=== PATIENT | male | born 1950 | race Caucasian/White ===

== ENCOUNTER 2017-03-20 12:51 | Emergency (ER) | payer OTHER ==
[~2017-03-20] VITALS: Ht 175.3 cm; Wt 108.7 kg
[~2017-03-20 12:51] MED LIST: ASPI81TA28 PO; CALC500C50 PO; CINA60TA PO; HYDR-5688 PO; LISI-461 PO; LPD600 PO; MULT-577 PO; MVC20 PO; NRV/10 PO; NVLGI7030 SC; OMEP20CA9 PO; SENN-65 PO
[2017-03-20 12:55] VITALS: TEMP 36.9; Ht 175.3 cm; Wt 108.7 kg
--- NOTE | 2017-03-20 13:30 | DIAGNOSTIC IMAGING REPORT ---
L HAND MIN 3 VIEWS ROUTINE CLINICAL HISTORY: L hand pain trauma COMPARISON: 10/09/2013 DISCUSSION: Moderate degenerative change. No evidence for acute bony pathology. Cortical margins are intact. Small old avulsion base middle phalanx third finger There is no evidence for soft tissue swelling. IMPRESSION: Moderate degenerative change. No acute bony abnormality. The above report was generated using voice recognition software. It may contain grammatical, syntax or spelling errors. Electronically signed by: Teo Mora M.D. 03/20/2017 1:28 PM Dictated Date/Time: 03/20/2017 1:27 PM
--- NOTE | 2017-03-20 13:51 | EMERGENCY ROOM VISIT NOTE ---
ED Visit Note First contact with patient: 12:59 Staff note: I have reviewed the Patients chart and have discussed this case with my PA. I generally agree with the ED note and findings.
[2017-03-20 13:54] VITALS: BP 150/75; PULSE 55; O2SAT 99
--- NOTE | 2017-03-20 17:20 | EMERGENCY ROOM VISIT NOTE ---
History First contact with patient: 12:59 Chief Complaint: HAND PAIN/INJURY Stated Complaint: FELL/LEFT HAND PAIN History of Present Illness The patient is a 67 year old male who presents to the Emergency Room with complaints of persistent left hand pain. The patient reports that he was walking his dog 4 days ago and fell while walking up a hill. The patient believes that when he lost his balance, he fell to his left and had his hand underneath his body. He does report hitting his head, but is had no developing headache, neck pain or other symptoms from his injuries. The patient is right- hand-dominant, and rates his discomfort a 9 out of 10. Review of Systems 10 system review was performed and was negative except for pertinent positives and negatives as indicated in history of present illness Past Medical/Surgical History Medical Problems: (1) Anemia (2) Benign hypertension (3) bowel obs with recent bowel peroration s/p colostomy (4) Complication of arteriovenous dialysis fistula (5) Cor pulmonale (6) Diabetes mellitus type 2 (7) End stage renal failure on dialysis (8) End-stage renal disease on hemodialysis (9) Obesity (10) OBESITY HYPOVENTILATION SYNDROME (11) Perforation of sigmoid colon due to diverticulitis (12) Pneumonia (13) Secondary hyperparathyroidism of renal origin (14) Tobacco user Surgical Problems: (1) History of cholecystectomy (2) History of eye surgery (3) S/P colostomy takedown Family History Cancer Diabetes mellitus Gallbladder disease Hypertension Social History Smoking Status: Never Smoker Alcohol Use: none Drug Use: none Marital Status: Housing Status: lives with family Occupation Status: retired Current/Historical Medications Scheduled Amlodipine Besylate (Amlodipine Besylate), 10 MG PO QAM Aspirin (Aspirin Ec), 81 MG PO QAM Calcium Carbonate (Antacid) (Tums), 1,500 MG PO TIDM Cinecalcet (Sensipar), 60 MG PO QPM Gemfibrozil (Gemfibrozil), 600 MG PO BID Insulin Aspart 70/30 (Novolog Mix 70/30), 1 DOSE SC QPM Lisinopril (Lisinopril), 10 MG PO QAM Lovastatin (Lovastatin), 20 MG PO QAM Multiple Vitamins W/ Minerals (Renal), 1 TAB PO BID Allergies Coded Allergies: NO KNOWN DRUG ALLERGIES (Verified Allergy, Unknown, NONE, 03/20/17) Sheep-derived Products (Verified Allergy, Unknown, wool socks make feet "break out", 03/20/17) Physical Exam Vital Signs Date Time Temp Pulse Resp B/P (MAP) Pulse Ox O2 Delivery O2 Flow Rate FiO2 03/20/17 13:54 55 18 150/75 99 03/20/17 12:55 36.9 66 18 164/80 100 Room Air Pain Rating (0-10): 5.0 Physical Exam CONSTITUTIONAL: Healthy and well nourished. Alert and oriented X 3 with positive affect. Patient does not appear in any acute distress. HEENT: Normocephalic, atraumatic. Pupils equal, round and reactive. NECK: Full active range of motion without discomfort. RESPIRATORY: Clear to auscultation bilaterally with no wheezing, crackles, rhonchi or stridor. CARDIOVASCULAR: Regular rate and rhythm with no murmurs, rubs or gallops. MUSCULOSKELETAL: Examination of the left hand does not show any obvious ecchymosis, abrasions or edema. He is mildly tender to palpation over the fifth metacarpal region. Flexion and extension of the fingers and wrist do not worsen his pain. Capillary refill is less than 2 seconds. INTEGUMENTARY: No rash or other significant dermatologic conditions noted. NEUROLOGIC: Left hand and fingers are sensory intact. Medical Decision & Procedures ER Provider Diagnostic Interpretation: My interpretation of left hand x-rays does not show any acute fractures or dislocations. Radiologist report is as follows: L HAND MIN 3 VIEWS ROUTINE CLINICAL HISTORY: L hand pain trauma COMPARISON: 10/09/2013 DISCUSSION: Moderate degenerative change. No evidence for acute bony pathology. Cortical margins are intact. Small old avulsion base middle phalanx third finger There is no evidence for soft tissue swelling. IMPRESSION: Moderate degenerative change. No acute bony abnormality. ED Course Patient history and physical exam were performed. Nurse's notes were reviewed. Vital signs were reviewed and were normal. The patient refused any analgesics. X-rays a left hand were normal. The patient was advised of his normal x-ray findings. He was encouraged to intermittently apply ice to the hand. Tylenol or ibuprofen if needed for additional pain relief. The patient was encouraged to follow-up with his PCP or orthopedics as needed for further management. The patient was happy with plan of care, voiced understanding of all discharge instructions, and rated his pain a 4 out of 10 at the conclusion of my exam. The patient was also seen and examined by Dr. Medel, ED attending physician, who agrees with workup and plan of care. Medical Decision Impression Primary Impression: Contusion of left hand Additional Impression: Fall from slip, trip, or stumble Departure Information Dispostion Home / Self-Care Condition GOOD Forms HOME CARE DOCUMENTATION FORM, IMPORTANT VISIT INFORMATION Patient Instructions My [facility] [employer] Additional Instructions Intermittently apply ice to hand as needed. Follow-up with your family doctor if hand pain is not improving within the next 5-7 days. Tylenol as needed for additional pain relief. Problem Qualifiers Primary Impression: Contusion of left hand Encounter type: initial encounter Qualified Codes: S60.222A - Contusion of left hand, initial encounter Additional Impression: Fall from slip, trip, or stumble Encounter type: initial encounter Qualified Codes: W01.0XXA - Fall on same level from slipping, tripping and stumbling without subsequent striking against object, initial encounter
== END 2017-03-20 14:04 | disposition home or self-care (01) ==
LOC: C.EDB 12:56 → C.EDD 14:04
DX: S60.222A Contusion of left hand, initial encounter (principal); M79.642 Pain in left hand; W19.XXXA Unspecified fall, initial encounter; I12.0 Hypertensive chronic kidney disease with stage 5 chronic kidney disease or end stage renal disease; N18.6 End stage renal disease; E11.22 Type 2 diabetes mellitus with diabetic chronic kidney disease; E66.9 Obesity, unspecified; Z68.28 Body mass index [BMI] 28.0-28.9, adult; Z99.2 Dependence on renal dialysis; Z79.4 Long term (current) use of insulin; Z79.82 Long term (current) use of aspirin; Z79.899 Other long term (current) drug therapy

== ENCOUNTER 2018-08-14 18:48 | Inpatient (IN) ==
[2018-08-14 19:18] LABS: Basophils # (auto) 0.02 K/uL (0-0.2); Basophils % (auto) 0.2 %; Eosinophils # (auto) 0.04 K/uL (0-0.5); Eosinophils % (auto) 0.4 %; Hematocrit (blood only) 35.1 % (42-52); Hemoglobin 12.2 g/dL (14.0-18.0); Immature Granulocytes # (auto) 0.02 K/uL (0.00-0.02); Immature Granulocytes % (auto) 0.2 %; Lymphocytes # (auto) 1.28 K/uL (1.2-3.4); Lymphocytes % (auto) 13.3 %; Mean Corpuscular Hgb Conc 34.8 g/dL (32-36); Mean Corpuscular Volume 96.7 fL (80-100); Mean Platelet Volume 9.8 fL (7.4-10.4); Monocytes # (auto) 0.79 K/uL (0.11-0.59); Monocytes % (auto) 8.2 %; Neutrophils # (auto) 7.45 K/uL (1.4-6.5); Neutrophils % (auto) 77.7 %; Platelet Count 257 K/uL (130-400); RDW Coefficient of Variation 13.3 % (11.5-14.5); RDW Standard Deviation 46.4 fL (36.4-46.3); Red Blood Count 3.63 M/uL (4.7-6.1)
[2018-08-14 19:35] LABS: INR 1.1 (0.9-1.1); Prothrombin Time 11.4 Seconds (9.0-12.0)
[2018-08-14] MEDS ORDERED: IOVERSOL 100ml IV PRN (19:43)
[2018-08-14 19:53] LABS: Albumin Globulin Ratio 0.9 (0.9-2); Albumin Level 3.6 gm/dl (3.4-5.0); BUN Creatinine Ratio 5.4 (10-20); Bilirubin,Total 0.4 mg/dl (0.2-1); Calcium 8.7 mg/dl (8.5-10.1); Creatinine Clr Calc Pharmacy 16.2 ml/min; Est GFR (African American) 11.5; Est GFR (Non-African American) 9.9; Globulin 4.2 gm/dl (2.5-4.0); Potassium 4.9 mmol/L (3.5-5.1); Total Protein 7.8 gm/dl (6.4-8.2); Troponin I 0.472 ng/ml (0-0.045)
--- NOTE | 2018-08-14 19:53 | CT Scan Report ---
CT head/brain wo con CLINICAL HISTORY: Head pain status post trauma COMPARISON STUDY: 12/13/2013 TECHNIQUE: Axial CT of the brain is performed from the vertex to the skull base. IV contrast was not administered for this examination. A dose lowering technique was utilized adhering to the principles of ALARA. CT DOSE: 4099.79 mGy.cm FINDINGS: No intra or extra-axial mass lesions are visualized. There is no CT evidence of acute cortical infarc tion. There is no evidence of midline shift. There is no acute hemorrhage. No calvarial fractures ar e visualized. There are patchy white matter hypodensities likely on a small vessel basis. 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 There is no evidence of acute sinusitis IMPRESSION: No acute intracranial findings Electronically signed by: Kelechi Moore M.D. 08/14/2018 7:51 PM
--- NOTE | 2018-08-14 19:54 | CT Scan Report ---
CT OF THE CERVICAL SPINE CLINICAL HISTORY: Neck pain status post trauma COMPARISON STUDY: No previous studies for comparison. CT DOSE: TECHNIQUE: CT scan of the cervical spine was performed from the skull base to the thoracic inlet. Anai ges are reviewed in the axial, sagittal, and coronal planes. IV contrast was not administered for thi s examination. A dose lowering technique was utilized adhering to the principles of ALARA. FINDINGS: The visualized portions of the lung apices reveal no evidence of pneumothorax. The prevertebral soft tissues are normal. No fractures or subluxations are visualized. There are multilevel degenerative changes IMPRESSION: No evidence of acute fracture or traumatic subluxation. Electronically signed by: Kelechi Moore M.D. 08/14/2018 7:53 PM
--- NOTE | 2018-08-14 20:03 | CT Scan Report ---
CT lumbar spine wo con CT DOSE: CLINICAL HISTORY: Lumbar spine pain status post trauma TECHNIQUE: Helical images were acquired in transverse plane. Reformatted sagittal and coronal images were reviewed. A dose lowering technique was utilized adhering to the principles of ALARA. CONTRAST: No contrast was administered COMPARISON STUDY: None. FINDINGS: L1-2 level: There is a minimal circumferential disc bulge. There is no significant spinal or foramina l stenosis L2-3 level: There is a minimal circumferential disc bulge. There is no significant spinal or foramina l stenosis L3-4 level: There is a mild circumferential disc bulge. There is mild trying or spinal canal narrowin g. There is no significant foraminal narrowing L4-5 level: There is a mild circumferential disc bulge. There is mild trying or spinal canal narrowin g. There is no significant foraminal narrowing L5-S1 level: There is a minimal circumferential disc bulge. There is no spinal or foraminal stenosis. No acute fractures or subluxations are visualized. There are degenerative changes with discogenic end plate erosive changes most pronounced at the T12-L1 level. IMPRESSION: No fractures or subluxations are visualized. Electronically signed by: Kelechi Moore M.D. 08/14/2018 8:02 PM
--- NOTE | 2018-08-14 20:11 | CT Scan Report ---
ADDENDUM Addendum: In addition, an acute nondisplaced fracture of the posterior right second rib is noted. Thi s is better depicted on the CT of the thoracic spine. A 1 cm anterior mediastinal nodule is low suspi cion. This may reflect a lymph node or anterior mediastinal lesion. A follow-up CT of the chest in 6 months to ensure stability is recommended. Electronically signed by: Rafi Hernandez M.D. 08/14/2018 8:[address] OF THE CHEST WITH IV CONTRAST CLINICAL HISTORY: Fall. COMPARISON STUDY: Chest radiograph January 27, 2016. TECHNIQUE: Following IV administration of 90 mL of Optiray-320, helical axial images of the chest we re obtained. Sagittal and coronal reconstructions were viewed as well as maximal intensity projectio ns on an independent 3-D workstation. Automated exposure control was utilized for the study. A dose lowering technique was utilized adhering to the principles of ALARA. FINDINGS: There is no evidence of traumatic injury to the thoracic aorta. The heart is moderately en larged. There is extensive coronary artery and mitral annular calcification. There is no mediastinal hematoma or pericardial effusion. A small hiatal hernia is noted. There is a 1 cm anterior mediastina l nodule on image 118 at 336. The thoracic spine CT will be reported separately. A few thyroid nodule s are incidentally noted. Note is made of an acute nondisplaced fracture of the posterior right first rib. There is an acute nondisplaced fracture of the anterior left eighth rib. There are multiple old bilateral rib fractures. There are extensive alveolar opacities within the right middle lobe and jennifer ateral lower lobes. There is no pneumothorax or pleural effusion. CT of the abdomen and pelvis will b e reported separately. IMPRESSION: 1. No evidence for traumatic injury to the thoracic aorta. 2. Acute nondisplaced fracture of the posterior right first rib. Acute nondisplaced fracture the ant erior left eighth rib. No pneumothorax or pleural effusion. 3. Extensive alveolar opacities within the bilateral lower lobe and right middle lobe which raises th e possibility of aspiration pneumonitis or pneumonia. 4. Moderate cardiomegaly. Extensive mitral annular and coronary artery calcification. Electronically signed by: Rafi Hernandez M.D. 08/14/2018 8:09 PM
--- NOTE | 2018-08-14 20:14 | CT Scan Report ---
CT abd pelvis IV con only CLINICAL HISTORY: Trauma. Change in mental status. ABDOMINAL PAIN COMPARISON STUDY: January 29, 2016 TECHNIQUE: The patient was scanned in a dynamic helical fashion during intravenous administration of 90 cc of Optiray 320. A dose lowering technique was utilized adhering to the principles of ALARA. CT DOSE: FINDINGS: Lower chest: There are multifocal airspace opacities within the right middle lobe and both lower lobe s. Likely diagnostic considerations include pneumonia or aspiration. No pleural effusions are visuali zed. There is no pneumothorax. Liver: There is mild hepatic steatosis. No focal masses are visualized. There is no evidence of acute hepatic injury. Gallbladder: Surgically absent Spleen: Normal in size and attenuation. Pancreas: Unremarkable. Adrenal glands: Unremarkable. Kidneys: Both kidneys are atrophic. There are multiple bilateral renal cysts. Some of the presumed cy sts are slightly hyperdense. There is no hydronephrosis. There are presumed vascular calcifications p resent in the renal sinus. Bowel: There are no transition zones indicate bowel obstruction. There is no evidence of acute divert iculitis. There are no extraluminal air collections. There is no pathologic interloop fluid. The appe ndix appears normal. There is a 5.3 colonic lipoma at the level of the hepatic flexure. There is colo harley diverticulosis. Peritoneum: There is no intraperitoneal free air or abdominal ascites. Vasculature: The abdominal aorta is normal in course and caliber. Adenopathy: None. Pelvic viscera: The bladder is contracted. Skeletal structures: No destructive osseous lesions are seen. IMPRESSION: 1. No evidence of acute intra-abdominal or pelvic injury 2. Bilateral pulmonary airspace opacities, likely secondary to pneumonia or aspiration 3. 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 08/14/2018 8:12 PM
--- NOTE | 2018-08-14 20:14 | CT Scan Report ---
CT OF THE THORACIC SPINE CLINICAL HISTORY: fall COMPARISON STUDY: No previous studies for comparison. TECHNIQUE: Axial images of the thoracic spine were obtained. Sagittal and coronal reconstructions wer e viewed. Study was performed utilizing automated exposure control for dose reduction and according t o ALARA principles. FINDINGS: Alignment of the thoracic spine is anatomic. Vertebral body heights are maintained. There i s no acute thoracic spine fracture or subluxation. Central canal and neural foramen are suboptimally assessed by CT. Note is made of an acute nondisplaced fracture of the posterior right first and secon d ribs. There is no right pneumothorax. Alveolar opacities within the bilateral lower lobes are tamar r depicted on the chest CT. IMPRESSION: 1. Acute nondisplaced fractures of the posterior right first and second ribs. 2. No acute thoracic spine fracture. 3. Alveolar opacities within the lungs which suggest aspiration pneumonitis or pneumonia. Electronically signed by: Rafi Hernandez M.D. 08/14/2018 8:12 PM
[2018-08-14] MEDS ORDERED: PIPERACILLIN/TAZOBACTAM 4.5 GM/120 ML BAG IV ONE (20:48)
[2018-08-14] MEDS ORDERED: PIPERACILL/TAZOBAC CONSULT ACTIVE PRN (20:48)
[2018-08-14] MEDS ORDERED: ASPIRIN CHEW 324 MG PO STA (21:56)
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
--- NOTE | 2018-08-14 23:59 | Emergency Department Note ---
Entered by Vani Barnes acting as a scribe for Gonzalez Medel DO History of Present Illness General Chief complaint: Fall Stated complaint: FALL DOWN 12 STEPS Source: patient and other (nursing staff) History of Present Illness Onset (ago): hour(s) 1 Location: neck Pain Consistency: + other (after falling down 12 carpeted steps) Quality: + other (fall down 12 carpeted steps) Associated symptoms: + other (Positive neck pain and head pain. Negative abdominal pain. 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 He went to the OR and was then discharged and fell down 12 [address]ed steps. Pt does not remember falling and does not know where he is. He has head pain and neck pain but denies any abdominal pain. No other exacerbating or remitting factors. Home Medications Home Medications Medication Instructions Recorded Confirmed Type B complex-vitamin C-folic acid 1 tab PO DAILY 08/14/18 08/14/18 History [Renal Vitamin] amlodipine 10 mg PO DAILY 08/14/18 08/14/18 History aspirin [Aspir-81] 81 mg PO DAILY 08/14/18 08/14/18 History calcium carbonate [Tums E-X] 4 tab PO TIDM 08/14/18 08/14/18 History cinacalcet [Sensipar] 30 mg PO BIDM 08/14/18 08/14/18 History gemfibrozil 600 mg PO BID 08/14/18 08/14/18 History insulin NPH and regular human 1 sliding scale dose SUBCUT UD 08/14/18 08/14/18 History [Novolin 70/30 U-100 Insulin] lisinopril 10 mg PO DAILY 08/14/18 08/14/18 History lovastatin 20 mg PO DAILY 08/14/18 08/14/18 History Allergies Allergy/AdvReac Type Severity Reaction Status Date / Time No Known Drug Allergies Allergy Unknown NONE Verified 08/14/18 21:36 sheep derived (ovine) Allergy Unknown wool socks Verified 03/20/17 13:28 make feet "break out" Past Med/Surg History Social History marital status: Current Living Situation: Family current occupational status: employed Feels Safe at Home: Yes Smoking Status: Current every day smoker Preferred Language: Maltese Review of Systems See HPI for pertinent positives & negatives. and A total of 10 systems reviewed and were otherwise negative Physical Exam Vital Signs Vital Signs - 24 hr 08/14/18 18:54 08/14/18 18:59 08/14/18 19:01 Temperature 36.7 C Temperature Source Oral Sepsis Recent Fever Within 48 Hours No Sepsis New/Unexplained Change in Mental Status No Sepsis Action Taken by Nursing No Action Required Pulse Rate 90 89 91 H Respiratory Rate 19 16 12 Blood Pressure 133/73 133/73 Blood Pressure Mean 93 93 Pulse Oximetry 96 96 99 Oxygen Delivery Method Room Air 08/14/18 19:48 08/14/18 20:00 08/14/18 20:30 Temperature Temperature Source Sepsis Recent Fever Within 48 Hours Sepsis New/Unexplained Change in Mental Status Sepsis Action Taken by Nursing Pulse Rate 104 H 82 79 Respiratory Rate 19 14 17 Blood Pressure 160/81 H 158/79 H Blood Pressure Mean 107 105 Pulse Oximetry 93 95 Oxygen Delivery Method 08/14/18 21:00 08/14/18 21:01 08/14/18 21:02 Temperature Temperature Source Sepsis Recent Fever Within 48 Hours Sepsis New/Unexplained Change in Mental Status Sepsis Action Taken by Nursing Pulse Rate Respiratory Rate 16 24 18 Blood Pressure 142/84 H Blood Pressure Mean 103 Pulse Oximetry 96 96 94 Oxygen Delivery Method 08/14/18 21:30 08/14/18 22:01 08/14/18 22:30 Temperature Temperature Source Sepsis Recent Fever Within 48 Hours Sepsis New/Unexplained Change in Mental Status Sepsis Action Taken by Nursing Pulse Rate 76 80 84 Respiratory Rate 15 21 32 H Blood Pressure 162/77 H 125/72 154/79 H Blood Pressure Mean 105 89 104 Pulse Oximetry 94 96 95 Oxygen Delivery Method 08/14/18 23:00 Temperature Temperature Source Sepsis Recent Fever Within 48 Hours Sepsis New/Unexplained Change in Mental Status Sepsis Action Taken by Nursing Pulse Rate 77 Respiratory Rate 13 Blood Pressure 157/79 H Blood Pressure Mean 105 Pulse Oximetry 94 Oxygen Delivery Method GENERAL: Sitting up in bed confused, C-collar in place. No acute distress. HEAD: normal cephalic, atraumatic. Small abrasion over the left ear EYE EXAM: normal conjunctiva, PERRL and EOM's grossly intact OROPHARYNX: no exudate, no erythema, lips, buccal mucosa, and tongue normal and mucous membranes are moist EARS: TMs clear b/l NECK: C-collar in place with midline paraspinal tenderness. CHEST: stable to compression anteriorly and posteriorly LUNGS: clear to auscultation. Normal chest wall mechanics HEART: no murmurs, S1 normal and S2 normal ABDOMEN: abdomen soft, non-tender, normo-active bowel sounds, no masses, no rebound or guarding. PELVIS: stable to compression anteriorly and posteriorly BACK: Back is symmetrical on inspection and there is no deformity, no midline tenderness, no CVA tenderness. UPPER EXTREMITIES: full active and passive range of motion of all joints without tenderness to palpation. LUE with fistula in place/dressing in place. Positive bruit. LOWER EXTREMITIES: full active and passive range of motion of all joints without tenderness to palpation NEURO EXAM: Awake but confused, cranial nerves II-XII grossly intact, normal speech, no gross weakness of arms, no gross weakness of legs. GCS: 14. Course ED COURSE: Vital signs were reviewed and showed hypertensive The patients medical record was reviewed The above diagnostic studies were performed and reviewed. ED treatments and interventions as stated above. 1851: The patient was evaluated in room B11. A complete history and physical examination was performed. 2054: I reviewed the patient's case with Dr. Marino, [facility] Hospitalist. He will evaluate the patient for further management. 2100: Upon reevaluation, the patient is feeling slightly better. I discussed my findings with the patient and he understands and agrees with the treatment plan. Based on the patients age, coexisting illnesses, exam and lab findings the decision to treat as an inpatient was made. The patient remained stable while under my care. The patient will be evaluated for further management. Consultations Consultation #1: I reviewed the patient's case with Dr. Marino, [facility] Hospitalist. He will evaluate the patient for further management. Time: 20:55 Administered Medications Ioversol (Optiray 320 100ml) 90 ml IV ONCE PRN PRN Reason: Interaction Checking Stop: 08/18/18 19:42 Last Admin: 08/14/18 19:43 Dose: 90 ml Discontinued Medications Aspirin (Aspirin) 324 mg PO NOW STA Stop: 08/14/18 21:57 Last Admin: 08/14/18 22:02 Dose: 324 mg Piperacillin Sod/Tazobactam Sod (Zosyn) 4.5 gm in 120 mls @ 240 mls/hr IV NOW ONE Stop: 08/14/18 21:17 Last Infusion: 08/14/18 21:29 Dose: 0 mls/hr Admin: 08/14/18 20:59 Dose: 240 mls/hr Medical Decision Making Differential Diagnosis Differential diagnoses include major intracranial, cervical, spinal, thoracic, abdominal, pelvic and neurologic injury. Fracture, contusion, sprain, strain, laceration, abrasions included as well. Medical Records Attestation: I reviewed the patient's medical records. Home Medications Current Medication List: was personally reviewed by me Laboratory Data Attestation: I reviewed the patient's lab results. Result diagrams: 08/14/18 19:05 08/14/18 19:05 Lab Results 08/14/18 08/14/18 08/14/18 Range/Units 19:05 19:05 19:05 WBC 9.60 (4.8-10.8) K/uL RBC 3.63 L (4.7-6.1) M/uL Hgb 12.2 L (14.0-18.0) g/dL Hct 35.1 L (42-52) % MCV 96.7 (80-100) fL MCH 33.6 (25-34) pg MCHC 34.8 (32-36) g/dL RDW Std Deviation 46.4 H (36.4-46.3) fL RDW Coeff of Mike 13.3 (11.5-14.5) % Plt Count 257 (130-400) K/uL MPV 9.8 (7.4-10.4) fL Immature Gran % (Auto) 0.2 % Neut % (Auto) 77.7 % Lymph % (Auto) 13.3 % [place] % (Auto) 8.2 % Eos % (Auto) 0.4 % Baso % (Auto) 0.2 % Immature Gran # (Auto) 0.02 (0.00-0.02) K/uL Neut # (Auto) 7.45 H (1.4-6.5) K/uL Lymph # (Auto) 1.28 (1.2-3.4) K/uL [place] # (Auto) 0.79 H (0.11-0.59) K/uL Eos # (Auto) 0.04 (0-0.5) K/uL Baso # (Auto) 0.02 (0-0.2) K/uL PT 11.4 (9.0-12.0) Seconds INR 1.1 (0.9-1.1) Sodium 133 L (136-145) mmol/L Potassium 4.9 (3.5-5.1) mmol/L Chloride 93 L (98-107) mmol/L Carbon Dioxide 29 (21-32) mmol/L Anion Gap 10.0 (3-11) BUN 29 H (7-18) mg/dl Creatinine 5.52 H* (0.6-1.4) mg/dl Est Cr Clr Drug Dosing 16.2 ml/min Est GFR ( Amer) 11.5 Est GFR (Non-Af Amer) 9.9 BUN/Creatinine Ratio 5.4 L (10-20) Glucose 285 H (70-99) mg/dl Calcium 8.7 (8.5-10.1) mg/dl Total Bilirubin 0.4 (0.2-1) mg/dl AST 15 (15-37) U/L ALT 14 (12-78) U/L Alkaline Phosphatase 100 (45-117) U/L Troponin I 0.472 H* (0-0.045) ng/ml Total Protein 7.8 (6.4-8.2) gm/dl Albumin 3.6 (3.4-5.0) gm/dl Globulin 4.2 H (2.5-4.0) gm/dl Albumin/Globulin Ratio 0.9 (0.9-2) Ethyl Alcohol mg/dL (0-3) mg/dl Blood Type Antibody Screen 08/14/18 08/14/18 Range/Units 19:15 19:49 WBC (4.8-10.8) K/uL RBC (4.7-6.1) M/uL Hgb (14.0-18.0) g/dL Hct (42-52) % MCV (80-100) fL MCH (25-34) pg MCHC (32-36) g/dL RDW Std Deviation (36.4-46.3) fL RDW Coeff of Mike (11.5-14.5) % Plt Count (130-400) K/uL MPV (7.4-10.4) fL Immature Gran % (Auto) % Neut % (Auto) % Lymph % (Auto) % [place] % (Auto) % Eos % (Auto) % Baso % (Auto) % Immature Gran # (Auto) (0.00-0.02) K/uL Neut # (Auto) (1.4-6.5) K/uL Lymph # (Auto) (1.2-3.4) K/uL [place] # (Auto) (0.11-0.59) K/uL Eos # (Auto) (0-0.5) K/uL Baso # (Auto) (0-0.2) K/uL PT (9.0-12.0) Seconds INR (0.9-1.1) Sodium (136-145) mmol/L Potassium (3.5-5.1) mmol/L Chloride (98-107) mmol/L Carbon Dioxide (21-32) mmol/L Anion Gap (3-11) BUN (7-18) mg/dl Creatinine (0.6-1.4) mg/dl Est Cr Clr Drug Dosing ml/min Est GFR ( Amer) Est GFR (Non-Af Amer) BUN/Creatinine Ratio (10-20) Glucose (70-99) mg/dl Calcium (8.5-10.1) mg/dl Total Bilirubin (0.2-1) mg/dl AST (15-37) U/L ALT (12-78) U/L Alkaline Phosphatase (45-117) U/L Troponin I (0-0.045) ng/ml Total Protein (6.4-8.2) gm/dl Albumin (3.4-5.0) gm/dl Globulin (2.5-4.0) gm/dl Albumin/Globulin Ratio (0.9-2) Ethyl Alcohol mg/dL < 3.0 (0-3) mg/dl Blood Type A Positive Antibody Screen NEGATIVE Imaging Data Radiologist's Impression: Radiology results as stated below per my review and the radiologist's interpretation: CT abd pelvis IV con only CLINICAL HISTORY: Trauma. Change in mental status. ABDOMINAL PAIN COMPARISON STUDY: January 29, 2016 TECHNIQUE: The patient was scanned in a dynamic helical fashion during intravenous administration of 90 cc of Optiray 320. A dose lowering technique was utilized adhering to the principles of ALARA. CT DOSE: FINDINGS: Lower chest: There are multifocal airspace opacities within the right middle lobe and both lower lobes. Likely diagnostic considerations include pneumonia or aspiration. No pleural effusions are visualized. There is no pneumothorax. Liver: There is mild hepatic steatosis. No focal masses are visualized. There is no evidence of acute hepatic injury. Gallbladder: Surgically absent Spleen: Normal in size and attenuation. Pancreas: Unremarkable. Adrenal glands: Unremarkable. Kidneys: Both kidneys are atrophic. There are multiple bilateral renal cysts. Some of the presumed cysts are slightly hyperdense. There is no hydronephrosis. There are presumed vascular calcifications present in the renal sinus. Bowel: There are no transition zones indicate bowel obstruction. There is no evidence of acute diverticulitis. There are no extraluminal air collections. There is no pathologic interloop fluid. The appendix appears normal. There is a 5.3 colonic lipoma at the level of the hepatic flexure. There is colonic diverticulosis. Peritoneum: There is no intraperitoneal free air or abdominal ascites. Vasculature: The abdominal aorta is normal in course and caliber. Adenopathy: None. Pelvic viscera: The bladder is contracted. Skeletal structures: No destructive osseous lesions are seen. IMPRESSION: 1. No evidence of acute intra-abdominal or pelvic injury 2. Bilateral pulmonary airspace opacities, likely secondary to pneumonia or aspiration 3. 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 08/14/2018 8:[address] OF THE CERVICAL SPINE CLINICAL HISTORY: Neck pain status post trauma COMPARISON STUDY: No previous studies for comparison. CT DOSE: TECHNIQUE: CT scan of the cervical spine was performed from the skull base to the thoracic inlet. Images are reviewed in the axial, sagittal, and coronal planes. IV contrast was not administered for this examination. A dose lowering technique was utilized adhering to the principles of ALARA. FINDINGS: The visualized portions of the lung apices reveal no evidence of pneumothorax. The prevertebral soft tissues are normal. No fractures or subluxations are visualized. There are multilevel degenerative changes IMPRESSION: No evidence of acute fracture or traumatic subluxation. Electronically signed by: Kelechi Moore M.D. 08/14/2018 7:[address] OF THE CHEST WITH IV CONTRAST CLINICAL HISTORY: Fall. COMPARISON STUDY: Chest radiograph January 27, 2016. TECHNIQUE: Following IV administration of 90 mL of Optiray-320, helical axial images of the chest were obtained. Sagittal and coronal reconstructions were viewed as well as maximal intensity projections on an independent 3-D workstation. Automated exposure control was utilized for the study. A dose lowering technique was utilized adhering to the principles of ALARA. FINDINGS: There is no evidence of traumatic injury to the thoracic aorta. The heart is moderately enlarged. There is extensive coronary artery and mitral annular calcification. There is no mediastinal hematoma or pericardial effusion. A small hiatal hernia is noted. There is a 1 cm anterior mediastinal nodule on image 118 at 336. The thoracic spine CT will be reported separately. A few thyroid nodules are incidentally noted. Note is made of an acute nondisplaced fracture of the posterior right first rib. There is an acute nondisplaced fracture of the anterior left eighth rib. There are multiple old bilateral rib fractures. There are extensive alveolar opacities within the right middle lobe and bilateral lower lobes. There is no pneumothorax or pleural effusion. CT of the abdomen and pelvis will be reported separately. IMPRESSION: 1. No evidence for traumatic injury to the thoracic aorta. 2. Acute nondisplaced fracture of the posterior right first rib. Acute nondisplaced fracture the anterior left eighth rib. No pneumothorax or pleural effusion. 3. Extensive alveolar opacities within the bilateral lower lobe and right middle lobe which raises the possibility of aspiration pneumonitis or pneumonia. 4. Moderate cardiomegaly. Extensive mitral annular and coronary artery calcification. Electronically signed by: Rafi Hernandez M.D. 08/14/2018 8:09 PM ADDENDUM Addendum: In addition, an acute nondisplaced fracture of the posterior right second rib is noted. This is better depicted on the CT of the thoracic spine. A 1 cm anterior mediastinal nodule is low suspicion. This may reflect a lymph node or anterior mediastinal lesion. A follow-up CT of the chest in 6 months to ensure stability is recommended. Electronically signed by: Rafi Hernandez M.D. 08/14/2018 8:[address] head/brain wo con CLINICAL HISTORY: Head pain status post trauma COMPARISON STUDY: 12/13/2013 TECHNIQUE: Axial CT of the brain is performed from the vertex to the skull base. IV contrast was not administered for this examination. A dose lowering technique was utilized adhering to the principles of ALARA. CT DOSE: 4099.79 mGy.cm FINDINGS: No intra or extra-axial mass lesions are visualized. There is no CT evidence of acute cortical infarction. There is no evidence of midline shift. There is no acute hemorrhage. No calvarial fractures are visualized. There are patchy white matter hypodensities likely on a small vessel basis. 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 There is no evidence of acute sinusitis IMPRESSION: No acute intracranial findings Electronically signed by: Kelechi Moore M.D. 08/14/2018 7:[address] lumbar spine wo con CT DOSE: CLINICAL HISTORY: Lumbar spine pain status post trauma TECHNIQUE: Helical images were acquired in transverse plane. Reformatted sagittal and coronal images were reviewed. A dose lowering technique was utilized adhering to the principles of ALARA. CONTRAST: No contrast was administered COMPARISON STUDY: None. FINDINGS: L1-2 level: There is a minimal circumferential disc bulge. There is no significant spinal or foraminal stenosis L2-3 level: There is a minimal circumferential disc bulge. There is no significant spinal or foraminal stenosis L3-4 level: There is a mild circumferential disc bulge. There is mild trying or spinal canal narrowing. There is no significant foraminal narrowing L4-5 level: There is a mild circumferential disc bulge. There is mild trying or spinal canal narrowing. There is no significant foraminal narrowing L5-S1 level: There is a minimal circumferential disc bulge. There is no spinal or foraminal stenosis. No acute fractures or subluxations are visualized. There are degenerative changes with discogenic endplate erosive changes most pronounced at the T12-L1 level. IMPRESSION: No fractures or subluxations are visualized. Electronically signed by: Kelechi Moore M.D. 08/14/2018 8:[address] OF THE THORACIC SPINE CLINICAL HISTORY: fall COMPARISON STUDY: No previous studies for comparison. TECHNIQUE: Axial images of the thoracic spine were obtained. Sagittal and coronal reconstructions were viewed. Study was performed utilizing automated exposure control for dose reduction and according to ALARA principles. FINDINGS: Alignment of the thoracic spine is anatomic. Vertebral body heights are maintained. There is no acute thoracic spine fracture or subluxation. Central canal and neural foramen are suboptimally assessed by CT. Note is made of an acute nondisplaced fracture of the posterior right first and second ribs. There is no right pneumothorax. Alveolar opacities within the bilateral lower lobes are better depicted on the chest CT. IMPRESSION: 1. Acute nondisplaced fractures of the posterior right first and second ribs. 2. No acute thoracic spine fracture. 3. Alveolar opacities within the lungs which suggest aspiration pneumonitis or pneumonia. Electronically signed by: Rafi Hernandez M.D. 08/14/2018 8:12 PM ECG Data Attestation: I personally reviewed and interpreted this ECG as follows: Indication: other (fall) Rate (beats per minute): 84 Rhythm: sinus rhythm Findings: + other (normal axis, low voltage, poor baseline in the septal, inferior, and lateral) Blood Pressure Blood Pressure Findings: Elevated blood pressure Blood Pressure Disposition: further management by hospitalist Head Trauma GCS Score: 13 MDM Narrative Patient is a 68-year-old male who presents the ER following falling down a flight of 12 steps. Patient does not remember any of these events. Patient was here earlier today for a bleeding fistula and went to the OR. Upon initial evaluation IV was established patient was taken directly to CT. CAT scan of the head, cervical spine, chest abdomen pelvis thoracic and lumbar spine confirm right posterior ribs 1 and 2 fracture along with rib 8 fracture. He also has a pneumonitis. Patient was given IV antibiotics. Discussed with the hospitalist in regards to observation and they were agreeable patient was updated bedside admitted to the hospitalist for rib fractures in combination with aspiration. Prior to admission patient was completely back to his baseline. He was not hypoxic. Did not perform CT of the chest as the rib fractures were posterior and nondisplaced. Impression & Plan Fracture of rib, Syncope, Pneumonitis, Elevated troponin Discharge Plan Visit Data Chief Complaint: Fall Stated Complaint: FALL DOWN 12 STEPS ED Provider: Gonzalez Medel Discharge Problem: Fracture of rib, Syncope, Pneumonitis, Elevated troponin Patient Disposition: Being Evaluated by Hospitalist Discharge Instructions Interventions: ED Discharge Assessment Last Done: 08/14/18 23:29 Forms Stand Alone Forms: My [employer] Prescriptions Prescriptions: No Action amlodipine 10 mg Tablet 10 mg PO DAILY RF: 0 aspirin [Aspir-81] 81 mg Tablet,Delayed Release (Dr/Ec) 81 mg PO DAILY RF: 0 calcium carbonate [Tums E-X] 300 mg (750 mg) tablet,chewable 4 tab PO TIDM RF: 0 gemfibrozil 600 mg Tablet 600 mg PO BID RF: 0 lisinopril 10 mg Tablet 10 mg PO DAILY RF: 0 lovastatin 20 mg Tablet 20 mg PO DAILY RF: 0 insulin NPH and regular human [Novolin 70/30 U-100 Insulin] 100 unit/mL (70-30 ) Suspension 1 sliding scale dose SUBCUT UD RF: 0 cinacalcet [Sensipar] 30 mg Tablet 30 mg PO BIDM RF: 0 B complex-vitamin C-folic acid [Renal Vitamin] 0.8 mg Tablet 1 tab PO DAILY RF: 0 Referrals Referrals: Дмитрий Carrasco MD [Primary Care Provider] - The scribe's documentation has been prepared under my direction and personally reviewed by me in its entirety. I confirm that the note above accurately reflects all work, treatment, procedures, and medical decision making performed by me.
[2018-08-15] MEDS ORDERED: MAGNESIUM HYDROXIDE SUSP 30 ML UDC PO PRN (00:02)
[2018-08-15] MEDS ORDERED: GLUCOSE 10 TABS/TUBE PO PRN (00:02)
[2018-08-15] MEDS ORDERED: GLUCAGON FOR INJ 1 MG VIAL SQ PRN (00:02)
[2018-08-15] MEDS ORDERED: DEXTROSE 50% 50 ML SYRINGE IV PRN (00:02)
[2018-08-15] MEDS ORDERED: POLYETHYLENE (MIRALAX) 17 GM PACK PO PRN (00:02)
[2018-08-15] MEDS ORDERED: ALUMINUM/MAGNESIUM SUSP 30 ML UDC PO PRN (00:02)
[2018-08-15] MEDS ORDERED: CARBOHYDRATES FOR HYPOGLYCEMIA PO PRN (00:02)
[2018-08-15] MEDS ORDERED: DC ALL PREVIOUSLY ORDERED DIABETES MEDS ONE (00:02)
[2018-08-15] MEDS ORDERED: VANCOMYCIN CONSULT ACTIVE PRN ×2 (00:02)
[2018-08-15] MEDS ORDERED: ACETAMINOPHEN 325 MG TAB PO PRN (00:02)
[2018-08-15] MEDS ORDERED: INSULIN GLARGINE SOLOSTAR 100 UNITS/ML 3 ML PEN SC SCH ×2 (00:02→09:00)
[2018-08-15] MEDS ORDERED: GLUCOSE 40% GEL 15 GM TUBE PO PRN (00:02)
[2018-08-15] MEDS ORDERED: PIPERACILL/TAZOBAC CONSULT ACTIVE PRN (00:02)
[2018-08-15] MEDS ORDERED: ONDANSETRON INJ 2 MG/ML 2 ML VIAL IV PRN (00:02)
[2018-08-15] MEDS ORDERED: VANCOMYCIN HCL 1,750 MG in SODIUM CHLORIDE 0.9% 500 ML IV SCH (01:00)
[2018-08-15] MEDS ORDERED: HYDROmorphone INJ 1 MG/ML SYRINGE IV STA (02:24)
[2018-08-15] MEDS ORDERED: LIDOCAINE 5% 1 PATCH TD SCH (02:25)
[2018-08-15] MEDS ORDERED: PIPERACILLIN/TAZOBACTAM 4.5 GM in DEXTROSE 5% 100 ML IV SCH (04:00)
[2018-08-15] MEDS ORDERED: PIPERACILLIN/TAZOBACTAM 3.375 GM in DEXTROSE 5% 100 ML IV SCH (06:00)
[2018-08-15 06:05] LABS: Basophils # (auto) 0.02 K/uL (0-0.2); Basophils % (auto) 0.3 %; Eosinophils # (auto) 0.04 K/uL (0-0.5); Eosinophils % (auto) 0.5 %; Hematocrit (blood only) 31.5 % (42-52); Hemoglobin 10.8 g/dL (14.0-18.0); Immature Granulocytes # (auto) 0.03 K/uL (0.00-0.02); Immature Granulocytes % (auto) 0.4 %; Lymphocytes % (auto) 18.9 %; Mean Corpuscular Hgb Conc 34.3 g/dL (32-36); Mean Corpuscular Volume 97.8 fL (80-100); Mean Platelet Volume 9.7 fL (7.4-10.4); Monocytes # (auto) 0.74 K/uL (0.11-0.59); Neutrophils # (auto) 5.16 K/uL (1.4-6.5); Neutrophils % (auto) 69.9 %; Platelet Count 238 K/uL (130-400); RDW Coefficient of Variation 13.5 % (11.5-14.5); RDW Standard Deviation 48.5 fL (36.4-46.3); Red Blood Count 3.22 M/uL (4.7-6.1); White Blood Count 7.39 K/uL (4.8-10.8)
[2018-08-15 06:53] LABS: BUN Creatinine Ratio 5.5 (10-20); Calcium 8.2 mg/dl (8.5-10.1); Est GFR (African American) 9.1; Est GFR (Non-African American) 7.9; Troponin I 0.885 ng/ml (0-0.045)
[2018-08-15 06:54] LABS: Estimated Average Glucose 258 mg/dl; Hemoglobin A1C 10.6 % (4.5-5.6)
[2018-08-15] MEDS: SENSIPAR~ORDER AWAITING ACTION SCH ×2 (07:02→15:49)
[2018-08-15] MEDS: INSULIN ASPART 100 UNITS/ML 3 ML PEN SC SCH ×3 (08:24→17:55)
[2018-08-15] MEDS ORDERED: CALCIUM CARBONATE 500 MG CHEWABLE TAB PO PRN (08:36)
[2018-08-15] MEDS ORDERED: VANCOMYCIN HCL 500 MG in SODIUM CHLORIDE 0.9% 250 ML IV SCH (09:00)
[2018-08-15] MEDS ORDERED: LISINOPRIL 10 MG TAB PO SCH (09:00)
[2018-08-15] MEDS ORDERED: LOVASTATIN 20 MG TAB PO SCH (09:00)
[2018-08-15] MEDS ORDERED: GEMFIBROZIL 600 MG TAB PO SCH (09:00)
[2018-08-15] MEDS ORDERED: AMLODIPINE BESYLATE 5 MG TAB PO SCH (09:00)
[2018-08-15] MEDS ORDERED: ASPIRIN 81 MG ECTAB PO SCH (09:00)
[2018-08-15] MEDS ORDERED: HEPARIN SOD 5,000 UNIT/0.5 ML VIAL SQ SCH (09:00)
--- NOTE | 2018-08-15 11:15 | Nephrology Consultation ---
Date of Consultation August 15, 2018 Assessment & Plan (1) End-stage renal disease on hemodialysis: -- Patient is clinically euvolemic. Electrolyte balance is acceptable. No acute indication for HD today -- Will schedule next HD for am in case patient remains hospitalized -- If discharge is anticipated please have patient resume his MWF HD schedule at [facility] (2) Hemorrhage of arteriovenous fistula: -- Surgical notes reviewed. Venorraphy performed. -- AVF w/ thrill and bruit this am. No active bleeding (3) Aspiration pneumonia: -- On IV Zosyn. Consider conversion to oral Augmentin or Clindamycin therapy (4) Fracture of rib: History of Present Illness Reason for Consultation: ESRD requiring HD Attending Physician: Shmuel Sheppard History of Present Illness Mr. Prabhakar is a 68 year old white male who is seen at the request of Dr. Sheppard to provide inpatient HD and assist w/ medical management. Medical records in the EMR were reviewed this am and are summarized as follows: Mr. Prabhakar has ESRD due to DM and HTN. He has been on IHD at [facility] HD unit since (MWF 4hr 2K 2Ca F-180NR Qb 450 EDW 103kg). Mr. 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 Mr. Prabhakar was dialyzed yesterday. Following dialysis he suffered prolonged bleeding from his AVF. He was evaluated in the ED and then taken to surgery. 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 Mr. Prabhakar was discharged to home. Later that evening he suffered a fall and fractured several ribs. He was readmitted to the hospital for ongoing monitoring and medical management. This morning Mr. Prabhakar is A&O x3. He complains of mild L thoracic discomfort upon deep inspiration but voices no other concerns. Allergies Allergy/AdvReac Type Severity Reaction Status Date / Time No Known Drug Allergies Allergy Unknown NONE Verified 08/14/18 21:36 sheep derived (ovine) Allergy Unknown wool socks Verified 03/20/17 13:28 make feet "break out" Home Medications Home Medications Medication Instructions Recorded Confirmed Type B complex-vitamin C-folic acid 1 tab PO DAILY 08/14/18 08/14/18 History [Renal Vitamin] amlodipine 10 mg PO DAILY 08/14/18 08/14/18 History aspirin [Aspir-81] 81 mg PO DAILY 08/14/18 08/14/18 History calcium carbonate [Tums E-X] 4 tab PO TIDM 08/14/18 08/14/18 History cinacalcet [Sensipar] 30 mg PO BIDM 08/14/18 08/14/18 History gemfibrozil 600 mg PO BID 08/14/18 08/14/18 History insulin NPH and regular human 1 sliding scale dose SUBCUT UD 08/14/18 08/14/18 History [Novolin 70/30 U-100 Insulin] lisinopril 10 mg PO DAILY 08/14/18 08/14/18 History lovastatin 20 mg PO DAILY 08/14/18 08/14/18 History Patient History Medical History Diabetes HTN (hypertension) History of renal dialysis Hx of bronchitis Kidney disease Surgical History History of colostomy History of colostomy reversal Hx of cholecystectomy Social History marital status: Current Living Situation: Spouse current occupational status: employed Feels Safe at Home: Yes Safety Concerns: Feels Safe At This Time Smoking Status: Former smoker Hx Alcohol Use: No Hx Substance Use: No Preferred Language: Micronesian Communication Ability: Effective Market Risk Analyst Required: No Review of Systems Constitutional: no fever Eyes: no diplopia Ear, Nose, Mouth, Throat: no sore throat Respiratory: no dyspnea Cardiovascular: no chest pain and no dyspnea at rest Gastrointestinal: no abdominal pain Genitourinary (Male): no dysuria Physical Exam 2 Vital Signs (Past 24 Hours): Last Vital Signs Temp 36.9 C 08/15/18 07:22 Pulse 68 08/15/18 07:22 Resp 20 08/15/18 07:22 BP 171/74 H 08/15/18 07:22 Pulse Ox 96 08/15/18 07:22 Constitutional: WD/WN, vitals as above Eyes: PERRL, conjunctivae normal, anicteric sclerae Neck: trachea midline, no thyromegaly Respiratory: normal respiratory effort, lungs clear to auscultation Cardiovascular: RRR, no murmur, no edema Gastrointestinal (Abdomen): normal bowel sounds, soft, nontender, no hepatosplenomegaly Results & Data Laboratory Results Laboratory Tests 08/15/18 08/15/18 05:44 05:44 WBC 7.39 Hgb 10.8 L Hct 31.5 L Plt Count 238 Sodium 133 L Potassium 5.0 Chloride 96 L Carbon Dioxide 31 BUN 37 H Creatinine 6.66 H* D Glucose [address]: 1. No evidence of acute intra-abdominal or pelvic injury 2. Bilateral pulmonary airspace opacities, likely secondary to pneumonia or aspiration 3. 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 No evidence for traumatic injury to the thoracic aorta. 2. Acute nondisplaced fracture of the posterior right first rib. Acute nondisplaced fracture the anterior left eighth rib. No pneumothorax or pleural effusion. 3. Extensive alveolar opacities within the bilateral lower lobe and right middle lobe which raises the possibility of aspiration pneumonitis or pneumonia. 4. Moderate cardiomegaly. Extensive mitral annular and coronary artery calcification. Cervical spine CT: IMPRESSION: No evidence of acute fracture or traumatic subluxation. Head CT: IMPRESSION: No acute intracranial findings _ (1) Hemorrhage of arteriovenous fistula Encounter type: initial encounter Qualified Code(s): T82.838A - Hemorrhage due to vascular prosthetic devices, implants and grafts, initial encounter (2) Fracture of rib Encounter type: initial encounter Fracture healing: Fracture type: closed Laterality: right Rib fracture type: multiple ribs Qualified Code(s): S22.41XA - Multiple fractures of ribs, right side, initial encounter for closed fracture
[2018-08-15] MEDS: CALCIUM CARBONATE 500 MG CHEWABLE TAB PO SCH ×2 (12:01→17:59)
--- NOTE | 2018-08-15 14:13 | Pharmacy Report ---
Pharmacy Abx Initial Consult - Date of Service August 15, 2018 - Pharmacy Dosing Scope Date of Consult: 08/15/18 Consultation requested by: Dr. Rose Pharmacy is consulted to initiate vancomycin and Zosyn IV dosing therapy, order appropriate labs and adjust drug dose/frequency. - Subjective The patient is a 68 year old M admitted on 08/14/18 22:52 with possible aspiration pneumonia after a fall. - Objective Height: 5 ft 9 in Weight: 104.6 kg Vital Signs (Past 12hrs): Vital Signs Temp Pulse Resp BP Pulse Ox 08/15/18 07:22 36.9 C 68 20 171/74 H 96 Lab Results (24hrs): Laboratory Tests (24 Hours) 08/15/18 08/15/18 08/15/18 10:57 05:44 05:44 WBC 7.39 Neut # (Auto) 5.16 Creatinine 6.66 H* D Est Cr Clr Drug Dosing 13.0 Random Vancomycin 21.6 08/14/18 08/14/18 19:05 19:05 WBC 9.60 Neut # (Auto) 7.45 H Creatinine 5.52 H* Est Cr Clr Drug Dosing 16.2 Random Vancomycin - Risk Factors for Resistance * chronic dialysis - Assessment & Plan Assessment 68 year old M admitted after a fall which fractured three ribs. Concern for aspiration pneumonia. Plan vancomycin/Zosyn for treatment of aspiration pneumonia Vancomycin IV * Estimated PK Parameters: N/A patient dialysis * Loading dose: 1750 mg (16 mg/kg) --> random 9 hours after dose (2 hours for infusion and 4 hours for drug distribution) shows level of 21.6 mcg/mL. * Goal trough level for aspiration pneumonia : 15 to 20 mcg/mL * Random level ordered for 08/16/18 prior to dialysis Piperacillin/tazobactam * 4.5 g bolus administered over 30 minutes, then 3.375 g IV extended infusion every 12 hours for CrCl 20 mL/min or less and dialysis. Pharmacy will continue to follow and will adjust dose/frequency as necessary. Thank you.
[2018-08-15] MEDS ORDERED: AMOXICILLIN/CLAVULANATE 500 MG TAB PO SCH (17:00)
[2018-08-16] MEDS ORDERED: SODIUM CHLORIDE 0.9% 1000ML 1,000 ML IV PRN (06:00)
[2018-08-16] MEDS ORDERED: AMOXICILLIN/CLAVULANATE 500 MG TAB PO SCH (09:00)
--- NOTE | 2018-08-21 22:56 | Discharge Summary ---
Date of Service date of admission - August 14, 2018 date of discharge - August 15, 2018 Admission HPI Per Admitting Provider Patient is a 68yo male with PMH significant for ESRD on HD and uncontrolled T2DM who presents after a fall. Notably, he was seen here earlier today for a bleeding left arm AV fistula after dialysis. Dr. Beasley revised the AVF and pt was discharged home. About an hour after discharge, his son heard him cry out and his ran from the other room to find he had fallen down the stairs. states that she thinks he was looking in the hallway closet at the top of the stairs, and may have stepped back too far, falling down the stairs. He was found with his eyes open but the states he was not responding appropriately to orientation questions. Patient does not recall these events but is completely lucid at this time; he declines lightheadedness, chest pain, numbness or tingling, dyspnea, etc prior to the event. Both he and his believe he may still have been groggy from the anesthesia earlier today. In the ER, it was found that he had 3 rib fractures. He was also found to have an elevated troponin without any EKG changes or symptoms and was given 324 of ASA in the ED. He was also found to have a likely aspiration pneumonia, with infiltrates in bilateral lower lobes and the right middle lobe. Principal Diagnosis fall with resulting rib fractures Discharge Exam Constitutional well developed, well nourished and + obese; no acute distress ENMT external ear and nose normal, oropharynx normal Respiratory normal respiratory effort, lungs clear to auscultation Cardiovascular RRR, no murmur, no edema Heart Sounds: normal S1 and normal S2 Vessels: no JVD Chest (Breasts) Additional Comments: no tenderness to palpation over any rib Gastrointestinal (Abdomen) normal bowel sounds, soft, nontender, no hepatosplenomegaly Skin Av fistula, left upper arm Psychiatric A+Ox3, euthymic affect Discharge Data Allergies Allergy/AdvReac Type Severity Reaction Status Date / Time No Known Drug Allergies Allergy Unknown NONE Verified 08/14/18 21:36 sheep derived (ovine) Allergy Unknown wool socks Verified 03/20/17 13:28 make feet "break out" Consultations nephrology PT, OT Ordered Studies 1. CT abd/pelvis - IMPRESSION: 1. No evidence of acute intra-abdominal or pelvic injury 2. Bilateral pulmonary airspace opacities, likely secondary to pneumonia or aspiration 3. 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 CT chest - IMPRESSION: 1. No evidence for traumatic injury to the thoracic aorta. 2. Acute nondisplaced fracture of the posterior right first rib and right second rib. Acute nondisplaced fracture of the anterior left eighth rib. No pneumothorax or pleural effusion. 3. Extensive alveolar opacities within the bilateral lower lobe and right middle lobe which raises the possibility of aspiration pneumonitis or pneumonia. 4. Moderate cardiomegaly. Extensive mitral annular and coronary artery calcification. 5. A 1cm anterior mediastinal nodule is low suspicion. This may reflect a lymph nodes or anterior mediastinal lesion. A follow-up CT of the chest in 6 months to ensure stability is recommended. 3. CT head - old right frontal lobe infarct; no acute process or acute hemorrhage. 4. CT cervical spine - negative for fractures. 5. CT thoracic and lumbar spines - negative for fractures. Hospital Course (1) Fall from slip, trip, or stumble: Patient without prodromal dizziness, chest pain, dyspnea, palpitations, etc. Fall was accidental. (2) Fracture of rib: 3 rib fractures --- first, second ribs on right; eighth rib on left. Amazingly the patient had no pain from these fractures during his stay. (3) Elevated troponin: Peak troponin was 0.8. He never had ischemic symptoms while hospitalized. EKG did not demonstrate ischemic changes either. He has multiple CAD risk factors and I advised him to stay another night to undergo stress testing. However, the patient adamantly refused a stress test, stating he wished to go home and have it done as an outpatient. He will continue on aspirin, statin, gemfibrozil, and XU inhibitor. Outpatient stress test will be obtained [facility] after discharge. (4) Hemorrhage of arteriovenous fistula: s/p intervention by Dr. Kvng Beasley on the morning of admission. He had no issues with his fistula while here. Discharge hemoglobin was 10.8. (5) End-stage renal disease on hemodialysis: The patient will resume his normal hemodialysis schedule of Tuesday, Tuesday, and Tuesday post-discharge. (6) Diabetes mellitus: Uncontrolled. He was counseled to increase his 70/30 insulin to 15 units every morning and 10 units with the evening meal. Hemoglobin a1c was 10.6%. (7) Aspiration pneumonia: Surprisingly the patient had no symptoms from such. Appetite was good, he was afebrile, and he had no cough or congestion. [id number] he will complete a course of augmentin after discharge. (8) Mediastinal mass: A small nodule was seen incidentally on imaging. Repeat CT of the chest in 6 months was advised by radiology. I strongly recommended staying another night in the hospital in order to obtain a stress test in light of his positive troponin and CAD risk factors. Since the patient refused the stress test I counseled the patient that he was leaving "AMA" (against medical advice). AMA form was signed by patient prior to his departure. Total Time Total Time Spent Total Time Spent (In Minutes): 45 Total Time Includes: Examination of the Patient, Discharge Planning, Medication Reconciliation and Communication With Other Providers Discharge Plan Discharge Items Patient Disposition: Home - Self-Care Reason For Visit: PNEUMONIA, RIB FRACTURE Discharge Diagnosis: Probable aspiration pneumonia. Multiple rib fractures. Positive troponin (blood work for the heart) - uncertain of its significance but concerning. Discharge Goals: Diagnostic testing and Therapeutic intervention Activity: As commented below Activity Comment: no strenuous activity until stress test has been completed Non-emergency contact: Primary Care Provider and Production Truck Driver Call non-emergency contact if: you have any medication questions, your symptoms worsen, your pain is not controlled, your pain is unusual for you and your pain is concerning for you Follow-up/Referrals: Дмитрий Carrasco MD [Primary Care Provider] - 08/24/18 4:15 pm (Please, follow up with Dr. Дмитрий Carrasco on August 24 at 4:15 pm. *If you need to change this appointment, call the office at [phone].) Ty Antonio MD [Physician] - (report to [facility] on 08/16/18 as scheduled ) Kvng Beasley MD [Physician] - (See Dr. Beasley within 10 days to have fistula rechecked ) Diet: Carb Consistent or DM2 and Dialysis Renal Addtl Provider Instructions: From Shmuel Sheppard - hospitalist - You were admitted to the hospital after suffering a fall at your home. We found a total of 3 rib fractures on your CAT scans (2 on the right side, and 1 on the left side). We also saw evidence of aspiration pneumonia on the CAT scans. You likely developed the pneumonia in and around the time of your AV fistula surgery (there is a risk of aspiration when you go under anesthesia for surgery). Fortunately you are feeling well with minimal pain from the rib fractures and no significant cough or other lung symptoms. During your stay we checked blood work for the heart. The heart blood work was mildly positive (abnormal). This does not necessarily mean you suffered a heart attack yesterday but the blood work is concerning. I recommended that you stay another night at [facility] to have your heart monitored and to undergo a stress test tomorrow morning but you refused on several occasions. This was witnessed by nursing staff. You have signed a paper called "leaving AMA" (leaving against medical advice) which means that you accept personal responsibility for your health if you suffer a heart event ( heart attack), have a fatal arrhythmia (abnormal heart rhythm), or even suffer . At this time I strongly recommend the following - 1. OBTAIN A STRESS TEST THIS WEEK THROUGH DR. CARRASCO'S OFFICE OR YOUR KIDNEY SPECIALIST. 2. Take antibiotics for 6 more days starting 08/16/18. This is for the suspected pneumonia. 3. You can take norco (hydrocodone-acetaminophen) pain killer - 1 tablet every 8 hours as needed - for rib pain from the rib fractures. The pain medication will make you constipated and may make you sleepy. Do not drive while taking pain medication and do not drink alcohol. Know that rib fractures take about 6 weeks to fully heal. 4. Change your 70/30 insulin to 15 units every morning with breakfast and 10 units with your evening meal (dinner). Follow-up with Dr. Carrasco for your diabetes. Check your sugars before meals and at bedtime. 5. Follow-up - * report to [facility] tomorrow morning as scheduled * see Dr. Carrasco [facility] to have a stress test ordered * see Dr. Beasley within 10 days to have your fistula rechecked and possibly have the sarah removed 6. Return to [facility] if - * you experience chest pain, left arm pain, jaw pain, or neck pain * you have uncontrolled pain in your chest from the rib fractures * you have uncontrolled diabetes * you have fever over 100.5 degrees * you have bleeding from the fistula * you develop severe diarrhea * any other concerns AGAIN YOU ARE LEAVING THE HOSPITAL AGAINST MEDICAL ADVICE. YOU HAVE TAKEN ALL RESPONSIBILITY FOR YOUR HEALTH AND HAVE BEEN COUNSELED ABOUT THE RISKS OF LEAVING THE HOSPITAL TOO EARLY INCLUDING SUFFERING A HEART ATTACK, A FATAL HEART RHYTHM, OR EVEN . Prescriptions: New amoxicillin-pot clavulanate 500-125 mg Tablet 1 tab PO DIRECTED Qty: 6 RF: 0 hydrocodone-acetaminophen [[place]] 5-325 mg tablet 1 tab PO Q8H PRN (Reason: pain) Qty: 10 RF: 0 Continue amlodipine 10 mg Tablet 10 mg PO DAILY RF: 0 aspirin [Aspir-81] 81 mg Tablet,Delayed Release (Dr/Ec) 81 mg PO DAILY RF: 0 calcium carbonate 300 mg (750 mg) tablet,chewable 4 tab PO TIDM RF: 0 gemfibrozil 600 mg Tablet 600 mg PO BID RF: 0 lisinopril 10 mg Tablet 10 mg PO DAILY RF: 0 lovastatin 20 mg Tablet 20 mg PO DAILY RF: 0 cinacalcet [Sensipar] 30 mg Tablet 30 mg PO BIDM RF: 0 B complex-vitamin C-folic acid [Renal Vitamin] 0.8 mg Tablet 1 tab PO DAILY RF: 0 insulin NPH and regular human [Novolin 70/30 U-100 Insulin] 100 unit/mL (70-30 ) Suspension 1 sliding scale dose SUBCUT UD Qty: 1 RF: 0 Stand-Alone Forms: [facility] Discharge Orders: Discharge Order (Routine); Ordered 08/15/18 Ordered By: Shmuel Sheppard Admission Data Admit Date/Time: 08/14/18 22:52 Attending Provider: Shmuel Sheppard Admit Provider: Joana Rose Primary Care Provider: Дмитрий Carrasco Other Providers: Ty Antonio Service: Medical Other Interventions: Discharge Summary Assessment (RN) Last Done: 08/15/18 18:33 DC Date/Time DO NOT enter until pt leaves facility: 08/15/18 19:36
== END 2018-08-15 19:36 | disposition home or self-care (01) | DRG 252 ==
LOC: ED 18:48 → 2N 22:52 → SUATTDRO 22:52 → 2N 23:29

== ENCOUNTER 2018-12-13 08:12 | Inpatient (IN) ==
[2018-12-13] MEDS ORDERED: dilTIAZem HCl 125 MG in DEXTROSE 5% 100 ML IV STA (08:36)
[2018-12-13 08:57] LABS: Basophils # (auto) 0.02 K/uL (0-0.2); Basophils % (auto) 0.2 %; Eosinophils # (auto) 0.07 K/uL (0-0.5); Eosinophils % (auto) 0.8 %; Hematocrit (blood only) 31.2 % (42-52); Hemoglobin 10.7 g/dL (14.0-18.0); Immature Granulocytes # (auto) 0.03 K/uL (0.00-0.02); Immature Granulocytes % (auto) 0.3 %; Lymphocytes # (auto) 0.96 K/uL (1.2-3.4); Lymphocytes % (auto) 10.9 %; Mean Corpuscular Hgb Conc 34.3 g/dL (32-36); Mean Corpuscular Volume 96.6 fL (80-100); Mean Platelet Volume 9.3 fL (7.4-10.4); Monocytes # (auto) 1.16 K/uL (0.11-0.59); Monocytes % (auto) 13.1 %; Neutrophils % (auto) 74.7 %; Platelet Count 371 K/uL (130-400); RDW Coefficient of Variation 13.8 % (11.5-14.5); Red Blood Count 3.23 M/uL (4.7-6.1); White Blood Count 8.84 K/uL (4.8-10.8)
--- NOTE | 2018-12-13 09:06 | XRay Report ---
XR chest 1V portable CLINICAL HISTORY: weakness dyspnea COMPARISON STUDY: 08/25/2018 FINDINGS: Moderate cardiomegaly.. Moderate prominence of the pulmonary vasculature. Increased density left lung base including a somewhat circular appearing density lateral aspect left chest. This was n ot present on the recent radiograph suggesting a loculated fluid component. Round atelectasis is also possible. IMPRESSION: 1. Moderate cardiomegaly. 2. Findings of early congestive failure. 3. Superimposed left basilar infiltrate combine with what appears to be round atelectasis. 4. This study should be repeated at a later date to ensure complete resolution of the left basilar fi ndings. The above report was generated using voice recognition software. It may contain grammatical, syntax or spelling errors. Electronically signed by: Teo Mora M.D. 12/13/2018 9:04 AM
[2018-12-13 09:14] LABS: INR 1.3 (0.9-1.1); Partial Thromboplastin Ratio 1.1; Partial Thromboplastin Time 30.9 Seconds (21.0-31.0); Prothrombin Time 12.9 Seconds (9.0-12.0)
[2018-12-13 09:26] LABS: Albumin Globulin Ratio 0.7 (0.9-2); BUN Creatinine Ratio 6.7 (10-20); Bilirubin,Total 0.4 mg/dl (0.2-1); Calcium 9.4 mg/dl (8.5-10.1); Creatinine Clr Calc Pharmacy 18.7 ml/min; Est GFR (African American) 13.3; Est GFR (Non-African American) 11.5; Globulin 4.6 gm/dl (2.5-4.0); Magnesium 2.2 mg/dl (1.8-2.4); Potassium 4.3 mmol/L (3.5-5.1); Total Protein 7.6 gm/dl (6.4-8.2); Troponin I 0.123 ng/ml (0-0.045)
--- NOTE | 2018-12-13 10:56 | History & Physical Report ---
Date of Service December 13, 2018 Assessment & Plan (1) Atrial flutter with rapid ventricular response: Admit to telemetry. Continue diltiazem drip. Administer Lovenox subcutaneously 1 mg/kg every 12 hours. Cardiac echo. Consult cardiology. Present on Admission?: Yes (2) Pulmonary vascular congestion: This appears to be due to the combination of incomplete dialysis and rapid atrial flutter. Monitor intake and output. Control atrial flutter rate Present on Admission?: Yes (3) Elevated troponin: This appears to be chronic. Will trend Present on Admission?: Yes (4) Diabetes mellitus: Continue 70/30 insulin. Sliding scale coverage as needed. (5) End-stage renal disease on hemodialysis: Consult nephrology. Continue current medications (6) Essential hypertension: Continue current medical management History of Present Illness Chief Complaint: Palpitations for several days Primary Care Provider: Дмитрий Carrasco MD 68-year-old male with end-stage renal disease on hemodialysis Tuesday. He was told this past Tuesday that he had a rapid irregular heart rate but he did not seek medical attention at that time. He has noticed palpitations but denies any chest discomfort shortness of breath or lightheadedness. At dialysis again today, he was told to seek medical attention due to rapid irregular heart rate. He received 3 out of 4 hours of dialysis. He came to the ED for evaluation. He was found to have new onset atrial flutter with variable block. He was started on a diltiazem drip in the ED. Troponin is mildly elevated at 0.123 but this has been elevated in the past. He denies any chest discomfort. He will be admitted for further evaluation and treatment. Allergies Allergy/AdvReac Type Severity Reaction Status Date / Time No Known Drug Allergies Allergy Unknown NONE Verified 12/13/18 09:56 sheep derived (ovine) Allergy Unknown wool socks Verified 12/13/18 09:56 make feet "break out" Home Medications Home Medications Medication Instructions Recorded Confirmed Type amlodipine 10 mg PO DAILY 08/14/18 12/13/18 History aspirin [Aspir-81] 81 mg PO DAILY 08/14/18 12/13/18 History calcium carbonate [Tums E-X] 4 tab PO TIDM 08/14/18 12/13/18 History cinacalcet [Sensipar] 30 mg PO BIDM 08/14/18 12/13/18 History gemfibrozil 1,200 mg PO DAILY 08/14/18 12/13/18 History lisinopril 10 mg PO DAILY 08/14/18 12/13/18 History lovastatin 20 mg PO DAILY 08/14/18 12/13/18 History insulin NPH and regular human 1 sliding scale dose SUBCUT UD #1 08/15/18 12/13/18 Rx [Novolin 70/30 U-100 Insulin] btl calcium acetate 1,334 mg PO TIDM 12/13/18 12/13/18 History vitamin B [id number] cit 1 tab PO DAILY 12/13/18 12/13/18 History Past Med/Surg History Medical History Diabetes HTN (hypertension) History of renal dialysis Hx of bronchitis Kidney disease Surgical History History of colostomy History of colostomy reversal Hx of cholecystectomy Family History Other Diabetes Social History Preferred Language: Burundian Communication Ability: Effective Visual Impairment: No Limitations Beliefs That Will Affect Care: None marital status: Current Living Situation: Spouse current occupational status: employed Feels Safe at Home: Yes Safety Concerns: Feels Safe At This Time Smoking Status: Current every day smoker Tobacco Type: cigarettes Cigarettes Per Day: 3 Do You Dip or Chew Tobacco: No Hx Alcohol Use: No Hx Substance Use: No Review of Systems Review of Systems: Constitutional-no fever or chills ENT-no blurred vision, no double vision, no epistaxis, no sore throat Respiratory-no cough, no wheezing, no shortness of breath Cardiac- no chest pain, no syncope. He has experienced palpitations for the past several days GI-no nausea, vomiting, diarrhea, melena, hematochezia -no urinary retention, no urinary incontinence, no dysuria, no hematuria Musculoskeletal-no joint pain, no muscle tenderness Skin-no bruising, no rashes, no pruritus Neuro-no isolated weakness, no paresthesia, no weakness Psych-no depression, no anxiety Physical Exam Physical Exam: General-alert and oriented x3, no fevers, no chills HEENT-head atraumatic and normocephalic, TMs intact bilaterally, pupils equal and reactive to light, extraocular muscles intact Neck-no lymphadenopathy or thyromegaly, trachea midline Chest-bibasilar inspiratory rales. No wheezing. No dullness. No rhonchi Cardiac-normal S1 and S2, no murmurs. Rapid irregular rhythm Abdomen-normal bowel sounds, nontender, no hepatosplenomegaly Extremities-no cyanosis, clubbing, or edema. Chronic venous stasis changes noted bilaterally Neuro-cranial nerves II through XII intact, motor and sensory function within normal limits, strength symmetrical 5/5, no focal deficits Psych-normal affect, normal mood Results & Data Vital Signs (Past 12 Hours) Vital Signs Temp Pulse Pulse Resp BP BP Pulse Ox 12/13/18 10:45 103 H 21 104/57 L 93 12/13/18 10:32 120 H 21 120/69 94 12/13/18 10:25 109 H 22 112/65 99 12/13/18 10:20 109 H 22 112/65 99 12/13/18 10:15 123 H 23 95 12/13/18 10:04 124 H 26 H 101/74 97 12/13/18 10:02 117 H 21 88 L 12/13/18 10:01 124 H 123 H 21 98/77 L 107/45 L 98 12/13/18 10:00 123 H 21 107/45 L 98 12/13/18 09:45 107 H 24 95 12/13/18 09:31 107 H 107 H 23 116/71 116/71 93 12/13/18 09:30 116 H 24 92 12/13/18 09:15 108 H 23 97 12/13/18 09:03 114 H 25 H 95 12/13/18 09:02 121 H 25 H 99/75 L 95 12/13/18 09:01 126 H 17 80/52 L 97 12/13/18 09:00 121 H 14 95 12/13/18 08:58 120 H 20 90/70 L 94 12/13/18 08:57 118 H 22 94 12/13/18 08:54 119 H 24 90/70 L 96 12/13/18 08:30 36.6 C 126 H 126 H 20 96 12/13/18 08:17 36.6 C 139 H 20 105/69 96 Laboratory Results 12/13/18 08:45 12/13/18 08:45 PG Care Time/CCT Total # of Minutes Spent Total Time Spent with Patient: Total time spent is greater than 50% in coordination of care (as documented) at patient's floor/unit and/or counseling patient:
[2018-12-13] MEDS ORDERED: ENOXAPARIN 1 MG/KG SQ SCH (11:46)
[2018-12-13] MEDS ORDERED: ONDANSETRON INJ 2 MG/ML 2 ML VIAL IV PRN (11:46)
[2018-12-13] MEDS ORDERED: ALUMINUM/MAGNESIUM SUSP 30 ML UDC PO PRN (11:46)
[2018-12-13] MEDS ORDERED: ACETAMINOPHEN 325 MG TAB PO PRN (11:46)
[2018-12-13] MEDS ORDERED: NITROGLYCERIN SL 0.4 MG/TAB TAB SL PRN (11:46)
--- NOTE | 2018-12-13 13:19 | Emergency Department Note ---
Entered by Laura Tirado acting as a scribe for Wil Thakkar MD History of Present Illness General Chief complaint: Arrhythmia/Palpitations Stated complaint: AFIB WHILE ONE DIALYSIS Time Seen by Provider: 12/13/18 08:22 Source: patient and family () History of Present Illness Onset (ago): day(s) 2 Location: chest (Arrythmia) Pain Consistency: + other (Persistent) Quality: + other (Arrythmia) Exacerbated By: + movement Associated symptoms: + cough, + shortness of breath and + other (Fatigue); no chest pain The patient is a 68 year old male presenting to the Emergency Department complaining of persistent arrhythmia starting 2 days ago. The patient reports that he was at dialysis treatment 2 days ago and was told that his heart was out of rhythm. He states that he receives dialysis treatments on Mondays, Wednesdays and Fridays. He notes that he did not receive his full dialysis treatment [employer] as it stopped about 1 hour short. He explains that during his dialysis treatment [employer] he felt like he was hot. He adds that he is short of breath upon exertion and has been feeling tired. The patient denies chest pain. The patients reports that the patient has been short of breath for the past 5 days and has a cough. She states that the patient reported he was not feeling good about a week ago. She explains that the patient has not experienced these symptoms before. She notes that the patient takes a blood thinner during dialysis and regularly takes Aspirin at home. She adds that the patient [place]. [place] [facility] [place] The patients reports that the patient had a stroke in 2013 that impaired the patients short term memory. Home Medications Home Medications Medication Instructions Recorded Confirmed Type amlodipine 10 mg PO DAILY 08/14/18 12/13/18 History aspirin [Aspir-81] 81 mg PO DAILY 08/14/18 12/13/18 History calcium carbonate [Tums E-X] 4 tab PO TIDM 08/14/18 12/13/18 History cinacalcet [Sensipar] 30 mg PO BIDM 08/14/18 12/13/18 History gemfibrozil 1,200 mg PO DAILY 08/14/18 12/13/18 History lisinopril 10 mg PO DAILY 08/14/18 12/13/18 History lovastatin 20 mg PO DAILY 08/14/18 12/13/18 History insulin NPH and regular human 1 sliding scale dose SUBCUT UD #1 08/15/18 12/13/18 Rx [Novolin 70/30 U-100 Insulin] btl calcium acetate 1,334 mg PO TIDM 12/13/18 12/13/18 History vitamin B [id number] cit 1 tab PO DAILY 12/13/18 12/13/18 History Allergies Allergy/AdvReac Type Severity Reaction Status Date / Time No Known Drug Allergies Allergy Unknown NONE Verified 12/13/18 09:56 sheep derived (ovine) Allergy Unknown wool socks Verified 12/13/18 09:56 make feet "break out" Past Med/Surg History Medical History Essential hypertension (Chronic) Pulmonary vascular congestion (Acute) Elevated troponin (Acute) Atrial flutter with rapid ventricular response (Acute) History of stroke Diabetes mellitus (Chronic) End-stage renal disease on hemodialysis (Chronic) Diabetes HTN (hypertension) History of renal dialysis Hx of bronchitis Kidney disease Surgical History History of colostomy History of colostomy reversal Hx of cholecystectomy Family History Other Diabetes Social History Preferred Language: Greenlandic Communication Ability: Effective Visual Impairment: No Limitations Beliefs That Will Affect Care: None marital status: Current Living Situation: Spouse current occupational status: employed Feels Safe at Home: Yes Smoking Status: Current every day smoker Tobacco Type: cigarettes Cigarettes Per Day: 3 Hx Alcohol Use: No Hx Substance Use: No Review of Systems See HPI for pertinent positives & negatives. and A total of 10 systems reviewed and were otherwise negative Physical Exam Vital Signs Vital Signs - 24 hr 12/13/18 08:17 12/13/18 08:30 12/13/18 08:54 Temperature 36.6 C 36.6 C Temperature Source Oral Oral Sepsis Recent Fever Within 48 Hours No Sepsis Action Taken by Nursing No Action Required Pulse Rate 139 H 126 H 119 H Pulse Rate [Apical] 126 H Pulse Rate from SpO2 Sensor 130 H Pulse Rhythm [Apical] Irregular Respiratory Rate 20 20 24 Respiratory Effort / Characteristics Non-Labored Spontaneous Non-Labored Spontaneous Respiratory Depth Normal Normal Respiratory Pattern Regular Blood Pressure 105/69 90/70 L Blood Pressure [Right Arm] Blood Pressure Mean 81 76 Blood Pressure Mean [Right Arm] Blood Pressure Position Sitting Blood Pressure Position [Right Arm] Pulse Oximetry 96 96 96 Oxygen Delivery Method Room Air Room Air 12/13/18 08:57 12/13/18 08:58 12/13/18 09:00 Temperature Temperature Source Sepsis Recent Fever Within 48 Hours Sepsis Action Taken by Nursing Pulse Rate 118 H 121 H Pulse Rate [Apical] 120 H Pulse Rate from SpO2 Sensor 118 H 129 H Pulse Rhythm [Apical] Irregular Respiratory Rate 22 20 14 Respiratory Effort / Characteristics Non-Labored Spontaneous Respiratory Depth Normal Respiratory Pattern Regular Blood Pressure Blood Pressure [Right Arm] 90/70 L Blood Pressure Mean Blood Pressure Mean [Right Arm] 76 Blood Pressure Position Blood Pressure Position [Right Arm] Lying Pulse Oximetry 94 94 95 Oxygen Delivery Method Room Air 12/13/18 09:01 12/13/18 09:02 12/13/18 09:03 Temperature Temperature Source Sepsis Recent Fever Within 48 Hours Sepsis Action Taken by Nursing Pulse Rate 126 H 121 H 114 H Pulse Rate [Apical] Pulse Rate from SpO2 Sensor 121 H 123 H 120 H Pulse Rhythm [Apical] Respiratory Rate 17 25 H 25 H Respiratory Effort / Characteristics Respiratory Depth Respiratory Pattern Blood Pressure 80/52 L 99/75 L Blood Pressure [Right Arm] Blood Pressure Mean 61 83 Blood Pressure Mean [Right Arm] Blood Pressure Position Blood Pressure Position [Right Arm] Pulse Oximetry 97 95 95 Oxygen Delivery Method 12/13/18 09:15 12/13/18 09:30 12/13/18 09:31 Temperature Temperature Source Sepsis Recent Fever Within 48 Hours Sepsis Action Taken by Nursing Pulse Rate 108 H 116 H 107 H Pulse Rate [Apical] 107 H Pulse Rate from SpO2 Sensor 92 H 104 H 94 H Pulse Rhythm [Apical] Irregular Respiratory Rate 23 24 23 Respiratory Effort / Characteristics Non-Labored Spontaneous Respiratory Depth Normal Respiratory Pattern Regular Blood Pressure 116/71 Blood Pressure [Right Arm] 116/71 Blood Pressure Mean 86 Blood Pressure Mean [Right Arm] 86 Blood Pressure Position Blood Pressure Position [Right Arm] Lying Pulse Oximetry 97 92 93 Oxygen Delivery Method Room Air 12/13/18 09:45 12/13/18 10:00 12/13/18 10:01 Temperature Temperature Source Sepsis Recent Fever Within 48 Hours Sepsis Action Taken by Nursing Pulse Rate 107 H 123 H 124 H Pulse Rate [Apical] 123 H Pulse Rate from SpO2 Sensor 85 132 H 123 H Pulse Rhythm [Apical] Irregular Respiratory Rate 24 21 21 Respiratory Effort / Characteristics Non-Labored Spontaneous Respiratory Depth Normal Respiratory Pattern Regular Blood Pressure 107/45 L 98/77 L Blood Pressure [Right Arm] 107/45 L Blood Pressure Mean 65 84 Blood Pressure Mean [Right Arm] 65 Blood Pressure Position Blood Pressure Position [Right Arm] Lying Pulse Oximetry 95 98 98 Oxygen Delivery Method Room Air 12/13/18 10:02 12/13/18 10:04 12/13/18 10:06 Temperature Temperature Source Sepsis Recent Fever Within 48 Hours Sepsis Action Taken by Nursing Pulse Rate 117 H 124 H Pulse Rate [Apical] Pulse Rate from SpO2 Sensor 132 H 67 Pulse Rhythm [Apical] Respiratory Rate 21 26 H Respiratory Effort / Characteristics Non-Labored Spontaneous Respiratory Depth Normal Respiratory Pattern Regular Blood Pressure 101/74 Blood Pressure [Right Arm] Blood Pressure Mean 83 Blood Pressure Mean [Right Arm] Blood Pressure Position Blood Pressure Position [Right Arm] Pulse Oximetry 88 L 97 Oxygen Delivery Method Room Air 12/13/18 10:15 12/13/18 10:20 12/13/18 10:21 Temperature Temperature Source Sepsis Recent Fever Within 48 Hours Sepsis Action Taken by Nursing Pulse Rate 123 H 109 H 119 H Pulse Rate [Apical] Pulse Rate from SpO2 Sensor 115 H 90 107 H Pulse Rhythm [Apical] Respiratory Rate 23 22 18 Respiratory Effort / Characteristics Respiratory Depth Respiratory Pattern Blood Pressure 112/65 Blood Pressure [Right Arm] Blood Pressure Mean 80 Blood Pressure Mean [Right Arm] Blood Pressure Position Blood Pressure Position [Right Arm] Pulse Oximetry 95 99 86 L Oxygen Delivery Method 12/13/18 10:25 12/13/18 10:30 12/13/18 10:32 Temperature Temperature Source Sepsis Recent Fever Within 48 Hours Sepsis Action Taken by Nursing Pulse Rate 126 H 108 H Pulse Rate [Apical] 109 H 120 H Pulse Rate from SpO2 Sensor 132 H 65 Pulse Rhythm [Apical] Irregular Irregular Respiratory Rate 22 14 21 Respiratory Effort / Characteristics Non-Labored Spontaneous Non-Labored Spontaneous Respiratory Depth Normal Normal Respiratory Pattern Regular Regular Blood Pressure 120/69 Blood Pressure [Right Arm] 112/65 120/69 Blood Pressure Mean 86 Blood Pressure Mean [Right Arm] 80 86 Blood Pressure Position Blood Pressure Position [Right Arm] Lying Lying Pulse Oximetry 99 84 L 94 Oxygen Delivery Method Room Air Room Air 12/13/18 10:45 12/13/18 10:46 Temperature Temperature Source Sepsis Recent Fever Within 48 Hours Sepsis Action Taken by Nursing Pulse Rate 109 H 110 H Pulse Rate [Apical] 103 H Pulse Rate from SpO2 Sensor 77 81 Pulse Rhythm [Apical] Irregular Respiratory Rate 23 21 Respiratory Effort / Characteristics Non-Labored Spontaneous Respiratory Depth Normal Respiratory Pattern Regular Blood Pressure 104/57 L Blood Pressure [Right Arm] 104/57 L Blood Pressure Mean 72 Blood Pressure Mean [Right Arm] 72 Blood Pressure Position Blood Pressure Position [Right Arm] Lying Pulse Oximetry 88 L 90 Oxygen Delivery Method Room Air GENERAL: Patient is in no acute distress. HEENT: No acute trauma, normocephalic atraumatic, mucous membranes moist, no nasal congestion, no scleral icterus. NECK: No stridor, no adenopathy, no meningismus, trachea is midline. LUNGS: Diminished breath sounds. No wheezes or rhonchi. Equal breath sounds. No respiratory distress. HEART: Tachycardic rate and irregular rhythm. No murmurs. ABDOMEN: Soft, nontender, bowel sounds positive, no hernias, no peritonitis. EXTREMITIES: No cyanosis or edema, full range of motion of all the joints without pain or difficulty, no signs for acute trauma. NEUROLOGIC: Oriented x 3, no acute motor or sensory deficits, no focal weakness. SKIN: No rash, no jaundice, no diaphoresis. Course 0831: The patient was evaluated in room B12B, and a complete history and physical examination were performed. 0855: I discussed the patients case with Dr. Gianluca VILLAGOMEZ cardiology who recommends that the patient stay in the hospital. He reports that there is no emergent need for cardioversion. 0955: I updated the patient at this time. 1010: I discussed the patients case with Dr. Marilu VILLAGOMEZ hospitalist. He will evaluate the patient for further management. Consultations Consultation #1: I discussed the patients case with Dr. Gianluca VILLAGOMEZ cardiology who recommends that the patient stay in the hospital. He reports that there is no emergent need for cardioversion. Time: 08:55 Consultation #2: I discussed the patients case with Dr[facility] Marilu [facility]AGOME[facility]. He will evaluate the patient for further management. Time: 10:10 Administered Medications Calcium Carbonate (Tums) 3,000 mg PO TIDM TIM Stop: 01/12/19 12:59 Last Admin: 12/13/18 14:35 Dose: 3,000 mg Documented by: [id number] Diltiazem HCl 125 mg/ Dextrose 125 mls @ 5 mls/hr IV .Q24H TIM; Protocol Stop: 01/12/19 12:59 Last Admin: 12/13/18 14:34 Dose: 5 mg/hr, 5 mls/hr Documented by: [id number] Cosigned by: [id number] Insulin Aspart (Novolog Flexpen) 0 units SC ACHS TIM Stop: 01/12/19 12:59 Last Admin: 12/13/18 14:41 Dose: Not Given Documented by: [id number] Cosigned by: [id number] Insulin Human NPH (Novolin N Nph) 7 units SC BIDM TIM Stop: 01/12/19 12:59 Last Admin: 12/13/18 14:38 Dose: 7 units Documented by: [id number] Cosigned by: [id number] Discontinued Medications Diltiazem HCl 125 mg/ Dextrose 125 mls @ 0 mls/hr IV .Q0M [facility]; Protocol Stop: 12/13/18 08:37 Last Admin: 12/13/18 10:02 Dose: 5 mg/hr, 5 mls/hr Documented by: [id number] Cosigned by: [id number] Medical Decision Making Differential Diagnosis Differentials include A-fib or A-flutter, CHF, thyroid disorder, MT, angina, electrolyte imbalance, SVT, liver failure and infection among others. Medical Records Attestation: I reviewed the patient's medical records. Home Medications Current Medication List: was personally reviewed by me Laboratory Data Attestation: I reviewed the patient's lab results. Result diagrams: 12/13/18 08:45 12/13/18 08:45 Lab Results 12/13/18 12/13/18 12/13/18 Range/Units 08:45 08:45 08:45 WBC 8.84 (4.8-10.8) K/uL RBC 3.23 L (4.7-6.1) M/uL Hgb 10.7 L (14.0-18.0) g/dL Hct 31.2 L (42-52) % MCV 96.6 (80-100) fL MCH 33.1 (25-34) pg MCHC 34.3 (32-36) g/dL RDW Std Deviation 48.0 H (36.4-46.3) fL RDW Coeff of Mike 13.8 (11.5-14.5) % Plt Count 371 (130-400) K/uL MPV 9.3 (7.4-10.4) fL Immature Gran % (Auto) 0.3 % Neut % (Auto) 74.7 % Lymph % (Auto) 10.9 % Victoria % (Auto) 13.1 % Eos % (Auto) 0.8 % Baso % (Auto) 0.2 % Immature Gran # (Auto) 0.03 H (0.00-0.02) K/uL Neut # (Auto) 6.60 H (1.4-6.5) K/uL Lymph # (Auto) 0.96 L (1.2-3.4) K/uL Victoria # (Auto) 1.16 H (0.11-0.59) K/uL Eos # (Auto) 0.07 (0-0.5) K/uL Baso # (Auto) 0.02 (0-0.2) K/uL PT 12.9 H (9.0-12.0) Seconds INR 1.3 H (0.9-1.1) APTT 30.9 (21.0-31.0) Seconds PTT Ratio 1.1 Sodium 136 (136-145) mmol/L Potassium 4.3 (3.5-5.1) mmol/L Chloride 95 L (98-107) mmol/L Carbon Dioxide 30 (21-32) mmol/L Anion Gap 11.0 (3-11) BUN 32 H (7-18) mg/dl Creatinine 4.87 H* (0.6-1.4) mg/dl Est Cr Clr Drug Dosing 18.7 ml/min Est GFR ( Amer) 13.3 Est GFR (Non-Af Amer) 11.5 BUN/Creatinine Ratio 6.7 L (10-20) Glucose 204 H (70-99) mg/dl Calcium 9.4 (8.5-10.1) mg/dl Magnesium 2.2 (1.8-2.4) mg/dl Total Bilirubin 0.4 (0.2-1) mg/dl AST 14 L (15-37) U/L ALT 20 (12-78) U/L Alkaline Phosphatase 133 H (45-117) U/L Troponin I 0.123 H* (0-0.045) ng/ml Total Protein 7.6 (6.4-8.2) gm/dl Albumin 3.0 L (3.4-5.0) gm/dl Globulin 4.6 H (2.5-4.0) gm/dl Albumin/Globulin Ratio 0.7 L (0.9-2) TSH 2.540 (0.300-4.500) uIu/ml Imaging Data Radiologist's Impression: Radiology results as stated below per my review and the radiologist's interpretation: XR chest 1V portable CLINICAL HISTORY: weakness dyspnea COMPARISON STUDY: 08/25/2018 FINDINGS: Moderate cardiomegaly.. Moderate prominence of the pulmonary vasculat ure. Increased density left lung base including a somewhat circular appearing density lateral aspect left chest. This was not present on the recent radiograph suggesting a loculated fluid component. Round atelectasis is also possible. IMPRESSION: 1. Moderate cardiomegaly. 2. Findings of early congestive failure. 3. Superimposed left basilar infiltrate combine with what appears to be round atelectasis. 4. This study should be repeated at a later date to ensure complete resolution of the left basilar findings. The above report was generated using voice recognition software. It may contain grammatical, syntax or spelling errors. Electronically signed by: Teo Mora M.D. 12/13/2018 9:04 AM ECG Data Attestation: I personally reviewed and interpreted this ECG as follows: Indication: SOB/dyspnea Rate (beats per minute): 126 Rhythm: atrial flutter Findings: + nonspecific-ST abn; no ST elevation Blood Pressure Blood Pressure Findings: Low blood pressure Blood Pressure Disposition: further management by hospitalist [facility] Narrative There is no leukocytosis. The patient is anemic but he has a history of the same looking back at previous testing. INR is slightly elevated at 1.3. Renal panel testing shows a high creatinine consistent with his dialysis need. Alk phos was slightly elevated at 133, bilirubin was not elevated. Patient appeared to be in a euthyroid state. EKG shows a rapid atrial flutter, no acute ischemic change. Cardiac troponin is slightly elevated, the patient has a history of mild troponin elevations. Chest film shows some potential CHF, no pneumothorax. Patient presents in a rapid atrial flutter, he has been in this rhythm I suspect for several days. He has been dizzy and short of breath. He has been weaker than baseline. The patient was placed on a Cardizem drip, this was titrated to try to help control the heart rate. The Cardizem appears to have been somewhat successful in controlling the rapid rate. I did speak with Dr. Hough of cardiology, he recommended a hospital stay and potential cardioversion in the near future. I spoke with the patient and case management. The on-call hospitalist has been consulted. Impression & Plan Atrial flutter with rapid ventricular response, Shortness of breath, Elevated troponin Critical Care Time Critical Care Time: Yes Total Critical Care Time: 35 I have personally spent 35 minutes of critical care time in the direct management of this patient. This includes bedside care, interpretation of diagnostic studies, and testing, discussion with consultants, patient, and family members, and other required patient management activities. This 35 minutes is in excess of all separately billable procedures. Discharge Plan Visit Data *Final* Discharge Date/Time: 12/13/18 11:17 Chief Complaint: Arrhythmia/Palpitations Stated Complaint: AFIB WHILE ONE DIALYSIS ED Provider: Wil Thakkar Discharge Problem: Atrial flutter with rapid ventricular response, Shortness of breath, Elevated troponin Patient Disposition: Admitted As Inpatient Discharge Instructions Interventions: ED Discharge Assessment Last Done: 12/13/18 11:17 The scribe's documentation has been prepared under my direction and personally reviewed by me in its entirety. I confirm that the note above accurately reflects all work, treatment, procedures, and medical decision making performed by me.
[2018-12-13] MEDS: dilTIAZem HCl 125 MG in DEXTROSE 5% 100 ML IV SCH (14:34)
[2018-12-13] MEDS: CALCIUM CARBONATE 500 MG CHEWABLE TAB PO SCH ×2 (14:35→16:48)
[2018-12-13] MEDS: INSULIN HUMAN NPH SC SCH ×2 (14:38→17:49)
[2018-12-13] MEDS: INSULIN ASPART 100 UNITS/ML 3 ML PEN SC SCH ×3 (14:41→21:02)
[2018-12-13] MEDS: Heparin Adult STANDARD Wt-Based Dextrose 5% 25,000 units/500 mL IV SCH (16:44)
[2018-12-13] MEDS: Heparin IV Standard *NO* Bolus IV SCH (16:47)
[2018-12-13] MEDS: CALCIUM ACETATE 667 MG CAP PO SCH ×2 (16:56→17:49)
--- NOTE | 2018-12-13 16:57 | Nephrology Consultation ---
Date of Consultation December 13, 2018 Assessment & Plan (1) End-stage renal disease on hemodialysis: -- HD MWF (180 optiflux, 2K, 450 Qb, EDW 105 kg) -- BP and volume status are currently acceptable -- Electrolytes are appropriate -- Medications are appropriate for kidney function -- No emergent need for HD -- Repeat metabolic profile in AM -- Will follow up in AM (2) Atrial flutter with rapid ventricular response: -- monitor and storage bin tender -- Cardiology consult pending -- Rate controlled with diltiazem drip (3) Diabetes mellitus: (4) Essential hypertension: -- BP acceptable History of Present Illness Reason for Consultation: ESRD Requesting Physician: Geovani Michel MD Attending Physician: Dustin Michel MD History of Present Illness Mr. Prabhakar is a 68 year old white male who is seen at the request of Dr. Michel to provide inpatient HD and assist w/ medical management. Medical records in the EMR were reviewed this am and are summarized as follows: Mr. Prabhakar has ESRD due to DM and HTN. He has been on IHD at [facility] HD unit since 07/06 (MWF 4hr 2K 2Ca F-180NR Qb 450 EDW 105 kg). Mr. 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 He has a mediastinal lesion noted on prior CT scan which is being monitored with surveillance imaging the patient had a DSE in July which reportedly did not demonstrate any evidence of cardiac ischemia. Mr. Prabhakar was dialyzed today. He completed ~3 hours of the scheduled 4 hour treatment. The patient was evalauted by Dr. Antonio today during hemodialysis. Treatment was stopped early due to rapid and irregular heart rate. Arrhythmia was first identified during dialysis on Tuesday, however, Garcia declined any additional evaluation at that time. He states that he was asymptomatic. In July 2018, following dialysis he suffered prolonged bleeding from his AVF. He was evaluated in the ED and then taken to surgery. 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 Mr. Prabhakar was discharged to home. Later that evening he suffered a fall and fractured several ribs. He was readmitted to the hospital for ongoing monitoring and medical management. Troponin was found to be elevated during the admission and follow up DSE was scheduled. At the time of my evaluation, the patient felt well and denied any complaints. Electrolytes are within normal limits. EKG on arrival demonstrated atrial flutter at 126 BPM. Heart rate is now appropriate. Blood pressure has been acceptable. Troponin remains slightly elevated. CXR demonstrated mild PVC. Echocardiogram demonstrated normal LV size and systolic function, mildly dilated IVC, mild to moderate MR, and a pericardial effusion. Cardiology consult is pending. Mr. Prabhakar is breathing comfortably. He denies chest pain or palpitations. He denies syncope or presyncope. Allergies Allergy/AdvReac Type Severity Reaction Status Date / Time No Known Drug Allergies Allergy Unknown NONE Verified 12/13/18 09:56 sheep derived (ovine) Allergy Unknown wool socks Verified 12/13/18 09:56 make feet "break out" Home Medications Home Medications Medication Instructions Recorded Confirmed Type amlodipine 10 mg PO DAILY 08/14/18 12/13/18 History aspirin [Aspir-81] 81 mg PO DAILY 08/14/18 12/13/18 History calcium carbonate [Tums E-X] 4 tab PO TIDM 08/14/18 12/13/18 History cinacalcet [Sensipar] 30 mg PO BIDM 08/14/18 12/13/18 History gemfibrozil 1,200 mg PO DAILY 08/14/18 12/13/18 History lisinopril 10 mg PO DAILY 08/14/18 12/13/18 History lovastatin 20 mg PO DAILY 08/14/18 12/13/18 History insulin NPH and regular human 1 sliding scale dose SUBCUT UD #1 08/15/18 12/13/18 Rx [Novolin 70/30 U-100 Insulin] btl calcium acetate 1,334 mg PO TIDM 12/13/18 12/13/18 History vitamin B [id number]-[id number]-SS-zinc cit 1 tab PO DAILY 12/13/18 12/13/18 History Patient History Medical History Essential hypertension (Chronic) Pulmonary vascular congestion (Acute) Elevated troponin (Acute) Atrial flutter with rapid ventricular response (Acute) History of stroke Diabetes mellitus (Chronic) End-stage renal disease on hemodialysis (Chronic) Diabetes HTN (hypertension) History of renal dialysis Hx of bronchitis Kidney disease Surgical History History of colostomy History of colostomy reversal Hx of cholecystectomy Family History Other Diabetes Social History Preferred Language: Singaporean Communication Ability: Effective Visual Impairment: No Limitations Beliefs That Will Affect Care: None marital status: Current Living Situation: Spouse current occupational status: employed Feels Safe at Home: Yes Smoking Status: Current every day smoker Tobacco Type: cigarettes Cigarettes Per Day: 3 Hx Alcohol Use: No Hx Substance Use: No Review of Systems Review of Systems: All systems reviewed & are unremarkable except as noted in HPI & below Physical Exam Constitutional: + obese; no acute distress Eyes: no scleral abnormality and no corneal abnormality ENMT: Mouth: no oral mucosal abnormality and oral mucous membranes not dry Neck: normal visual inspection and trachea midline Respiratory: normal respiratory effort; no respiratory distress Auscultation: lungs clear to auscultation bilaterally Cardiovascular: Heart Sounds: normal S1, normal S2 and + murmur Extremities: + AV fistula; no edema Gastrointestinal (Abdomen): Inspection/Auscultation: normal bowel sounds Percussion/Palpation: abdomen soft; abdomen nontender Musculoskeletal: Extremities: extremities normal to inspection; no cyanosis and no clubbing Skin: no rashes Neurologic: Motor/Sensory: no tremor and no asterixis Psychiatric: Orientation: alert and oriented x 3 Affect: euthymic affect Results & Data Vital Signs (Past 12 Hours) Vital Signs Temp Pulse Pulse Resp BP BP Pulse Ox 12/13/18 15:01 37.0 C 72 20 149/63 H 91 12/13/18 12:47 72 16 114/71 95 12/13/18 11:17 36.6 C 76 21 119/56 L 96 12/13/18 11:11 76 21 119/56 L 96 12/13/18 11:01 100 H 27 H 119/56 L 92 12/13/18 11:00 79 27 H 93 12/13/18 10:53 86 94 12/13/18 10:52 87 L 12/13/18 10:46 110 H 21 104/57 L 90 12/13/18 10:45 109 H 103 H 23 104/57 L 88 L 12/13/18 10:32 108 H 120 H 21 120/69 120/69 94 12/13/18 10:30 126 H 14 84 L 12/13/18 10:25 109 H 22 112/65 99 12/13/18 10:21 119 H 18 86 L 12/13/18 10:20 109 H 22 112/65 99 12/13/18 10:15 123 H 23 95 12/13/18 10:04 124 H 26 H 101/74 97 12/13/18 10:02 117 H 21 88 L 12/13/18 10:01 124 H 123 H 21 98/77 L 107/45 L 98 12/13/18 10:00 123 H 21 107/45 L 98 12/13/18 09:45 107 H 24 95 12/13/18 09:31 107 H 107 H 23 116/71 116/71 93 12/13/18 09:30 116 H 24 92 12/13/18 09:15 108 H 23 97 12/13/18 09:03 114 H 25 H 95 12/13/18 09:02 121 H 25 H 99/75 L 95 12/13/18 09:01 126 H 17 80/52 L 97 12/13/18 09:00 121 H 14 95 12/13/18 08:58 120 H 20 90/70 L 94 12/13/18 08:57 118 H 22 94 12/13/18 08:54 119 H 24 90/70 L 96 12/13/18 08:30 36.6 C 126 H 126 H 20 96 12/13/18 08:17 36.6 C 139 H 20 105/69 96 Laboratory Results Laboratory Results - last 24 hr 12/13/18 12/13/18 12/13/18 08:45 08:45 08:45 WBC 8.84 RBC 3.23 L Hgb 10.7 L Hct 31.2 L MCV 96.6 MCH 33.1 MCHC 34.3 RDW Std Deviation 48.0 H RDW Coeff of Mike 13.8 Plt Count 371 MPV 9.3 Immature Gran % (Auto) 0.3 Neut % (Auto) 74.7 Lymph % (Auto) 10.9 [place] % (Auto) 13.1 Eos % (Auto) 0.8 Baso % (Auto) 0.2 Immature Gran # (Auto) 0.03 H Neut # (Auto) 6.60 H Lymph # (Auto) 0.96 L [place] # (Auto) 1.16 H Eos # (Auto) 0.07 Baso # (Auto) 0.02 PT 12.9 H INR 1.3 H APTT 30.9 PTT Ratio 1.1 Sodium 136 Potassium 4.3 Chloride 95 L Carbon Dioxide 30 Anion Gap 11.0 BUN 32 H Creatinine 4.87 H* Est Cr Clr Drug Dosing 18.7 Est GFR ( Amer) 13.3 Est GFR (Non-Af Amer) 11.5 BUN/Creatinine Ratio 6.7 L Glucose 204 H POC Glucose Calcium 9.4 Magnesium 2.2 Total Bilirubin 0.4 AST 14 L ALT 20 Alkaline Phosphatase 133 H Troponin I 0.123 H* Total Protein 7.6 Albumin 3.0 L Globulin 4.6 H Albumin/Globulin Ratio 0.7 L TSH 2.540 12/13/18 12/13/18 16:01 16:14 WBC RBC Hgb Hct MCV MCH MCHC RDW Std Deviation RDW Coeff of Mike Plt Count MPV Immature Gran % (Auto) Neut % (Auto) Lymph % (Auto) [place] % (Auto) Eos % (Auto) Baso % (Auto) Immature Gran # (Auto) Neut # (Auto) Lymph # (Auto) [place] # (Auto) Eos # (Auto) Baso # (Auto) PT INR APTT PTT Ratio Sodium Potassium Chloride Carbon Dioxide Anion Gap BUN Creatinine Est Cr Clr Drug Dosing Est GFR ( Amer) Est GFR (Non-Af Amer) BUN/Creatinine Ratio Glucose POC Glucose 216 H Calcium Magnesium Total Bilirubin AST ALT Alkaline Phosphatase Troponin I 0.128 H* Total Protein Albumin Globulin Albumin/Globulin Ratio TSH
--- NOTE | 2018-12-13 18:47 | Cardiology Consultation ---
Date of Consultation December 13, 2018 Assessment & Plan (1) Atrial flutter with rapid ventricular response: The patient has had evidence of tachycardia for several days. The exact onset is unclear but likely this started within the past 3-5 days. This arrhythmia alone could account for some of his symptoms including the exertional dyspnea. He is not appear to have significant hemodynamic compromise in actually tolerated dialysis quite well despite atrial flutter and associated high rates. Whether this rhythm is related to the pericardial effusion is unclear. Whether his symptoms would be resolved with return to sinus rhythm is also unclear. However, I think it would be relatively easy to return him to sinus rhythm, monitor his hemodynamics and symptoms afterwards. Unfortunately, he has not been anticoagulated until his admission. There is a higher risk of thromboembolic events in the. Surrounding cardioversion. He would be imperative for us to know if he has intracardiac thrombus at this time and we will need to perform a transesophageal echocardiogram prior to cardioversion. Tentatively this has all been scheduled for tomorrow. I will continue his diltiazem infusion as appears to be controlling his rate quite well. I would continue systemic anticoagulation. (2) Elevated troponin: He has had elevated biomarkers in the past. Actually, his biomarkers are lower this time the during a prior admission. Despite the likelihood that he has significant coronary disease, he did not have angina as a presenting symptom. He has not had symptoms of chest pain recently. 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 This is likely related to his persistent tachycardia. We should continue our efforts to reduce cardiac oxygen demand by controlling his heart rate maintaining good oxygenation. Will plan on cardioversion tomorrow as well. (3) Pericardial effusion: This is of unclear etiology. Possibly inflammatory. Possibly related to heart failure. Possibly infectious or even related to his known mediastinal adenopathy. He also has an abnormal x-ray with round atelectasis. Does not appear to be causing hemodynamic compromise at this point. Despite the likelihood that he has had a pericardial effusion now for several days if not longer he did not have any hemodynamic compromise during dialysis. His blood pressure continues to be good. His heart rate is better controlled. I attempted to perform a pulses paradoxus evaluation, but no functioning blood pressure cuff was available for use. Certainly this effusion could account for some of his symptoms as well. I think we will perform a cardioversion see if this improves his symptoms. If he has some evidence of hemodynamic compromise or persistent symptoms or if fluid analysis is necessary for diagnosis we will consider pericardiocentesis. (4) Mitral regurgitation: [id number]. Not likely causing any symptoms currently. (5) Coronary disease: Presumed. He has elevated biomarkers on occasion. He has significant coronary calcifications on prior imaging. He certainly in a demographic who likely has significant coronary disease. However, his preserved LV systolic function and no symptoms of angina. I do not believe there is any indication for coronary evaluation at this time. (6) Shortness of breath: Unclear if this was related to his atrial flutter, mild congestive heart failure, pericardial effusion or possibly a primary pulmonary process as his x- ray is not normal. History of Present Illness Reason for Consultation: Atrial flutter Requesting Physician: Marilu Attending Physician: Dustin Michel MD History of Present Illness The patient is a 68-year-old gentleman with a history of end-stage renal disease in prior cerebral vascular accident who was noted at dialysis earlier this week to have a tachycardia. At that time the patient was advised to consider medical evaluation but he forgot. He does have some memory difficulties related to a prior cerebral vascular accident. He returned to dialysis today. Dialysis was uneventful for 3 hours but at a certain point this staff felt that he should go to the emergency room for evaluation due to persistent tachycardia. In the emergency room he was noted to be in atrial flutter with a rapid ventricular response. Patient's provided some supplemental history. She was present for the interview today. She states that over the preceding week and the patient was notably more short of breath. Patient and his both report exertional dyspnea and significant fatigue. The patient is usually a sedentary individual but can generally ambulate without limiting symptoms. He had difficulty even ambulating without being short of breath and tired. He did not report orthopnea. He did not report swelling in his lower extremities. He did not re port dizziness or lightheadedness and had no presyncope. He was vaguely aware of some palpitations but this was not a prominent feature of his presentation. He denies symptoms of chest discomfort or chest pain. He did not recall any systemic symptoms such as fevers or chills. He did however report feeling hot during dialysis recently and having some diaphoresis. Allergies Allergy/AdvReac Type Severity Reaction Status Date / Time No Known Drug Allergies Allergy Unknown NONE Verified 12/13/18 09:56 sheep derived (ovine) Allergy Unknown wool socks Verified 12/13/18 09:56 make feet "break out" Home Medications Home Medications Medication Instructions Recorded Confirmed Type amlodipine 10 mg PO DAILY 08/14/18 12/13/18 History aspirin [Aspir-81] 81 mg PO DAILY 08/14/18 12/13/18 History calcium carbonate [Tums E-X] 4 tab PO TIDM 08/14/18 12/13/18 History cinacalcet [Sensipar] 30 mg PO BIDM 08/14/18 12/13/18 History gemfibrozil 1,200 mg PO DAILY 08/14/18 12/13/18 History lisinopril 10 mg PO DAILY 08/14/18 12/13/18 History lovastatin 20 mg PO DAILY 08/14/18 12/13/18 History insulin NPH and regular human 1 sliding scale dose SUBCUT UD #1 08/15/18 12/13/18 Rx [Novolin 70/30 U-100 Insulin] btl calcium acetate 1,334 mg PO TIDM 12/13/18 12/13/18 History vitamin B xvsbol-I-ON-zinc cit 1 tab PO DAILY 12/13/18 12/13/18 History Patient History Medical History Essential hypertension (Chronic) Pulmonary vascular congestion (Acute) Elevated troponin (Acute) Atrial flutter with rapid ventricular response (Acute) History of stroke Diabetes mellitus (Chronic) End-stage renal disease on hemodialysis (Chronic) Diabetes HTN (hypertension) History of renal dialysis Hx of bronchitis Kidney disease Surgical History History of colostomy History of colostomy reversal Hx of cholecystectomy Family History Other Diabetes Social History Preferred Language: Ukrainian Communication Ability: Effective Visual Impairment: No Limitations Beliefs That Will Affect Care: None marital status: Current Living Situation: Spouse current occupational status: employed Feels Safe at Home: Yes Smoking Status: Current every day smoker Tobacco Type: cigarettes Cigarettes Per Day: 3 Hx Alcohol Use: No Hx Substance Use: No Review of Systems Review of Systems: All systems reviewed & are unremarkable except as noted in HPI & below Patient did not report any recent symptoms at dialysis. He did not report any hypotension or trouble with dialysis. Physical Exam Physical Exam: The patient is alert and oriented. Mood and affect appeared normal. He answered all questions appropriately. HEENT: Pupils are equal and reactive to light and accommodation. Extraocular movements are intact. The sclerae are anicteric. Neuro: Cranial nerves intact Lungs: Reduced breath sounds at the bases bilaterally with occasional crackles. Some expiratory wheezing. Occasional coughing. Cardiac: Heart demonstrates an irregular rhythm. Normal S1 and S2. No murmurs on examination. Pulses: The patient has palpable radial pulses bilaterally that are equal in intensity. He had a fistula in the left forearm with a palpable thrill Extremities: There was no evidence of hypoperfusion. There is no cyanosis or clubbing. There is no edema. Skin: I did not appreciate any rashes on examination today. Results & Data Vital Signs (Past 12 Hours) Vital Signs Temp Pulse Pulse Resp BP BP Pulse Ox 12/13/18 17:37 78 12/13/18 15:01 37.0 C 72 20 149/63 H 91 12/13/18 12:47 72 16 114/71 95 12/13/18 11:17 36.6 C 76 21 119/56 L 96 12/13/18 11:11 76 21 119/56 L 96 12/13/18 11:01 100 H 27 H 119/56 L 92 12/13/18 11:00 79 27 H 93 12/13/18 10:53 86 94 12/13/18 10:52 87 L 12/13/18 10:46 110 H 21 104/57 L 90 12/13/18 10:45 109 H 103 H 23 104/57 L 88 L 12/13/18 10:32 108 H 120 H 21 120/69 120/69 94 12/13/18 10:30 126 H 14 84 L 12/13/18 10:25 109 H 22 112/65 99 12/13/18 10:21 119 H 18 86 L 12/13/18 10:20 109 H 22 112/65 99 12/13/18 10:15 123 H 23 95 12/13/18 10:04 124 H 26 H 101/74 97 12/13/18 10:02 117 H 21 88 L 12/13/18 10:01 124 H 123 H 21 98/77 L 107/45 L 98 12/13/18 10:00 123 H 21 107/45 L 98 12/13/18 09:45 107 H 24 95 12/13/18 09:31 107 H 107 H 23 116/71 116/71 93 12/13/18 09:30 116 H 24 92 12/13/18 09:15 108 H 23 97 12/13/18 09:03 114 H 25 H 95 12/13/18 09:02 121 H 25 H 99/75 L 95 12/13/18 09:01 126 H 17 80/52 L 97 12/13/18 09:00 121 H 14 95 12/13/18 08:58 120 H 20 90/70 L 94 12/13/18 08:57 118 H 22 94 12/13/18 08:54 119 H 24 90/70 L 96 12/13/18 08:30 36.6 C 126 H 126 H 20 96 12/13/18 08:17 36.6 C 139 H 20 105/69 96 Laboratory Results Abnormal Lab Results 12/13/18 12/13/18 12/13/18 08:45 08:45 08:45 WBC 8.84 RBC 3.23 L Hgb 10.7 L Hct 31.2 L MCV 96.6 MCH 33.1 MCHC 34.3 RDW Std Deviation 48.0 H RDW Coeff of Mike 13.8 Plt Count 371 MPV 9.3 Immature Gran % (Auto) 0.3 Neut % (Auto) 74.7 Lymph % (Auto) 10.9 [place] % (Auto) 13.1 Eos % (Auto) 0.8 Baso % (Auto) 0.2 Immature Gran # (Auto) 0.03 H Neut # (Auto) 6.60 H Lymph # (Auto) 0.96 L [place] # (Auto) 1.16 H Eos # (Auto) 0.07 Baso # (Auto) 0.02 PT 12.9 H INR 1.3 H APTT 30.9 PTT Ratio 1.1 Sodium 136 Potassium 4.3 Chloride 95 L Carbon Dioxide 30 Anion Gap 11.0 BUN 32 H Creatinine 4.87 H* Est Cr Clr Drug Dosing 18.7 Est GFR ( Amer) 13.3 Est GFR (Non-Af Amer) 11.5 BUN/Creatinine Ratio 6.7 L Glucose 204 H POC Glucose Calcium 9.4 Magnesium 2.2 Total Bilirubin 0.4 AST 14 L ALT 20 Alkaline Phosphatase 133 H Troponin I 0.123 H* Total Protein 7.6 Albumin 3.0 L Globulin 4.6 H Albumin/Globulin Ratio 0.7 L TSH 2.540 12/13/18 12/13/18 16:01 16:14 WBC RBC Hgb Hct MCV MCH MCHC RDW Std Deviation RDW Coeff of Mike Plt Count MPV Immature Gran % (Auto) Neut % (Auto) Lymph % (Auto) [place] % (Auto) Eos % (Auto) Baso % (Auto) Immature Gran # (Auto) Neut # (Auto) Lymph # (Auto) [place] # (Auto) Eos # (Auto) Baso # (Auto) PT INR APTT PTT Ratio Sodium Potassium Chloride Carbon Dioxide Anion Gap BUN Creatinine Est Cr Clr Drug Dosing Est GFR ( Amer) Est GFR (Non-Af Amer) BUN/Creatinine Ratio Glucose POC Glucose 216 H Calcium Magnesium Total Bilirubin AST ALT Alkaline Phosphatase Troponin I 0.128 H* Total Protein Albumin Globulin Albumin/Globulin Ratio TSH Diagnostic Findings Echocardiogram performed today revealed preserved LV systolic function with minor valvular disease. Patient did have a moderate-sized pericardial effusion. Chest x-ray obtained at the time admission revealed cardiomegaly. Patient also had evidence of a left lower lobe atelectasis versus infiltrate and round atelectasis ECG Additional Comments: Atrial flutter with controlled ventricular response
[2018-12-13] MEDS: GEMFIBROZIL 600 MG TAB PO SCH (21:03)
[2018-12-13 23:22] LABS: Partial Thromboplastin Ratio 1.5; Partial Thromboplastin Time 41.1 Seconds (21.0-31.0)
[2018-12-13] MEDS ORDERED: HEPARIN IV BOLUS 4,000 UNITS in SYRINGE 0 ML IV ONE (23:50)
[2018-12-14] MEDS: Heparin IV Standard *NO* Bolus IV SCH ×3 (06:43→06:44)
[2018-12-14 07:02] LABS: Basophils # (auto) 0.02 K/uL (0-0.2); Basophils % (auto) 0.2 %; Eosinophils # (auto) 0.02 K/uL (0-0.5); Eosinophils % (auto) 0.2 %; Hematocrit (blood only) 29.7 % (42-52); Immature Granulocytes # (auto) 0.05 K/uL (0.00-0.02); Immature Granulocytes % (auto) 0.6 %; Lymphocytes # (auto) 1.48 K/uL (1.2-3.4); Lymphocytes % (auto) 16.4 %; Mean Corpuscular Hgb Conc 33.7 g/dL (32-36); Mean Corpuscular Volume 95.2 fL (80-100); Mean Platelet Volume 9.7 fL (7.4-10.4); Monocytes % (auto) 11.1 %; Neutrophils # (auto) 6.46 K/uL (1.4-6.5); Neutrophils % (auto) 71.5 %; Platelet Count 358 K/uL (130-400); RDW Coefficient of Variation 14.1 % (11.5-14.5); RDW Standard Deviation 48.4 fL (36.4-46.3); Red Blood Count 3.12 M/uL (4.7-6.1); White Blood Count 9.03 K/uL (4.8-10.8)
[2018-12-14] MEDS: Heparin Adult STANDARD Wt-Based Dextrose 5% 25,000 units/500 mL IV SCH ×2 (07:20→21:35)
[2018-12-14 07:22] LABS: Partial Thromboplastin Ratio 2.6
[2018-12-14 07:24] LABS: Partial Thromboplastin Time 69.8 Seconds (21.0-31.0)
--- NOTE | 2018-12-14 08:07 | Family Medicine Progress Note ---
Date of Service December 14, 2018 Assessment & Plan (1) Atrial flutter with rapid ventricular response: - Currently asymptomatic on Diltiazem drip and is rate controlled but still with irregular rhythm. - Plan for LAUREN to ensure no mural thrombus prior to plans for cardioversion - contine with cardiac monitoring - Cardiology is consulted - CXR showed moderate cardiomegaly with findings of early congestive failure; superimposed left basilar infiltrate appearing to be round atelectasis with r ecommendations for repeat on later date to ensure complete resolution of left basilar findings. - TTE Echocardiogram showed moderate concentric LVH, normal LV systolic function, LA mod dilated, mod-severe mitral annular calcification, mild-mod mitral regurg, mild mitral stenosis, IVC midly dilated, moderate size pericardial effusion. (2) Elevated troponin: Trended x3, 0.123 --> 0.128 --> 0.157. Values do not support infarction, most likely demand ischemia, but also note that Troponins are renally cleared and patient is End stage renal disease on diaylsis. (3) Pericardial effusion: unsure of etiology, possibly related to end stage kidney disease (4) Mitral regurgitation: as noted on Echo (5) Coronary disease: continue with Lovastatin 20mg daily and Gemfibrozil 600mg PO BID (6) Shortness of breath: significant smoking history, does not complain of dyspnea this morning. (7) Essential hypertension: - continue with home amlodipine 10mg; c/w Lisinopril 10mg daily (8) Diabetes mellitus: - has had some elevated values here - currently on home Insulin NPH 7 units BID - insulin sliding scale coverage currently goal range 120-160, CF 30, Insulin to Carb ratio 1unit:10gm CHO (9) Dialysis patient: - Diaylsis here as indicated - Nephrology has been consulted. - currently on dialysis renal diet Supervising Physician Co-Signing Physician Notes Attending attestation Pt seen and examined in concert with Dr. Bahena. In agreement with the documented findings as noted in the resident documentation with any exceptions or additions as noted here. Resolution of palpitations/flutter sensation following diltiazem w/ irr/irr on monitor and examination, though rate controlled. LAUREN pending at time of evaluation. On examination, IRR/IRR, CTAB. Atrial flutter w/ RVR - cardiology consultation appreciated - LAUREN pending for thrombus evaluation with potential cardioversion following. Continue heparin, diltiazem. Monitor for fluid overload. DMII - glycemic consult - ISS and 70/30 regimen as noted. ESRD on HD - nephrology consultation appreciated - continue electrolyte management and trend BMP HTN - continue present medication reigmen, well controlled. Else see resident documentation as noted. Subjective No acute events reported overnight. Garcia denies any further episodes of palpitations. No chest pain, no shortness of breath, no fever, no chills, no nausea/vomiting/diarrhea. He notes last BM was 2 days ago and was normal. Physical Exam Constitutional: WD/WN, vitals as above cooperative and comfortable Eyes: EOM intact bilaterally Neck: normal visual inspection and trachea midline Respiratory: normal respiratory effort and able to speak in complete sentences; no respiratory distress and does not use accessory muscles Auscultation: + diminished lung sounds (Diffusely) Cardiovascular: Rate/Rhythm: regular rate; + abnormal rhythm (irregularly regular) Extremities: no pedal edema Gastrointestinal (Abdomen): Percussion/Palpation: abdomen soft; abdomen nontender, no guarding and abdomen not rigid Musculoskeletal: Head/Neck/Chest: normocephalic and head atraumatic Skin: no rashes, warm and dry Neurologic: moves all extremities and awake Psychiatric: A+Ox3, euthymic affect Results & Data Vital Signs (Past 12 Hours) Vital Signs Temp Pulse Pulse Resp BP Pulse Ox 12/14/18 04:47 37.1 C 12/14/18 03:00 37.9 C H 79 19 122/66 93 12/13/18 23:13 36.8 C 75 19 128/59 L 91 12/13/18 22:20 80 Laboratory Results Laboratory Results - last 24 hr 12/13/18 12/13/18 12/14/18 20:25 22:59 00:17 WBC RBC Hgb Hct MCV MCH MCHC RDW Std Deviation RDW Coeff of Mike Plt Count MPV Immature Gran % (Auto) Neut % (Auto) Lymph % (Auto) [place] % (Auto) Eos % (Auto) Baso % (Auto) Immature Gran # (Auto) Neut # (Auto) Lymph # (Auto) [place] # (Auto) Eos # (Auto) Baso # (Auto) ESR APTT 41.1 H PTT Ratio 1.5 Sodium Potassium Chloride Carbon Dioxide Anion Gap BUN Creatinine Est Cr Clr Drug Dosing Est GFR ( Amer) Est GFR (Non-Af Amer) BUN/Creatinine Ratio Glucose POC Glucose 303 H* Calcium Total Bilirubin AST ALT Alkaline Phosphatase Troponin I 0.157 H* C-Reactive Protein Total Protein Albumin Globulin Albumin/Globulin Ratio 12/14/18 12/14/18 12/14/18 06:42 06:42 06:42 WBC RBC Hgb Hct MCV MCH MCHC RDW Std Deviation RDW Coeff of Mike Plt Count MPV Immature Gran % (Auto) Neut % (Auto) Lymph % (Auto) [place] % (Auto) Eos % (Auto) Baso % (Auto) Immature Gran # (Auto) Neut # (Auto) Lymph # (Auto) [place] # (Auto) Eos # (Auto) Baso # (Auto) ESR 69 H APTT 69.8 H* PTT Ratio 2.6 Sodium Potassium Chloride Carbon Dioxide Anion Gap BUN Creatinine Est Cr Clr Drug Dosing Est GFR ( Amer) Est GFR (Non-Af Amer) BUN/Creatinine Ratio Glucose POC Glucose Calcium Total Bilirubin AST ALT Alkaline Phosphatase Troponin I C-Reactive Protein 22.50 H Total Protein Albumin Globulin Albumin/Globulin Ratio 12/14/18 12/14/18 12/14/18 06:42 07:25 08:19 WBC 9.03 RBC 3.12 L Hgb 10.0 L Hct 29.7 L MCV 95.2 MCH 32.1 MCHC 33.7 RDW Std Deviation 48.4 H RDW Coeff of Mike 14.1 Plt Count 358 MPV 9.7 Immature Gran % (Auto) 0.6 Neut % (Auto) 71.5 Lymph % (Auto) 16.4 [place] % (Auto) 11.1 Eos % (Auto) 0.2 Baso % (Auto) 0.2 Immature Gran # (Auto) 0.05 H Neut # (Auto) 6.46 Lymph # (Auto) 1.48 [place]od # (Auto) 1.00 H Eos # (Auto) 0.02 Baso # (Auto) 0.02 ESR APTT PTT Ratio Sodium 132 L Potassium 4.6 Chloride 93 L Carbon Dioxide 27 Anion Gap 13.0 H BUN 51 H D Creatinine 7.10 H* D Est Cr Clr Drug Dosing 12.9 Est GFR ( Amer) 8.5 Est GFR (Non-Af Amer) 7.3 BUN/Creatinine Ratio 7.2 L Glucose 230 H POC Glucose 231 H Calcium 9.5 Total Bilirubin 0.5 AST 20 ALT 21 Alkaline Phosphatase 178 H Troponin I C-Reactive Protein Total Protein 7.3 Albumin 2.7 L Globulin 4.6 H Albumin/Globulin Ratio 0.6 L 12/14/18 12/14/18 12/14/18 11:25 13:48 16:06 WBC RBC Hgb Hct MCV MCH MCHC RDW Std Deviation RDW Coeff of Mike Plt Count MPV Immature Gran % (Auto) Neut % (Auto) Lymph % (Auto) [place] % (Auto) Eos % (Auto) Baso % (Auto) Immature Gran # (Auto) Neut # (Auto) Lymph # (Auto) [place] # (Auto) Eos # (Auto) Baso # (Auto) ESR APTT 57.8 H* PTT Ratio 2.1 Sodium Potassium Chloride Carbon Dioxide Anion Gap BUN Creatinine Est Cr Clr Drug Dosing Est GFR ( Amer) Est GFR (Non-Af Amer) BUN/Creatinine Ratio Glucose POC Glucose 191 H 181 H Calcium Total Bilirubin AST ALT Alkaline Phosphatase Troponin I C-Reactive Protein Total Protein Albumin Globulin Albumin/Globulin Ratio Medications Administered Amlodipine Besylate (Norvasc) 10 mg PO DAILY [facility] Stop: 01/13/19 08:59 Last Admin: 12/14/18 08:55 Dose: 10 mg Documented by: [id number] Aspirin (Ecotrin Ectab) 81 mg PO DAILY TIM Stop: 01/13/19 08:59 Last Admin: 12/14/18 08:56 Dose: 81 mg Documented by: [id number] Calcium Acetate (Phoslo) 1,334 mg PO TIDM [facility] Stop: 01/12/19 11:59 Last Admin: 12/14/18 15:25 Dose: Not Given Documented by: [id number] Admin: 12/14/18 09:06 Dose: Not Given Documented by: [id number] Admin: 12/13/18 17:49 Dose: Not Given Documented by: [id number] Admin: 12/13/18 16:56 Dose: 1,334 mg Documented by: [id number] Calcium Carbonate (Tums) 3,000 mg PO TIDM [facility] Stop: 01/12/19 12:59 Last Admin: 12/14/18 15:25 Dose: Not Given Documented by: [id number] Admin: 12/14/18 09:07 Dose: Not Given Documented by: [id number] Admin: 12/13/18 16:48 Dose: 3,000 mg Documented by: [id number] Admin: 12/13/18 14:35 Dose: 3,000 mg Documented by: [id number] Gemfibrozil (Lopid) 600 mg PO BID TIM Stop: 01/12/19 20:59 Last Admin: 12/14/18 08:55 Dose: 600 mg Documented by: [id number] Admin: 12/13/18 21:03 Dose: 600 mg Documented by: [id number] Diltiazem HCl 125 mg/ Dextrose 125 mls @ 5 mls/hr IV .Q24H TIM; Protocol Stop: 01/12/19 12:59 Last Admin: 12/14/18 12:27 Dose: 5 mg/hr, 5 mls/hr Documented by: [id number] Cosigned by: [id number] Titration: 12/14/18 12:27 Dose: 5 mg/hr, 5 mls/hr Documented by: [id number] Cosigned by: [id number] Titration: 12/14/18 07:15 Dose: 5 mg/hr, 5 mls/hr Documented by: [id number] Cosigned by: [id number] Titration: 12/13/18 23:28 Dose: 5 mg/hr, 5 mls/hr Documented by: [id number] Cosigned by: [id number] Titration: 12/13/18 15:17 Dose: 5 mg/hr, 5 mls/hr Documented by: [id number] Cosigned by: [id number] Admin: 12/13/18 14:34 Dose: 5 mg/hr, 5 mls/hr Documented by: [id number] Cosigned by: [id number] Heparin Sodium/Dextrose (Heparin Sodium/Dextrose) 25,000 units in 500 mls @ 34 mls/hr IV .[id number] TIM; Protocol Stop: 01/12/19 14:29 Last Titration: 12/14/18 07:45 Dose: 1,700 units/hr, 34 mls/hr Documented by: [id number] Cosigned by: [id number] Admin: 12/14/18 07:20 Dose: 1,800 units/hr, 36 mls/hr Documented by: [id number] Cosigned by: [id number] Titration: 12/14/18 07:20 Dose: 1,800 units/hr, 36 mls/hr Documented by: [id number] Cosigned by: [id number] Titration: 12/14/18 07:15 Dose: 1,800 units/hr, 36 mls/hr Documented by: [id number] Cosigned by: [id number] Titration: 12/13/18 23:28 Dose: 1,800 units/hr, 36 mls/hr Documented by: [id number] Cosigned by: [id number] Titration: 12/13/18 23:26 Dose: 1,800 units/hr, 36 mls/hr Documented by: [id number] Cosigned by: [id number] Admin: 12/13/18 16:44 Dose: 1,600 units/hr, 32 mls/hr Documented by: [id number] Cosigned by: [id number] Insulin Aspart (Novolog Flexpen) 0 units SC ACHS TIM Stop: 01/12/19 12:59 Last Admin: 12/14/18 17:38 Dose: 9 units Documented by: [id number] Cosigned by: [id number] Admin: 12/14/18 12:27 Dose: 2 units Documented by: [id number] Cosigned by: [id number] Admin: 12/14/18 08:57 Dose: 3 units Documented by: [id number] Cosigned by: [id number] Admin: 12/13/18 21:02 Dose: 5 units Documented by: [id number] Cosigned by: [id number] Admin: 12/13/18 17:48 Dose: 9 units Documented by: [id number] Cosigned by: [id number] Admin: 12/13/18 14:41 Dose: Not Given Documented by: [id number] Cosigned by: [id number] Insulin Human NPH (Novolin N Nph) 7 units SC BIDM TIM Stop: 01/12/19 12:59 Last Admin: 12/14/18 17:37 Dose: 7 units Documented by: [id number] Cosigned by: [id number] Admin: 12/14/18 08:56 Dose: 7 units Documented by: [id number] Cosigned by: [id number] Admin: 12/13/18 17:49 Dose: 7 units Documented by: [id number] Cosigned by: [id number] Admin: 12/13/18 14:38 Dose: 7 units Documented by: [id number] Cosigned by: [id number] Lisinopril (Zestril) 10 mg PO DAILY TIM Stop: 07/20/19 08:59 Last Admin: 12/14/18 08:56 Dose: 10 mg Documented by: [id number] Lovastatin (Mevacor) 20 mg PO DAILY TIM Stop: 01/13/19 08:59 Last Admin: 12/14/18 08:56 Dose: 20 mg Documented by: [id number] Miscellaneous (Order Awaiting Action) 1 ea N/A QS TIM Stop: 01/12/19 15:59 Last Admin: 12/14/18 15:26 Dose: Not Given Documented by: [id number] Admin: 12/14/18 09:06 Dose: Not Given Documented by: [id number] Admin: 12/14/18 00:07 Dose: Not Given Documented by: [id number] Admin: 12/13/18 17:23 Dose: Not Given Documented by: [id number] Admin: 12/13/18 17:13 Dose: Not Given Documented by: [id number] Vitamin B Complex (Vitamin B Complex) 1 tab PO DAILY TIM Stop: 01/13/19 08:59 Last Admin: 12/14/18 08:55 Dose: 1 tab Documented by: [id number] PG Care Time/CCT Total # of Minutes Spent Total Time Spent with Patient: Total time spent is greater than 50% in coordination of care (as documented) at patient's floor/unit and/or counseling patient: Resident Activity Tracking Resident Involvement: Resident Care Provided Care Provided: Adult Hospital Medicine
--- NOTE | 2018-12-14 08:49 | Nephrology Progress Note ---
Date of Service December 14, 2018 Assessment & Plan (1) End-stage renal disease on hemodialysis: -- HD MWF (180 optiflux, 2K, 450 Qb, EDW 105 kg) -- BP and volume status are currently acceptable -- Serum metabolic profile pending -- Medications are appropriate for kidney function -- No emergent need for HD -- Plan HD tomorrow per MWF schedule (2) Atrial flutter with rapid ventricular response: -- Rate controlled with diltiazem drip -- LAUREN cardioversion scheduled for later today (3) Diabetes mellitus: (4) Essential hypertension: -- BP acceptable Subjective No acute events overnight. Garcia feels great this morning. He denies chest pain or palpitations. He denies shortness of breath. He has been out of bed to a chair. He has not experienced syncope or presyncope. His remains at the bedside. Review of Systems Review of Systems: All systems reviewed & are unremarkable except as noted in HPI & below Physical Exam Constitutional: + obese; no acute distress Eyes: no scleral abnormality and no corneal abnormality ENMT: Mouth: no oral mucosal abnormality and oral mucous membranes not dry Neck: normal visual inspection and trachea midline Respiratory: normal respiratory effort; no respiratory distress Auscultation: lungs clear to auscultation bilaterally Cardiovascular: Heart Sounds: normal S1, normal S2 and + murmur Extremities: + edema (trace-1+) and + AV fistula Gastrointestinal (Abdomen): Inspection/Auscultation: normal bowel sounds Percussion/Palpation: abdomen soft; abdomen nontender Musculoskeletal: Extremities: extremities normal to inspection; no cyanosis and no clubbing Skin: no rashes Neurologic: Motor/Sensory: no tremor and no asterixis Psychiatric: Orientation: alert and oriented x 3 Affect: euthymic affect Results & Data Vital Signs (Past 12 Hours) Vital Signs Temp Pulse Pulse Pulse Resp BP Pulse Ox 12/14/18 08:00 37.1 C 79 18 140/74 95 12/14/18 04:47 37.1 C 12/14/18 03:00 37.9 C H 79 19 122/66 93 12/13/18 23:13 36.8 C 75 19 128/59 L 91 12/13/18 22:20 80 Laboratory Results Laboratory Results - last 24 hr 06/19/19 06/19/19 06/19/19 08:45 08:45 08:45 WBC 8.84 RBC 3.23 L Hgb 10.7 L Hct 31.2 L MCV 96.6 MCH 33.1 MCHC 34.3 RDW Std Deviation 48.0 H RDW Coeff of Mike 13.8 Plt Count 371 MPV 9.3 Immature Gran % (Auto) 0.3 Neut % (Auto) 74.7 Lymph % (Auto) 10.9 [place] % (Auto) 13.1 Eos % (Auto) 0.8 Baso % (Auto) 0.2 Immature Gran # (Auto) 0.03 H Neut # (Auto) 6.60 H Lymph # (Auto) 0.96 L [place] # (Auto) 1.16 H Eos # (Auto) 0.07 Baso # (Auto) 0.02 ESR PT 12.9 H INR 1.3 H APTT 30.9 PTT Ratio 1.1 Sodium 136 Potassium 4.3 Chloride 95 L Carbon Dioxide 30 Anion Gap 11.0 BUN 32 H Creatinine 4.87 H* Est Cr Clr Drug Dosing 18.7 Est GFR ( Amer) 13.3 Est GFR (Non-Af Amer) 11.5 BUN/Creatinine Ratio 6.7 L Glucose 204 H POC Glucose Calcium 9.4 Magnesium 2.2 Total Bilirubin 0.4 AST 14 L ALT 20 Alkaline Phosphatase 133 H Troponin I 0.123 H* C-Reactive Protein Total Protein 7.6 Albumin 3.0 L Globulin 4.6 H Albumin/Globulin Ratio 0.7 L TSH 2.540 12/13/18 12/13/18 12/13/18 16:01 16:14 20:25 WBC RBC Hgb Hct MCV MCH MCHC RDW Std Deviation RDW Coeff of Mike Plt Count MPV Immature Gran % (Auto) Neut % (Auto) Lymph % (Auto) [place] % (Auto) Eos % (Auto) Baso % (Auto) Immature Gran # (Auto) Neut # (Auto) Lymph # (Auto) [place] # (Auto) Eos # (Auto) Baso # (Auto) ESR PT INR APTT PTT Ratio Sodium Potassium Chloride Carbon Dioxide Anion Gap BUN Creatinine Est Cr Clr Drug Dosing Est GFR ( Amer) Est GFR (Non-Af Amer) BUN/Creatinine Ratio Glucose POC Glucose 216 H 303 H* Calcium Magnesium Total Bilirubin AST ALT Alkaline Phosphatase Troponin I 0.128 H* C-Reactive Protein Total Protein Albumin Globulin Albumin/Globulin Ratio TSH 12/13/18 12/14/18 12/14/18 22:59 00:17 06:42 WBC RBC Hgb Hct MCV MCH MCHC RDW Std Deviation RDW Coeff of Mike Plt Count MPV Immature Gran % (Auto) Neut % (Auto) Lymph % (Auto) [place] % (Auto) Eos % (Auto) Baso % (Auto) Immature Gran # (Auto) Neut # (Auto) Lymph # (Auto) [place] # (Auto) Eos # (Auto) Baso # (Auto) ESR 69 H PT INR APTT 41.1 H PTT Ratio 1.5 Sodium Potassium Chloride Carbon Dioxide Anion Gap BUN Creatinine Est Cr Clr Drug Dosing Est GFR ( Amer) Est GFR (Non-Af Amer) BUN/Creatinine Ratio Glucose POC Glucose Calcium Magnesium Total Bilirubin AST ALT Alkaline Phosphatase Troponin I 0.157 H* C-Reactive Protein Total Protein Albumin Globulin Albumin/Globulin Ratio [facility] 12/14/18 12/14/18 12/14/18 06:42 06:42 06:42 WBC 9.03 RBC 3.12 L Hgb 10.0 L Hct 29.7 L MCV 95.2 MCH 32.1 MCHC 33.7 RDW Std Deviation 48.4 H RDW Coeff of Mike 14.1 Plt Count 358 MPV 9.7 Immature Gran % (Auto) 0.6 Neut % (Auto) 71.5 Lymph % (Auto) 16.4 [place] % (Auto) 11.1 Eos % (Auto) 0.2 Baso % (Auto) 0.2 Immature Gran # (Auto) 0.05 H Neut # (Auto) 6.46 Lymph # (Auto) 1.48 [place] # (Auto) 1.00 H Eos # (Auto) 0.02 Baso # (Auto) 0.02 ESR PT INR APTT 69.8 H* PTT Ratio 2.6 Sodium Potassium Chloride Carbon Dioxide Anion Gap BUN Creatinine Est Cr Clr Drug Dosing Est GFR ( Amer) Est GFR (Non-Af Amer) BUN/Creatinine Ratio Glucose POC Glucose Calcium Magnesium Total Bilirubin AST ALT Alkaline Phosphatase Troponin I C-Reactive Protein 22.50 H Total Protein Albumin Globulin Albumin/Globulin Ratio [facility] 12/14/18 12/14/18 07:25 08:19 WBC RBC Hgb Hct MCV MCH MCHC RDW Std Deviation RDW Coeff of Mike Plt Count MPV Immature Gran % (Auto) Neut % (Auto) Lymph % (Auto) [place] % (Auto) Eos % (Auto) Baso % (Auto) Immature Gran # (Auto) Neut # (Auto) Lymph # (Auto) [place] # (Auto) Eos # (Auto) Baso # (Auto) ESR PT INR APTT PTT Ratio Sodium Pending Potassium Pending Chloride Pending Carbon Dioxide Pending Anion Gap Pending BUN Pending Creatinine Pending Est Cr Clr Drug Dosing Pending Est GFR ( Amer) Pending Est GFR (Non-Af Amer) Pending BUN/Creatinine Ratio Pending Glucose Pending POC Glucose 231 H Calcium Pending Magnesium Total Bilirubin Pending AST Pending ALT Pending Alkaline Phosphatase Pending Troponin I C-Reactive Protein Total Protein Pending Albumin Pending Globulin Pending Albumin/Globulin Ratio Pending TSH
[2018-12-14] MEDS: GEMFIBROZIL 600 MG TAB PO SCH ×2 (08:55→20:05)
[2018-12-14] MEDS: VITAMIN B COMPLEX TAB PO SCH (08:55)
[2018-12-14] MEDS: AMLODIPINE BESYLATE 5 MG TAB PO SCH (08:55)
[2018-12-14] MEDS: INSULIN HUMAN NPH SC SCH ×2 (08:56→17:37)
[2018-12-14] MEDS: ASPIRIN 81 MG ECTAB PO SCH (08:56)
[2018-12-14] MEDS: LOVASTATIN 20 MG TAB PO SCH (08:56)
[2018-12-14] MEDS: LISINOPRIL 10 MG TAB PO SCH (08:56)
[2018-12-14] MEDS: INSULIN ASPART 100 UNITS/ML 3 ML PEN SC SCH ×4 (08:57→21:32)
[2018-12-14] MEDS: CALCIUM ACETATE 667 MG CAP PO SCH ×3 (09:06→20:04)
[2018-12-14] MEDS: CALCIUM CARBONATE 500 MG CHEWABLE TAB PO SCH ×3 (09:07→20:03)
[2018-12-14 09:10] LABS: Albumin Globulin Ratio 0.6 (0.9-2); Albumin Level 2.7 gm/dl (3.4-5.0); BUN Creatinine Ratio 7.2 (10-20); Bilirubin,Total 0.5 mg/dl (0.2-1); Calcium 9.5 mg/dl (8.5-10.1); Creatinine Clr Calc Pharmacy 12.9 ml/min; Est GFR (African American) 8.5; Est GFR (Non-African American) 7.3; Globulin 4.6 gm/dl (2.5-4.0); Potassium 4.6 mmol/L (3.5-5.1); Total Protein 7.3 gm/dl (6.4-8.2)
--- NOTE | 2018-12-14 10:41 | Pharmacy Report ---
Pharmacy Glycemic Rec 1 - Date of Service December 14, 2018 - Scope Glycemic Pharmacist to provide recommendations to improve glycemic control (all ICU patients are screened for hyperglycemia and treatment recommendations are provided per protocol). Pt identified with hyperglycemia (BSG above 180) [place] [facility] [place] - Subjective The patient is a 68 year old M admitted on 12/13/18 10:50 for atrial flutter. Patient's past medical history is significant for type 2 diabetes mellitus. - Objective Accuchecks BSG (last 24hrs):: 12/13/18 12/13/18 12/14/18 16:14 20:25 07:25 Glucose POC Glucose 216 H 303 H* 231 H 12/14/18 08:19 Glucose 230 H POC Glucose Laboratory Data (last 24hrs):: 12/14/18 12/14/18 06:42 08:19 WBC 9.03 Sodium 132 L Potassium 4.6 Anion Gap 13.0 H BUN 51 H D Creatinine 7.10 H* D BUN/Creatinine Ratio 7.2 L - Recent Pertinent Medications Outpatient Anti-diabetic Regimen: * 70/30 insulin 10units SQ with AM and PM meals * A1c = 10.6% 08/15/18, interpret with caution due to shortened RBC lifespan in ESRD The patient is currently receiving: * Basal Insulin: NPH 7 units SQ BID * Correctional Insulin: Novolog Correction per scale ACHS Goal Range: Low 120 mg/dL - High 160 mg/dL Correction Factor: 30 mg/dL/unit * Prandial Insulin: Per carb ratio of 1 unit per 10 grams CHO consumed Risk Factors for Insulin Resistance: * IVF: two continuous infusions mixed in D5W (diltiazem + heparin) - Assessment & Plan ASSESSMENT: * Patient has remained hyperglycemic since admission despite current insulin orders * Current BSG pattern suggests basal insulin deficiency * Reviewed prior hospitalization data, pt did require 40-55 units of insulin per day when tolerating a diet in 2016. 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 His A1c from Jul of this year suggests his glycemic control is poor. * Would recommend increasing both NPH and Novolog doses today to better control BSGs. * Would refrain from using 70/30 insulin as this insulin is not easily titrated and often leads to hypoglycemia in hospitalized patients with changing nutritional status (NPO for procedures) as there is a fixed prandial dose in every dose RECOMMEND: * Increasing NPH 12 units SQ BID (breakfast + dinner) * Changing correction factor 20 mg/dl/unit * Changing carb ratio 1 unit per 8 grams CHO consumed with breakfast and dinner only (as NPH will "peak" with lunch to provide prandial insulin) * Continuing goal range Low 120 mg/dL - High 160 mg/dL Pharmacy will continue to provide recommendations in EMR while patient admitted to 1E/2E. Physicians may request pharmacy to continue to follow patient when transferred out of the ICU and/or consult pharmacy to write glycemic control orders * Please note that the plan above was derived based on current level of insulin resistance and hospital stress. These recommendations are appropriate for inpatient admission only. Plan of care upon discharge will need to be reassessed to avoid potential outpatient hypo/hyperglycemia. Thank you.
[2018-12-14] MEDS: dilTIAZem HCl 125 MG in DEXTROSE 5% 100 ML IV SCH (12:27)
--- NOTE | 2018-12-14 13:49 | Anesthesiology Consultation ---
Date of Service December 14, 2018 Assessment & Plan (1) Encounter for pre-operative examination: Chart Review Chart Review: Acceptable Risk for Surgery History Surgery Operation Date: 12/14/18 13:00 Proposed Procedures p Transesophageal Echo w/Anesthesia - Volodymyr Hough MD s Cardioversion Wash And Greaser w/Anesthesia - Volodymyr Hough MD Height/Weight Height: 5 ft 11 in Weight: 109 kg Allergies Allergy/AdvReac Type Severity Reaction Status Date / Time No Known Drug Allergies Allergy Unknown NONE Verified 12/13/18 09:56 sheep derived (ovine) Allergy Unknown wool socks Verified 12/13/18 09:56 make feet "break out" Medications Home Medications Medication Instructions Recorded Confirmed Last Taken amlodipine 10 mg PO DAILY 08/14/18 12/13/18 12/12/18 aspirin [Aspir-81] 81 mg PO DAILY 08/14/18 12/13/18 12/12/18 calcium carbonate [Tums E-X] 4 tab PO TIDM 08/14/18 12/13/18 12/12/18 cinacalcet [Sensipar] 30 mg PO BIDM 08/14/18 12/13/18 12/12/18 gemfibrozil 1,200 mg PO DAILY 08/14/18 12/13/18 12/12/18 lisinopril 10 mg PO DAILY 08/14/18 12/13/18 12/12/18 lovastatin 20 mg PO DAILY 08/14/18 12/13/18 12/12/18 insulin NPH and regular human 1 sliding scale dose SUBCUT UD #1 08/15/18 12/13/18 12/12/18 [Novolin 70/30 U-100 Insulin] btl calcium acetate 1,334 mg PO TIDM 12/13/18 12/13/18 12/12/18 vitamin B [id number] cit 1 tab PO DAILY 12/13/18 12/13/18 12/12/18 Active Medications Generic Name Dose Route Start Last Admin Trade Name Freq PRN Reason Stop Dose Admin Amlodipine Besylate 10 mg 12/14/18 09:00 12/14/18 08:55 Norvasc PO 01/13/19 08:59 10 mg DAILY TIM Administration Aspirin 81 mg 12/14/18 09:00 12/14/18 08:56 Ecotrin Ectab PO 01/13/19 08:59 81 mg DAILY TIM Administration Calcium Acetate 1,334 mg 12/13/18 12:00 12/14/18 09:06 Phoslo PO 01/12/19 11:59 Not Given TIDM TIM Calcium Carbonate 3,000 mg 12/13/18 13:00 12/14/18 09:07 Tums PO 01/12/19 12:59 Not Given TIDM TIM Gemfibrozil 600 mg 12/13/18 21:00 12/14/18 08:55 Lopid PO 01/12/19 20:59 600 mg BID TIM Administration Diltiazem HCl 125 mg/ Dextrose 125 mls @ 5 mls/hr 12/13/18 13:00 12/14/18 12:27 IV 01/12/19 12:59 5 mg/hr .Q24H TIM 5 mls/hr Administration Protocol 5 MG/HR Heparin Sodium/Dextrose 25,000 units in 500 mls @ 34 mls/hr 12/13/18 14:30 12/14/18 07:45 Heparin Sodium/Dextrose IV 01/12/19 14:29 1,700 units/hr .[id number] TIM 34 mls/hr Titration Protocol 1,700 UNITS/HR Insulin Aspart 0 units 12/13/18 13:00 12/14/18 12:27 Novolog Flexpen SC 01/12/19 12:59 2 units ACHS TIM Administration Insulin Human NPH 7 units 12/13/18 13:00 12/14/18 08:56 Novolin N Nph SC 01/12/19 12:59 7 units BIDM TIM Administration Lisinopril 10 mg 12/14/18 09:00 12/14/18 08:56 Zestril PO 01/13/19 08:59 10 mg DAILY TIM Administration Lovastatin 20 mg 12/14/18 09:00 12/14/18 08:56 Mevacor PO 01/13/19 08:59 20 mg DAILY TIM Administration Miscellaneous 1 ea 12/13/18 16:00 12/14/18 09:06 Order Awaiting Action N/A 01/12/19 15:59 Not Given QS TIM Vitamin B Complex 1 tab 12/14/18 09:00 12/14/18 08:55 Vitamin B Complex PO 01/13/19 08:59 1 tab DAILY TIM Administration Past Medical History Medical History Essential hypertension (Chronic) Pulmonary vascular congestion (Acute) Elevated troponin (Acute) Atrial flutter with rapid ventricular response (Acute) History of stroke Diabetes mellitus (Chronic) End-stage renal disease on hemodialysis (Chronic) Pericardial effusion without cardiac tamponade Diabetes HTN (hypertension) History of renal dialysis Hx of bronchitis Kidney disease Past Family History Family History Other Diabetes Past Surgical History Surgical History History of colostomy History of colostomy reversal Hx of cholecystectomy Social History Smoking Status: Current every day smoker tobacco type: cigarettes Smoking cigarettes per day: 3 Do You Dip or Chew Tobacco: No Hx Alcohol Use: No Hx Substance Use: No Physical Exam Vital Signs Last Vital Signs Temp 36.7 C 12/14/18 12:00 Pulse 82 12/14/18 12:00 Resp 18 12/14/18 12:00 BP 110/60 12/14/18 12:00 Pulse Ox 93 12/14/18 12:00 Testing Laboratory Results 12/14/18 06:42 12/14/18 08:19 PT 12.9 Seconds (9.0-12.0) H 12/13/18 08:45 INR 1.3 (0.9-1.1) H 12/13/18 08:45 APTT 69.8 Seconds (21.0-31.0) H* 12/14/18 06:42 12/14/18 12/14/18 11:25 07:25 POC Glucose 191 H 231 H Electrocardiogram Date: 12/14/18 Findings: + AFIB @ ((Flutter) 84) Chest X-Ray Date: 12/13/18 Findings: + cardiomegaly and + pulmonary vascular congestion (early, mild) Echocardiogram Date: 12/13/18 LV Function: normal Valvular Disease: + MS (mild), + MR (moderate) and + pertinent finding (effusion, not hemodynamically significant at this time)
[2018-12-14] MEDS ORDERED: PROPOFOL IV EMULSION 10 MG/ML 20 ML VIAL IV ONE (13:54)
[2018-12-14 14:22] LABS: Partial Thromboplastin Ratio 2.1
[2018-12-14 14:23] LABS: Partial Thromboplastin Time 57.8 Seconds (21.0-31.0)
[2018-12-14] MEDS ORDERED: LIDOCAINE HCL 2% MPF (LOCAL) 5 ML VIAL INFIL ONE ×2 (14:37)
--- NOTE | 2018-12-14 14:42 | Post Operative Brief Note ---
Cardiology Brief Post Op Date of Surgery December 14, 2018 Pre & Post Diagnosis Operation Date: 12/14/18 13:00 <No data on this case meets the specified criteria> Procedure LAUREN Possible thrombus in ARACELIS. Spontaneous contrast (smoke) in LA. Cardioversion deferred Truss Assembler Alber Hough MD Valve Mechanic none Estimated Blood Loss 0 Findings See Below
--- NOTE | 2018-12-14 15:05 | Anesthesiology Progress Note ---
Date of Service December 14, 2018 Anesthesia Post Procedure Vital Signs Vital Signs: Temp Pulse Pulse Pulse Resp BP BP 12/14/18 12:00 36.7 C 82 18 110/60 12/14/18 08:00 37.1 C 79 18 140/74 12/14/18 04:47 37.1 C 12/14/18 03:00 37.9 C H 79 19 122/66 12/13/18 23:13 36.8 C 75 19 128/59 L 12/13/18 22:20 80 12/13/18 18:51 36.8 C 87 20 122/68 12/13/18 17:37 78 Pulse Ox 12/14/18 12:00 93 12/14/18 08:00 95 12/14/18 04:47 12/14/18 03:00 93 12/13/18 23:13 91 12/13/18 22:20 12/13/18 18:51 96 12/13/18 17:37 Transfer of Care Handoff Completed per policy Notes Mental Status: alert / awake / arousable Patient Amnestic to Procedure: Yes Nausea / Vomiting: adequately controlled Pain: adequately controlled Airway Patency, RR, SpO2: stable & adequate BP & HR: stable & adequate Hydration State: stable & adequate Anesthetic Complications: no major complications apparent
--- NOTE | 2018-12-14 19:15 | Cardiology Progress Note ---
Date of Service December 14, 2018 Assessment & Plan (1) Atrial flutter with rapid ventricular response: Our intention was to cardiovert the patient today but there was some concern regarding left atrial appendage thrombus and spontaneous contrast in left atrium placing him at higher risk of periprocedural stroke. Therefore, we deferred cardioversion. Would suggest placing the patient on systemic anticoagulation with Eliquis for 3-4 weeks prior to cardioversion. Overall rate control appears to be actually quite good on Cardizem. I think we can switch him to an oral regimen and monitor his symptoms and heart rate. It is very possible lot of his symptoms are related to higher heart rates which are more likely to occur with activity. (2) Elevated troponin: Likely related to demand ischemia a renal dysfunction in the setting of fixed coronary disease (3) Pericardial effusion: Unclear etiology. No evidence of hemodynamic compromise. At this point I would defer pericardiocentesis unless there is a need for pericardial fluid to confirm a diagnosis (4) Mitral regurgitation: [id number]. Not likely causing any symptoms currently. (5) Coronary disease: Presumed. He has elevated biomarkers on occasion. He has significant coronary calcifications on prior imaging. He certainly in a demographic who like ly has significant coronary disease. However, his preserved LV systolic function and no symptoms of angina. I do not believe there is any indication for coronary evaluation at this time. (6) Shortness of breath: Unclear if this was related to his atrial flutter, mild congestive heart failure, pericardial effusion or possibly a primary pulmonary process as his x- ray is not normal. Subjective The patient reported feeling well and was anxious to go home. He denies any dyspnea at rest. He was hungry as we have kept him NPO for most of the morning. Review of Systems Review of Systems: Per HPI Physical Exam Physical Exam: The patient is alert and oriented. Mood and affect appeared normal. He answered all questions appropriately. HEENT: Pupils are equal and reactive to light and accommodation. Extraocular movements are intact. The sclerae are anicteric. Neuro: Cranial nerves intact Lungs: Coarse upper airway sounds. Normal respiratory effort. No expiratory wheezing. Cardiac: Irregular rhythm. Pulses: The patient has palpable radial pulses bilaterally that are equal in intensity Results & Data Vital Signs (Past 12 Hours) Vital Signs Temp Pulse Resp BP BP Pulse Ox 12/14/18 15:16 36.7 C 77 16 120/68 97 12/14/18 12:00 36.7 C 82 18 110/60 93 12/14/18 08:00 37.1 C 79 18 140/74 95 Laboratory Results Abnormal Lab Results 12/13/18 12/13/18 12/14/18 20:25 22:59 00:17 WBC RBC Hgb Hct MCV MCH MCHC RDW Std Deviation RDW Coeff of Mike Plt Count MPV Immature Gran % (Auto) Neut % (Auto) Lymph % (Auto) [place] % (Auto) Eos % (Auto) Baso % (Auto) Immature Gran # (Auto) Neut # (Auto) Lymph # (Auto) [place] # (Auto) Eos # (Auto) Baso # (Auto) ESR APTT 41.1 H PTT Ratio 1.5 Sodium Potassium Chloride Carbon Dioxide Anion Gap BUN Creatinine Est Cr Clr Drug Dosing Est GFR ( Amer) Est GFR (Non-Af Amer) BUN/Creatinine Ratio Glucose POC Glucose 303 H* Calcium Total Bilirubin AST ALT Alkaline Phosphatase Troponin I 0.157 H* C-Reactive Protein Total Protein Albumin Globulin Albumin/Globulin Ratio 12/14/18 12/14/18 12/14/18 06:42 06:42 06:42 WBC RBC Hgb Hct MCV MCH MCHC RDW Std Deviation RDW Coeff of Mike Plt Count MPV Immature Gran % (Auto) Neut % (Auto) Lymph % (Auto) [place] % (Auto) Eos % (Auto) Baso % (Auto) Immature Gran # (Auto) Neut # (Auto) Lymph # (Auto) [place] # (Auto) Eos # (Auto) Baso # (Auto) ESR 69 H APTT 69.8 H* PTT Ratio 2.6 Sodium Potassium Chloride Carbon Dioxide Anion Gap BUN Creatinine Est Cr Clr Drug Dosing Est GFR ( Amer) Est GFR (Non-Af Amer) BUN/Creatinine Ratio Glucose POC Glucose Calcium Total Bilirubin AST ALT Alkaline Phosphatase Troponin I C-Reactive Protein 22.50 H Total Protein Albumin Globulin Albumin/Globulin Ratio 12/14/18 12/14/18 12/14/18 06:42 07:25 08:19 WBC 9.03 RBC 3.12 L Hgb 10.0 L Hct 29.7 L MCV 95.2 MCH 32.1 MCHC 33.7 RDW Std Deviation 48.4 H RDW Coeff of Mike 14.1 Plt Count 358 MPV 9.7 Immature Gran % (Auto) 0.6 Neut % (Auto) 71.5 Lymph % (Auto) 16.4 [place] % (Auto) 11.1 Eos % (Auto) 0.2 Baso % (Auto) 0.2 Immature Gran # (Auto) 0.05 H Neut # (Auto) 6.46 Lymph # (Auto) 1.48 [place] # (Auto) 1.00 H Eos # (Auto) 0.02 Baso # (Auto) 0.02 ESR APTT PTT Ratio Sodium 132 L Potassium 4.6 Chloride 93 L Carbon Dioxide 27 Anion Gap 13.0 H BUN 51 H D Creatinine 7.10 H* D Est Cr Clr Drug Dosing 12.9 Est GFR ( Amer) 8.5 Est GFR (Non-Af Amer) 7.3 BUN/Creatinine Ratio 7.2 L Glucose 230 H POC Glucose 231 H Calcium 9.5 Total Bilirubin 0.5 AST 20 ALT 21 Alkaline Phosphatase 178 H Troponin I C-Reactive Protein Total Protein 7.3 Albumin 2.7 L Globulin 4.6 H Albumin/Globulin Ratio 0.6 L 12/14/18 12/14/18 12/14/18 11:25 13:48 16:06 WBC RBC Hgb Hct MCV MCH MCHC RDW Std Deviation RDW Coeff of Mike Plt Count MPV Immature Gran % (Auto) Neut % (Auto) Lymph % (Auto) [place] % (Auto) Eos % (Auto) Baso % (Auto) Immature Gran # (Auto) Neut # (Auto) Lymph # (Auto) [place] # (Auto) Eos # (Auto) Baso # (Auto) ESR APTT 57.8 H* PTT Ratio 2.1 Sodium Potassium Chloride Carbon Dioxide Anion Gap BUN Creatinine Est Cr Clr Drug Dosing Est GFR ( Amer) Est GFR (Non-Af Amer) BUN/Creatinine Ratio Glucose POC Glucose 191 H 181 H Calcium Total Bilirubin AST ALT Alkaline Phosphatase Troponin I C-Reactive Protein Total Protein Albumin Globulin Albumin/Globulin Ratio Diagnostic Findings Transesophageal echocardiogram was performed today which revealed spontaneous contrast in left atrium and possible left atrial appendage thrombus.
[2018-12-15 06:13] LABS: Partial Thromboplastin Ratio 2.2
[2018-12-15 06:22] LABS: BUN Creatinine Ratio 7.6 (10-20); Calcium 9.2 mg/dl (8.5-10.1); Creatinine Clr Calc Pharmacy 10.6 ml/min; Est GFR (African American) 6.7; Est GFR (Non-African American) 5.8; Potassium 4.6 mmol/L (3.5-5.1)
[2018-12-15] MEDS ORDERED: SODIUM CHLORIDE 0.9% 1000ML 1,000 ML IV PRN (07:00)
[2018-12-15 07:08] LABS: Partial Thromboplastin Time 58.5 Seconds (21.0-31.0)
[2018-12-15] MEDS: CALCIUM ACETATE 667 MG CAP PO SCH ×3 (08:32→17:01)
[2018-12-15] MEDS: CALCIUM CARBONATE 500 MG CHEWABLE TAB PO SCH ×3 (08:32→17:01)
[2018-12-15] MEDS: AMLODIPINE BESYLATE 5 MG TAB PO SCH (08:32)
[2018-12-15] MEDS: GEMFIBROZIL 600 MG TAB PO SCH ×2 (08:32→20:43)
[2018-12-15] MEDS: INSULIN HUMAN NPH SC SCH ×2 (08:33→16:59)
[2018-12-15] MEDS: LOVASTATIN 20 MG TAB PO SCH (08:33)
[2018-12-15] MEDS: VITAMIN B COMPLEX TAB PO SCH (08:33)
[2018-12-15] MEDS: ASPIRIN 81 MG ECTAB PO SCH (08:33)
[2018-12-15] MEDS: LISINOPRIL 10 MG TAB PO SCH (08:33)
[2018-12-15] MEDS: INSULIN ASPART 100 UNITS/ML 3 ML PEN SC SCH ×4 (08:35→20:42)
--- NOTE | 2018-12-15 08:37 | Family Medicine Progress Note ---
Date of Service December 15, 2018 Assessment & Plan (1) Atrial flutter with rapid ventricular response: - Currently asymptomatic on Diltiazem drip and is rate controlled but still with irregular rhythm. - LAUREN with concerns for thrombus in LA, will not be candidate for cardioversion, and will plan to treat with anti-coagulation prior to future cardioversion - contine with cardiac monitoring - Cardiology is consulted - CXR showed moderate cardiomegaly with findings of early congestive failure; superimposed left basilar infiltrate appearing to be round atelectasis with recommendations for repeat on later date to ensure complete resolution of left basilar findings. - TTE Echocardiogram showed moderate concentric LVH, normal LV systolic function, LA mod dilated, mod-severe mitral annular calcification, mild-mod mitral regurg, mild mitral stenosis, IVC midly dilated, moderate size perica rdial effusion. - Will convert Diltiazem IV to PO, Total of 120mg IV; will be 30mg PO q6hr. - Current plan is to switch Heparin to Eliquis. He will need Eliquis for about 2 months per cardiology. Working currently to ensure patient have access to second month as pharmacy has a card for one month free, but second month would not be covered and medication is outside of affordable means for this patient. Cardiology did mention that they have samples at their office and this could be an option for second month supply. (2) Elevated troponin: Trended x3, 0.123 --> 0.128 --> 0.157. Values do not support infarction, most likely demand ischemia, but also note that Troponins are renally cleared and patient is End stage renal disease on dialysis. (3) Pericardial effusion: unsure of etiology, possibly related to end stage kidney disease (4) Mitral regurgitation: as noted on Echo (5) Coronary disease: continue with Lovastatin 20mg daily and Gemfibrozil 600mg PO BID (6) Shortness of breath: significant smoking history, does not complain of dyspnea this morning. (7) Essential hypertension: - continue with home amlodipine 10mg; c/w Lisinopril 10mg daily (8) Diabetes mellitus: - has had some elevated values here - pharm consult requested for hyperglycemic management (9) Dialysis patient: - Dialysis here as indicated - Nephrology has been consulted. - currently on dialysis renal diet - Diaylsis here 12/15, gets it MWF Supervising Physician Co-Signing Physician Notes Attending attestation I saw the patient independently and confirmed conrad portion of the history and physical exam as documented in the resident note. Also discussed the case with cardiology. Upon my examination, the patient is without complaint. He was undergoing hemodialysis in his hospital room on 2 E. Atrial flutter w/ RVR Transition heparin drip to Eliquis We should be to get the patient samples from cardiology. Anticoagulation would only be about 2 months; if he would need anticoagulation beyond this may need to transition to the affordable option such as warfarin. Discontinue diltiazem drip and start on oral diltiazem at equivalent dose; monitor heart rate and adjust We will have to look at the cost of medications upon discharge and find the most affordable diltiazem formulation for him DMII - glycemic consult - ISS and 70/30 regimen as noted. ESRD on HD - nephrology consultation appreciated HTN -excellent control on current regimen Subjective Mr. Prabhakar denies any episodes of palpitations overnight. No acute events were reported overnight. He denies chest pain, dyspnea, nausea, vomiting, chills, fever, diarrhea. He had no acute complaints or requests. Results of LAUREN were briefly discussed with patient. He had no acute concerns or questions about LAUREN results or treatment plans. Physical Exam Constitutional: WD/WN, vitals as above cooperative and comfortable Eyes: EOM intact bilaterally Neck: normal visual inspection and trachea midline Respiratory: normal respiratory effort and able to speak in complete sentences; no respiratory distress and does not use accessory muscles Auscultation: + diminished lung sounds (Diffusely) Cardiovascular: Rate/Rhythm: regular rate; + abnormal rhythm (irregularly regular) Extremities: no pedal edema Gastrointestinal (Abdomen): Percussion/Palpation: abdomen soft; abdomen nontender, no guarding and abdomen not rigid Musculoskeletal: Head/Neck/Chest: normocephalic and head atraumatic Skin: no rashes, warm and dry Neurologic: moves all extremities and awake Psychiatric: A+Ox3, euthymic affect Results & Data Vital Signs (Past 12 Hours) Vital Signs Temp Pulse Resp BP BP Pulse Ox Pulse Ox 12/15/18 06:49 36.9 C 75 20 137/67 93 12/15/18 04:47 94 12/14/18 22:58 36.7 C 73 18 144/73 H 96 PG Care Time/CCT Total # of Minutes Spent Total Time Spent with Patient: Total time spent is greater than 50% in coordination of care (as documented) at patient's floor/unit and/or counseling patient: Resident Activity Tracking Resident Involvement: Resident Care Provided Care Provided: Adult [facility]
[2018-12-15] MEDS ORDERED: PHARMACY GLYCEMIC MGMT CONSULT PRN (08:40)
--- NOTE | 2018-12-15 09:38 | Nephrology Progress Note ---
Date of Service December 15, 2018 Assessment & Plan (1) End-stage renal disease on hemodialysis: -- Orders for HD today were entered into the EMR and discussed with the dialysis nurse instructional assistant -- 180 optiflux, 2K, 450 Qb, EDW 105 kg -- UF goal 4-5 kg as tolerated -- BP acceptable -- Medications are appropriate for kidney function (2) Atrial flutter with rapid ventricular response: -- Rate controlled with diltiazem drip -- LAUREN demonstrated possible thrombus in the LAE -- Cardioversion deferred (3) Diabetes mellitus: (4) Essential hypertension: -- BP acceptable Subjective No acute events overnight. Denies chest pain or palpitations. Out of bed to chair. Breathing comfortably. No syncope or presyncope. No bleeding complications with heparin. Rate remains controlled with diltiazem gtt. Review of Systems Review of Systems: All systems reviewed & are unremarkable except as noted in HPI & below Physical Exam Constitutional: + obese; no acute distress Eyes: no scleral abnormality and no corneal abnormality ENMT: Mouth: no oral mucosal abnormality and oral mucous membranes not dry Neck: normal visual inspection and trachea midline Respiratory: normal respiratory effort; no respiratory distress Auscultation: lungs clear to auscultation bilaterally Cardiovascular: Rate/Rhythm: regular rate Heart Sounds: normal S1, normal S2 and + murmur Extremities: + edema (trace-1+) and + AV fistula Gastrointestinal (Abdomen): Inspection/Auscultation: normal bowel sounds Percussion/Palpation: abdomen soft; abdomen nontender Musculoskeletal: Extremities: extremities normal to inspection; no cyanosis and no clubbing Skin: no rashes Neurologic: Motor/Sensory: no tremor and no asterixis Psychiatric: Orientation: alert and oriented x 3 Affect: euthymic affect Results & Data Vital Signs (Past 12 Hours) Vital Signs Temp Pulse Pulse Resp BP BP BP 12/15/18 09:20 70 129/67 12/15/18 09:15 37.1 C 74 74 130/68 12/15/18 06:49 36.9 C 75 20 137/67 12/15/18 04:47 12/14/18 22:58 36.7 C 73 18 144/73 H Pulse Ox Pulse Ox 12/15/18 09:20 12/15/18 09:15 12/15/18 06:49 93 06/21/19 04:47 94 12/14/18 22:58 96 Laboratory Results Laboratory Results - last 24 hr 12/14/18 12/14/18 12/14/18 11:25 13:48 16:06 APTT 57.8 H* PTT Ratio 2.1 Sodium Potassium Chloride Carbon Dioxide Anion Gap BUN Creatinine Est Cr Clr Drug Dosing Est GFR ( Amer) Est GFR (Non-Af Amer) BUN/Creatinine Ratio Glucose POC Glucose 191 H 181 H Calcium 12/14/18 12/15/18 12/15/18 20:08 05:19 05:19 APTT 58.5 H* PTT Ratio 2.2 Sodium 130 L Potassium 4.6 Chloride 90 L Carbon Dioxide 25 Anion Gap 15.0 H BUN 65 H Creatinine 8.59 H* D Est Cr Clr Drug Dosing 10.6 Est GFR ( Amer) 6.7 Est GFR (Non-Af Amer) 5.8 BUN/Creatinine Ratio 7.6 L Glucose 180 H POC Glucose 233 H Calcium 9.2 12/15/18 07:05 APTT PTT Ratio Sodium Potassium Chloride Carbon Dioxide Anion Gap BUN Creatinine Est Cr Clr Drug Dosing Est GFR ( Amer) Est GFR (Non-Af Amer) BUN/Creatinine Ratio Glucose POC Glucose 198 H Calcium
--- NOTE | 2018-12-15 10:28 | Anesthesiology Progress Note ---
Date of Service December 15, 2018 Anesthesia Post Procedure Vital Signs Vital Signs: Temp Pulse Pulse Resp BP BP BP 12/15/18 10:20 79 129/58 L 12/15/18 10:00 78 123/69 12/15/18 09:40 78 116/65 12/15/18 09:20 70 129/67 12/15/18 09:15 37.1 C 74 74 130/68 12/15/18 06:49 36.9 C 75 20 137/67 12/15/18 04:47 12/14/18 22:58 36.7 C 73 18 144/73 H 12/14/18 19:33 36.8 C 74 20 119/63 12/14/18 15:16 36.7 C 77 16 120/68 12/14/18 12:00 36.7 C 82 18 110/60 Pulse Ox Pulse Ox 12/15/18 10:20 12/15/18 10:00 12/15/18 09:40 12/15/18 09:20 12/15/18 09:15 12/15/18 06:49 93 12/15/18 04:47 94 12/14/18 22:58 96 12/14/18 19:33 91 12/14/18 15:16 97 12/14/18 12:00 93 Notes Mental Status: alert / awake / arousable and participated in evaluation Patient Amnestic to Procedure: Yes Nausea / Vomiting: adequately controlled Pain: adequately controlled Airway Patency, RR, SpO2: stable & adequate BP & HR: stable & adequate Hydration State: stable & adequate Anesthetic Complications: no major complications apparent
[2018-12-15 12:02] LABS: Hepatitis B Surface Antigen Neg (Neg)
[2018-12-15 12:11] LABS: Hepatitis B Surface Antibody Non-Immune
[2018-12-15] MEDS: dilTIAZem HCL 30 MG TAB PO SCH ×3 (12:16→23:21)
--- NOTE | 2018-12-15 13:46 | Pharmacy Report ---
Glycemic Control Consultation - Date of Service December 15, 2018 - Scope Scope: Glycemic Pharmacist consulted by Dr Bahena on 12/15/18 for glycemic control and to write orders per [facility] inpatient glycemic control protocol - Objective Weight: 110.5 kg Accuchecks BSG (last 24hrs): 12/14/18 12/14/18 12/15/18 16:06 20:08 05:19 Glucose 180 H POC Glucose 181 H 233 H 12/15/18 12/15/18 07:05 11:21 Glucose POC Glucose 198 H 122 H Laboratory Data (last 24hrs): 12/15/18 05:19 Potassium 4.6 Carbon Dioxide 25 Anion Gap 15.0 H Creatinine 8.59 H* D Est Cr Clr Drug Dosing 10.6 - Recent Pertinent Medications Outpatient Anti-diabetic Regimen: * Novolin 70/30 - 10 units twice daily * A1c -- on hemodialysis so not applicable The patient is currently receiving: * Basal insulin: NPH 7 units SQ BIDM * Correctional Insulin: Novolog Correction per scale ACHS Goal Range: Low 120 mg/dL - High 160 mg/dL Correction Factor: 30 mg/dL/unit * Prandial insulin: Per carb ratio of 1 unit per 10 grams CHO consumed Risk Factors for Insulin Resistance: * IVF: heparin infusion and cardiazem infusion * Diet: diet changed to T2 diet today - Assessment & Plan Assessment & Plan: ASSESSMENT: * Mr Prabhakar is a 68 y/o M with a PMH of T2DM on hemodialysis. Patient is on mixed insulin at home - this was converted to NPH + Novolog for ease of titrat ion and safety. NPH started a 7 units. This was not sufficient as fasting blood sugars were 231 mg/dL and 198 mg/dL. Increased dose to 12 units today. Pharmacy will follow this increased dose. * Novolog started at CF of 30 and CR of 10. This appeared to be too loose as patient's blood sugars always increased after eating. Parameters were tightened this morning but patient's blood sugar dropped significantly at lunch so loosened slightly again. * Patient's A1c is unknown. * However, this result is likely somewhat unreliable in ESRD patients d/t interactions between the A1c analyzing technique and high levels of urea in ESRD, reduced RBC life span, iron deficiency anemia, and EPO administration. HbA1c > 7.5% in ESRD patient may overestimate the extent of hyperglycemia in ESRD patients. PLAN FOR INPATIENT GLYCEMIC CONTROL: * Basal insulin * NPH 12 units SQ BIDM * Bolus insulin * NovoLog per scale ACHS or Q6hrs while NPO * Goal Range: Low 120 mg/dL - High 160 mg/dL * Correction Factor: 25 mg/dL/unit * Nutritional / Prandial insulin per carb ratio of 1 unit per 9 grams CHO consumed * Please note that the plan above was derived based on current level of insulin resistance and hospital stress. These recommendations are appropriate for inpatient admission only. Plan of care upon discharge will need to be reassessed to avoid potential outpatient hypo/hyperglycemia. Thank you.
[2018-12-15] MEDS: Heparin Adult STANDARD Wt-Based Dextrose 5% 25,000 units/500 mL IV SCH (13:58)
--- NOTE | 2018-12-15 17:50 | Cardiology Progress Note ---
Date of Service December 15, 2018 Assessment & Plan (1) Atrial flutter with rapid ventricular response: Clinically he has improved although he remains in atrial flutter. We will attempt to transition him to an oral regimen of diltiazem and anticoagulation. Apixaban seems like a good choice given his renal dysfunction. I would agree with titration of short-acting diltiazem and switch to long-acting formulation at the time of discharge. I think if he is ambulatory with good rate control on oral diltiazem he could be safely discharged. Eventually, after the appropriate period of anticoagulation we can bring him back for cardioversion. (2) Elevated troponin: Likely related to demand ischemia a renal dysfunction in the setting of fixed coronary disease (3) Pericardial effusion: Unclear etiology. No evidence of hemodynamic compromise. He has tolerated both hemodialysis as well as aggressive attempts at rate control with diltiazem and had no hemodynamic compromise. I do not believe he requires pericardiocentesis currently but if the effusion does not resolve, enlarges or is believed to have cause symptoms and we could entertain drainage. (4) Mitral regurgitation: [id number]. Not likely causing any symptoms currently. (5) Coronary disease: Presumed. He has elevated biomarkers on occasion. He has significant coronary calcifications on prior imaging. He certainly in a demographic who likely has significant coronary disease. However, his preserved LV systolic function and no symptoms of angina. I do not believe there is any indication for coronary evaluation at this time. (6) Shortness of breath: This seems much improved. He may have an element of dyspnea on exertion due to high ventricular rates associated with his atrial flutter. Subjective This afternoon the patient claims to be feeling quite well. He states that the fatigue and lassitude which plagued him at admission is resolved. He has not ambulated much but feels like ambulating. In fact, he told me he feels as if he could run 10 miles. No breathing trouble. No chest pain. No sense of palpitations. Review of Systems Review of Systems: Per HPI Physical Exam Physical Exam: The patient is alert and oriented. Mood and affect appeared no rmal. He answered all questions appropriately. Neuro: Cranial nerves intact Lungs: Clear to auscultation bilaterally. He has good air movement without use of accessory muscles. No rales wheezes or rhonchi. Cardiac: Heart demonstrates an irregular rate and rhythm. Normal S1 and S2. No murmurs on examination. Pulses: The patient has palpable radial pulses bilaterally that are equal in intensity Extremities: There was no evidence of hypoperfusion. There is no cyanosis or clubbing. Skin: I did not appreciate any rashes on examination today. Results & Data Vital Signs (Past 12 Hours) Vital Signs Temp Pulse Pulse Resp BP BP Pulse Ox 12/15/18 15:37 36.5 C 70 18 116/63 92 12/15/18 14:06 37.1 C 78 124/63 12/15/18 13:17 78 124/63 12/15/18 13:00 77 103/62 12/15/18 12:40 83 156/60 H 12/15/18 12:20 82 123/57 L 12/15/18 12:00 81 115/56 L 12/15/18 11:40 63 130/58 L 12/15/18 11:23 36.8 C 87 19 116/62 94 12/15/18 11:20 87 116/62 12/15/18 11:00 60 110/53 L 12/15/18 10:40 79 114/59 L 12/15/18 10:20 79 129/58 L 12/15/18 10:00 78 123/69 12/15/18 09:40 78 116/65 12/15/18 09:20 70 129/67 12/15/18 09:15 37.1 C 74 74 130/68 12/15/18 06:49 36.9 C 75 20 137/67 93 Laboratory Results Abnormal Lab Results 12/14/18 12/15/18 12/15/18 20:08 05:19 05:19 APTT 58.5 H* PTT Ratio 2.2 Sodium 130 L Potassium 4.6 Chloride 90 L Carbon Dioxide 25 Anion Gap 15.0 H BUN 65 H Creatinine 8.59 H* D Est Cr Clr Drug Dosing 10.6 Est GFR ( Amer) 6.7 Est GFR (Non-Af Amer) 5.8 BUN/Creatinine Ratio 7.6 L Glucose 180 H POC Glucose 233 H Calcium 9.2 Hep Bs Antigen Hep Bs Antibody Hep Bs Antibody, Quant 12/15/18 12/15/18 12/15/18 05:19 07:05 11:21 APTT PTT Ratio Sodium Potassium Chloride Carbon Dioxide Anion Gap BUN Creatinine Est Cr Clr Drug Dosing Est GFR ( Amer) Est GFR (Non-Af Amer) BUN/Creatinine Ratio Glucose POC Glucose 198 H 122 H Calcium Hep Bs Antigen Neg Hep Bs Antibody Non-Immune Hep Bs Antibody, Quant 5.55 L 12/15/18 12/15/18 13:55 16:17 APTT PTT Ratio Sodium Potassium Chloride Carbon Dioxide Anion Gap BUN Creatinine Est Cr Clr Drug Dosing Est GFR ( Amer) Est GFR (Non-Af Amer) BUN/Creatinine Ratio Glucose POC Glucose 102 H 146 H Calcium Hep Bs Antigen Hep Bs Antibody Hep Bs Antibody, Quant
[2018-12-16] MEDS: Heparin Adult STANDARD Wt-Based Dextrose 5% 25,000 units/500 mL IV SCH (03:10)
[2018-12-16] MEDS: dilTIAZem HCL 30 MG TAB PO SCH ×2 (05:30→14:45)
[2018-12-16 06:06] LABS: Basophils # (auto) 0.02 K/uL (0-0.2); Basophils % (auto) 0.2 %; Eosinophils # (auto) 0.21 K/uL (0-0.5); Eosinophils % (auto) 2.5 %; Hematocrit (blood only) 29.3 % (42-52); Hemoglobin 9.9 g/dL (14.0-18.0); Immature Granulocytes # (auto) 0.07 K/uL (0.00-0.02); Immature Granulocytes % (auto) 0.8 %; Lymphocytes # (auto) 1.49 K/uL (1.2-3.4); Mean Corpuscular Hgb Conc 33.8 g/dL (32-36); Mean Corpuscular Volume 94.8 fL (80-100); Mean Platelet Volume 9.5 fL (7.4-10.4); Monocytes # (auto) 0.99 K/uL (0.11-0.59); Neutrophils % (auto) 66.5 %; Platelet Count 397 K/uL (130-400); RDW Coefficient of Variation 14.3 % (11.5-14.5); RDW Standard Deviation 48.9 fL (36.4-46.3); Red Blood Count 3.09 M/uL (4.7-6.1); White Blood Count 8.28 K/uL (4.8-10.8)
[2018-12-16 06:57] LABS: Calcium 9.3 mg/dl (8.5-10.1); Creatinine Clr Calc Pharmacy 14.6 ml/min; Est GFR (African American) 10.1; Est GFR (Non-African American) 8.8; Potassium 4.2 mmol/L (3.5-5.1)
[2018-12-16 06:58] LABS: Partial Thromboplastin Ratio 2.2
[2018-12-16 07:05] LABS: Partial Thromboplastin Time 58.8 Seconds (21.0-31.0)
[2018-12-16] MEDS: AMLODIPINE BESYLATE 5 MG TAB PO SCH (07:55)
[2018-12-16] MEDS: VITAMIN B COMPLEX TAB PO SCH (07:55)
[2018-12-16] MEDS: ASPIRIN 81 MG ECTAB PO SCH (07:56)
[2018-12-16] MEDS: LOVASTATIN 20 MG TAB PO SCH (07:56)
[2018-12-16] MEDS: CALCIUM CARBONATE 500 MG CHEWABLE TAB PO SCH ×2 (07:56→12:29)
[2018-12-16] MEDS: LISINOPRIL 10 MG TAB PO SCH (07:57)
[2018-12-16] MEDS: INSULIN HUMAN NPH SC SCH (07:57)
[2018-12-16] MEDS: CALCIUM ACETATE 667 MG CAP PO SCH ×2 (07:57→12:29)
[2018-12-16] MEDS: INSULIN ASPART 100 UNITS/ML 3 ML PEN SC SCH ×2 (07:58→12:30)
[2018-12-16] MEDS: GEMFIBROZIL 600 MG TAB PO SCH (07:58)
--- NOTE | 2018-12-16 11:53 | Nephrology Progress Note ---
Date of Service December 16, 2018 Assessment & Plan (1) End-stage renal disease on hemodialysis: -- HD MWF schedule, resume as outpatient -- 180 optiflux, 2K, 450 Qb, EDW 105 kg -- BP acceptable -- Medications are appropriate for kidney function (2) Atrial flutter with rapid ventricular response: -- Rate controlled with diltiazem -- LAUREN demonstrated possible thrombus in the LAE -- Cardioversion deferred -- Plan to start Eliquis today, remains on heparin gtt (3) Diabetes mellitus: (4) Essential hypertension: -- BP acceptable Subjective No acute events overnight. Garcia feels well and hopes to be discharged later today. Tolerated HD yesterday without complications. UF 4.5 L. Hopes to be discharged home today. Review of Systems Review of Systems: All systems reviewed & are unremarkable except as noted in HPI & below Physical Exam Constitutional: + obese; no acute distress Eyes: no scleral abnormality and no corneal abnormality ENMT: Mouth: no oral mucosal abnormality and oral mucous membranes not dry Neck: normal visual inspection and trachea midline Respiratory: normal respiratory effort; no respiratory distress Auscultation: lungs clear to auscultation bilaterally Cardiovascular: Rate/Rhythm: regular rate Heart Sounds: normal S1, normal S2 and + murmur Extremities: + edema (trace-1+) and + AV fistula Gastrointestinal (Abdomen): Inspection/Auscultation: normal bowel sounds Percussion/Palpation: abdomen soft; abdomen nontender Musculoskeletal: Extremities: extremities normal to inspection; no cyanosis and no clubbing Skin: no rashes Neurologic: Motor/Sensory: no tremor and no asterixis Psychiatric: Orientation: alert and oriented x 3 Affect: euthymic affect Results & Data Vital Signs (Past 12 Hours) Vital Signs Temp Pulse Pulse Resp BP Pulse Ox 12/16/18 11:15 36.5 C 86 18 120/71 95 12/16/18 07:09 36.4 C L 78 18 108/66 94 12/16/18 03:16 36.8 C 72 18 120/64 94 12/16/18 00:10 76 Laboratory Results Laboratory Results - last 24 hr 12/15/18 12/15/18 12/15/18 05:19 13:55 16:17 WBC RBC Hgb Hct MCV MCH MCHC RDW Std Deviation RDW Coeff of Mike Plt Count MPV Immature Gran % (Auto) Neut % (Auto) Lymph % (Auto) Haakon % (Auto) Eos % (Auto) Baso % (Auto) Immature Gran # (Auto) Neut # (Auto) Lymph # (Auto) Haakon # (Auto) Eos # (Auto) Baso # (Auto) APTT PTT Ratio Sodium Potassium Chloride Carbon Dioxide Anion Gap BUN Creatinine Est Cr Clr Drug Dosing Est GFR ( Amer) Est GFR (Non-Af Amer) BUN/Creatinine Ratio Glucose POC Glucose 102 H 146 H Calcium Hep Bs Antigen Neg Hep Bs Antibody Non-Immune Hep Bs Antibody, Quant 5.55 L 12/15/18 12/16/18 12/16/18 20:07 05:30 05:30 WBC 8.28 RBC 3.09 L Hgb 9.9 L Hct 29.3 L MCV 94.8 MCH 32.0 MCHC 33.8 RDW Std Deviation 48.9 H RDW Coeff of Mike 14.3 Plt Count 397 MPV 9.5 Immature Gran % (Auto) 0.8 Neut % (Auto) 66.5 Lymph % (Auto) 18.0 Haakon % (Auto) 12.0 Eos % (Auto) 2.5 Baso % (Auto) 0.2 Immature Gran # (Auto) 0.07 H Neut # (Auto) 5.50 Lymph # (Auto) 1.49 Haakon # (Auto) 0.99 H Eos # (Auto) 0.21 Baso # (Auto) 0.02 APTT 58.8 H* PTT Ratio 2.2 Sodium Potassium Chloride Carbon Dioxide Anion Gap BUN Creatinine Est Cr Clr Drug Dosing Est GFR ( Amer) Est GFR (Non-Af Amer) BUN/Creatinine Ratio Glucose POC Glucose 176 H Calcium Hep Bs Antigen Hep Bs Antibody Hep Bs Antibody, Quant 12/16/18 12/16/18 12/16/18 05:30 07:02 11:13 WBC RBC Hgb Hct MCV MCH MCHC RDW Std Deviation RDW Coeff of Mike Plt Count MPV Immature Gran % (Auto) Neut % (Auto) Lymph % (Auto) Haakon % (Auto) Eos % (Auto) Baso % (Auto) Immature Gran # (Auto) Neut # (Auto) Lymph # (Auto) Haakon # (Auto) Eos # (Auto) Baso # (Auto) APTT PTT Ratio Sodium 130 L Potassium 4.2 Chloride 93 L Carbon Dioxide 26 Anion Gap 11.0 BUN 43 H Creatinine 6.11 H* D Est Cr Clr Drug Dosing 14.6 Est GFR ( Amer) 10.1 Est GFR (Non-Af Amer) 8.8 BUN/Creatinine Ratio 7.0 L Glucose 199 H POC Glucose 208 H 238 H Calcium 9.3 Hep Bs Antigen Hep Bs Antibody Hep Bs Antibody, Quant
[2018-12-16] MEDS ORDERED: dilTIAZem HCl 60 MG TAB PO ONE (13:30)
[2018-12-16] MEDS ORDERED: APIXABAN 5 MG TABLET PO ONE (13:30)
[2018-12-16] MEDS ORDERED: INSULIN HUMAN NPH SC SCH (17:00)
--- NOTE | 2018-12-17 21:40 | Discharge Summary ---
Date of Service December 17, 2018 Admission HPI Per Admitting Provider 68-year-old male with end-stage renal disease on hemodialysis Tuesday. He was told this past Tuesday that he had a rapid irregular heart rate but he did not seek medical attention at that time. He has noticed palpitations but denies any chest discomfort shortness of breath or lightheadedness. At dialysis again today, he was told to seek medical attention due to rapid irregular heart rate. He received 3 out of 4 hours of dialysis. He came to the ED for evaluation. He was found to have new onset atrial flutter with variable block. He was started on a diltiazem drip in the ED. Troponin is mildly elevated at 0.123 but this has been elevated in the past. He denies any chest discomfort. He will be admitted for further evaluation and treatment. Admission Exam Per Admitting Provider General-alert and oriented x3, no fevers, no chills HEENT-head atraumatic and normocephalic, TMs intact bilaterally, pupils equal and reactive to light, extraocular muscles intact Neck-no lymphadenopathy or thyromegaly, trachea midline Chest-bibasilar inspiratory rales. No wheezing. No dullness. No rhonchi Cardiac-normal S1 and S2, no murmurs. Rapid irregular rhythm Abdomen-normal bowel sounds, nontender, no hepatosplenomegaly Extremities-no cyanosis, clubbing, or edema. Chronic venous stasis changes noted bilaterally Neuro-cranial nerves II through XII intact, motor and sensory function within normal limits, strength symmetrical 5/5, no focal deficits Psych-normal affect, normal mood Principal Diagnosis Atrial Flutter, Cardiac Thrombus, HTN, HLD, DM Discharge Exam Constitutional + morbidly obese Eyes + anicteric sclerae ENMT external ear and nose normal, oropharynx normal Neck trachea midline, no thyromegaly Respiratory normal respiratory effort; no respiratory distress, no labored breathing and does not use accessory muscles Auscultation: + diminished lung sounds Cardiovascular Rate/Rhythm: regular rate and + irregularly irregular Heart Sounds: normal S1 and normal S2 Gastrointestinal (Abdomen) normal bowel sounds, soft, nontender, no hepatosplenomegaly Musculoskeletal no cyanosis or clubbing, extremities motor strength 5/5 Discharge Data Allergies Allergy/AdvReac Type Severity Reaction Status Date / Time No Known Drug Allergies Allergy Unknown NONE Verified 06/19/19 09:56 sheep derived (ovine) Allergy Unknown wool socks Verified 12/13/18 09:56 make feet "break out" Consultations 12/13/18 10:17 ED Decision to Admit Stat 12/13/18 11:46 Consult Cardiology Routine Consult Nephrology Routine Procedures Performed Operation Date: 12/14/18 13:00 Actual Procedures p Transesophageal Echo w/Anesthesia - Volodymyr Hough MD Hospital Course (1) Atrial flutter with rapid ventricular response: - Rate control achieved with IV Diltiazem as inpatient - Discharged on Diltiazem 60mg PO BID - LAUREN with concerns for thrombus in LA, will not be candidate for cardioversion, and will plan to treat with anti-coagulation prior to future cardioversion - Discharged on Eliquis. --> He will need Eliquis for about 2 months per cardiology. - Given 1 month coupon for Eliquis and will follow up with Cardiology who will provide the patient with another month of samples - CXR showed moderate cardiomegaly with findings of early congestive failure; superimposed left basilar infiltrate appearing to be round atelectasis with recommendations for repeat on later date to ensure complete resolution of left basilar findings. - TTE Echocardiogram showed moderate concentric LVH, normal LV systolic function, LA mod dilated, mod-severe mitral annular calcification, mild-mod mitral regurg, mild mitral stenosis, IVC midly dilated, moderate size pericardial effusion. (2) Elevated troponin: - Trended x3, 0.123 --> 0.128 --> 0.157. - Demand ischemia in setting of also being a Dialysis patient (3) Pericardial effusion: - Unsure of etiology, possibly related to end stage kidney disease (4) Mitral regurgitation: - as noted on Echo (5) Coronary disease: - Continue with Lovastatin 20mg daily and Gemfibrozil 600mg PO BID (6) Essential hypertension: - Continue Amlodipine 10mg - Continue Lisinopril 10mg daily (7) Diabetes mellitus: - Insulin Sliding Scale (8) Dialysis patient: - Dialysis given as inpatient as per outpatient schedule - Will resume outpatient Dialysis on 12/18 Total Time Total Time Spent Total Time Spent (In Minutes): > 30 minutes Discharge Plan Discharge Items Patient Disposition: Home - Self-Care Reason For Visit: ATRIAL FLUTTER Discharge Diagnosis: Atrial Flutter Discharge Goals: Diagnostic testing, Improve function and Prevent disease Activity: As commented below Lifting: Gradually increase as tolerated Bathing: No limitations Exercise/Sports: Gradually increase as tolerated Driving/Machine Use: No limitations Non-emergency contact: Primary Care Provider Call non-emergency contact if: you have any medication questions, your symptoms worsen and your temperature is above 101 Follow-up/Referrals: Дмитрий Carrasco MD [Primary Care Provider] - Diet: Dialysis Renal Addtl Provider Instructions: You were treated in the hospital for atrial flutter (a rapid heart rate). We were able to control your heart rate using a medication called Cardizem (Diltiazem). This medication will be prescribed and sent to your pharmacy. You were also started on a blood thinner called Eliquis. You will be given a discount card that will provide you with 1 free month of medication. In order to continue the medication further you will need to get additional samples from the [facility]. Please arrange a follow up with the [facility] in 3 weeks from now. New Medications: - Diltiazem 60mg: Take 1 tablet twice daily. This medication is to slow your heart rate. - Eliquis 5mg: Take 1 tablet twice daily. This medication is to thin your blood Follow up appointment: - Please arrange a follow up appointment with your [facility] in 3 weeks - Please follow up with your primary care doctor as soon as possible (Ideally within 1 week after discharge) Prescriptions: New Eliquis 5 mg tablet 5 mg PO BID 30 Days Qty: 60 RF: 0 diltiazem HCl 60 mg tablet 60 mg PO BID 30 Days Qty: 60 RF: 0 Continued amlodipine 10 mg Tablet 10 mg PO DAILY RF: 0 aspirin [Aspir-81] 81 mg Tablet,Delayed Release (Dr/Ec) 81 mg PO DAILY RF: 0 calcium carbonate [Tums E-X] 300 mg (750 mg) tablet,chewable 4 tab PO TIDM RF: 0 gemfibrozil 600 mg Tablet 1,200 mg PO DAILY RF: 0 lisinopril 10 mg Tablet 10 mg PO DAILY RF: 0 lovastatin 20 mg Tablet 20 mg PO DAILY RF: 0 cinacalcet [Sensipar] 30 mg Tablet 30 mg PO BIDM RF: 0 Novolin 70/30 U-100 Insulin 100 unit/mL (70-30) Suspension 1 sliding scale dose SUBCUT UD Qty: 1 RF: 0 calcium acetate 667 mg capsule 1,334 mg PO TIDM RF: 0 vitamin B [id number] cit 0.8-15 mg Tablet 1 tab PO DAILY RF: 0 Stand-Alone Forms: [facility] Discharge Orders: Discharge Order (Routine); Ordered 12/16/18 Ordered By: Skip Vuong Admission Data Admit Date/Time: 12/13/18 10:50 Attending Provider: Moe Chacon Admit Provider: Dustin Michel Primary Care Provider: Дмитрий Carrasco Other Providers: Dustin Michel ; Volodymyr Hough ; Ty Antonio Service: Telemetry Other Interventions: Discharge Summary Assessment (RN) Last Done: 12/16/18 15:38 DC Date/Time DO NOT enter until pt leaves facility: 12/16/18 16:15 Supervising Physician Co-Signing Physician Notes Attending attestation I saw the patient independently and confirmed conrad portion of the history and physical exam as documented in the resident note. Also discussed the case with cardiology. Upon my examination, the patient is without complaint. He maintained rates between 70-80 after conversion to PO dilt. Atrial flutter w/ RVR Transition heparin drip to Eliquis We were able to get a discount card for micheal first month and he will get samples from cardiology thereafter, probably another month. Anticoagulation would only be about 2 months; if he would need anticoagulation beyond this may need to transition to the affordable option such as warfarin. DMII - glycemic consult - ISS and 70/30 regimen as noted. ESRD on HD - nephrology consultation appreciated HTN -excellent control on current regimen Resident Activity Tracking Resident Involvement: Resident Care Provided Care Provided: Adult Hospital Medicine
== END 2018-12-16 16:15 | disposition home or self-care (01) | DRG 308 ==
LOC: ED 08:12 → SUATTDRO 10:50 → 2E 10:50
DX: Z79.899 Other long term (current) drug therapy; J44.9 Chronic obstructive pulmonary disease, unspecified; N18.6 End stage renal disease; I24.8 Other forms of acute ischemic heart disease; E11.22 Type 2 diabetes mellitus with diabetic chronic kidney disease; I48.92 Unspecified atrial flutter; F17.210 Nicotine dependence, cigarettes, uncomplicated; R06.02 Shortness of breath; Z79.82 Long term (current) use of aspirin; E78.5 Hyperlipidemia, unspecified; Z79.4 Long term (current) use of insulin; E66.01 Morbid (severe) obesity due to excess calories; E11.65 Type 2 diabetes mellitus with hyperglycemia; I51.3 Intracardiac thrombosis, not elsewhere classified; I25.10 Atherosclerotic heart disease of native coronary artery without angina pectoris; I12.0 Hypertensive chronic kidney disease with stage 5 chronic kidney disease or end stage renal disease; Z68.31 Body mass index [BMI] 31.0-31.9, adult; Z91.048 Other nonmedicinal substance allergy status; I31.3 Pericardial effusion (noninflammatory); Z86.73 Personal history of transient ischemic attack (TIA), and cerebral infarction without residual deficits; Z99.2 Dependence on renal dialysis; I34.0 Nonrheumatic mitral (valve) insufficiency

== ENCOUNTER 2022-02-23 16:54 | Inpatient (IN) ==
[2022-02-23 17:43] LABS: Basophils # (auto) 0.06 K/uL (0-0.2); Eosinophils # (auto) 0.12 K/uL (0-0.50); Hematocrit (blood only) 33.1 % (40.1-51.0); Hemoglobin 11.2 g/dl (14.0-18.0); Immature Granulocytes # (auto) 0.03 K/uL (0.00-0.02); Immature Granulocytes % (auto) 0.5 %; Lymphocytes # (auto) 1.29 K/uL (1.2-3.4); Lymphocytes % (auto) 21.7 %; Mean Corpuscular Hemoglobin 33.6 pg (25.0-34.0); Mean Corpuscular Hgb Conc 33.8 g/dL (32.0-36.0); Mean Corpuscular Volume 99.4 fL (80.0-100.0); Mean Platelet Volume 9.9 fL (9.4-12.4); Monocytes # (auto) 0.66 K/uL (0.24-0.82); Monocytes % (auto) 11.1 %; Neutrophils # (auto) 3.79 K/uL (1.4-6.5); Neutrophils % (auto) 63.7 %; Platelet Count 257 K/uL (130-400); RDW Coefficient of Variation 13.7 % (11.5-14.5); RDW Standard Deviation 50.4 fL (36.4-46.3); Red Blood Count 3.33 M/uL (4.63-6.08); White Blood Count 5.95 K/ul (4.8-10.8)
--- NOTE | 2022-02-23 18:12 | Emergency Department Note ---
History of Present Illness General Chief complaint: Ankle Pain Stated complaint: R ANKLE FRACTURE Time Seen by Provider: 02/23/22 17:56 Source: patient Mode of arrival: wheelchair Limitations: no limitations History of Present Illness Provider complaint: Referred by orthopedics office Maximum Pain Intensity: 5 This is a 71-year-old male presents emergency department with at bedside after being referred here from the [facility] orthopedics office. Patient states he went to his orthopedics follow-up visit today as he was seen and evaluated here last week after an accidental fall and found to have an ankle fracture. Patient was placed in a boot and told he needed to be nonweightbe aring for several weeks. is concerned due to several ongoing health issues and need for dialysis 3 days a week that she is unable to care for him. They were referred here with the plan for admission for PT/OT, dialysis tomorrow per his normal schedule, and placement in a jail facility. Pt seen during a time of high acuity and national emergency pandemic while wearing PPE. Home Medications Medication Instructions Recorded Confirmed Type multivitamin (Multiple Vitamins 1 tab PO QAM 09/25/19 02/23/22 History tablet) insulin human U-100 NPH-regulr 0 sliding scale dose subcut AMPM 09/08/20 2 History 70-30 mix 100 unit/mL subcutaneous susp (Novolin 70/30 U-100 Insulin) blood-glucose meter #1 ea 11/21/20 02/23/22 History lisinopril 10 mg tablet 10 mg PO QAM #90 tabs 04/30/21 02/23/22 Rx amlodipine 10 mg tablet 10 mg PO QAM #90 tabs 08/10/21 02/23/22 Rx calcium acetate(phosphat bind) 667 1,334 mg PO BIDM #180 caps 08/24/21 02/23/22 Rx mg capsule apixaban 5 mg tablet 5 mg PO BID 09/08/21 02/23/22 History lovastatin 20 mg tablet 20 mg PO QAM #90 tabs 10/13/21 02/23/22 Rx gemfibrozil 600 mg tablet 600 mg PO BID 02/17/22 02/23/22 History cinacalcet 60 mg tablet 60 mg PO QPM 02/23/22 02/23/22 History Allergies Allergy/AdvReac Type Severity Reaction Status Date / Time No Known Drug Allergies Allergy Unknown Verified 02/23/22 18:29 Past Med/Surg History Medical History Anemia Aspiration into airway Atrial flutter with rapid ventricular response follows with Dr. Hough AV fistula LUE Cardiac murmur Chronic dyspnea Chronic obstructive pulmonary disease Contusion of left hand Diabetic retinopathy Diverticular disease DM type 2 (diabetes mellitus, type 2) IDDM Elevated troponin ESRD (end stage renal disease) on dialysis MWF - [facility] - follows with Dr. Antonio (started 10 years ago) 2/2 DM Fibrotic lung diseases Fracture of rib GERD (gastroesophageal reflux disease) History of COVID-19 06/28/2020 - hospitalized at [place]; fever, sob, generalized weakness. symptoms resolved. History of nicotine dependence History of stroke 2013 - short term memory loss History of transesophageal echocardiography (LAUREN) HTN (hypertension) Hyperlipemia Obesity Pericardial effusion without cardiac tamponade hx Scar condition and fibrosis of skin Surgical History History of bowel resection History of cataract surgery LEFT. 08/25/20. Done at [facility] [place] [facility] [place] 4mg versed. Pt made ASA 3. History of colonoscopy History of colostomy History of colostomy reversal History of esophagogastroduodenoscopy (EGD) History of non-cataract eye surgery Hx of cholecystectomy Family History Unknown Alzheimer disease Diabetes Obesity Prostate cancer Skin cancer Heart disease Father Heart disease Hearing loss Son Gallbladder disease Grandfather Kidney disease Uncle Myocardial infarction Hypertension maternal Melanoma paternal Other No family history of adverse response to anesthesia No family history of bleeding disorder Social History Smoking Status: Former smoker Tobacco Type: Cigarettes Age Started Using Tobacco: 21; Age Quit Using Tobacco: 67; packs per day: 1; Years Smoked: 46; Cigarettes Per Day: 202; Second Hand Exposure: No; Do You Dip or Chew Tobacco: No; Hx Alcohol Use: Yes Alcohol type: beer Hx Substance Use: No Preferred Language: Urdu Communication Ability: Effective Visual Impairment: No Limitations Hearing Ability: Normal Cardiac Monitor Technician Required: No Beliefs That Will Affect Care: None marital status: Current Living Situation: Spouse current occupational status: employed Other Information That Helps Us Care for You: No Feels Safe at Home: Yes Safety Concerns: Feels Safe At This Time Childhood Exposure to Second-Hand Smoke: No caffeine: No Dental Care, Regularly: Yes Physical Activity Frequency: 3-4 Times per Week Seatbelt Use: never Sunscreen Use: No Assistive Devices: None Review of Systems A total of 10 systems reviewed and were otherwise negative All systems reviewed & are unremarkable except as noted in HPI & below Physical Exam Vital Signs Vital Signs - 24 hr 02/23/22 16:56 02/23/22 17:51 02/23/22 18:58 Temperature 36.9 C Temperature Source Temporal Artery Scan Pulse Rate 75 Pulse Rate [Apical] 72 72 Pulse Rhythm [Apical] Regular Respiratory Rate 16 16 20 Respiratory Effort / Characteristics Non-Labored Spontaneous Respiratory Depth Normal Respiratory Pattern Regular Blood Pressure 141/75 H Blood Pressure [Left Arm] 104/65 131/89 Blood Pressure Mean 97 Blood Pressure Mean [Left Arm] 78 103 Pulse Oximetry 100 99 98 Oxygen Delivery Method Room Air Room Air Room Air Sepsis Recent Fever Within 48 Hours No Sepsis New/Unexplained Change in Mental Status N/A Sepsis Action Taken by Nursing No Action Required 02/23/22 20:49 Temperature Temperature Source Pulse Rate Pulse Rate [Apical] 76 Pulse Rhythm [Apical] Respiratory Rate 20 Respiratory Effort / Characteristics Respiratory Depth Respiratory Pattern Blood Pressure Blood Pressure [Left Arm] 124/64 Blood Pressure Mean Blood Pressure Mean [Left Arm] 84 Pulse Oximetry 100 Oxygen Delivery Method Room Air Sepsis Recent Fever Within 48 Hours Sepsis New/Unexplained Change in Mental Status Sepsis Action Taken by Nursing GENERAL: alert, well appearing, well nourished, no distress, non-toxic EYE EXAM: normal conjunctiva, PERRL and EOM's grossly intact OROPHARYNX: no exudate, no erythema, lips, buccal mucosa, and tongue normal and mucous membranes are moist NECK: supple, no nuchal rigidity, no adenopathy, non-tender LUNGS: Clear to auscultation. Normal chest wall mechanics, no w/r/r HEART: no murmurs, S1 normal and S2 normal ABDOMEN: abdomen soft, non-tender, normo-active bowel sounds, no masses, no rebound or guarding. BACK: Back is symmetrical on inspection and there is no deformity, no midline tenderness, no CVA tenderness. SKIN: no rashes and no bruising UPPER EXTREMITIES: upper extremities are grossly normal. FROM, nml pulses b/l. LOWER EXTREMITIES: No pitting edema. FROM, nml pulses b/l. RLE in orthopedic boot below knee. NEURO EXAM: Normal sensorium, cranial nerves II-XII grossly intact, normal speech, no gross weakness of arms, no gross weakness of legs. Gross sensation intact. Course Administered Medications Acetaminophen (Acetaminophen 325 Mg Tab) 650 mg PO Q4H PRN PRN Reason: pain/fever Stop: 03/25/22 21:46 Last Admin: 02/24/22 20:52 Dose: 650 mg Documented By: Admin: 02/24/22 12:15 Dose: 650 mg Documented By: Admin: 02/24/22 07:48 Dose: 650 mg Documented By: YVETTE Amlodipine Besylate (Amlodipine Besylate 5 Mg Tab) 10 mg PO QAM [facility] Stop: 03/26/22 08:59 Last Admin: 02/24/22 17:40 Dose: Not Given Documented By: YVETTE Apixaban (Apixaban 5 Mg Tablet) 5 mg PO BID [facility] Stop: 03/25/22 21:46 Last Admin: 02/24/22 20:53 Dose: 5 mg Documented By: Admin: 02/24/22 09:12 Dose: 5 mg Documented By: Admin: 02/23/22 23:22 Dose: 5 mg Documented By: PABLO Calcium Acetate (Calcium Acetate 667 Mg Cap/Tab) 1,334 mg PO BIDM [facility] Stop: 03/26/22 07:59 Last Admin: 02/24/22 17:59 Dose: 1,334 mg Documented By: Admin: 02/24/22 08:49 Dose: 1,334 mg Documented By: YVETTE Cinacalcet (Cinacalcet Hcl 30 Mg Tab) 60 mg PO QPM TIM Stop: 03/25/22 21:46 Last Admin: 02/24/22 20:52 Dose: 60 mg Documented By: Admin: 02/23/22 23:22 Dose: 60 mg Documented By: PABLO Gemfibrozil (Gemfibrozil 600 Mg Tab) 600 mg PO BID TIM Stop: 03/25/22 21:46 Last Admin: 02/24/22 20:53 Dose: 600 mg Documented By: Admin: 02/24/22 09:12 Dose: 600 mg Documented By: Admin: 02/23/22 23:21 Dose: 600 mg Documented By: PABLO Insulin Aspart (Insulin Aspart Per Unit) 0 units SC ACHS [facility] Stop: 03/25/22 22:59 Last Admin: 02/24/22 20:57 Dose: 2 units Documented By: PABLO Co-signed By: MYKE Admin: 02/24/22 18:10 Dose: 5 units Documented By: YVETTE Co-signed By: OMAR Admin: 02/24/22 12:27 Dose: 5 units Documented By: YVETTE Co-signed By: OMAR Admin: 02/24/22 08:54 Dose: 5 units Documented By: YVETTE Co-signed By: OMAR Admin: 02/23/22 23:26 Dose: 5 units Documented By: PABLO Co-signed By: JULITO Insulin Glargine (Lantus Per Unit Charge) 10 units SQ BID [facility] Stop: 03/26/22 11:29 Last Admin: 02/24/22 20:57 Dose: 10 units Documented By: PABLO Co-signed By: MYKE Admin: 02/24/22 12:16 Dose: 10 units Documented By: YVETTE Co-signed By: KALYAN Lisinopril (Lisinopril 10 Mg Tab) [facility] Stop: 03/26/22 08:59 Last Admin: 02/24/22 17:59 Dose: 10 mg Documented By: YVETTE Lovastatin (Lovastatin 20 Mg Tab) 20 mg PO QAM [facility] Stop: 03/26/22 08:59 Last Admin: 02/24/22 09:12 Dose: 20 mg Documented By: YVETTE Multivitamins (Multivitamin Tab) 1 [facility] Stop: 03/26/22 08:59 Last Admin: 02/24/22 09:12 Dose: 1 tab Documented By: YVETTE Discontinued Medications Magnesium Hydroxide (Magnesium Hydroxide Susp 30 Ml Udc) 30 ml PO NOW ONE Stop: 02/24/22 17:44 Last Admin: 02/24/22 18:35 Dose: 30 ml Documented By: YVETTE Medical Decision Making Differential Diagnosis Fracture, subluxation, dislocation, contusion, ligamentous injury, neurovascular, compartment syndrome, rhabdomyolysis, as well as other pathologies. Medical Records Attestation: I reviewed the patient's medical records. Home Medications Current Medication List: was personally reviewed by me Laboratory Data Attestation: I reviewed the patient's lab results. Result diagrams: 02/24/22 07:48 02/24/22 07:48 Lab Results 02/23/22 02/23/22 Range/Units 17:05 17:05 WBC 5.95 (4.8-10.8) K/ul RBC 3.33 L (4.63-6.08) M/uL Hgb 11.2 L (14.0-18.0) g/dl Hct 33.1 L (40.1-51.0) % MCV 99.4 (80.0-100.0) fL MCH 33.6 (25.0-34.0) pg MCHC 33.8 (32.0-36.0) g/dL RDW Std Deviation 50.4 H (36.4-46.3) fL RDW Coeff of Mike 13.7 (11.5-14.5) % Plt Count 257 (130-400) K/uL MPV 9.9 (9.4-12.4) fL Immature Gran % (Auto) 0.5 % Neut % (Auto) 63.7 % Lymph % (Auto) 21.7 % [place] % (Auto) 11.1 % Eos % (Auto) 2.0 % Baso % (Auto) 1.0 % Neut # (Auto) 3.79 (1.4-6.5) K/uL Lymph # (Auto) 1.29 (1.2-3.4) K/uL [place] # (Auto) 0.66 (0.24-0.82) K/uL Eos # (Auto) 0.12 (0-0.50) K/uL Baso # (Auto) 0.06 (0-0.2) K/uL Immature Gran # (Auto) 0.03 H (0.00-0.02) K/uL Sodium 134 L (136-145) mmol/L Potassium 4.7 (3.5-5.1) mmol/L Chloride 90 L (98-107) mmol/L Carbon Dioxide 29 (21-32) mmol/L Anion Gap 15 H (3-11) BUN 45 H (6-23) mg/dl Creatinine 5.82 H* (0.6-1.4) mg/dl Est Cr Clr Drug Dosing Not Reportable Est GFR ( Amer) 10.5 ml/min Est GFR (Non-Af Amer) 9.1 ml/min BUN/Creatinine Ratio 7.7 L (10-20) Glucose 299 H (70-99(Fasting)) mg/dl Calcium 9.6 (8.5-10.1) mg/dl Total Bilirubin 0.5 (0.2-1.0) mg/dl AST 14 (13-39) U/L ALT 10 (7-52) U/L Alkaline Phosphatase 110 H (34-104) U/L Total Protein 8.4 H (6.0-8.3) gm/dl Albumin 4.3 (3.4-5.0) gm/dl Globulin 4.1 H (2.5-4.0) gm/dl Albumin/Globulin Ratio 1.0 (0.9-2) MDM Narrative An order was placed for continuous cardiac monitoring. The monitor shows a rate of _78_ with _normal sinus__ rhythm. This is a 71-year-old male referred to the emergency department from [facility] orthopedics due to concern for need for placement in a jail facility. Patient is to be nonweightbearing as he has a right ankle fracture that is currently immobilized in a orthopedic boot. He does have chronic kidney disease and goes to hemodialysis 3 days a week. Due to his nonambulatory status as recommended by orthopedics and need for additional care, is unable to care for him at home. After discussion with case management who is aware of the patient, patient will need to be admitted overnight to the hospitalist service for eventual placement to a jail facility tomorrow following dialys is. Basic labs drawn and sent, COVID swab performed. Case discussed with hospitalist for additional evaluation and management. Patient had no other acute concerns or complaints on my bedside exam. Impression & Plan Fracture of distal end of fibula, End-stage renal disease on hemodialysis, Ambulatory dysfunction Discharge Plan Visit Data Chief Complaint: Ankle Pain Stated Complaint: R ANKLE FRACTURE ED Provider: Rosy Son Discharge Problem: Fracture of distal end of fibula, End-stage renal disease on hemodialysis, Ambulatory dysfunction Patient Disposition: Admitted As Inpatient Discharge Instructions Interventions: ED Discharge Assessment Last Done: 02/23/22 21:11
[2022-02-23 18:25] LABS: Alanine Aminotransferase 10 U/L (7-52); Albumin Level 4.3 gm/dl (3.4-5.0); Alkaline Phosphatase 110 U/L (34-104); Anion Gap 15 (3-11); Aspartate Aminotransferase 14 U/L (13-39); BUN Creatinine Ratio 7.7 (10-20); Bilirubin,Total 0.5 mg/dl (0.2-1.0); Blood Urea Nitrogen 45 mg/dl (6-23); Calcium 9.6 mg/dl (8.5-10.1); Carbon Dioxide 29 mmol/L (21-32); Chloride 90 mmol/L (98-107); Est GFR (African American) 10.5 ml/min; Est GFR (Non-African American) 9.1 ml/min; Globulin 4.1 gm/dl (2.5-4.0); Glucose 299 mg/dl (70-99(Fasting)); Potassium 4.7 mmol/L (3.5-5.1); Sodium 134 mmol/L (136-145); Total Protein 8.4 gm/dl (6.0-8.3)
--- NOTE | 2022-02-23 20:06 | History & Physical Report ---
Date of Service February 23, 2022 Assessment & Plan (1) Fracture of distal end of fibula: Plan: Right ankle fracture/distal end of fibula/ambulatory dysfunction- Patient will be admitted for PT/OT assessment, and referral to penitentiary facility for ongoing care (2) Chronic obstructive pulmonary disease: Plan: No active issue at this time (3) Uncontrolled type 2 diabetes mellitus with hyperglycemia: Plan: Hold 7030 coverage scale Placed on Accu-Cheks before meals and at bedtime with NovoLog coverage per scale (4) End-stage renal disease on hemodialysis: Plan: Due for dialysis on Tuesday, Tuesday and Tuesday, with next day due tomorrow morning Continue Cinalcet and calcium Consult nephrology (5) Essential hypertension: Plan: Hypertension/atrial flutter/CAD- Continue amlodipine, lisinopril and apixaban (6) Hyperlipidemia: Plan: Continue gemfibrozil and lovastatin, both well-tolerated (7) Atrial flutter with rapid ventricular response: Plan: See above (8) Coronary artery calcification: Plan: See above History of Present Illness Chief Complaint: The patient is referred to the emergency department from [facility] orthopedic office due to issues with ambulatory dysfunction associated with recent ankle fracture and the need for nonweightbearing care and referral to penitentiary facility. Primary Care Provider: Дмитрий Carrasco MD The patient is a 71-year-old male with a past medical history including fracture of distal end of fibula, nicotine dependence, obesity, fibrotic lung disease, COPD, diabetic retinopathy, ESRD on HD, diabetes mellitus type 2 uncontrolled, diabetic nephropathy, diabetic neuropathy, CVA, atrial flutter with RVR, CAD and frequent falls. Patient was referred to the emergency department from the [facility] orthopedic outpatient office due to need for penitentiary care due to inability of his to take care of him at home due to ambulatory dysfunction associate with ankle fracture and nonweightbearing status Allergies Allergy/AdvReac Type Severity Reaction Status Date / Time No Known Drug Allergies Allergy Unknown Verified 02/23/22 18:29 Home Medications Medication Instructions Recorded Confirmed Type multivitamin (Multiple Vitamins 1 tab PO QAM 09/25/19 02/23/22 History tablet) insulin human U-100 NPH-regulr 0 sliding scale dose subcut AMPM 09/08/20 02/23/22 History 70-30 mix 100 unit/mL subcutaneous susp (Novolin 70/30 U-100 Insulin) blood-glucose meter #1 ea 11/21/20 02/23/22 History lisinopril 10 mg tablet 10 mg PO QAM #90 tabs 04/30/21 02/23/22 Rx amlodipine 10 mg tablet 10 mg PO QAM #90 tabs 08/10/21 02/23/22 Rx calcium acetate(phosphat bind) 667 1,334 mg PO BIDM #180 caps 08/24/21 02/23/22 Rx mg capsule apixaban 5 mg tablet 5 mg PO BID 09/08/21 02/23/22 History lovastatin 20 mg tablet 20 mg PO QAM #90 tabs 10/13/21 02/23/22 Rx gemfibrozil 600 mg tablet 600 mg PO BID 02/17/22 02/23/22 History cinacalcet 60 mg tablet 60 mg PO QPM 02/23/22 02/23/22 History Past Med/Surg History Medical History Anemia Aspiration into airway Atrial flutter with rapid ventricular response follows with Dr. Hough AV fistula LUE Cardiac murmur Chronic dyspnea Chronic obstructive pulmonary disease Contusion of left hand Diabetic retinopathy Diverticular disease DM type 2 (diabetes mellitus, type 2) IDDM Elevated troponin ESRD (end stage renal disease) on dialysis [facility] - follows with Dr. Antonio (started 10 years ago) 2/2 DM Fibrotic lung diseases Fracture of rib GERD (gastroesophageal reflux disease) History of COVID-19 06/28/2020 - [facility]; fever, sob, generalized weakness. symptoms resolved. History of nicotine dependence History of stroke 2013 - short term memory loss History of transesophageal echocardiography (LAUREN) HTN (hypertension) Hyperlipemia Obesity Pericardial effusion without cardiac tamponade hx Scar condition and fibrosis of skin Surgical History History of bowel resection History of cataract surgery LEFT. 08/25/20. Done at [facility] [place]. 4mg versed. Pt made ASA 3. History of colonoscopy History of colostomy History of colostomy reversal History of esophagogastroduodenoscopy (EGD) History of non-cataract eye surgery Hx of cholecystectomy Family History Unknown Alzheimer disease Diabetes Obesity Prostate cancer Skin cancer Heart disease Father Heart disease Hearing loss Son Gallbladder disease Grandfather Kidney disease Uncle Myocardial infarction Hypertension maternal Melanoma paternal Other No family history of adverse response to anesthesia No family history of bleeding disorder Social History Smoking Status: Never smoker Tobacco Type: Cigarettes Age Started Using Tobacco: 21; Age Quit Using Tobacco: 67; packs per day: 1; Years Smoked: 46; Cigarettes Per Day: 202; Second Hand Exposure: No; Hx Alcohol Use: No Hx Substance Use: No Preferred Language: Tanzanian Communication Ability: Effective Visual Impairment: No Limitations Hearing Ability: Normal Mica Patcher Required: No Beliefs That Will Affect Care: None marital status: Current Living Situation: Spouse current occupational status: employed Feels Safe at Home: Yes Childhood Exposure to Second-Hand Smoke: No caffeine: No Dental Care, Regularly: Yes Physical Activity Frequency: 3-4 Times per Week Seatbelt Use: never Sunscreen Use: No Assistive Devices: Glasses Review of Systems Review of Systems: The patient denies chest pain, palpitations, shortness of breath, dyspnea on exertion, cough, sore throat, fevers, chills, sweats, weight change, fatigue, nausea, vomiting, diarrhea , constipation, abdominal pain, pelvic pain, blood in urine or stool, dysuria, urinary frequency or urgency, lightheadedness, dizziness, headache, memory loss, loss of consciousness, rash, abnormal bruising or bleeding, focal or generalized weakness, numbness or tingling in arms, generalized arthralgias or myalgias, back or neck pain, or night sweats. The review of systems is otherwise negative other than for that already noted above, and at least 10 systems have been reviewed. Physical Exam Physical Exam: The patient is awake, alert and oriented 3, well developed and well nourished, normocephalic and atraumatic, lying in bed and in no acute distress. HEENT--PERRL, EOMI, mucous membranes and oropharynx normal Neck--supple. No JVD. No bruits. Thyroid normal, trachea midline, no adenopathy. Heart--normal S1 and S2. No murmurs, rubs or gallops. Lungs--clear bilaterally, no respiratory distress, no accessory muscle use. Abdomen--normal bowel sounds and soft. Nontender. Nondistended, no hernias or masses, no organomegaly. Extremities--no cyanosis or clubbing. No edema. Dermatologic--normal skin turgor, normal color, no abnormal lymph nodes, no rash. Neurologic--cranial nerves II through XII grossly intact. Rheumatologic--limited exam Psychiatric--normal affect. Results & Data Results & Data ([facility]) Vital Signs (Past 12 Hours) Vital Signs Temp Pulse Pulse Resp BP BP Pulse Ox 02/23/22 18:58 72 20 131/89 98 02/23/22 17:51 72 16 104/65 99 02/23/22 16:56 36.9 C 75 16 141/75 H 100 O2 Del Method 02/23/22 18:58 Room Air 02/23/22 17:51 Room Air 02/23/22 16:56 Room Air Laboratory Results Laboratory Results WBC 5.95 K/ul (4.8-10.8) 02/23/22 17:05 RBC 3.33 M/uL (4.63-6.08) L 02/23/22 17:05 Hgb 11.2 g/dl (14.0-18.0) L 02/23/22 17:05 Hct 33.1 % (40.1-51.0) L 02/23/22 17:05 MCV 99.4 fL (80.0-100.0) 02/23/22 17:05 MCH 33.6 pg (25.0-34.0) 02/23/22 17:05 MCHC 33.8 g/dL (32.0-36.0) 02/23/22 17:05 RDW Std Deviation 50.4 fL (36.4-46.3) H 02/23/22 17:05 RDW Coeff of Mike 13.7 % (11.5-14.5) 02/23/22 17:05 Plt Count 257 K/uL (130-400) 02/23/22 17:05 MPV 9.9 fL (9.4-12.4) 02/23/22 17:05 Immature Gran % (Auto) 0.5 % 02/23/22 17:05 Neut % (Auto) 63.7 % 02/23/22 17:05 Lymph % (Auto) 21.7 % 02/23/22 17:05 [place] % (Auto) 11.1 % 02/23/22 17:05 Eos % (Auto) 2.0 % 02/23/22 17:05 Baso % (Auto) 1.0 % 02/23/22 17:05 Neut # (Auto) 3.79 K/uL (1.4-6.5) 02/23/22 17:05 Lymph # (Auto) 1.29 K/uL (1.2-3.4) 02/23/22 17:05 [place] # (Auto) 0.66 K/uL (0.24-0.82) 02/23/22 17:05 Eos # (Auto) 0.12 K/uL (0-0.50) 02/23/22 17:05 Baso # (Auto) 0.06 K/uL (0-0.2) 02/23/22 17:05 Immature Gran # (Auto) 0.03 K/uL (0.00-0.02) H 02/23/22 17:05 Sodium 134 mmol/L (136-145) L 02/23/22 17:05 Potassium 4.7 mmol/L (3.5-5.1) 02/23/22 17:05 Chloride 90 mmol/L (98-107) L 02/23/22 17:05 Carbon Dioxide 29 mmol/L (21-32) 02/23/22 17:05 Anion Gap 15 (3-11) H 02/23/22 17:05 BUN 45 mg/dl (6-23) H 02/23/22 17:05 Creatinine 5.82 mg/dl (0.6-1.4) H* 02/23/22 17:05 Est Cr Clr Drug Dosing Not Reportable 02/23/22 17:05 Est GFR ( Amer) 10.5 ml/min 02/23/22 17:05 Est GFR (Non-Af Amer) 9.1 ml/min 02/23/22 17:05 BUN/Creatinine Ratio 7.7 (10-20) L 02/23/22 17:05 Glucose 299 mg/dl (70-99(Fasting)) H 02/23/22 17:05 POC Glucose 296 mg/dl (70-99) H 02/23/22 23:18 Calcium 9.6 mg/dl (8.5-10.1) 02/23/22 17:05 Total Bilirubin 0.5 mg/dl (0.2-1.0) 02/23/22 17:05 AST 14 U/L (13-39) 02/23/22 17:05 ALT 10 U/L (7-52) 02/23/22 17:05 Alkaline Phosphatase 110 U/L (34-104) H 02/23/22 17:05 Total Protein 8.4 gm/dl (6.0-8.3) H 02/23/22 17:05 Albumin 4.3 gm/dl (3.4-5.0) 02/23/22 17:05 Globulin 4.1 gm/dl (2.5-4.0) H 02/23/22 17:05 Albumin/Globulin Ratio 1.0 (0.9-2) 02/23/22 17:05 SARS-CoV-2, RNA, NAAT NEGATIVE (NEGATIVE) 02/23/22 Unknown Code Status & VTE Plan Code Status Full code VTE Prophylaxis Plan VTE Prophylaxis will be ordered: Yes PG Care Time/CCT Total # of Minutes Spent Total Time Spent with Patient: Total time spent is greater than 50% in coordination of care (as documented) at patient's floor/unit and/or counseling patient: Coding Level of Care Code 22490 Initial Inpt Care Lvl 3 Diagnoses Fracture of distal end of fibula S82.831A Encounter type: initial encounter Fracture morphology: unspecified fracture morphology Fracture type: closed Laterality: right Chronic obstructive pulmonary disease J44.9 Uncontrolled type 2 diabetes mellitus with hyperglycemia E11.65 End-stage renal disease on hemodialysis N18.6; Z99.2 Essential hypertension I10 Hyperlipidemia E78.5 Hyperlipidemia type: unspecified Atrial flutter with rapid ventricular response I48.92 Coronary artery calcification I25.10; I25.84 (1) Fracture of distal end of fibula Encounter type: initial encounter Fracture morphology: unspecified fracture morphology Fracture type: closed Laterality: right Qualified Code(s): S82.831A - Other fracture of upper and lower end of right fibula, initial encounter for closed fracture (2) Hyperlipidemia Hyperlipidemia type: unspecified Qualified Code(s): E78.5 - Hyperlipidemia, unspecified
[2022-02-23] MEDS ORDERED: GLUCAGON FOR INJ 1 MG VIAL SQ PRN ×2 (21:47→22:40)
[2022-02-23] MEDS ORDERED: DEXTROSE 50% 50 ML SYRINGE IV PRN ×2 (21:47→22:40)
[2022-02-23] MEDS ORDERED: GLUCOSE 10 TAB/TUBE PO PRN ×2 (21:47→22:40)
[2022-02-23] MEDS ORDERED: ONDANSETRON INJ 2 MG/ML 2 ML VIAL IV PRN (21:47)
[2022-02-23] MEDS ORDERED: GLUCOSE 40% GEL 15 GM TUBE PO PRN ×2 (21:47→22:40)
[2022-02-23] MEDS ORDERED: INSULIN ASPART PER UNIT SC SCH (21:47)
[2022-02-23] MEDS ORDERED: CARBOHYDRATES FOR HYPOGLYCEMIA PO PRN ×2 (21:47→22:40)
[2022-02-23] MEDS ORDERED: INSULIN HUMAN 70% NPH/30% REGULAR SQ SCH (21:47)
[2022-02-23] MEDS: gemfibroziL 600 MG TAB PO SCH (23:21)
[2022-02-23] MEDS: APIXABAN 5 MG TABLET PO SCH (23:22)
[2022-02-23] MEDS: CINACALCET HCL 30 MG TAB PO SCH (23:22)
[2022-02-23] MEDS: INSULIN ASPART PER UNIT SC SCH (23:26)
[2022-02-24] MEDS: ACETAMINOPHEN 325 MG TAB PO PRN ×3 (07:48→20:52)
[2022-02-24 08:07] LABS: Basophils # (auto) 0.04 K/uL (0-0.2); Basophils % (auto) 0.7 %; Eosinophils # (auto) 0.16 K/uL (0-0.50); Eosinophils % (auto) 2.8 %; Hematocrit (blood only) 31.8 % (40.1-51.0); Hemoglobin 10.8 g/dl (14.0-18.0); Immature Granulocytes # (auto) 0.03 K/uL (0.00-0.02); Immature Granulocytes % (auto) 0.5 %; Lymphocytes # (auto) 1.17 K/uL (1.2-3.4); Lymphocytes % (auto) 20.4 %; Mean Corpuscular Hemoglobin 33.8 pg (25.0-34.0); Mean Corpuscular Volume 99.4 fL (80.0-100.0); Mean Platelet Volume 9.6 fL (9.4-12.4); Monocytes % (auto) 12.2 %; Neutrophils # (auto) 3.63 K/uL (1.4-6.5); Neutrophils % (auto) 63.4 %; Platelet Count 234 K/uL (130-400); RDW Coefficient of Variation 13.6 % (11.5-14.5); RDW Standard Deviation 50.1 fL (36.4-46.3); White Blood Count 5.73 K/ul (4.8-10.8)
[2022-02-24 08:11] LABS: Estimated Average Glucose 189 mg/dl; Hemoglobin A1C 8.2 % (4.5-5.6)
[2022-02-24 08:26] LABS: INR 1.2 (0.9-1.1); Partial Thromboplastin Ratio 1.3; Prothrombin Time 12.8 Seconds (9.0-12.0)
[2022-02-24 08:39] LABS: Albumin Globulin Ratio 1.1 (0.9-2); Albumin Level 3.8 gm/dl (3.4-5.0); BUN Creatinine Ratio 8.2 (10-20); Bilirubin,Total 0.7 mg/dl (0.2-1.0); Calcium 9.1 mg/dl (8.5-10.1); Creatinine Clr Calc Pharmacy 13.5 ml/min; Est GFR (African American) 9.1 ml/min; Est GFR (Non-African American) 7.9 ml/min; Globulin 3.6 gm/dl (2.5-4.0); Magnesium 2.3 mg/dl (1.7-2.4); Potassium 5.1 mmol/L (3.5-5.1); Total Protein 7.4 gm/dl (6.0-8.3)
[2022-02-24] MEDS: CALCIUM ACETATE 667 MG CAP/TAB PO SCH ×2 (08:49→17:59)
[2022-02-24] MEDS: INSULIN ASPART PER UNIT SC SCH ×4 (08:54→20:57)
[2022-02-24] MEDS: APIXABAN 5 MG TABLET PO SCH ×2 (09:12→20:53)
[2022-02-24] MEDS: gemfibroziL 600 MG TAB PO SCH ×2 (09:12→20:53)
[2022-02-24] MEDS: MULTIVITAMIN TAB PO SCH (09:12)
[2022-02-24] MEDS: LOVASTATIN 20 MG TAB PO SCH (09:12)
--- NOTE | 2022-02-24 11:22 | Nephrology Consultation ---
Date of Consultation February 24, 2022 Assessment & Plan (1) End-stage renal disease on hemodialysis: (2) Secondary hyperparathyroidism of renal origin: (3) Diabetic nephropathy: Plan Orders for HD today per MWF schedule entered into the EHR and reviewed with the HD nurse. Garcia is 6 kg above EDW. We will start with UF goal 4 L and adjust as tolerated. Outpatient Rx: 4 hours, 450/500, 180 optiflux, 2K. EDW 116.6 kg. LUE AVF has been functioning well. Anticoagulated with Eliquis. Renal diet (sodium, potassium, and phosphorus restriction) with 1 L daily fluid restriction. Chronic, stable anemia. Maintained on Micera as outpatient. No added ZAINAB therapy required at this time. Continue Phos-lo QAC and daily Sensipar. Medications are appropriately dosed for kidney dysfunction. Possible DC to [facility] once stable. History of Present Illness Reason for Consultation: ESRD on HD Requesting Physician: Rohan Gordon Attending Physician: Rohan Gordon History of Present Illness Mr. Garcia Prabhakar is a 71 year-old male with ESRD. Garcia is on hemodialysis MWF schedule at [facility] under the care of Dr. Antonio. He completed his last HD treatment on February 22. There have not been any recent complications with dialysis. IDWG is chronically high. Net UF 3.4 L on Tuesday. Garcia tolerated UF 4.8 L the prior treatment. He has been leaving around EDW of 116.6 kg. Garcia has a well functioning LUE AVF. Clearances have been at goal. He has a tendency to maintain a slightly elevated serum potassium. ESRD is attributed to DKD. Medical history also notable for DM, hypertension, obesity, COPD with notable past smoking history (quit in 2013), cor pulmonale, history of R frontal ischemic CVA, s/p partial colectomy for perforated sigmoid diverticulum, and a fall in December 2020 resulting in an impacted R fibula fracture. He is a nticoagulated with Eliquis. He is maintained on Sensipar and Phos-lo for hyperparathyroidism and hyperphosphatemia. Garcia suffered a fall at home on February 19 sustaining an injury to his head and a right ankle fracture. He was evaluated in the ER at [facility] and discharged home. Garcia was referred back to the hospital yesterday from the orthopedic clinic for ambulatory dysfunction. Nephrology consultation requested for dialysis management. Allergies Allergy/AdvReac Type Severity Reaction Status Date / Time No Known Drug Allergies Allergy Unknown Verified 02/23/22 18:29 Home Medications Medication Instructions Recorded Confirmed Type multivitamin (Multiple Vitamins 1 tab PO QAM 09/25/19 02/23/22 History tablet) insulin human U-100 NPH-regulr 0 sliding scale dose subcut AMPM 09/08/20 02/23/22 History 70-30 mix 100 unit/mL subcutaneous susp (Novolin 70/30 U-100 Insulin) blood-glucose meter #1 ea 11/21/20 02/23/22 History lisinopril 10 mg tablet 10 mg PO QAM #90 tabs 04/30/21 02/23/22 Rx amlodipine 10 mg tablet 10 mg PO QAM #90 tabs 08/10/21 02/23/22 Rx calcium acetate(phosphat bind) 667 1,334 mg PO BIDM #180 caps 08/24/21 02/23/22 Rx mg capsule apixaban 5 mg tablet 5 mg PO BID 09/08/21 02/23/22 History lovastatin 20 mg tablet 20 mg PO QAM #90 tabs 10/13/21 02/23/22 Rx gemfibrozil 600 mg tablet 600 mg PO BID 02/17/22 02/23/22 History cinacalcet 60 mg tablet 60 mg PO QPM 02/23/22 02/23/22 History Patient History Medical History Anemia Aspiration into airway Atrial flutter with rapid ventricular response follows with Dr. Hough AV fistula LUE Cardiac murmur Chronic dyspnea Chronic obstructive pulmonary disease Contusion of left hand Diabetic retinopathy Diverticular disease DM type 2 (diabetes mellitus, type 2) IDDM Elevated troponin ESRD (end stage renal disease) on dialysis MWF - [facility] - follows with Dr. Antonio (started 10 years ago) 2/2 DM Fibrotic lung diseases Fracture of rib GERD (gastroesophageal reflux disease) History of COVID-19 06/28/2020 - hospitalized at OR; fever, sob, generalized weakness. symptoms resolved. History of nicotine dependence History of stroke 2013 - short term memory loss History of transesophageal echocardiography (LAUREN) HTN (hypertension) Hyperlipemia Obesity Pericardial effusion without cardiac tamponade hx Scar condition and fibrosis of skin Surgical History History of bowel resection History of cataract surgery LEFT. 08/25/20. Done at [facility]. 4mg versed. Pt made ASA 3. History of colonoscopy History of colostomy History of colostomy reversal History of esophagogastroduodenoscopy (EGD) History of non-cataract eye surgery Hx of cholecystectomy Family History Unknown Alzheimer disease Diabetes Obesity Prostate cancer Skin cancer Heart disease Father Heart disease Hearing loss Son Gallbladder disease Grandfather Kidney disease Uncle Myocardial infarction Hypertension maternal Melanoma paternal Other No family history of adverse response to anesthesia No family history of bleeding disorder Social History Smoking Status: Former smoker Tobacco Type: Cigarettes Age Started Using Tobacco: 21; Age Quit Using Tobacco: 67; packs per day: 1; Years Smoked: 46; Cigarettes Per Day: 202; Second Hand Exposure: No; Do You Dip or Chew Tobacco: No; Hx Alcohol Use: Yes Alcohol type: beer Hx Substance Use: No Preferred Language: Dominican Communication Ability: Effective Visual Impairment: No Limitations Hearing Ability: Normal Build Engineer Required: No Beliefs That Will Affect Care: None marital status: Current Living Situation: Spouse current occupational status: employed Other Information That Helps Us Care for You: No Feels Safe at Home: Yes Safety Concerns: Feels Safe At This Time Childhood Exposure to Second-Hand Smoke: No caffeine: No Dental Care, Regularly: Yes Physical Activity Frequency: 3-4 Times per Week Seatbelt Use: never Sunscreen Use: No Assistive Devices: None Review of Systems Review of Systems: All systems reviewed & are unremarkable except as noted in HPI & below Physical Exam Constitutional: well developed and + morbidly obese; no acute distress Eyes: no scleral abnormality and no corneal abnormality ENMT: Mouth: no oral mucosal abnormality and oral mucous membranes not dry Neck: normal visual inspection and trachea midline Respiratory: normal respiratory effort Auscultation: lungs clear to auscultation bilaterally and + rales Cardiovascular: Rate/Rhythm: regular rate Heart Sounds: normal S1 and normal S2 Extremities: + pedal edema and + AV fistula Musculoskeletal: Extremities: no cyanosis and no clubbing Skin: normal turgor; no lesions Neurologic: Motor/Sensory: no tremor and no asterixis Psychiatric: Orientation: alert and oriented x 3 Results & Data ([facility]) Vital Signs (Past 12 Hours) Vital Signs Temp Pulse Resp BP Pulse Ox O2 Del Method 02/24/22 07:41 36.6 C 74 18 114/71 96 Room Air 02/24/22 01:31 84 18 107/62 97 Room Air Laboratory Results Laboratory Results - last 24 hr 02/23/22 02/23/22 02/23/22 17:05 17:05 23:13 WBC 5.95 RBC 3.33 L Hgb 11.2 L Hct 33.1 L MCV 99.4 MCH 33.6 MCHC 33.8 RDW Std Deviation 50.4 H RDW Coeff of Mike 13.7 Plt Count 257 MPV 9.9 Immature Gran % (Auto) 0.5 Neut % (Auto) 63.7 Lymph % (Auto) 21.7 [place] % (Auto) 11.1 Eos % (Auto) 2.0 Baso % (Auto) 1.0 Neut # (Auto) 3.79 Lymph # (Auto) 1.29 [place] # (Auto) 0.66 Eos # (Auto) 0.12 Baso # (Auto) 0.06 Immature Gran # (Auto) 0.03 H PT INR APTT PTT Ratio Sodium 134 L Potassium 4.7 Chloride 90 L Carbon Dioxide 29 Anion Gap 15 H BUN 45 H Creatinine 5.82 H* Est Cr Clr Drug Dosing Not Reportable Est GFR ( Amer) 10.5 Est GFR (Non-Af Amer) 9.1 BUN/Creatinine Ratio 7.7 L Glucose 299 H POC Glucose 307 H* Estimat Average Glucose Hemoglobin A1c Calcium 9.6 Magnesium Total Bilirubin 0.5 AST 14 ALT 10 Alkaline Phosphatase 110 H Total Protein 8.4 H Albumin 4.3 Globulin 4.1 H Albumin/Globulin Ratio 1.0 Nasal Screen MRSA (PCR) SARS-CoV-2, RNA, NAAT 02/23/22 02/23/22 02/24/22 23:18 Unknown 03:10 WBC RBC Hgb Hct MCV MCH MCHC RDW Std Deviation RDW Coeff of Mike Plt Count MPV Immature Gran % (Auto) Neut % (Auto) Lymph % (Auto) [place] % (Auto) Eos % (Auto) Baso % (Auto) Neut # (Auto) Lymph # (Auto) [place] # (Auto) Eos # (Auto) Baso # (Auto) Immature Gran # (Auto) PT INR APTT PTT Ratio Sodium Potassium Chloride Carbon Dioxide Anion Gap BUN Creatinine Est Cr Clr Drug Dosing Est GFR ( Amer) Est GFR (Non-Af Amer) BUN/Creatinine Ratio Glucose POC Glucose 296 H Estimat Average Glucose Hemoglobin A1c Calcium Magnesium Total Bilirubin AST ALT Alkaline Phosphatase Total Protein Albumin Globulin Albumin/Globulin Ratio Nasal Screen MRSA (PCR) Negative SARS-CoV-2, RNA, NAAT NEGATIVE 02/24/22 02/24/22 02/24/22 07:48 07:48 07:48 WBC 5.73 RBC 3.20 L Hgb 10.8 L Hct 31.8 L MCV 99.4 MCH 33.8 MCHC 34.0 RDW Std Deviation 50.1 H RDW Coeff of Mike 13.6 Plt Count 234 MPV 9.6 Immature Gran % (Auto) 0.5 Neut % (Auto) 63.4 Lymph % (Auto) 20.4 [place] % (Auto) 12.2 Eos % (Auto) 2.8 Baso % (Auto) 0.7 Neut # (Auto) 3.63 Lymph # (Auto) 1.17 L [place] # (Auto) 0.70 Eos # (Auto) 0.16 Baso # (Auto) 0.04 Immature Gran # (Auto) 0.03 H PT 12.8 H INR 1.2 H APTT 35.0 H PTT Ratio 1.3 Sodium 135 L Potassium 5.1 Chloride 95 L Carbon Dioxide 26 Anion Gap 14 H BUN 54 H Creatinine 6.55 H* D Est Cr Clr Drug Dosing 13.5 Est GFR ( Amer) 9.1 Est GFR (Non-Af Amer) 7.9 BUN/Creatinine Ratio 8.2 L Glucose 194 H POC Glucose Estimat Average Glucose Hemoglobin A1c Calcium 9.1 Magnesium 2.3 Total Bilirubin 0.7 AST 13 ALT 9 Alkaline Phosphatase 100 Total Protein 7.4 Albumin 3.8 Globulin 3.6 Albumin/Globulin Ratio 1.1 Nasal Screen MRSA (PCR) SARS-CoV-2, RNA, NAAT 02/24/22 02/24/22 07:48 08:12 WBC RBC Hgb Hct MCV MCH MCHC RDW Std Deviation RDW Coeff of Mike Plt Count MPV Immature Gran % (Auto) Neut % (Auto) Lymph % (Auto) [place] % (Auto) Eos % (Auto) Baso % (Auto) Neut # (Auto) Lymph # (Auto) [place] # (Auto) Eos # (Auto) Baso # (Auto) Immature Gran # (Auto) PT INR APTT PTT Ratio Sodium Potassium Chloride Carbon Dioxide Anion Gap BUN Creatinine Est Cr Clr Drug Dosing Est GFR ( Amer) Est GFR (Non-Af Amer) BUN/Creatinine Ratio Glucose POC Glucose 207 H Estimat Average Glucose 189 Hemoglobin A1c 8.2 H Calcium Magnesium Total Bilirubin AST ALT Alkaline Phosphatase Total Protein Albumin Globulin Albumin/Globulin Ratio Nasal Screen MRSA (PCR) SARS-CoV-2, RNA, NAAT PG Care Time/CCT Total # of Minutes Spent Total Time Spent with Patient: Total time spent is greater than 50% in coordination of care (as documented) at patient's floor/unit and/or counseling patient: Coding Level of Care Code 67868 Inpt Consult Level 4 Diagnoses End-stage renal disease on hemodialysis N18.6; Z99.2 Secondary hyperparathyroidism of renal origin N25.81 Diabetic nephropathy E11.21 Diabetes mellitus type: type 2 (1) Diabetic nephropathy Diabetes mellitus type: type 2 Qualified Code(s): E11.21 - Type 2 diabetes mellitus with diabetic nephropathy
[2022-02-24] MEDS: LANTUS PER UNIT CHARGE SQ SCH ×2 (12:16→20:57)
--- NOTE | 2022-02-24 14:04 | Orthopedic Consultation ---
Date of Consultation February 24, 2022 Assessment & Plan (1) Fracture of distal end of fibula: Pt was seen in the office yesterday and examined by myself and Dr. Aburto. It was discussed with pt and at that time conservative treatment verses surgical intervention. He has a significant health history including diabetic, renal failure, vascular changes, afib, which makes him a higher risk surgical candidate. At this time we are treating the right distal fracture conservatively, keeping in short camboot and maintaining nonweightbearing on the the right foot at all times. He has an open area over the anterior ankle where the strap was rubbing the skin. A piece of Telfa nonadherent is present w/ tubi medical assistant prn. I would recommend monitoring this area and daily check of his skin to avoid skin break down or infection. Per WHITLEY Smith, pt is anticipated to be d/c to [facility] where he can have therapy and dialysis today. He has a follow up appointment with Dr. Aburto on TuesdayMarch 02 at noon at our outpatient office. where he will have repeat imaging of the right ankle. Present on Admission?: Yes History of Present Illness Reason for Consultation: right ankle fracture Requesting Physician: Collette Ricardo PA-C Attending Physician: Rohan Gordon History of Present Illness Patient is a 71 y.o male who is being consulted by [facility] for a right distal fibula fracture. He was admitted yesterday, 02/23/22, for ambulatory dysfunction s/p a right distal fibula fracture after he was seen in our out patient office on the same day. He explains on 02/18/22 he was at home and was going upstairs with laundry. He states he was on the first step and unsure why but fell backwards. He denies any dizziness that caused him to fall. He states he required assistance to get up the stairs and his son was able to help him. Once he started to walk the right ankle gave out and he ended up falling again. He is unsure if he landed on the ankle or fell onto ankle as it happened so fast. He states that night of the fall he just rested and elevated the leg. The next morning he was getting into a vehicle to go to dialysis. He continued to walk on the ankle and had pain at this time. Once he arrived to dialysis they advised him to go to the ER immediately where he had imaging of the ankle which revealed a right distal fibular fracture. He was seen in our office as an outpatient yesterday afternoon. He was examined by myself and Dr. Aburto. He had repeat imaging that included stress views of the right ankle. After imaging, Dr. Aburto recommended pt remain in short boot and NONWEIGHTBEARING on the right leg. expressed concerns of caring for him and getting him to Dialysis. At that point he was advised after speaking with Case managmentAugust, in the ED to go to the ED. He states since leaving the office yesterday he has been NWB on the right leg. He continues to have pain in the ankle rates 2/10. He has been taken Tylenol and aspirin for it. He states the swelling is improved. He notes the sore over the front of the ankle feels better since the strap of the boot is not rubbing on it. He has a significant health history consisting of atrial fibrillation, kidney failure requiring dialysis, diabetes, history of a stroke Allergies Allergy/AdvReac Type Severity Reaction Status Date / Time No Known Drug Allergies Allergy Unknown Verified 02/23/22 18:29 Home Medications Medication Instructions Recorded Confirmed Type multivitamin (Multiple Vitamins 1 tab PO QAM 09/25/19 02/23/22 History tablet) insulin human U-100 NPH-regulr 0 sliding scale dose subcut AMPM 09/08/20 02/23/22 History 70-30 mix 100 unit/mL subcutaneous susp (Novolin 70/30 U-100 Insulin) blood-glucose meter #1 ea 11/21/20 02/23/22 History lisinopril 10 mg tablet 10 mg PO QAM #90 tabs 04/30/21 02/23/22 Rx amlodipine 10 mg tablet 10 mg PO QAM #90 tabs 08/10/21 02/23/22 Rx calcium acetate(phosphat bind) 667 1,334 mg PO BIDM #180 caps 08/24/21 02/23/22 Rx mg capsule apixaban 5 mg tablet 5 mg PO BID 09/08/21 02/23/22 History lovastatin 20 mg tablet 20 mg PO QAM #90 tabs 10/13/21 02/23/22 Rx gemfibrozil 600 mg tablet 600 mg PO BID 02/17/22 02/23/22 History cinacalcet 60 mg tablet 60 mg PO QPM 02/23/22 02/23/22 History Patient History Medical History Anemia Aspiration into airway Atrial flutter with rapid ventricular response follows with Dr. Hough AV fistula LUE Cardiac murmur Chronic dyspnea Chronic obstructive pulmonary disease Contusion of left hand Diabetic retinopathy Diverticular disease DM type 2 (diabetes mellitus, type 2) IDDM Elevated troponin ESRD (end stage renal disease) on dialysis MWF - [facility] - follows with Dr. Antonio (started 10 years ago) 2/2 DM Fibrotic lung diseases Fracture of rib GERD (gastroesophageal reflux disease) History of COVID-19 06/28/2020 - hospitalized at [place]; fever, sob, generalized weakness. symptoms resolved. History of nicotine dependence History of stroke 2013 - short term memory loss History of transesophageal echocardiography (LAUREN) HTN (hypertension) Hyperlipemia Obesity Pericardial effusion without cardiac tamponade hx Scar condition and fibrosis of skin Surgical History History of bowel resection History of cataract surgery LEFT. 08/25/20. Done at [facility]. 4mg versed. Pt made ASA 3. History of colonoscopy History of colostomy History of colostomy reversal History of esophagogastroduodenoscopy (EGD) History of non-cataract eye surgery Hx of cholecystectomy Family History Unknown Alzheimer disease Diabetes Obesity Prostate cancer Skin cancer Heart disease Father Heart disease Hearing loss Son Gallbladder disease Grandfather Kidney disease Uncle Myocardial infarction Hypertension maternal Melanoma paternal Other No family history of adverse response to anesthesia No family history of bleeding disorder Social History Smoking Status: Former smoker Tobacco Type: Cigarettes Age Started Using Tobacco: 21; Age Quit Using Tobacco: 67; packs per day: 1; Years Smoked: 46; Cigarettes Per Day: 202; Second Hand Exposure: No; Do You Dip or Chew Tobacco: No; Hx Alcohol Use: Yes Alcohol type: beer Hx Substance Use: No Preferred Language: Vietnamese Communication Ability: Effective Visual Impairment: No Limitations Hearing Ability: Normal Eye Dropper Assembler Required: No Beliefs That Will Affect Care: None marital status: Current Living Situation: Spouse current occupational status: employed Other Information That Helps Us Care for You: No Feels Safe at Home: Yes Safety Concerns: Feels Safe At This Time Childhood Exposure to Second-Hand Smoke: No caffeine: No Dental Care, Regularly: Yes Physical Activity Frequency: 3-4 Times per Week Seatbelt Use: never Sunscreen Use: No Assistive Devices: None Review of Systems Review of Systems: 10 point ROS unremarkable, other noted in HPI Physical Exam Physical Exam: Exam was focused on the RLE: Pt was seen bedside this afternoon while having dialysis. Cam boot was on this was removed. Vascular changes noted bilateral lower extremities. Anterior ankle joint has small open area without drainage or active bleeding. Negative for any deformity. Very little edema in the ankle and foot. Palpable tenderness over medial and lateral malleolus, greatest over lateral malleolus. no defect over the distal Achilles. Palpable tenderness over ATFL and deltoid ligament. Ankle range of motion DF: 8 degrees PF: 40 degrees. Mild laxity appreciated with varus and valgus stresses Negative high ankle squeeze. Sensation is intact in right lower extremity. Dorsal pedis pulses 2. Right lower extremity neurovascular intact Results & Data ([facility]) Vital Signs (Past 12 Hours) Vital Signs Temp Pulse Resp BP Pulse Ox O2 Del Method 02/24/22 07:41 36.6 C 74 18 114/71 96 Room Air (1) Fracture of distal end of fibula Encounter type: initial encounter Fracture morphology: unspecified fracture morphology Fracture type: closed Laterality: right Qualified Code(s): S82.831A - Other fracture of upper and lower end of right fibula, initial encounter for closed fracture
--- NOTE | 2022-02-24 14:46 | Hospitalist Progress Note ---
Date of Service February 24, 2022 Assessment & Plan (1) Fracture of distal end of fibula: Plan: Right ankle fracture/distal end of fibula/ambulatory dysfunction- - Short camboot as ordered by orthopedics - Consult placed to ortho to confirm treatment plan-conservative treatment, NWB * Is to see Dr. Aburto in f/u on 03/02 for repeat imaging - Pain control - PT/OT consult - CM consult to assist in d/c planning (2) Chronic obstructive pulmonary disease: Plan: - No active issue at this time (3) Uncontrolled type 2 diabetes mellitus with hyperglycemia: Plan: - Placed on Accu-Cheks before meals and at bedtime with NovoLog coverage per scale (4) End-stage renal disease on hemodialysis: Plan: - On HD treatments MWF - Continue Cinalcet and calcium - Consulted nephrology, seen by Dr. Cee, for HD today (5) Essential hypertension: Plan: Hypertension/atrial flutter/CAD- - Continue amlodipine, lisinopril and apixaban - BP well controlled (6) Hyperlipidemia: Plan: - Continue gemfibrozil and lovastatin, both well-tolerated (7) Atrial flutter with rapid ventricular response: Plan: See above (8) Coronary artery calcification: Plan: See above Plan Discussed plan with case management, referral sent to [facility] who can accept tomorrow. Plan will be to d/c to [facility] tomorrow (02/26). Plan d/w Dr. Gordon. Admission and Anticipated Discharge Date Admission Date: February 23, 2022 Subjective Patient seen and examined on daily rounds this morning. He reports pain in his right ankle but notes that it is manageable. He is due for HD today. Pt admitted d/t ambulatory dysfunction with plans to go to rehab due to his right ankle fracture of which he is to be NWB. Review of Systems Review of Systems: All systems reviewed and are unremarkable except as noted in HPI and below. Denies fever, chills, fatigue, headache, nasal congestion, sore throat, cough, chest pain, shortness of breath, palpitations, orthopnea, PND, abdominal pain, n/v/d, constipation, dysuria, hematuria, frequency, back pain, easy bruising or bleeding, skin lesions or rashes. Physical Exam Physical Exam: GENERAL: 71 yo Well-developed, well-nourished WM. NAD. LUNGS: Clear to auscultation bilaterally. No W/R/R. CARDIOVASCULAR: Regular rate and rhythm. ABDOMEN: Soft, non-tender and non-distended. BS normoactive x 4 quad. EXTREMITIES: No edema. Non-tender. Peripheral pulses +2/4. Boot to distal RLE. No calf tenderness. NEUROLOGIC: A&O x3. Nonfocal PSYCHIATRIC: Cooperative. Appropriate mood and affect. SKIN: Warm, dry, intact. No rashes or lesions. Results & Data Results & Data ([facility]) Vital Signs (Past 12 Hours) Vital Signs Temp Pulse Pulse Pulse Resp BP BP 02/24/22 14:30 73 128/63 02/24/22 14:00 72 116/63 02/24/22 13:30 77 109/61 02/24/22 13:00 68 107/63 02/24/22 12:30 68 125/68 02/24/22 12:00 36.5 C 69 02/24/22 07:41 36.6 C 74 18 114/71 Pulse Ox O2 Del Method 02/24/22 14:30 02/24/22 14:00 02/24/22 13:30 02/24/22 13:00 02/24/22 12:30 02/24/22 12:00 02/24/22 07:41 96 Room Air Laboratory Results 02/24/22 07:48 02/24/22 07:48 PG Care Time/CCT Total # of Minutes Spent Total Time Spent with Patient: Total time spent is greater than 50% in coordination of care (as documented) at patient's floor/unit and/or counseling patient: Coding Level of Care Code 18164 Subseq Hosp Care Lvl 2 Diagnoses Fracture of distal end of fibula S82.831A Encounter type: initial encounter Fracture morphology: unspecified fracture morphology Fracture type: closed Laterality: right Chronic obstructive pulmonary disease J44.9 Uncontrolled type 2 diabetes mellitus with hyperglycemia E11.65 End-stage renal disease on hemodialysis N18.6; Z99.2 Essential hypertension I10 Hyperlipidemia E78.5 Hyperlipidemia type: unspecified Atrial flutter with rapid ventricular response I48.92 Coronary artery calcification I25.10; I25.84 (1) Fracture of distal end of fibula Encounter type: initial encounter Fracture morphology: unspecified fracture morphology Fracture type: closed Laterality: right Qualified Code(s): S82.831A - Other fracture of upper and lower end of right fibula, initial encounter for closed fracture (2) Hyperlipidemia Hyperlipidemia type: unspecified Qualified Code(s): E78.5 - Hyperlipidemia, unspecified
[2022-02-24] MEDS: amLODIPine BESYLATE 5 MG TAB PO SCH (17:40)
[2022-02-24] MEDS ORDERED: MAGNESIUM HYDROXIDE SUSP 30 ML UDC PO ONE (17:43)
[2022-02-24] MEDS: lisinopril 10 MG TAB PO SCH (17:59)
[2022-02-24] MEDS: CINACALCET HCL 30 MG TAB PO SCH (20:52)
[2022-02-25] MEDS: ACETAMINOPHEN 325 MG TAB PO PRN ×2 (04:01→08:02)
[2022-02-25 08:03] LABS: Basophils # (auto) 0.05 K/uL (0-0.2); Basophils % (auto) 0.7 %; Eosinophils # (auto) 0.18 K/uL (0-0.50); Eosinophils % (auto) 2.6 %; Hemoglobin 11.9 g/dl (14.0-18.0); Immature Granulocytes # (auto) 0.04 K/uL (0.00-0.02); Immature Granulocytes % (auto) 0.6 %; Lymphocytes # (auto) 1.27 K/uL (1.2-3.4); Lymphocytes % (auto) 18.5 %; Mean Corpuscular Hemoglobin 33.7 pg (25.0-34.0); Mean Corpuscular Volume 99.2 fL (80.0-100.0); Mean Platelet Volume 9.6 fL (9.4-12.4); Monocytes % (auto) 11.6 %; Neutrophils # (auto) 4.54 K/uL (1.4-6.5); Platelet Count 279 K/uL (130-400); RDW Coefficient of Variation 13.6 % (11.5-14.5); RDW Standard Deviation 49.2 fL (36.4-46.3); Red Blood Count 3.53 M/uL (4.63-6.08); White Blood Count 6.88 K/ul (4.8-10.8)
[2022-02-25 08:16] LABS: INR 1.2 (0.9-1.1); Partial Thromboplastin Ratio 1.3; Partial Thromboplastin Time 35.4 Seconds (21.0-31.0); Prothrombin Time 13.1 Seconds (9.0-12.0)
[2022-02-25] MEDS: CALCIUM ACETATE 667 MG CAP/TAB PO SCH (08:32)
[2022-02-25] MEDS: gemfibroziL 600 MG TAB PO SCH (08:32)
[2022-02-25] MEDS: APIXABAN 5 MG TABLET PO SCH (08:32)
[2022-02-25] MEDS: MULTIVITAMIN TAB PO SCH (08:32)
[2022-02-25] MEDS: LOVASTATIN 20 MG TAB PO SCH (08:32)
[2022-02-25 08:37] LABS: Albumin Level 4.1 gm/dl (3.4-5.0); BUN Creatinine Ratio 7.8 (10-20); Bilirubin,Total 0.6 mg/dl (0.2-1.0); Calcium 9.5 mg/dl (8.5-10.1); Creatinine Clr Calc Pharmacy 18.4 ml/min; Est GFR (African American) 13.5 ml/min; Est GFR (Non-African American) 11.7 ml/min; Magnesium 2.3 mg/dl (1.7-2.4); Potassium 4.6 mmol/L (3.5-5.1); Total Protein 8.1 gm/dl (6.0-8.3)
[2022-02-25] MEDS: amLODIPine BESYLATE 5 MG TAB PO SCH (08:45)
[2022-02-25] MEDS: INSULIN ASPART PER UNIT SC SCH (09:40)
[2022-02-25] MEDS: LANTUS PER UNIT CHARGE SQ SCH (09:41)
--- NOTE | 2022-02-25 10:32 | Nephrology Progress Note ---
Date of Service February 25, 2022 Assessment & Plan (1) End-stage renal disease on hemodialysis: (2) Secondary hyperparathyroidism of renal origin: (3) Diabetic nephropathy: Plan Completed HD yesterday with adequate clearance and UF. Continue MWF schedule. Outpatient Rx: 4 hours, 450/500, 180 optiflux, 2K. EDW 116.6 kg. LUE AVF has been functioning well. Anticoagulated with Eliquis. Renal diet (sodium, potassium, and phosphorus restriction) with 1 L daily fluid restriction. Chronic, stable anemia. Maintained on Micera as outpatient. No added ZAINAB therapy required at this time. Continue Phos-lo QAC and daily Sensipar. Medications are appropriately dosed for kidney dysfunction. Anticipated DC to [facility]. Admission and Anticipated Discharge Date Admission Date: February 23, 2022 Subjective No acute events overnight. No complaints this AM. Denies pain. Completed HD without complications. Net UF 4 L. Review of Systems Review of Systems: All systems reviewed & are unremarkable except as noted in HPI & below Physical Exam Constitutional: well developed and + morbidly obese; no acute distress Eyes: no scleral abnormality and no corneal abnormality ENMT: Mouth: no oral mucosal abnormality and oral mucous membranes not dry Neck: normal visual inspection and trachea midline Respiratory: normal respiratory effort Auscultation: lungs clear to auscultation bilaterally Cardiovascular: Rate/Rhythm: regular rate Heart Sounds: normal S1 and normal S2 Extremities: + pedal edema and + AV fistula Musculoskeletal: Extremities: no cyanosis and no clubbing Skin: normal turgor; no lesions Neurologic: Motor/Sensory: no tremor and no asterixis Psychiatric: Orientation: alert and oriented x 3 Results & Data ([facility]) Vital Signs (Past 12 Hours) Vital Signs Temp Pulse Pulse Resp BP Pulse Ox O2 Del Method 02/25/22 08:36 72 109/70 02/25/22 05:47 36.6 C 73 18 115/65 100 Room Air Laboratory Results Laboratory Results - last 24 hr 02/24/22 02/24/22 02/24/22 12:01 17:13 20:49 WBC RBC Hgb Hct MCV MCH MCHC RDW Std Deviation RDW Coeff of Mike Plt Count MPV Immature Gran % (Auto) Neut % (Auto) Lymph % (Auto) Greer % (Auto) Eos % (Auto) Baso % (Auto) Neut # (Auto) Lymph # (Auto) Greer # (Auto) Eos # (Auto) Baso # (Auto) Immature Gran # (Auto) PT INR APTT PTT Ratio Sodium Potassium Chloride Carbon Dioxide Anion Gap BUN Creatinine Est Cr Clr Drug Dosing Est GFR ( Amer) Est GFR (Non-Af Amer) BUN/Creatinine Ratio Glucose POC Glucose 248 H 111 H 194 H Calcium Magnesium Total Bilirubin AST ALT Alkaline Phosphatase Total Protein Albumin Globulin Albumin/Globulin Ratio 02/25/22 02/25/22 02/25/22 07:32 07:32 07:32 WBC 6.88 RBC 3.53 L Hgb 11.9 L Hct 35.0 L MCV 99.2 MCH 33.7 MCHC 34.0 RDW Std Deviation 49.2 H RDW Coeff of Mike 13.6 Plt Count 279 MPV 9.6 Immature Gran % (Auto) 0.6 Neut % (Auto) 66.0 Lymph % (Auto) 18.5 Greer % (Auto) 11.6 Eos % (Auto) 2.6 Baso % (Auto) 0.7 Neut # (Auto) 4.54 Lymph # (Auto) 1.27 Greer # (Auto) 0.80 Eos # (Auto) 0.18 Baso # (Auto) 0.05 Immature Gran # (Auto) 0.04 H PT 13.1 H INR 1.2 H APTT 35.4 H PTT Ratio 1.3 Sodium 134 L Potassium 4.6 Chloride 94 L Carbon Dioxide 26 Anion Gap 14 H BUN 37 H Creatinine 4.73 H* D Est Cr Clr Drug Dosing 18.4 Est GFR ( Amer) 13.5 Est GFR (Non-Af Amer) 11.7 BUN/Creatinine Ratio 7.8 L Glucose 104 H POC Glucose Calcium 9.5 Magnesium 2.3 Total Bilirubin 0.6 AST 16 ALT 10 Alkaline Phosphatase 114 H Total Protein 8.1 Albumin 4.1 Globulin 4.0 Albumin/Globulin Ratio 1.0 02/25/22 08:04 WBC RBC Hgb Hct MCV MCH MCHC RDW Std Deviation RDW Coeff of Mike Plt Count MPV Immature Gran % (Auto) Neut % (Auto) Lymph % (Auto) Greer % (Auto) Eos % (Auto) Baso % (Auto) Neut # (Auto) Lymph # (Auto) Greer # (Auto) Eos # (Auto) Baso # (Auto) Immature Gran # (Auto) PT INR APTT PTT Ratio Sodium Potassium Chloride Carbon Dioxide Anion Gap BUN Creatinine Est Cr Clr Drug Dosing Est GFR ( Amer) Est GFR (Non-Af Amer) BUN/Creatinine Ratio Glucose POC Glucose 116 H Calcium Magnesium Total Bilirubin AST ALT Alkaline Phosphatase Total Protein Albumin Globulin Albumin/Globulin Ratio PG Care Time/CCT Total # of Minutes Spent Total Time Spent with Patient: Total time spent is greater than 50% in coordination of care (as documented) at patient's floor/unit and/or counseling patient: Coding Level of Care Code 58780 Subseq Hosp Care Lvl 3 Diagnoses End-stage renal disease on hemodialysis N18.6; Z99.2 Secondary hyperparathyroidism of renal origin N25.81 Diabetic nephropathy E11.21 Diabetes mellitus type: type 2 (1) Diabetic nephropathy Diabetes mellitus type: type 2 Qualified Code(s): E11.21 - Type 2 diabetes mellitus with diabetic nephropathy
--- NOTE | 2022-02-25 10:38 | Discharge Summary ---
Date of Service February 25, 2022 Admission HPI Per Admitting Provider The patient is a 71-year-old male with a past medical history including fracture of distal end of fibula, nicotine dependence, obesity, fibrotic lung disease, COPD, diabetic retinopathy, ESRD on HD, diabetes mellitus type 2 uncontrolled, diabetic nephropathy, diabetic neuropathy, CVA, atrial flutter with RVR, CAD and frequent falls. Patient was referred to the emergency department from the [facility] orthopedic outpatient office due to need for intermediate care due to inability of his to take care of him at home due to ambulatory dysfunction associate with ankle fracture and nonweightbearing status Principal Diagnosis 1. Acute R ankle fracture 2. Ambulatory dysfunction d/t #1 Discharge Exam GENERAL: 71 yo Well-developed, well-nourished WM. NAD. LUNGS: Clear to auscultation bilaterally. No W/R/R. CARDIOVASCULAR: Regular rate and rhythm. ABDOMEN: Soft, non-tender and non-distended. BS normoactive x 4 quad. EXTREMITIES: No edema. Non-tender. Peripheral pulses +2/4. Boot to distal RLE. No calf tenderness. NEUROLOGIC: A&O x3. Nonfocal PSYCHIATRIC: Cooperative. Appropriate mood and affect. SKIN: Warm, dry, intact. No rashes or lesions. Discharge Data Allergies Allergy/AdvReac Type Severity Reaction Status Date / Time No Known Drug Allergies Allergy Unknown Verified 02/23/22 18:29 Consultations 02/23/22 18:44 ED Decision to Admit Stat 02/24/22 10:52 Consult Nephrology Routine 02/24/22 11:57 Consult Orthopedic Surgery Routine Hospital Course (1) Fracture of distal end of fibula: Right ankle fracture/distal end of fibula/ambulatory dysfunction- - Short camboot as ordered by orthopedics - Consult placed to ortho to confirm treatment plan-conservative treatment, NWB * Is to see Dr. Aburto in f/u on 03/02 for repeat imaging - Pain control - PT/OT consult - recommending acute rehab - CM consult to assist in d/c planning - For d/c to [facility] 02/25 (2) Chronic obstructive pulmonary disease: - No active issue at this time (3) Uncontrolled type 2 diabetes mellitus with hyperglycemia: - Placed on Accu-Cheks before meals and at bedtime with NovoLog coverage per scale (4) End-stage renal disease on hemodialysis: - On HD treatments MWF - Continue Cinalcet and calcium - Consulted nephrology, seen by Dr. Cee, for HD today (5) Essential hypertension: Hypertension/atrial flutter/CAD- - Continue amlodipine, lisinopril and apixaban - BP well controlled (6) Hyperlipidemia: - Continue gemfibrozil and lovastatin, both well-tolerated (7) Atrial flutter with rapid ventricular response: See above (8) Coronary artery calcification: See above Plan Patient is medically and hemodynamically stable for discharge to [facility] rehab hospital today (02/25). Follow up as scheduled with orthopedics. NWB to RLE as instructed. Above plan of care has been d/w Dr. Lazo who has also seen and evaluated this patient and agrees with aforementioned. Total Time Total Time Spent Total Time Spent (In Minutes): >30 minutes Discharge Plan Discharge Items Patient Disposition: Transfer Inpatient Rehab Fac Reason For Visit: ANKLE FRACTURE, AMBULATORY DYSTUNCTION Discharge Diagnosis: right ankle fracture Activity: As commented below Activity Comment: NWB to right lower extremity Weightbearing: Right non-weightbearing Non-emergency contact: Primary Care Provider and Surgeon Call non-emergency contact if: you have any medication questions and your symptoms worsen Follow-up/Referrals: Дмитрий Carrasco MD [Primary Care Provider] - Дмитрий Aburto MD [Surgeon] - 03/02/22 12:00 pm Diet: Carb Consistent or DM2 and Dialysis Renal Addtl Attending Provider Instructions: You were hospitalized due to fracture of your right ankle and sustaining falls at home. Therapy recommending acute rehab-case management sent referral to [facility] and you will be discharged there to continue physical and occupational therapy. Please DO NOT bear any weight on your right foot/leg as instructed by orthopedics. Follow up with Dr. Aburto next week as scheduled. You will be followed by the medical team during your stay at [facility]. Following that, you should follow up with your family doctor within 1 week of discharge. If you have any questions/concerns following your discharge, feel free to contact the nonemergency number listed on your paperwork. Addtl Label Press Operator Provider Instructions: NO Weightbearing on the right lower extremity. Continue with camboot. Sore over the anterior ankle on the right monitor skin daily and provide care as needed. May elevate the leg and use ice as needed with a towel layer prn. x15min. Pending Studies at Discharge: No Stand-Alone Forms: My [facility] Skilled Items Patient informed of condition?: Yes DNR: No Discharge Level of Care: Acute rehab Communicable Disease: No Discharge Prognosis: Stable Lines: None Urinary Catheter: No Medications and DC Order Prescriptions: Continued lisinopril 10 mg tablet 10 mg PO QAM Qty: 90 3RF amlodipine 10 mg tablet 10 mg PO QAM Qty: 90 3RF calcium acetate(phosphat bind) 667 mg capsule 1,334 mg PO BIDM Qty: 180 5RF Rx Instructions: with meals lovastatin 20 mg tablet 20 mg PO QAM Qty: 90 3RF (DME) blood-glucose meter Misc See Rx Instructions .ROUTE .MEDSUPPLY Qty: 1 Rx Instructions: Reli-On brand. Test blood sugar 3 times daily gemfibrozil 600 mg tablet 600 mg PO BID multivitamin [Multiple Vitamins] Tablet 1 tab PO QAM apixaban 5 mg tablet 5 mg PO BID cinacalcet 60 mg tablet 60 mg PO QPM Rx Instructions: take with evening meal or at bedtime Novolin 70/30 U-100 Insulin 100 unit/mL (70-30) suspension 0 sliding scale dose SUBCUT AMPM Rx Instructions: PER PT "SLIDING SCALE". Discharge Orders: Discharge Order (Routine); Ordered 02/25/22 Ordered By: Collette Quintanilla/Other Patient Handouts: Managing Type 2 Diabetes Admission Data Admit Date/Time: 02/23/22 20:05 Attending Provider: Gonzalez Lazo Admit Provider: Kirt Marino Primary Care Provider: Дмитрий Carrasco Other Providers: Shmuel Sheppard ; [facility] ; Toribio Cee ; [place] ; Mac Franklin ; Tolu Menendez ; Jac Bailey ; Chayo Lin ; Key Jewell ; Yuri Eugene ; Kristofer Rowland ; Дмитрий Aburto ; Дмитрий Banda ; Beth Moody ; Kimberly Jaramillo ; Nyla John ; Aspen Ugalde ; Kathleen Salamanca ; Oumar Galvan ; Jhon Escobedo Other Interventions: Discharge Summary Assessment (RN) Last Done: 02/25/22 10:40 Supervising Physician Co-Signing Physician Notes I personally examined the patient and verified all conrad points of history and exam, discussed case, and agree with decision making with Myles BERRIOS. Feeling up to rehab. Rehab set up. Vitals noted, in general he is in no distress. Breathing unlabored no accessory muscle use. Fracturefor rehab. Stable to go today. Otherwise as above. Coding Level of Care Code D/C DAY MANAGEMENT >30 MINS Diagnoses Fracture of distal end of fibula S82.839A Chronic obstructive pulmonary disease J44.9 Uncontrolled type 2 diabetes mellitus with hyperglycemia E11.65 End-stage renal disease on hemodialysis N18.6; Z99.2 Essential hypertension I10 Hyperlipidemia E78.5 Hyperlipidemia type: unspecified Atrial flutter with rapid ventricular response I48.92 Coronary artery calcification I25.10; I25.84
[2022-02-25] MEDS: lisinopril 10 MG TAB PO SCH (10:45)
== END 2022-02-25 11:27 | DRG 562 ==
LOC: ED 16:54 → SUATTDRO 20:05 → 3N 20:05

== ENCOUNTER 2023-07-21 16:27 | Inpatient (IN) ==
--- NOTE | 2023-07-21 17:54 | Emergency Department Note ---
ED Provider Note History of Present Illness Chief Complaint: Referred by Doctor Stated Complaint: NEEDS ADMITTED FOR SURGERY TOMORROW Time Seen by Provider: 07/21/23 17:28 Source: patient Mode of arrival: ambulatory Limitations: no limitations This patient is a 73-year-old male who presents to the emergency department for admission. Patient states that he has been having issues with his right knee for the past few weeks. He states that the knee started to bother him a few weeks ago and he was seen by orthopedics. They drained the knee and he did well for a while, but then again got swelling on the knee. They drained it again this week and reported it was positive for 80,000 white blood cells but was not growing out any bacteria at this time. However, due to worsening symptoms, Dr. Kam wanted the patient to be admitted for surgery tomorrow. Patient will require admission so he can receive dialysis in the morning before surgery. Patient denies any fevers or systemic symptoms. He reports pain and swelling in the right knee. Home Medications Medication Instructions Recorded Confirmed Type multivitamin (Multiple Vitamins 1 tab PO QAM 09/25/19 07/21/23 History tablet) blood-glucose meter #1 ea 11/21/20 07/21/23 History calcium acetate(phosphat bind) 667 1,334 mg (2 x 667 mg) PO BIDM #180 08/24/21 07/21/23 Rx mg capsule caps apixaban 5 mg tablet (Eliquis) 5 mg PO BID 09/08/21 07/21/23 History ondansetron 4 mg disintegrating 4 mg PO DAILY PRN nausea and 10/20/22 07/21/23 Rx tablet vomiting #30 tabs aspirin 81 mg tablet,delayed 81 mg PO DAILY #30 tabs 11/09/22 07/21/23 Rx release gemfibrozil 600 mg tablet (Lopid) 600 mg PO BID 11/16/22 07/21/23 History rosuvastatin 40 mg tablet (Crestor) 40 mg PO DAILY 30 days #90 tabs 02/01/23 07/21/23 Rx pen needle, diabetic 32 gauge x #100 ea 02/02/23 07/21/23 Rx 1/6" insulin NPH-regular hum semi-syn See Rx Instructions .Route .COMPLEX 06/13/23 07/21/23 History 100 unit/mL (70-30) subcutaneous soln amlodipine 10 mg tablet 10 mg PO QAM 07/21/23 07/21/23 History cinacalcet 30 mg tablet 30 mg PO DAILY 07/21/23 07/21/23 History Allergies Allergy/AdvReac Type Severity Reaction Status Date / Time No Known Drug Allergies Allergy Unknown Verified 07/21/23 14:04 Past Med/Surg History Medical History Pulmonary nodule History of skin cancer left wrist Axillary lymphadenopathy Abnormal PET of right lung Reason for upcoming bronchoscopy Peripheral arterial disease Patient underwent angiogram on 12/03/[address] Adrian; no intervention required at this time. LVH (left ventricular hypertrophy) moderate History of nicotine dependence Fibrotic lung diseases possible chronic aspiration per [place] pulm records Chronic obstructive pulmonary disease stable per pt Diabetic retinopathy History of COVID-19 06/28/2020 - hospitalized at [place]; fever, sob, generalized weakness. symptoms resolved. AV fistula LUE ESRD (end stage renal disease) on dialysis MWF - [facility] - follows with Dr. 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 Hough on Eliquis History of stroke 2013 - short term memory loss HTN (hypertension) variable Anemia Surgical History Hx of local excision of skin lesion History of surgery 11/16/22 [facility] Left Upper Extremity Arteriovenous Fistulogram, Percutaneous Transluminal Angioplasty Peripheral Venous, Moderate Sedation History of surgery fistula revision 08/14/1819 Grade 1 view, MAC 3, ETT 7.5. Fistual revision 06/2022 History of tooth extraction History of cataract surgery BL History of non-cataract eye surgery INJECTION FOR RETINOPATHY History of esophagogastroduodenoscopy (EGD) History of colonoscopy History of colostomy reversal History of colostomy History of bowel resection WITH TEMP. COLOSTOMY D/T DIVERTICULITIS Hx of cholecystectomy Family History Unknown Alzheimer disease Diabetes Obesity Prostate cancer Skin cancer Heart disease Father Heart disease Hearing loss Son Gallbladder disease Grandfather Kidney disease Uncle Myocardial infarction Hypertension maternal Melanoma paternal Other No family history of adverse response to anesthesia No family history of bleeding disorder Social History Smoking Status: Never smoker Tobacco Type: Cigarettes Age Started Using Tobacco: 21; Age Quit Using Tobacco: 67; packs per day: 1; Second Hand Exposure: No; Do You Dip or Chew Tobacco: No; Hx Alcohol Use: No Hx Substance Use: No Preferred Language: Tunisian Communication Ability: Effective Visual Impairment: No Limitations Hearing Ability: Normal Chief Vendor Quality Required: No Beliefs That Will Affect Care: None marital status: Current Living Situation: Spouse current occupational status: employed How many Children do You have: 3 other: Liza (), to call for questions Feels Safe at Home: Yes Childhood Exposure to Second-Hand Smoke: No Diet: diabetic Diet Comment: Renal caffeine: No Dental Care, Regularly: Yes Physical Activity Frequency: 3-4 Times per Week Seatbelt Use: never Sunscreen Use: No Assistive Devices: Glasses and Walker Physical Exam Vital Signs Vital Signs - 24 hr 07/21/23 17:16 Temperature 36.3 C L Temperature Source Temporal Artery Scan Pulse Rate 79 Pulse Rhythm Regular Pulse Strength Normal Respiratory Rate 20 Respiratory Effort / Characteristics Non-Labored Spontaneous Respiratory Depth Normal Respiratory Pattern Regular Blood Pressure 91/61 L Blood Pressure Mean 71 Blood Pressure Position Sitting Pulse Oximetry 100 Oxygen Delivery Method Room Air Sepsis Recent Fever Within 48 Hours No Sepsis New/Unexplained Change in Mental Status No Sepsis Action Taken by Nursing No Action Required VITALS: Vitals are noted on the nurse's note and reviewed by myself. GENERAL: This is a 73-year-old male, in no acute distress, nontoxic in appearance. HEART: Regular rate and rhythm without murmurs gallops or rubs. LUNGS: Clear to auscultation bilaterally without wheezes, rales or rhonchi. MUSCULOSKELETAL: Right knee effusion noted, no erythema or warmth. Decreased range of motion of the knee. NEURO: Patient was alert and oriented to person place and time. Course Administered Medications Discontinued Medications Acetaminophen (Acetaminophen 325 Mg Tab) 650 mg PO Q4H PRN PRN Reason: Pain Stop: 08/26/23 12:25 Last Admin: 07/27/23 12:45 Dose: 650 mg Documented By: VLAD Apixaban (Apixaban 5 Mg Tablet) 5 mg PO BID TIM Stop: 08/22/23 08:59 Last Admin: 07/27/23 08:40 Dose: 5 mg Documented By: Admin: 07/26/23 21:04 Dose: 5 mg Documented By: Admin: 07/26/23 08:21 Dose: 5 mg Documented By: Admin: 07/25/23 20:57 Dose: 5 mg Documented By: Admin: 07/25/23 08:14 Dose: 5 mg Documented By: Admin: 07/24/23 21:15 Dose: 5 mg Documented By: Admin: 07/24/23 08:28 Dose: 5 mg Documented By: Admin: 07/23/23 20:55 Dose: 5 mg Documented By: Admin: 07/23/23 08:48 Dose: 5 mg Documented By: ADELINA Aspirin (Aspirin 81 Mg Ectab) 81 mg PO DAILY [facility] Stop: 08/22/23 08:59 Last Admin: 07/27/23 08:41 Dose: 81 mg Documented By: Admin: 07/26/23 08:21 Dose: 81 mg Documented By: Admin: 07/25/23 08:14 Dose: 81 mg Documented By: Admin: 07/24/23 08:28 Dose: 81 mg Documented By: Admin: 07/23/23 08:48 Dose: 81 mg Documented By: ADELINA Calcium Acetate (Calcium Acetate 667 Mg Cap/Tab) 1,334 mg PO BIDM [facility] Stop: 08/21/23 07:59 Last Admin: 07/27/23 08:41 Dose: 1,334 mg Documented By: Admin: 07/26/23 16:32 Dose: 1,334 mg Documented By: Admin: 07/26/23 08:21 Dose: 1,334 mg Documented By: Admin: 07/25/23 16:20 Dose: 1,334 mg Documented By: Admin: 07/25/23 08:14 Dose: 1,334 mg Documented By: Admin: 07/24/23 17:39 Dose: 1,334 mg Documented By: Admin: 07/24/23 08:28 Dose: 1,334 mg Documented By: Admin: 07/23/23 18:15 Dose: 1,334 mg Documented By: Admin: 07/23/23 08:48 Dose: 1,334 mg Documented By: Admin: 07/22/23 22:58 Dose: 1,334 mg Documented By: Admin: 07/22/23 08:52 Dose: 1,334 mg Documented By: FADIA Cefazolin Sodium (Cefazolin 2,000 Mg/15 Ml Iv Push) Confirm Administered Dose 4,000 mg IV .STK-MED ONE Stop: 07/22/23 13:38 Last Admin: 07/22/23 14:10 Dose: 4,000 mg Documented By: LORY Cinacalcet (Cinacalcet Hcl 30 Mg Tab) 30 mg PO DAILY TIM Stop: 08/21/23 08:59 Last Admin: 07/27/23 08:41 Dose: 30 mg Documented By: Admin: 07/26/23 08:21 Dose: 30 mg Documented By: Admin: 07/25/23 08:14 Dose: 30 mg Documented By: Admin: 07/24/23 08:29 Dose: 30 mg Documented By: Admin: 07/22/23 08:53 Dose: 30 mg Documented By: Admin: 07/22/23 08:51 Dose: 30 mg Documented By: FADIA Epinephrine HCl (Epinephrine Hcl Inj 1 Mg/Ml 1ml Syringe) Confirm Administered Dose 2 mg IR .STK-MED ONE Stop: 07/22/23 14:08 Last Admin: 07/22/23 14:45 Dose: 2 mg Documented By: PSS Epoetin Joseph (Epoetin Joseph 10,000 Units/Ml Vial) 10,000 units IV ONE ONE Stop: 07/22/23 07:50 Last Admin: 07/22/23 12:13 Dose: 10,000 units Documented By: SHANICE Epoetin Joseph (Epoetin Joseph 4,000 Unit/Ml Vial) 4,000 units IV ONE ONE Stop: 07/25/23 07:01 Last Admin: 07/25/23 12:07 Dose: 4,000 units Documented By: CC Epoetin Joseph (Epoetin Joseph 10,000 Units/Ml Vial) 10,000 units IV ONE ONE Stop: 07/27/23 07:01 Last Admin: 07/27/23 14:23 Dose: 10,000 units Documented By: SHANICE Fentanyl Citrate (Fentanyl Citrate Pf 100 Mcg/2 Ml Vial) 50 mcg IV Q5M PRN PRN Reason: PACU Use Only-Pain Stop: 07/22/23 22:04 Last Admin: 07/22/23 16:26 Dose: 50 mcg Documented By: Admin: 07/22/23 16:21 Dose: 50 mcg Documented By: Admin: 07/22/23 16:12 Dose: 50 mcg Documented By: Admin: 07/22/23 16:07 Dose: 50 mcg Documented By: ROBIN Gemfibrozil (Gemfibrozil 600 Mg Tab) 600 mg PO BID TIM Stop: 08/21/23 08:59 Last Admin: 07/22/23 23:04 Dose: Not Given Documented By: ROBIN Hydromorphone HCl (Hydromorphone Inj 0.5 Mg/0.5 Ml Syr) 0.5 mg IV Q4H PRN PRN Reason: Pain or Pre PT Stop: 08/05/23 17:52 Last Admin: 07/26/23 08:17 Dose: 0.5 mg Documented By: Admin: 07/23/23 21:13 Dose: 0.5 mg Documented By: ROBIN Hydromorphone HCl (Hydromorphone Inj 1 Mg/Ml Syringe) 1 mg IV Q4H PRN PRN Reason: Pain RATING 6 OR GREATER Stop: 08/05/23 17:52 Last Admin: 07/27/23 00:32 Dose: 1 mg Documented By: Admin: 07/26/23 18:32 Dose: 1 mg Documented By: Admin: 07/26/23 13:43 Dose: 1 mg Documented By: Admin: 07/26/23 04:19 Dose: 1 mg Documented By: Admin: 07/25/23 23:16 Dose: 1 mg Documented By: Admin: 07/25/23 18:41 Dose: 1 mg Documented By: Admin: 07/25/23 14:21 Dose: 1 mg Documented By: Admin: 07/25/23 06:42 Dose: 1 mg Documented By: Admin: 07/25/23 01:39 Dose: 1 mg Documented By: Admin: 07/24/23 21:14 Dose: 1 mg Documented By: Admin: 07/24/23 16:01 Dose: 1 mg Documented By: Admin: 07/24/23 10:08 Dose: 1 mg Documented By: Admin: 07/24/23 01:16 Dose: 1 mg Documented By: Admin: 07/23/23 17:12 Dose: 1 mg Documented By: Admin: 07/23/23 11:45 Dose: 1 mg Documented By: Admin: 07/23/23 07:28 Dose: 1 mg Documented By: Admin: 07/22/23 20:09 Dose: 1 mg Documented By: ROBIN Vancomycin HCl 2,250 mg/ (Sodium Chloride) 545 mls @ 200 mls/hr IV NOW ONE Stop: 07/21/23 20:41 Last Infusion: 07/21/23 22:39 Dose: Infused Documented By: Admin: 07/21/23 19:16 Dose: 200 mls/hr Documented By: DAVID Ceftriaxone Sodium (Rocephin) 2,000 mg in 50 mls @ 100 mls/hr IV NOW STA Stop: 07/21/23 18:27 Last Infusion: 07/21/23 19:33 Dose: Infused Documented By: Infusion: 07/21/23 19:15 Dose: 100 mls/hr Documented By: Infusion: 07/21/23 19:15 Dose: 0 mls/hr Documented By: Admin: 07/21/23 18:57 Dose: 100 mls/hr Documented By: DAVID Ceftriaxone Sodium 2,000 mg/ (Dextrose) 50 mls @ 100 mls/hr IV Q24H [facility]; Protocol Stop: 09/02/23 18:59 Last Infusion: 07/25/23 19:58 Dose: Infused Documented By: Admin: 07/25/23 18:11 Dose: 100 mls/hr Documented By: Infusion: 07/24/23 18:35 Dose: Infused Documented By: Admin: 07/24/23 18:04 Dose: 100 mls/hr Documented By: Infusion: 07/23/23 19:45 Dose: Infused Documented By: Admin: 07/23/23 18:53 Dose: 100 mls/hr Documented By: Infusion: 07/22/23 23:27 Dose: Infused Documented By: Admin: 07/22/23 22:53 Dose: 100 mls/hr Documented By: ROBIN Acetaminophen (Ofirmev) 1,000 mg in 100 mls @ 400 mls/hr IV Q8H PRN PRN Reason: Pain or Fever Stop: 07/24/23 19:51 Last Infusion: 07/24/23 05:18 Dose: Infused Documented By: Admin: 07/24/23 04:39 Dose: 400 mls/hr Documented By: Infusion: 07/22/23 23:38 Dose: Infused Documented By: Admin: 07/22/23 23:14 Dose: 400 mls/hr Documented By: Infusion: 07/22/23 02:00 Dose: Infused Documented By: Admin: 07/22/23 01:45 Dose: 400 mls/hr Documented By: ALYSE Iron Sucrose 50 mg/ Syringe 2.5 mls @ 1 mls/min IV TODAY ONE Stop: 07/22/23 08:02 Last Admin: 07/22/23 12:14 Dose: 1 mls/min Documented By: CC Prothrombin Complex Concent ( (Human) 2,000 units/ Syringe) 80 mls @ 10 mls/min IV ONE ONE; Protocol Stop: 07/22/23 13:07 Last Admin: 07/22/23 13:29 Dose: 10 mls/min Documented By: MG Vancomycin HCl 1,000 mg/ (Sodium Chloride) 270 mls @ 200 mls/hr IV TODAY@1600 ONE Stop: 07/22/23 17:20 Last Infusion: 07/22/23 22:34 Dose: Infused Documented By: Admin: 07/22/23 20:13 Dose: 200 mls/hr Documented By: ROBIN Cefazolin Sodium (Ancef 2000mg) 2,000 mg in 15 mls @ 3.75 mls/min IV PREOP ONE; Protocol Stop: 07/22/23 13:41 Last Admin: 07/22/23 19:56 Dose: Not Given Documented By: ROBIN Sodium Chloride (Nss) 1,000 mls @ 15 mls/hr IV .Q24H [facility] Stop: 08/21/23 13:59 Last Infusion: 07/22/23 14:10 Dose: Infused Documented By: Admin: 07/22/23 13:53 Dose: 15 mls/hr Documented By: Sodium Chloride (Nss) 1,000 mls @ 100 mls/hr IV .Q10H TIM Stop: 07/23/23 06:00 Last Admin: 07/22/23 23:50 Dose: Not Given Documented By: ROBIN Daptomycin 350 mg/ Syringe 7 mls @ 3.5 mls/min IV Q48H ITM; Protocol Stop: 07/30/23 15:59 Last Admin: 07/25/23 16:19 Dose: 3.5 mls/min Documented By: Admin: 07/23/23 17:07 Dose: 3.5 mls/min Documented By: ADELINA Sodium Chloride (Nss) 500 mls @ 999 mls/hr IV .Q31M ONE Stop: 07/24/23 09:49 Last Infusion: 07/24/23 10:40 Dose: Infused Documented By: Admin: 07/24/23 10:06 Dose: 999 mls/hr Documented By: FAYE Iron Sucrose 100 mg/ Syringe 5 mls @ 1 mls/min IV ONE ONE Stop: 07/25/23 07:04 Last Admin: 07/25/23 12:07 Dose: 1 mls/min Documented By: SHANICE Iron Sucrose 200 mg/ Sodium (Chloride) 110 mls @ 220 mls/hr IV DAILY TIM Stop: 07/30/23 09:29 Last Infusion: 07/27/23 09:13 Dose: Infused Documented By: Admin: 07/27/23 08:43 Dose: 220 mls/hr Documented By: Infusion: 07/26/23 10:26 Dose: Infused Documented By: Admin: 07/26/23 09:52 Dose: 220 mls/hr Documented By: MADDIE Ertapenem 500 mg/ Syringe 5 mls @ 2 mls/min IV NOW ONE Stop: 07/26/23 13:32 Last Admin: 07/26/23 13:43 Dose: 2 mls/min Documented By: MADDIE Insulin Aspart (Insulin Aspart Per Unit Charge) 0 units SC ACHS TIM; Protocol Stop: 08/20/23 20:59 Last Admin: 07/27/23 12:16 Dose: Not Given Documented By: Admin: 07/27/23 08:40 Dose: 14 units Documented By: VLAD Co-signed By: DARRYL Admin: 07/26/23 21:02 Dose: 2 units Documented By: EMILEE Co-signed By: PATRICIA Admin: 07/26/23 18:12 Dose: 4 units Documented By: MADDIE Co-signed By: RRR Admin: 07/26/23 12:59 Dose: 5 units Documented By: MADDIE Co-signed By: EMILEE(2) Admin: 07/26/23 08:51 Dose: 9 units Documented By: MADDIE Co-signed By: RRR Admin: 07/25/23 20:57 Dose: Not Given Documented By: Admin: 07/25/23 17:40 Dose: 4 units Documented By: FAYE Co-signed By: SHAINA Admin: 07/25/23 13:52 Dose: 4 units Documented By: FAYE Co-signed By: SHAINA Admin: 07/25/23 08:45 Dose: 7 units Documented By: FAYE Co-signed By: [id number] Admin: 07/24/23 21:15 Dose: 2 units Documented By: ROBIN Co-signed By: TRACY Admin: 07/24/23 17:40 Dose: 8 units Documented By: FAYE Co-signed By: RRR Admin: 07/24/23 13:03 Dose: 7 units Documented By: FAYE Co-signed By: RRR Admin: 07/24/23 09:03 Dose: 7 units Documented By: FAYE Co-signed By: RRR Admin: 07/23/23 20:54 Dose: 2 units Documented By: ROBIN Co-signed By: MARISA Admin: 07/23/23 18:13 Dose: 7 units Documented By: ADELINA Co-signed By: RRR Admin: 07/23/23 13:12 Dose: 5 units Documented By: ADELINA Co-signed By: RRR Admin: 07/23/23 08:57 Dose: 8 units Documented By: ADELINA Co-signed By: RRR Admin: 07/22/23 22:53 Dose: 4 units Documented By: ROBIN Co-signed By: MARISA Admin: 07/22/23 19:56 Dose: Not Given Documented By: Admin: 07/22/23 11:52 Dose: Not Given Documented By: FADIA Co-signed By: BARTOLOME Admin: 07/22/23 09:18 Dose: Not Given Documented By: Admin: 07/21/23 21:04 Dose: 10 units Documented By: ALYSE Co-signed By: Insulin Aspart (Insulin Aspart Per Unit Charge) 0 units SC 0200 ONE; Protocol Stop: 07/22/23 02:01 Last Admin: 07/22/23 01:42 Dose: Not Given Documented By: ALYSE Insulin Aspart (Insulin Aspart Per Unit Charge) 0 units SC 0400 TIM; Protocol Stop: 07/23/23 04:01 Last Admin: 07/23/23 04:19 Dose: 3 units Documented By: ROBIN Co-signed By: PATRICIA Insulin Glargine (Lantus Per Unit Charge) 8 units SC ONE ONE Stop: 07/22/23 21:46 Last Admin: 07/22/23 22:52 Dose: 8 units Documented By: ROBIN Co-signed By: MARISA Insulin Human NPH (Novolin-N (Nph) Per Unit Charge) 15 units SQ ONE ONE; Protocol Stop: 07/21/23 20:01 Last Admin: 07/21/23 21:04 Dose: 15 units Documented By: ALYSE Co-signed By: Insulin Human NPH (Insulin Human Nph) 8 units SC BIDM [facility] Stop: 08/22/23 08:29 Last Admin: 07/23/23 09:16 Dose: 8 units Documented By: ADELINA Co-signed By: DAJUAN Insulin Human NPH (Insulin Human Nph) 0 units SC BIDM [facility]; Protocol Stop: 08/22/23 16:59 Last Admin: 07/26/23 08:52 Dose: 13 units Documented By: MADDIE Co-signed By: DAJUAN Admin: 07/25/23 17:40 Dose: 8 units Documented By: FAYE Co-signed By: SHAINA Admin: 07/25/23 08:14 Dose: 13 units Documented By: FAYE Co-signed By: IDANIA Admin: 07/24/23 17:39 Dose: 13 units Documented By: FAYE Co-signed By: DAJUAN Admin: 07/24/23 08:29 Dose: 8 units Documented By: FAYE Co-signed By: TIMOTHY Admin: 07/23/23 18:14 Dose: 13 units Documented By: ADELINA Co-signed By: DAJUAN Insulin Human NPH (Insulin Human Nph) 12 units SC BIDM [facility] Stop: 08/25/23 16:59 Last Admin: 07/27/23 08:42 Dose: 12 units Documented By: VLAD Co-signed By: DARRYL Admin: 07/26/23 18:13 Dose: 12 units Documented By: MADDIE Co-signed By: DAJUAN Lidocaine/Epinephrine (Lidocaine 1%/Epinephrine 1:100,000 20 Ml Vial) Confirm Administered Dose 1 ml .ROUTE .STK-MED ONE Stop: 07/22/23 14:08 Last Admin: 07/22/23 19:59 Dose: Not Given Documented By: ROBIN Miscellaneous (No Heparin In Dialysis) 1 each N/A ONE ONE Stop: 07/25/23 07:01 Last Admin: 07/25/23 10:05 Dose: Not Given Documented By: SHANICE Miscellaneous (No Heparin In Dialysis) 1 each N/A ONE ONE Stop: 07/27/23 07:01 Last Admin: 07/27/23 12:17 Dose: Not Given Documented By: VLAD Oxycodone HCl (Oxycodone Hcl Ir 5 Mg Tab (Immediate Release)) 5 - 10 mg PO Q4H PRN PRN Reason: Pain or Pre PT Stop: 08/05/23 17:52 Last Admin: 07/27/23 14:51 Dose: 10 mg Documented By: Admin: 07/27/23 09:11 Dose: 5 mg Documented By: Admin: 07/27/23 04:30 Dose: 10 mg Documented By: Admin: 07/26/23 16:31 Dose: 10 mg Documented By: Admin: 07/26/23 12:32 Dose: 10 mg Documented By: Admin: 07/26/23 01:55 Dose: 10 mg Documented By: Admin: 07/25/23 04:48 Dose: 10 mg Documented By: Admin: 07/23/23 19:44 Dose: 10 mg Documented By: Admin: 07/22/23 18:33 Dose: 10 mg Documented By: TIGIST Oxycodone HCl (Oxycodone Hcl Ir 5 Mg Tab (Immediate Release)) Confirm Administered Dose 5 mg .ROUTE .STK-MED ONE Stop: 07/22/23 18:22 Last Admin: 07/22/23 19:59 Dose: Not Given Documented By: ROBIN Oxycodone HCl (Oxycodone Hcl Ir 5 Mg Tab (Immediate Release)) Confirm Administered Dose 5 mg .ROUTE .STK-MED ONE Stop: 07/22/23 18:23 Last Admin: 07/22/23 19:59 Dose: Not Given Documented By: ROBIN Polyethylene Glycol (Polyethylene (Miralax) 17 Gm Pack) 17 gm PO BID [facility] Stop: 08/25/23 08:59 Last Admin: 07/27/23 08:41 Dose: 17 gm Documented By: Admin: 07/26/23 21:04 Dose: 17 gm Documented By: Admin: 07/26/23 08:20 Dose: 17 gm Documented By: MADDIE Rosuvastatin Calcium (Rosuvastatin Calcium 20 Mg Tab) 40 mg PO QPM [facility] Stop: 08/21/23 20:59 Last Admin: 07/25/23 20:57 Dose: 40 mg Documented By: Admin: 07/24/23 21:15 Dose: 40 mg Documented By: Admin: 07/23/23 20:55 Dose: 40 mg Documented By: Admin: 07/22/23 23:05 Dose: 40 mg Documented By: ROBIN Senna/Docusate Sodium (Docusate Sodium/Senna 50/8.6mg Tab) 1 tab PO QAM [facility] Stop: 08/25/23 08:59 Last Admin: 07/27/23 08:41 Dose: 1 tab Documented By: Admin: 07/26/23 08:20 Dose: 1 tab Documented By: MADDIE Sodium Zirconium Cyclosilicate (Sodium Zirconium Cyclosilicate 10 Gm Packet) 10 gm PO TID [facility] Stop: 07/24/23 23:01 Last Admin: 07/24/23 22:15 Dose: 10 gm Documented By: Admin: 07/24/23 14:12 Dose: 10 gm Documented By: FAYE Sodium Zirconium Cyclosilicate (Sodium Zirconium Cyclosilicate 10 Gm Packet) 10 gm PO TID@0700,1400,1900 [facility] Stop: 07/26/23 19:01 Last Admin: 07/26/23 18:14 Dose: 10 gm Documented By: Admin: 07/26/23 12:33 Dose: 10 gm Documented By: Admin: 07/26/23 09:52 Dose: 10 gm Documented By: MADDIE Medical Decision Making Differential Diagnosis Differential diagnosis includes fracture, sprain, meniscus tear, cruciate ligament tear, medial or lateral collateral ligament injury, septic joint, osteoarthritis, rheumatoid arthritis, gout, patellofemoral syndrome, referred pain, among others. Home Medications was personally reviewed by me Laboratory Data Attestation: I reviewed the patient's lab results. 07/27/23 07:21 07/27/23 07:21 Lab Results 07/21/23 07/21/23 07/22/23 Range/Units 17:42 20:28 01:40 WBC 6.34 (4.8-10.8) K/ul RBC 3.32 L (4.70-6.10) M/uL Hgb 10.5 L (14.0-18.0) g/dl Hct 32.2 L (42.0-52.0) % MCV 97.0 (80.0-100.0) fL MCH 31.6 (25.0-34.0) pg MCHC 32.6 (32.0-36.0) g/dL RDW Std Deviation 53.6 H (36.4-46.3) fL RDW Coeff of Mike 15.5 H (11.5-14.5) % Plt Count 281 (130-400) K/uL MPV 9.8 (9.4-12.4) fL Immature Gran % (Auto) 0.3 % Neut % (Auto) 70.5 % Lymph % (Auto) 12.3 % Yates % (Auto) 14.4 % Eos % (Auto) 1.9 % Baso % (Auto) 0.6 % Neut # (Auto) 4.47 (1.40-6.50) K/uL Lymph # (Auto) 0.78 L (1.20-3.40) K/uL Yates # (Auto) 0.91 H (0.11-0.59) K/uL Eos # (Auto) 0.12 (0.00-0.50) K/uL Baso # (Auto) 0.04 (0.00-0.20) K/uL Immature Gran # (Auto) 0.02 (0.01-0.20) K/uL ESR (0-20) mm/hr PT 12.6 H (9.0-12.0) Seconds INR 1.2 H (0.9-1.1) APTT 40 H (21-31) Seconds PTT Ratio 1.4 Sodium 132 L (136-145) mmol/L Potassium 5.4 H (3.5-5.1) mmol/L Chloride 91 L (98-107) mmol/L Carbon Dioxide 28 (21-32) mmol/L Anion Gap 13 H (3-11) BUN 44 H (6-23) mg/dl Creatinine 5.93 H* (0.6-1.4) mg/dl Est Cr Clr Drug Dosing 14.1 ml/min Est GFR ( Amer) 10.2 ml/min Est GFR (Non-Af Amer) 8.8 ml/min BUN/Creatinine Ratio 7.4 L (10-20) Glucose 292 H (70-99(Fasting)) mg/dl POC Glucose 337 H* 110 H (70-99) mg/dl Lactate 1.4 (0.4-2.0) mmol/L Calcium 9.2 (8.6-10.3) mg/dl Iron (35-175) mcg/dl TIBC (250-450) mcg/dl Unsaturated IBC (155-355) mcg/dl Transferrin % Sat (20-50) % Ferritin (8-388) ng/ml Total Bilirubin 0.4 (0.2-1.0) mg/dl AST 20 (13-39) U/L ALT 15 (7-52) U/L Alkaline Phosphatase 91 (34-104) U/L C-Reactive Protein (0-0.5) mg/dl Total Protein 7.8 (6.0-8.3) gm/dl Albumin 3.7 (3.4-5.0) gm/dl Globulin 4.1 H (2.5-4.0) gm/dl Albumin/Globulin Ratio 0.9 (0.9-2) Fluid Comment Synovial Source Synovial Color Synovial Appearance Synovial WBC (Auto) (0-200) /ul Synovial RBC (Auto) /uL Synovial Polynuclear % % Synovial Mononuclear % % Synovial Crystals Nasal Screen MRSA (PCR) (Negative) Random Vancomycin (10-20) mcg/ml Rheumatoid Factor (<14) IU/mL LESLYE Screen (NEGATIVE) 07/22/23 07/22/23 07/22/23 Range/Units 04:12 08:36 13:35 WBC 5.74 (4.8-10.8) K/ul RBC 3.10 L (4.70-6.10) M/uL Hgb 9.8 L (14.0-18.0) g/dl Hct 29.5 L (42.0-52.0) % MCV 95.2 (80.0-100.0) fL MCH 31.6 (25.0-34.0) pg MCHC 33.2 (32.0-36.0) g/dL RDW Std Deviation 52.5 H (36.4-46.3) fL RDW Coeff of Mike 15.2 H (11.5-14.5) % Plt Count 258 (130-400) K/uL MPV 9.5 (9.4-12.4) fL Immature Gran % (Auto) 0.3 % Neut % (Auto) 66.6 % Lymph % (Auto) 12.5 % Yates % (Auto) 17.1 % Eos % (Auto) 2.8 % Baso % (Auto) 0.7 % Neut # (Auto) 3.82 (1.40-6.50) K/uL Lymph # (Auto) 0.72 L (1.20-3.40) K/uL Yates # (Auto) 0.98 H (0.11-0.59) K/uL Eos # (Auto) 0.16 (0.00-0.50) K/uL Baso # (Auto) 0.04 (0.00-0.20) K/uL Immature Gran # (Auto) 0.02 (0.01-0.20) K/uL ESR (0-20) mm/hr PT 12.8 H (9.0-12.0) Seconds INR 1.2 H (0.9-1.1) APTT (21-31) Seconds PTT Ratio Sodium 134 L (136-145) mmol/L Potassium 5.1 (3.5-5.1) mmol/L Chloride 95 L (98-107) mmol/L Carbon Dioxide 25 (21-32) mmol/L Anion Gap 14 H (3-11) BUN 48 H (6-23) mg/dl Creatinine 6.71 H* D (0.6-1.4) mg/dl Est Cr Clr Drug Dosing 12.5 ml/min Est GFR ( Amer) 8.7 ml/min Est GFR (Non-Af Amer) 7.5 ml/min BUN/Creatinine Ratio 7.2 L (10-20) Glucose 74 (70-99(Fasting)) mg/dl POC Glucose 90 92 (70-99) mg/dl Lactate (0.4-2.0) mmol/L Calcium 9.5 (8.6-10.3) mg/dl Iron (35-175) mcg/dl TIBC (250-450) mcg/dl Unsaturated IBC (155-355) mcg/dl Transferrin % Sat (20-50) % Ferritin (8-388) ng/ml Total Bilirubin (0.2-1.0) mg/dl AST (13-39) U/L ALT (7-52) U/L Alkaline Phosphatase (34-104) U/L C-Reactive Protein (0-0.5) mg/dl Total Protein (6.0-8.3) gm/dl Albumin (3.4-5.0) gm/dl Globulin (2.5-4.0) gm/dl Albumin/Globulin Ratio (0.9-2) Fluid Comment Synovial Source Synovial Color Synovial Appearance Synovial WBC (Auto) (0-200) /ul Synovial RBC (Auto) /uL Synovial Polynuclear % % Synovial Mononuclear % % Synovial Crystals Nasal Screen MRSA (PCR) (Negative) Random Vancomycin 19.3 (10-20) mcg/ml Rheumatoid Factor (<14) IU/mL LESLYE Screen (NEGATIVE) 07/22/23 07/22/23 07/22/23 Range/Units 15:59 20:54 23:36 WBC (4.8-10.8) K/ul RBC (4.70-6.10) M/uL Hgb (14.0-18.0) g/dl Hct (42.0-52.0) % MCV (80.0-100.0) fL MCH (25.0-34.0) pg MCHC (32.0-36.0) g/dL RDW Std Deviation (36.4-46.3) fL RDW Coeff of Mike (11.5-14.5) % Plt Count (130-400) K/uL MPV (9.4-12.4) fL Immature Gran % (Auto) % Neut % (Auto) % Lymph % (Auto) % Yates % (Auto) % Eos % (Auto) % Baso % (Auto) % Neut # (Auto) (1.40-6.50) K/uL Lymph # (Auto) (1.20-3.40) K/uL Yates # (Auto) (0.11-0.59) K/uL Eos # (Auto) (0.00-0.50) K/uL Baso # (Auto) (0.00-0.20) K/uL Immature Gran # (Auto) (0.01-0.20) K/uL ESR (0-20) mm/hr PT (9.0-12.0) Seconds INR (0.9-1.1) APTT (21-31) Seconds PTT Ratio Sodium (136-145) mmol/L Potassium (3.5-5.1) mmol/L Chloride (98-107) mmol/L Carbon Dioxide (21-32) mmol/L Anion Gap (3-11) BUN (6-23) mg/dl Creatinine (0.6-1.4) mg/dl Est Cr Clr Drug Dosing ml/min Est GFR ( Amer) ml/min Est GFR (Non-Af Amer) ml/min BUN/Creatinine Ratio (10-20) Glucose (70-99(Fasting)) mg/dl POC Glucose 110 H 184 H (70-99) mg/dl Lactate (0.4-2.0) mmol/L Calcium (8.6-10.3) mg/dl Iron (35-175) mcg/dl TIBC (250-450) mcg/dl Unsaturated IBC (155-355) mcg/dl Transferrin % Sat (20-50) % Ferritin (8-388) ng/ml Total Bilirubin (0.2-1.0) mg/dl AST (13-39) U/L ALT (7-52) U/L Alkaline Phosphatase (34-104) U/L C-Reactive Protein (0-0.5) mg/dl Total Protein (6.0-8.3) gm/dl Albumin (3.4-5.0) gm/dl Globulin (2.5-4.0) gm/dl Albumin/Globulin Ratio (0.9-2) Fluid Comment Synovial Source Synovial Color Synovial Appearance Synovial WBC (Auto) (0-200) /ul Synovial RBC (Auto) /uL Synovial Polynuclear % % Synovial Mononuclear % % Synovial Crystals Nasal Screen MRSA (PCR) Negative (Negative) Random Vancomycin (10-20) mcg/ml Rheumatoid Factor (<14) IU/mL LESLYE Screen (NEGATIVE) 07/22/23 07/23/23 07/23/23 Range/Units Unknown 04:08 06:26 WBC 8.45 (4.8-10.8) K/ul RBC 3.29 L (4.70-6.10) M/uL Hgb 10.2 L (14.0-18.0) g/dl Hct 32.4 L (42.0-52.0) % MCV 98.5 (80.0-100.0) fL MCH 31.0 (25.0-34.0) pg MCHC 31.5 L (32.0-36.0) g/dL RDW Std Deviation 56.1 H (36.4-46.3) fL RDW Coeff of Mike 15.5 H (11.5-14.5) % Plt Count 278 (130-400) K/uL MPV 9.6 (9.4-12.4) fL Immature Gran % (Auto) 0.4 % Neut % (Auto) 79.8 % Lymph % (Auto) 7.9 % Yates % (Auto) 11.0 % Eos % (Auto) 0.2 % Baso % (Auto) 0.7 % Neut # (Auto) 6.74 H (1.40-6.50) K/uL Lymph # (Auto) 0.67 L (1.20-3.40) K/uL Yates # (Auto) 0.93 H (0.11-0.59) K/uL Eos # (Auto) 0.02 (0.00-0.50) K/uL Baso # (Auto) 0.06 (0.00-0.20) K/uL Immature Gran # (Auto) 0.03 (0.01-0.20) K/uL ESR (0-20) mm/hr PT (9.0-12.0) Seconds INR (0.9-1.1) APTT (21-31) Seconds PTT Ratio Sodium 136 (136-145) mmol/L Potassium 5.1 (3.5-5.1) mmol/L Chloride 98 (98-107) mmol/L Carbon Dioxide 23 (21-32) mmol/L Anion Gap 15 H (3-11) BUN 35 H (6-23) mg/dl Creatinine 5.47 H* D (0.6-1.4) mg/dl Est Cr Clr Drug Dosing 15.3 ml/min Est GFR ( Amer) 11.2 ml/min Est GFR (Non-Af Amer) 9.7 ml/min BUN/Creatinine Ratio 6.4 L (10-20) Glucose 239 H (70-99(Fasting)) mg/dl POC Glucose 236 H (70-99) mg/dl Lactate (0.4-2.0) mmol/L Calcium 10.1 (8.6-10.3) mg/dl Iron (35-175) mcg/dl TIBC (250-450) mcg/dl Unsaturated IBC (155-355) mcg/dl Transferrin % Sat (20-50) % Ferritin (8-388) ng/ml Total Bilirubin (0.2-1.0) mg/dl AST (13-39) U/L ALT (7-52) U/L Alkaline Phosphatase (34-104) U/L C-Reactive Protein (0-0.5) mg/dl Total Protein (6.0-8.3) gm/dl Albumin (3.4-5.0) gm/dl Globulin (2.5-4.0) gm/dl Albumin/Globulin Ratio (0.9-2) Fluid Comment Synovial Source Right Knee Synovial Color Jojo Synovial Appearance Bloody Synovial WBC (Auto) 75852 H (0-200) /ul Synovial RBC (Auto) 95666 /uL Synovial Polynuclear % 96.8 % Synovial Mononuclear % 3.2 % Synovial Crystals Nasal Screen MRSA (PCR) (Negative) Random Vancomycin (10-20) mcg/ml Rheumatoid Factor (<14) IU/mL LESLYE Screen (NEGATIVE) 07/23/23 07/23/23 07/23/23 Range/Units 08:12 12:09 17:16 WBC (4.8-10.8) K/ul RBC (4.70-6.10) M/uL Hgb (14.0-18.0) g/dl Hct (42.0-52.0) % MCV (80.0-100.0) fL MCH (25.0-34.0) pg MCHC (32.0-36.0) g/dL RDW Std Deviation (36.4-46.3) fL RDW Coeff of Mike (11.5-14.5) % Plt Count (130-400) K/uL MPV (9.4-12.4) fL Immature Gran % (Auto) % Neut % (Auto) % Lymph % (Auto) % Yates % (Auto) % Eos % (Auto) % Baso % (Auto) % Neut # (Auto) (1.40-6.50) K/uL Lymph # (Auto) (1.20-3.40) K/uL Yates # (Auto) (0.11-0.59) K/uL Eos # (Auto) (0.00-0.50) K/uL Baso # (Auto) (0.00-0.20) K/uL Immature Gran # (Auto) (0.01-0.20) K/uL ESR (0-20) mm/hr PT (9.0-12.0) Seconds INR (0.9-1.1) APTT (21-31) Seconds PTT Ratio Sodium (136-145) mmol/L Potassium (3.5-5.1) mmol/L Chloride (98-107) mmol/L Carbon Dioxide (21-32) mmol/L Anion Gap (3-11) BUN (6-23) mg/dl Creatinine (0.6-1.4) mg/dl Est Cr Clr Drug Dosing ml/min Est GFR ( Amer) ml/min Est GFR (Non-Af Amer) ml/min BUN/Creatinine Ratio (10-20) Glucose (70-99(Fasting)) mg/dl POC Glucose 227 H 215 H 165 H (70-99) mg/dl Lactate (0.4-2.0) mmol/L Calcium (8.6-10.3) mg/dl Iron (35-175) mcg/dl TIBC (250-450) mcg/dl Unsaturated IBC (155-355) mcg/dl Transferrin % Sat (20-50) % Ferritin (8-388) ng/ml Total Bilirubin (0.2-1.0) mg/dl AST (13-39) U/L ALT (7-52) U/L Alkaline Phosphatase (34-104) U/L C-Reactive Protein (0-0.5) mg/dl Total Protein (6.0-8.3) gm/dl Albumin (3.4-5.0) gm/dl Globulin (2.5-4.0) gm/dl Albumin/Globulin Ratio (0.9-2) Fluid Comment Synovial Source Synovial Color Synovial Appearance Synovial WBC (Auto) (0-200) /ul Synovial RBC (Auto) /uL Synovial Polynuclear % % Synovial Mononuclear % % Synovial Crystals Nasal Screen MRSA (PCR) (Negative) Random Vancomycin (10-20) mcg/ml Rheumatoid Factor (<14) IU/mL LESLYE Screen (NEGATIVE) 07/23/23 07/24/23 07/24/23 Range/Units 20:21 05:15 08:27 WBC 6.87 (4.8-10.8) K/ul RBC 3.29 L (4.70-6.10) M/uL Hgb 10.5 L (14.0-18.0) g/dl Hct 31.9 L (42.0-52.0) % MCV 97.0 (80.0-100.0) fL MCH 31.9 (25.0-34.0) pg MCHC 32.9 (32.0-36.0) g/dL RDW Std Deviation 54.5 H (36.4-46.3) fL RDW Coeff of Mike 15.4 H (11.5-14.5) % Plt Count 285 (130-400) K/uL MPV 9.7 (9.4-12.4) fL Immature Gran % (Auto) % Neut % (Auto) % Lymph % (Auto) % Yates % (Auto) % Eos % (Auto) % Baso % (Auto) % Neut # (Auto) (1.40-6.50) K/uL Lymph # (Auto) (1.20-3.40) K/uL Yates # (Auto) (0.11-0.59) K/uL Eos # (Auto) (0.00-0.50) K/uL Baso # (Auto) (0.00-0.20) K/uL Immature Gran # (Auto) (0.01-0.20) K/uL ESR 103 H (0-20) mm/hr PT (9.0-12.0) Seconds INR (0.9-1.1) APTT (21-31) Seconds PTT Ratio Sodium 135 L (136-145) mmol/L Potassium 5.2 H (3.5-5.1) mmol/L Chloride 96 L (98-107) mmol/L Carbon Dioxide 24 (21-32) mmol/L Anion Gap 15 H (3-11) BUN 56 H D (6-23) mg/dl Creatinine 7.22 H* D (0.6-1.4) mg/dl Est Cr Clr Drug Dosing 11.7 ml/min Est GFR ( Amer) 8.0 ml/min Est GFR (Non-Af Amer) 6.9 ml/min BUN/Creatinine Ratio 7.8 L (10-20) Glucose 127 H (70-99(Fasting)) mg/dl POC Glucose 181 H 144 H (70-99) mg/dl Lactate (0.4-2.0) mmol/L Calcium 10.2 (8.6-10.3) mg/dl Iron 24 L (35-175) mcg/dl TIBC 149 L (250-450) mcg/dl Unsaturated IBC 125 L (155-355) mcg/dl Transferrin % Sat 16 L (20-50) % Ferritin 146.3 (8-388) ng/ml Total Bilirubin (0.2-1.0) mg/dl AST (13-39) U/L ALT (7-52) U/L Alkaline Phosphatase (34-104) U/L C-Reactive Protein 34.81 H (0-0.5) mg/dl Total Protein (6.0-8.3) gm/dl Albumin (3.4-5.0) gm/dl Globulin (2.5-4.0) gm/dl Albumin/Globulin Ratio (0.9-2) Fluid Comment Synovial Source Synovial Color Synovial Appearance Synovial WBC (Auto) (0-200) /ul Synovial RBC (Auto) /uL Synovial Polynuclear % % Synovial Mononuclear % % Synovial Crystals Nasal Screen MRSA (PCR) (Negative) Random Vancomycin (10-20) mcg/ml Rheumatoid Factor 23 H (<14) IU/mL LESLYE Screen NEGATIVE (NEGATIVE) Imaging Data Attestation: I personally reviewed and interpreted this imaging study as follows: Radiologist's Impression: Chest X-Ray 07/21/23 17:21 XR chest 1V portable CLINICAL HISTORY: Patient to have surgery tomorrow. TECHNIQUE: Single frontal radiograph of the chest was obtained. Comparison: Comparison is made to chest radiograph 04/21/2023 FINDINGS: No lines and tubes are seen. Cardiomegaly is noted. The aortic arch is calcified. The lungs are clear. No evidence of pleural effusion or pneumothorax. IMPRESSION: No acute chest disease. Cardiomegaly is noted. ACT 112: Negative or not required by law. Electronically signed by: Rodolfo Messer M.D. 07/21/2023 6:16 PM Knee X-Ray 07/21/23 17:54 XR knee RT 3V CLINICAL HISTORY: right knee pain, swelling TECHNIQUE: 3 views of the right knee were obtained. Comparison: Comparison is made to knee radiographs 07/08/2023 FINDINGS: There is no evidence of an acute fracture. Degenerative changes are seen in the knee joint. A small suprapatellar effusion is seen. Soft tissue swelling is seen about the knee. Vascular calcifications are seen. IMPRESSION: Suprapatellar effusion without evidence of underlying bony injury. Soft tissue swelling is seen. ACT 112: Negative or not required by law. Electronically signed by: Rodolfo Messer M.D. 07/21/2023 6:17 PM MDM Narrative This patient is a 73-year-old male who presents to the emergency department, sent by orthopedics for admission. I did speak with Dr. Aburto about the plan. Workup including blood cultures and lactate were obtained. Patient started on vancomycin and ceftriaxone. The case was discussed with the hospitalist service, who agreed to admit the patient for further care and surgery tomorrow. Discharge Plan Visit Data Chief Complaint: Referred by Doctor Stated Complaint: NEEDS ADMITTED FOR SURGERY TOMORROW ED Provider: Flaco Kaur ED Midlevel Provider: Marina Hummel Patient Disposition: Admitted As Inpatient Discharge Instructions Interventions: ED Discharge Assessment Last Done: 07/21/23 19:53 Addendum August 02, 2023 00:11 I was consulted by the Advanced Practice Provider and was substantively involved in the patient's visit.This includes aspects of the HPI, MDM, diagnostic interpretations, and disposition/plan. I discussed the case with the KARENA and agree with the findings and plan as documented in KARENA Shaheed's note.
[2023-07-21] MEDS ORDERED: VANCOMYCIN CONSULT ACTIVE PRN (17:58)
[2023-07-21 18:10] LABS: Basophils # (auto) 0.04 K/uL (0.00-0.20); Basophils % (auto) 0.6 %; Eosinophils # (auto) 0.12 K/uL (0.00-0.50); Eosinophils % (auto) 1.9 %; Hematocrit (blood only) 32.2 % (42.0-52.0); Hemoglobin 10.5 g/dl (14.0-18.0); Immature Granulocytes # (auto) 0.02 K/uL (0.01-0.20); Immature Granulocytes % (auto) 0.3 %; Lymphocytes # (auto) 0.78 K/uL (1.20-3.40); Lymphocytes % (auto) 12.3 %; Mean Corpuscular Hemoglobin 31.6 pg (25.0-34.0); Mean Corpuscular Hgb Conc 32.6 g/dL (32.0-36.0); Mean Platelet Volume 9.8 fL (9.4-12.4); Monocytes # (auto) 0.91 K/uL (0.11-0.59); Monocytes % (auto) 14.4 %; Neutrophils # (auto) 4.47 K/uL (1.40-6.50); Neutrophils % (auto) 70.5 %; Platelet Count 281 K/uL (130-400); RDW Coefficient of Variation 15.5 % (11.5-14.5); RDW Standard Deviation 53.6 fL (36.4-46.3); Red Blood Count 3.32 M/uL (4.70-6.10); White Blood Count 6.34 K/ul (4.8-10.8)
--- NOTE | 2023-07-21 18:18 | XRay Report ---
XR chest 1V portable CLINICAL HISTORY: Patient to have surgery tomorrow. TECHNIQUE: Single frontal radiograph of the chest was obtained. Comparison: Comparison is made to chest radiograph 04/21/2023 FINDINGS: No lines and tubes are seen. Cardiomegaly is noted. The aortic arch is calcified. The lungs are clear . No evidence of pleural effusion or pneumothorax. IMPRESSION: No acute chest disease. Cardiomegaly is noted. ACT 112: Negative or not required by law. Electronically signed by: Rodolfo Messer M.D. 07/21/2023 6:16 PM
--- NOTE | 2023-07-21 18:19 | XRay Report ---
XR knee RT 3V CLINICAL HISTORY: right knee pain, swelling TECHNIQUE: 3 views of the right knee were obtained. Comparison: Comparison is made to knee radiographs 07/08/2023 FINDINGS: There is no evidence of an acute fracture. Degenerative changes are seen in the knee joint. A small s uprapatellar effusion is seen. Soft tissue swelling is seen about the knee. Vascular calcifications a re seen. IMPRESSION: Suprapatellar effusion without evidence of underlying bony injury. Soft tissue swelling is seen. ACT 112: Negative or not required by law. Electronically signed by: Rodolfo Messer M.D. 07/21/2023 6:17 PM
[2023-07-21 18:37] LABS: Albumin Globulin Ratio 0.9 (0.9-2); Albumin Level 3.7 gm/dl (3.4-5.0); BUN Creatinine Ratio 7.4 (10-20); Bilirubin,Total 0.4 mg/dl (0.2-1.0); Calcium 9.2 mg/dl (8.6-10.3); Creatinine Clr Calc Pharmacy 14.1 ml/min; Est GFR (African American) 10.2 ml/min; Est GFR (Non-African American) 8.8 ml/min; Globulin 4.1 gm/dl (2.5-4.0); Potassium 5.4 mmol/L (3.5-5.1); Total Protein 7.8 gm/dl (6.0-8.3)
[2023-07-21 18:43] LABS: INR 1.2 (0.9-1.1); Partial Thromboplastin Ratio 1.4; Partial Thromboplastin Time 40 Seconds (21-31); Prothrombin Time 12.6 Seconds (9.0-12.0)
[2023-07-21] MEDS: cefTRIAXone SODIUM 2,000 MG/50 ML BAG IV STA (18:57)
[2023-07-21] MEDS: VANCOMYCIN HCL 2,250 MG in SODIUM CHLORIDE 0.9% 500 ML IV ONE (19:16)
[2023-07-21] MEDS ORDERED: PHARMACY GLYCEMIC MGMT CONSULT PRN (19:39)
[2023-07-21] MEDS ORDERED: GLUCOSE 10 TAB/TUBE PO PRN (19:42)
[2023-07-21] MEDS ORDERED: DEXTROSE 50% 50 ML SYRINGE IV PRN (19:42)
[2023-07-21] MEDS ORDERED: GLUCAGON FOR INJ 1 MG VIAL SQ PRN (19:42)
[2023-07-21] MEDS ORDERED: CARBOHYDRATES FOR HYPOGLYCEMIA PO PRN (19:42)
[2023-07-21] MEDS ORDERED: GLUCOSE 40% GEL 15 GM TUBE PO PRN (19:42)
--- NOTE | 2023-07-21 19:47 | History & Physical Report ---
Date of Service July 21, 2023 Assessment & Plan (1) Septic arthritis of knee, right: Plan: 73 yo male with PMHx of CVA, ESRD on dialysis, HLD, DM2, HTN, pulmonary nodule, and atrial flutter presents with septic knee. #Septic Knee -presented with 2 weeks of ongoing R knee pain/swelling. Referred to ED by orthopedic surgeon Dr. Aburto. Synovial fluid analysis with 80k nucleated cell count. Culture was negative however he has been on antibiotics earlier this month. Planned for R knee washout 07/22/2023 in the early afternoon. -Blood cx pending -Received Rocephin and vancomycin in the ED. Will continue these. -Last Eliquis dose morning of 07/21/2023. Hold further blood thinners. Will need Kcentra dose prior to surgery, Dr. Carty aware. Please reach out to Dr. Carty once exact OR time scheduled so medication can be timed appropriately. -dialysis prior to surgery -NPO @ midnight #Abscess L Thigh -ongoing for the past month, follows with wound care outpatient. Initially on Bactrim and amoxicillin which have been completed. Has been improving, no signs of active infection at site. -wound care consulted #ESRD on Dialysis -MWF dialysis schedule - needs dialysis in AM prior to afternoon surgery -nephrology consulted #DM2 -on NPH sliding scale at home - cont. SSI -pharmacy glycemic consult placed DVT ppx: SCDs; no chemical due to procedure tomorrow FEN/GI: NPO @ midnight Code Status: DNR/DNI Dispo: med tele (2) Abscess of left thigh: (3) End-stage renal disease on hemodialysis: (4) Peripheral arterial disease: (5) Secondary hyperparathyroidism of renal origin: (6) Coronary disease: (7) Hyperlipidemia: (8) Diabetic nephropathy: (9) Uncontrolled type 2 diabetes mellitus with hyperglycemia: (10) Atrial flutter with rapid ventricular response: History of Present Illness Chief Complaint: septic knee Primary Care Provider: Chantel Cardenas MD 73 yo male with PMHx of CVA, ESRD on dialysis, HLD, DM2, HTN, pulmonary nodule, and atrial flutter presents with septic knee. Patient referred by his orthopedic surgeon Dr. Aburto. He has been dealing with right knee pain and swelling for the last couple of weeks. He had it drained 2 weeks ago with corticosteroid placement and was doing well until symptoms returned a few days ago at which time was drained again. Fluid was sent for analysis and although culture was negative cell count was elevated showing concern for septic arthritis. He is scheduled to have a right knee washout tomorrow. He denies headache, fever, chills, fatigue, shortness of breath, chest pain, abdominal pain, nausea, vomiting, constipation, diarrhea, dysuria, extremity numbness/tingling. Of note he has also been dealing with an abscess on his posterior left thigh for which he follows with the wound clinic. He was initially on antibiotics for this which he has now completed. This has been healing well. Allergies Allergy/AdvReac Type Severity Reaction Status Date / Time No Known Drug Allergies Allergy Unknown Verified 07/21/23 14:04 Home Medications Medication Instructions Recorded Confirmed Type multivitamin (Multiple Vitamins 1 tab PO QAM 09/25/19 07/21/23 History tablet) blood-glucose meter #1 ea 11/21/20 07/21/23 History calcium acetate(phosphat bind) 667 1,334 mg (2 x 667 mg) PO BIDM #180 08/24/21 07/21/23 Rx mg capsule caps apixaban 5 mg tablet (Eliquis) 5 mg PO BID 09/08/21 07/21/23 History ondansetron 4 mg disintegrating 4 mg PO DAILY PRN nausea and 10/20/22 07/21/23 Rx tablet vomiting #30 tabs aspirin 81 mg tablet,delayed 81 mg PO DAILY #30 tabs 11/09/22 07/21/23 Rx release gemfibrozil 600 mg tablet (Lopid) 600 mg PO BID 11/16/22 07/21/23 History rosuvastatin 40 mg tablet (Crestor) 40 mg PO DAILY 30 days #90 tabs 02/01/23 07/21/23 Rx pen needle, diabetic 32 gauge x #100 ea 02/02/23 07/21/23 Rx 1/6" insulin NPH-regular hum semi-syn See Rx Instructions .Route .COMPLEX 06/13/23 07/21/23 History 100 unit/mL (70-30) subcutaneous soln amlodipine 10 mg tablet 10 mg PO QAM 07/21/23 07/21/23 History cinacalcet 30 mg tablet 30 mg PO DAILY 07/21/23 07/21/23 History Past Med/Surg History Medical History Pulmonary nodule History of skin cancer left wrist Axillary lymphadenopathy Abnormal PET of right lung Reason for upcoming bronchoscopy Peripheral arterial disease Patient underwent angiogram on 12/03/[address] Adrian; no intervention required at this time. LVH (left ventricular hypertrophy) moderate History of nicotine dependence Fibrotic lung diseases possible chronic aspiration per [facility] pul[facility] records Chronic obstructive pulmonary disease stable per pt Diabetic retinopathy History of COVID-19 06/28/2020 - hospitalized at [facility]; fever, sob, generalized weakness. symptoms resolved. AV fistula LUE ESRD (end stage renal disease) on dialysis MWF - [place] - follows with Dr. 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 Hough on Eliquis History of stroke 2013 - short term memory loss HTN (hypertension) variable Anemia Surgical History Hx of local excision of skin lesion History of surgery 11/16/22 [facility] Left Upper Extremity Arteriovenous Fistulogram, Percutaneous Transluminal Angioplasty Peripheral Venous, Moderate Sedation History of surgery fistula revision 08/14/1819 Grade 1 view, MAC 3, ETT 7.5. Fistual revision 06/2022 History of tooth extraction History of cataract surgery BL History of non-cataract eye surgery INJECTION FOR RETINOPATHY History of esophagogastroduodenoscopy (EGD) History of colonoscopy History of colostomy reversal History of colostomy History of bowel resection WITH TEMP. COLOSTOMY D/T DIVERTICULITIS Hx of cholecystectomy Family History Unknown Alzheimer disease Diabetes Obesity Prostate cancer Skin cancer Heart disease Father Heart disease Hearing loss Son Gallbladder disease Grandfather Kidney disease Uncle Myocardial infarction Hypertension Melanoma Other No family history of adverse response to anesthesia No family history of bleeding disorder Social History Smoking Status: Never smoker Tobacco Type: Cigarettes Age Started Using Tobacco: 21; Age Quit Using Tobacco: 67; packs per day: 1; Second Hand Exposure: No; Do You Dip or Chew Tobacco: No; Hx Alcohol Use: No Hx Substance Use: No Preferred Language: French Communication Ability: Effective Visual Impairment: No Limitations Hearing Ability: Normal [employer] Trainer Required: No Beliefs That Will Affect Care: None marital status: Current Living Situation: Spouse current occupational status: employed How many Children do You have: 3 other: Liza (), to call for questions Feels Safe at Home: Yes Safety Concerns: Feels Safe At This Time Childhood Exposure to Second-Hand Smoke: No Diet: diabetic Diet Comment: Renal caffeine: No Dental Care, Regularly: Yes Physical Activity Frequency: 3-4 Times per Week Seatbelt Use: never Sunscreen Use: No Assistive Devices: Walker Review of Systems Review of Systems: All systems reviewed & are unremarkable except as noted in HPI & below Physical Exam Physical Exam: Constitutional: in no acute distress, pleasant and normal affect, intact memory. AOx3. Vitals as above. HEENT: No scleral injection or discharge.Moist mucous membranes. Neck: Supple without lymphadenopathy or thyromegaly. Trachea midline. Lungs: CTAB with good effort. No wheezes/rales/rhonchi. Cardiac: RRR.No murmurs. 2+ distal peripheral pulses. Abdomen: Bowel sounds present. Soft, nontender, and nondistended.No guarding. No hepatosplenomegaly. MSK: R knee with edema, limited ROM, moderate tenderness to palpation. Skin: L posterior thigh with healing abscess. No evidence of surrounding cellulitis, nonerythematous, nontender. Neurologic: no focal deficits Results & Data Results & Data Vital Signs (Past 12 Hours) Vital Signs Temp Pulse Pulse Resp BP BP Pulse Ox 07/21/23 19:02 84 19 146/82 H 95 07/21/23 17:16 36.3 C L 79 20 91/61 L 100 O2 Del Method 07/21/23 19:02 Room Air 07/21/23 17:16 Room Air Laboratory Results Laboratory Results WBC 6.34 K/ul (4.8-10.8) 07/21/23 17:42 RBC 3.32 M/uL (4.70-6.10) L 07/21/23 17:42 Hgb 10.5 g/dl (14.0-18.0) L 07/21/23 17:42 Hct 32.2 % (42.0-52.0) L 07/21/23 17:42 MCV 97.0 fL (80.0-100.0) 07/21/23 17:42 MCH 31.6 pg (25.0-34.0) 07/21/23 17:42 MCHC 32.6 g/dL (32.0-36.0) 07/21/23 17:42 RDW Std Deviation 53.6 fL (36.4-46.3) H 07/21/23 17:42 RDW Coeff of Mike 15.5 % (11.5-14.5) H 07/21/23 17:42 Plt Count 281 K/uL (130-400) 07/21/23 17:42 MPV 9.8 fL (9.4-12.4) 07/21/23 17:42 Immature Gran % (Auto) 0.3 % 07/21/23 17:42 Neut % (Auto) 70.5 % 07/21/23 17:42 Lymph % (Auto) 12.3 % 07/21/23 17:42 [place] % (Auto) 14.4 % 07/21/23 17:42 Eos % (Auto) 1.9 % 07/21/23 17:42 Baso % (Auto) 0.6 % 07/21/23 17:42 Neut # (Auto) 4.47 K/uL (1.40-6.50) 07/21/23 17:42 Lymph # (Auto) 0.78 K/uL (1.20-3.40) L 07/21/23 17:42 [place] # (Auto) 0.91 K/uL (0.11-0.59) H 07/21/23 17:42 Eos # (Auto) 0.12 K/uL (0.00-0.50) 07/21/23 17:42 Baso # (Auto) 0.04 K/uL (0.00-0.20) 07/21/23 17:42 Immature Gran # (Auto) 0.02 K/uL (0.01-0.20) 07/21/23 17:42 PT 12.6 Seconds (9.0-12.0) H 07/21/23 17:42 INR 1.2 (0.9-1.1) H 07/21/23 17:42 APTT 40 Seconds (21-31) H 07/21/23 17:42 PTT Ratio 1.4 07/21/23 17:42 Sodium 132 mmol/L (136-145) L 07/21/23 17:42 Potassium 5.4 mmol/L (3.5-5.1) H 07/21/23 17:42 Chloride 91 mmol/L (98-107) L 07/21/23 17:42 Carbon Dioxide 28 mmol/L (21-32) 07/21/23 17:42 Anion Gap 13 (3-11) H 07/21/23 17:42 BUN 44 mg/dl (6-23) H 07/21/23 17:42 Creatinine 5.93 mg/dl (0.6-1.4) H* 07/21/23 17:42 Est Cr Clr Drug Dosing 14.1 ml/min 07/21/23 17:42 Est GFR ( Amer) 10.2 ml/min 07/21/23 17:42 Est GFR (Non-Af Amer) 8.8 ml/min 07/21/23 17:42 BUN/Creatinine Ratio 7.4 (10-20) L 07/21/23 17:42 Glucose 292 mg/dl (70-99(Fasting)) H 07/21/23 17:42 Lactate 1.4 mmol/L (0.4-2.0) 07/21/23 17:42 Calcium 9.2 mg/dl (8.6-10.3) 07/21/23 17:42 Total Bilirubin 0.4 mg/dl (0.2-1.0) 07/21/23 17:42 AST 20 U/L (13-39) 07/21/23 17:42 ALT 15 U/L (7-52) 07/21/23 17:42 Alkaline Phosphatase 91 U/L (34-104) 07/21/23 17:42 Total Protein 7.8 gm/dl (6.0-8.3) 07/21/23 17:42 Albumin 3.7 gm/dl (3.4-5.0) 07/21/23 17:42 Globulin 4.1 gm/dl (2.5-4.0) H 07/21/23 17:42 Albumin/Globulin Ratio 0.9 (0.9-2) 07/21/23 17:42 Impressions Chest X-Ray 07/21/23 17:21 XR chest 1V portable CLINICAL HISTORY: Patient to have surgery tomorrow. TECHNIQUE: Single frontal radiograph of the chest was obtained. Comparison: Comparison is made to chest radiograph 04/21/2023 FINDINGS: No lines and tubes are seen. Cardiomegaly is noted. The aortic arch is calcified. The lungs are clear. No evidence of pleural effusion or pneumothorax. IMPRESSION: No acute chest disease. Cardiomegaly is noted. ACT 112: Negative or not required by law. Electronically signed by: Rodolfo Messer M.D. 07/21/2023 6:16 PM Knee X-Ray 07/21/23 17:54 XR knee RT 3V CLINICAL HISTORY: right knee pain, swelling TECHNIQUE: 3 views of the right knee were obtained. Comparison: Comparison is made to knee radiographs 07/08/2023 FINDINGS: There is no evidence of an acute fracture. Degenerative changes are seen in the knee joint. A small suprapatellar effusion is seen. Soft tissue swelling is seen about the knee. Vascular calcifications are seen. IMPRESSION: Suprapatellar effusion without evidence of underlying bony injury. Soft tissue swelling is seen. ACT 112: Negative or not required by law. Electronically signed by: Rodolfo Messer M.D. 07/21/2023 6:17 PM Code Status & VTE Plan VTE Prophylaxis Plan VTE Prophylaxis will be ordered: Yes Reason for no VTE drug order: Contraindicated Supervising Physician Co-Signing Physician Notes I personally saw and examined the patient. I verified all conrad points and agree with resident physician Dr Js Colon, with the following exceptions and/or additions: 73 year old male with ESRD on dialysis (MWF) presents to the ER on advice of his orthopedic surgeon due to septic arthritis O/E HS RRR, no murmurs, Chest CTAB, Abdo SNT, Right knee without erythema or swelling, no surrounding erythema of left posterior thigh wound A/P Septic right knee arthritis - vancomycin/ceftriaxone antibiotics requested by orthopedics. Follow up blood and surgical cultures. NPO after midnight. Last dose of Eliquis this morning, Dr Carty to dose KCentra prior to surgery. Hold aspirin and amlodipine but ok to continue other medications. Left thigh abscess - follow up with wound care T2DM - pharmacy consulted for glycemic management while inpatient ESRD on dialysis - consult nephrology for dialysis tomorrow, no urgent need for dialysis overnight Resident Activity Tracking Resident Involvement: Resident Care Provided Care Provided: Adult Hospital Medicine (7) Hyperlipidemia Hyperlipidemia type: unspecified Qualified Code(s): E78.5 - Hyperlipidemia, unspecified (8) Diabetic nephropathy Diabetes mellitus type: type 2 Qualified Code(s): E11.21 - Type 2 diabetes mellitus with diabetic nephropathy
[2023-07-21] MEDS ORDERED: ONDANSETRON INJ 2 MG/ML 2 ML VIAL IV PRN (19:52)
--- NOTE | 2023-07-21 20:00 | Pharmacy Report ---
Pharmacy Glycemic Short Note 2 - Date of Service July 21, 2023 - Glycemic Short BSG Results (Last 24 hours): 07/21/23 17:42 Glucose 292 H OUTPATIENT ANTIDIABETIC REGIMEN: * Novolin 70/30 - BID with meals based on blood sugar, usually 10-20 units BID * No A1c ordered, as they are unreliable in ESRD patients d/t interactions between the A1c analyzing technique and high levels of urea in ESRD, reduced RBC life span, iron deficiency anemia, and EPO administration. HbA1c > 7.5% in ESRD patient may overestimate the extent of hyperglycemia in ESRD patients. ASSESSMENT: * 73 yo male, T2DM, admitted with septic arthritis of right knee. * Outpatient regimen is premixed basal/prandial insulin of Novolin 70/30 mix insulin. * Pre-mixed insulin is difficult to titrate since it is already in a fixed distribution of basal:prandial insulin. Continuing pre-mixed insulin for admission typically lead to hypoglycemia d/t changing PO status but rapid acting insulin is unable to be held. * Home regimen will be held for admission per pharmacy consult. Will utilize recommended regimen of SQ basal bolus insulin regimen with NPH to match home basal + NovoLog (CF+CR) PLAN FOR INPATIENT GLYCEMIC CONTROL: * Hold outpatient insulin * Basal insulin * NPH 15 units SQ x 1 dose now, further dosing in AM, as patient is NPO after midnight * Bolus insulin * NovoLog per scale ACHS or Q6hrs while NPO, additional check at 0200 tonight * Goal Range: Low 110 mg/dL - High 140 mg/dL * Correction Factor: 20 mg/dL/unit * Nutritional / Prandial insulin per carb ratio of 1 unit per 6 grams CHO consumed
[2023-07-21] MEDS ORDERED: INSULIN ASPART PER UNIT CHARGE SC SCH (21:00)
[2023-07-21] MEDS: INSULIN ASPART PER UNIT CHARGE SC SCH (21:04)
[2023-07-21] MEDS: NovoLIN-N (NPH) PER UNIT CHARGE SQ ONE (21:04)
[2023-07-22] MEDS: INSULIN ASPART PER UNIT CHARGE SC ONE (01:42)
[2023-07-22] MEDS: ACETAMINOPHEN 1,000 MG/100 ML VIAL IV PRN (01:45)
--- OUTSIDE RECORDS SUMMARY | 2023-07-22 03:07 | External Medical Summary ---
Author Name UNSPECIFIED Address Unknown Organization [facility] History of Encounters Reason for Assessment: Start of care - f urther visits planned Inpatient discharge facility: Past 14 Da ys: Not Discharged from Inpatient Facility Functional Assessment Patient Living Situation: Patient lives with other person(s) in the home: Regular nighttime When Dyspneic: When walking more th an 20 feet, climbing stairs Bowel Incontinence Frequency: Very rarel y or never has bowel incontinence Cognitive and Behavioral and Psychiatric Symptoms: None Current Ability: Bathing: Unable to use the shower or tub, but able to participate in bathing self in bed, at the sink, in bedside chair, or on commode, with the assistance or supervision of another person throughout the bath. Current Ability: Ambulation: Requires us e of a two-handed device (e.g., walker or crutches) to walk alone on a level surface and/or requires human supervision or assistance to negotiate stairs or steps or uneven surfaces. Current: Management Of Oral Medications: Able to take medication(s) at the correct times if: (a) individual dosages are prepared in advance by another person; OR (b) another person develops a drug diary or chart Current: Management Of Injec table Medications: Able to take injectable medication(s) at the correct times if: (a) individual syringes are prepared in advance by another person; OR (b) another person develops a drug diary or chart. Problems Primary Home Care Diagnosis ICD Code: S8 1.801D, Unspecified open wound, right lower leg, subs encntr Home Care Diagnosis 1: ICD Code: Z48.01, Encounter for change or removal of surgical wound dressing Home Care Diagnosis 2: ICD Code: Z48.817 , Encntr for surgical aftcr fol surgery on the skin, subcu Home Care Diagnosis 3: ICD Code: E11.621 , Type 2 diabetes mellitus with foot ulcer Home Care Diagnosis 3: Severity Ratin Home Care Diagnosis 4: ICD Code: L97.519 , Non-prs chronic ulcer oth prt right foot w unsp severity Home Care Diagnosis 4: Severity Ratin Home Care Diagnosis 5: ICD Code: L97.419 , Non-prs chr ulcer of right heel and midfoot w unsp severt Home Care Diagnosis 5: Severity Ratin Surgical wound: Yes, patient has at least one (observable) surgical wound
[2023-07-22 04:52] LABS: Basophils # (auto) 0.04 K/uL (0.00-0.20); Basophils % (auto) 0.7 %; Eosinophils # (auto) 0.16 K/uL (0.00-0.50); Eosinophils % (auto) 2.8 %; Hematocrit (blood only) 29.5 % (42.0-52.0); Hemoglobin 9.8 g/dl (14.0-18.0); Immature Granulocytes # (auto) 0.02 K/uL (0.01-0.20); Immature Granulocytes % (auto) 0.3 %; Lymphocytes # (auto) 0.72 K/uL (1.20-3.40); Lymphocytes % (auto) 12.5 %; Mean Corpuscular Hemoglobin 31.6 pg (25.0-34.0); Mean Corpuscular Hgb Conc 33.2 g/dL (32.0-36.0); Mean Corpuscular Volume 95.2 fL (80.0-100.0); Mean Platelet Volume 9.5 fL (9.4-12.4); Monocytes # (auto) 0.98 K/uL (0.11-0.59); Monocytes % (auto) 17.1 %; Neutrophils # (auto) 3.82 K/uL (1.40-6.50); Neutrophils % (auto) 66.6 %; Platelet Count 258 K/uL (130-400); RDW Coefficient of Variation 15.2 % (11.5-14.5); RDW Standard Deviation 52.5 fL (36.4-46.3); White Blood Count 5.74 K/ul (4.8-10.8)
[2023-07-22 05:30] LABS: INR 1.2 (0.9-1.1); Prothrombin Time 12.8 Seconds (9.0-12.0)
[2023-07-22 05:44] LABS: BUN Creatinine Ratio 7.2 (10-20); Calcium 9.5 mg/dl (8.6-10.3); Creatinine Clr Calc Pharmacy 12.5 ml/min; Est GFR (African American) 8.7 ml/min; Est GFR (Non-African American) 7.5 ml/min; Potassium 5.1 mmol/L (3.5-5.1)
--- OUTSIDE RECORDS SUMMARY | 2023-07-22 07:33 | External Medical Summary | Continuity of Care Document ---
Author Name Unknown Organization [facility] [address] [place], [place] [id number] Address [address] [place] [id number] Care Team Providers Care Wall Mirror Department Supervisor Name Role Phone Chantel Cardenas Primary Care Physician [phone] Encounter [facility] [id number] Date(s): 07/19/23 - 07/19/23 [facility] [address] [id number] [facility] [address] [place] [id number] Encounter Diagnosis Knee effusion, right(Discharge Diagnosis) - 07/19/23 Effusion, right knee(Final) - Discharge Disposition: Home or Self Care Attending Physician: WEI Ugalde [place] Allergies, Adverse Reactions, Alerts No Known Allergies Assessment and Plan Extracted from: Title:Clinical Document Author:WEI Ugalde, Daron son Date:07/19/23 OUTPATIENT NOTE Name: CHRISTEN WARD Patient Number:[id number] : 1950 Date of Service: 07/19/2023 Chief complaint: Follow-up right knee pain, swollen HPI: Was seen here in our clinic about [address] Thomson and had a right knee effusion. His knee was aspirated and sent for testing. It showed inflammation but no indication for infection or gout. Patient says that he was did great immediately after the injection but in about 2 days he was right back to where he was before. His knee swelled up again. He is having a lot of issues walking and bending his knee. He is using a wheelchair. No fevers or chills. He is on dialysis. He had this happen once for his left knee but after was aspirated and injected it did not come back and he had no further issues. He recently had an abscess on his left leg behind his thigh. It was "lanced" and he was put on 2 different antibiotics. He has been seeing wound care for that and it is improving. When he had the analysis done for his knee aspirate he was on 2 antibiotics at that time. Physical exam: Patient has large knee effusion. He is tender to the touch. No erythema. Range of motion significantly limited due to pain and swelling. Patient is in a wheelchair. He was transferred to the bed. He cannot put much weight on his knee. Assessment/plan: Recurring right knee effusion Findings and plan discussed with the patient and his caregiver. Suggested aspirating the knee. They were agreeable. I was able to get 60 cc. Fluid was cloudy and yellow-brownish in color. His caregiver states that when he had the analysis done 2 weeks ago for his knee aspirate he was on antibiotics for a left leg abscess. We will resend the fluid for testing to test again for cell count, Gram stain, anaerobic and aerobic cultures, Lyme disease. Did feel better after his knee was aspirated. He is not currently having any systemic signs of infection. He is on dialysis and should not be taking anti-inflammatories. He will check with his kidney disease doctor if there is anything he could take anti-inflammatory fried. Recommended compression, icing over the next couple days to help prevent the swelling from coming back. Follow-up with Dr. Aburto in 2 weeks or sooner depending on his testing results and if there is any changes. PROCEDURE:After explaining the risks and benefits of the procedure, verbal consent was obtained andthe patient was placed in the seated position. The injection site was confirmed by Renetta Mace LPN. After performing a time-out, identifying the right knee as the correct knee for intra-articular aspiration, the suprapatellar portal area was palpated and marked. This area was prepped with Betadine, followed by ethyl chloride spray and alcohol wipe. Then, 10 mL of 1% lidocaine was used to anesthetize the aspiration site. Then using an 18-gauge needle with a 20 cc syringe I aspirated 60 cc of cloudy brownish-yellow fluid.The area was cleaned and dried and a Band-Aid was placed on the top. Patient noted immediate relief.The patient will follow all my above-noted instructions. Immunizations Given and Recorded Vaccine Date Status Refusal Reason pneumococcal 13-valent vaccine 1 10/25/14 Recorded pneumococcal 23-valent vaccine 2 05/28/10 Recorded pneumococcal 23-valent vaccine 3 11/26/03 Recorded tetanus toxoids-diphtheria, Td (Adult) 4 11/25/01 Recorded 1Result Comment: 2019-11-06: Historical information-source unspecified 2Result Comment: 2019-11-06: Historical information-source unspecified 3Result Comment: 2019-11-06: Historical information-source unspecified 4Result Comment: 2019-11-06: Historical information-source unspecified Medications amLODIPine 10 mg oral tablet Start: 08/29/18 13:49:00 EST, 1 tab, PO, Daily Start Date: 08/29/18 Status: Ordered apixaban 5 mg oral tablet Start: 10/15/20 9:49:00 EDT, 1 tab, PO, bid Start Date: 10/15/20 Status: Ordered calcium acetate 667 mg oral capsule take 2 capsules by mouth three times a day with meals ( TOTAL daily dose 6 capsules ) Start Date: 11/06/19 Status: Ordered calcium carbonate Start: 08/29/18 13:50:00 EST, 750 = mg, PO, tid Start Date: 08/29/18 Status: Ordered cinacalcet 60 mg oral tablet TAKE 1 TABLET BY MOUTH DAILY WITH THE EVENING MEAL OR AT BEDTIME Start Date: 11/06/19 Status: Ordered gemfibrozil 600 mg oral tablet Start: 08/29/18 13:51:00 EST, 1 tab, PO, bid Start Date: 08/29/18 Status: Ordered lisinopril 10 mg oral tablet Start: 08/29/18 13:51:00 EST, 1 tab, PO, Daily Start Date: 08/29/18 Status: Ordered NovoLIN 70/30 FlexPen Start: 08/29/18 13:52:00 EST, per sliding scale Start Date: 08/29/18 Status: Ordered rosuvastatin 40 mg oral tablet Start: 01/20/23 15:52:00 EDT, 30 each, TAKE 1 TABLET BY MOUTH ONCE DAILY Start Date: 01/20/23 Status: Ordered traMADol 50 mg oral tablet Start: 01/08/21 16:46:00 EDT, 1 tab, PO, q8h, Disp# 24 tab, Refills: 0, not to exceed 400 mg/day, PRN: as needed for pain, Pharmacy: [id number] Start Date: 01/08/21 Stop Date: 01/15/21 Status: Ordered Vitamin B Complex with Folic Acid oral tablet Start: 08/29/18 13:52:00 EST, 1 tab, PO, Daily Start Date: 08/29/18 Status: Ordered Mental Status 07/19/23 Barriers to Learning one year None evide nt Mandatory Health Literacy Documentation Yes Health Literacy Communication Barriers N ever Primary Language Occitan Problem List Condition Confirmation Course Effective Dates Status Health St atus Informant Stroke Confirmed Active Displaced oblique fracture of shaft of right fibula, initial encounter for closed fracture Confirmed Active DM (diabetes mellitus) Confirmed Active Diabetes Confirmed Active Diabetic foot ulcer Confirmed Active Dry skin Confirmed Active End stage renal disease on dialysis Confirmed Active HTN (hypertension) Confirmed Active Finger injury 1 Confirmed Active Kidney disease Confirmed Active Tinea unguium Confirmed Active Glenohumeral arthritis Confirmed Active Right knee pain Confirmed Active Poor circulation Confirmed Active Abrasion of knee, right Confirmed Active Left shoulder pain Confirmed Active A-V aneurysm Confirmed Active 1left hand middle finger Diagnosis Diagnosis Type Effective Dates Health Status Cl inical Service Informant Knee effusion, right Discharge Diagnosis 07/19/23 Procedures Procedure Date Related Diagnosis Body Site Status Fistulogram LUE w INVESTIGATIONS MANAGER peripheral venous 11/16/22 Completed LUE AVF revision with acusea l interposition graft, fistulagram with INVESTIGATIONS MANAGER venous 06/29/22 Completed LUE Fistulogram w/ INVESTIGATIONS MANAGER venous 12/30/20 Completed LUE AVF control of bleeding and REVISION w/ venorrhaphy 08/14/18 Complete d Colostomy 2015 Completed Partial resection of colon 2016 Completed Cholecystectomy Completed Eye 2 Completed 1has since been reversed 2right Results Laboratory List Name Date Cell Count w Differential, Fluid (FLD CE LL CNT & DIFF) 07/19/23 Fluid on Hold in Laboratory (EXTRA FLUID ) 07/19/23 Hold Extra Fluid (VIROLOGY HOLD FLUID) Specimen Type (SPECIMEN TYPE) 07/19/23 Specimen Type (SPECIMEN TYPE) 07/19/23 Synovial Fluid Crystals (SYNOVIAL JUJU LS) 07/19/23 Urine Volume (measured) (VOLUME, TOTAL) 07/19/23 Most recent to oldest [Refer ence Range]: 1 2 Fluid Container Specimen available f rom 0 to 3 days based on specimen stability. Please use addon order if you wish to order testing. *Unknown* (07/19/23 8:55 AM) [place], fl 4 % (07/19/23 8:55 AM) BF Source SYNOVIAL FLUID 1 *Unknown* (07/19/23 8:55 AM) SYNOVIAL FLUID 2 *Unknown* (07/19/23 8:55 AM) Baso,fl 0 % (07/19/23 8:55 AM) Eos,fl 0 % (07/19/23 8:55 AM) Lymph,fl 2 % (07/19/23 8:55 AM) Nuc Cell,fl [address] /uL 3 (07/19/23 8:55 AM) Neut,fl 94 % (07/19/23 8:55 AM) OtherMono,fl 0 % (07/19/23 8:55 AM) RBC,fl >56369 /uL (07/19/23 8:55 AM) Syn Cryst,fl NONE DETECTED *Unknown* (07/19/23 8:55 AM) Volume (u) 27 mL (07/19/23 8:55 AM) Hold Extra Fluid SPECIMEN HELD IN [facility]. CALL [phone] TO ADD STUDIES. *Unknown* (07/19/23 8:55 AM) 1Result Comment: RIGHT KNEE RECEIVED IN SYRINGE 2Result Comment: RIGHT KNEE RECEIVED IN SYRINGE 3Result Comment: "The reference intervals and other method performance specifications are unavailable for this body fluid. Comparision of the result with concentration in the blood, serum or plasma isrecommended." Orders for Microbiology Reports Name Date Acid Fast Bacillus Cx/Smear, Fluid (CULT URE,AFB (FLUID)) 07/19/23 Anaerobe Culture w Smear, Fluid (CULTURE ,ANER(FLUID)) 07/19/23 Fluid Culture w Smear (CULTURE, FLUID) Fungus Culture w Smear, Fluid (CULTURE,F UNGUS(FLD)) 07/19/23 Microbiology Reports TEST:Anaerobe.Culture, Fluid STATUS:Unauthenticated BODY SITE: SOURCE:Synovial Fluid COLLECTED DATE/TIME:07/19/23 9:06 AM Culture NO GROWTH 2 DAYS TEST:Fungus.Culture, Fluid STATUS:Unauthenticated BODY SITE: SOURCE:Synovial Fluid COLLECTED DATE/TIME:07/19/23 9:06 AM Culture NO FUNGUS ISOLATED AFTER 2 DAYS TEST:Fluid.Cx STATUS:Unauthenticated BODY SITE: SOURCE:Synovial Fluid COLLECTED DATE/TIME:07/19/23 9:06 AM Culture NO GROWTH 2 DAYS TEST:AFB.Culture, Fluid STATUS:Unauthenticated BODY SITE: SOURCE:Synovial Fluid COLLECTED DATE/TIME:07/19/23 9:06 AM AFB Direct Exam NO ACID FAST BACILLI SEEN Social History Social History Type Response Smoking Status Never smoked cigaret alyce Sex Male Outpatient Note * WEI Ugalde, [place]: PERFORM, MODIFY, MODIFY Event Display: .Outpt Note Authored Date: [id number] OUTPATIENT NOTE Name: CHRISTEN WARD Patient Number:[id number] : 1950 Date of Service: 07/19/2023 Chief complaint: Follow-up right knee pain, swollen HPI: Was seen here in our clinic about [address] Thomson and had a right knee effusion. His knee was aspirated and sent for testing. It showed inflammation but no indication for infection or gout. Patient says that he was did great immediately after the injection but in about 2 days he was right back to where he was before. His knee swelled up again. He is having a lot of issues walking and bending his knee. He is using a wheelchair. No fevers or chills. He is on dialysis. He had this happen once for his left knee but after was aspirated and injected it did not come back and he had no further issues. He recently had an abscess on his left leg behind his thigh. It was "lanced" and he was put on 2 different antibiotics. He has been seeing wound care for that and it is improving. When he had the analysis done for his knee aspirate he was on 2 antibiotics at that time. Physical exam: Patient has large knee effusion. He is tender to the touch. No erythema. Range of motion significantly limited due to pain and swelling. Patient is in a wheelchair. He was transferred to the bed. He cannot put much weight on his knee. Assessment/plan: Recurring right knee effusion Findings and plan discussed with the patient and his caregiver. Suggested aspirating the knee. Theywere agreeable. I was able to get 60 cc. Fluid was cloudy and yellow-brownish in color. His caregiver states that when he had the analysis done 2 weeks ago for his knee aspirate he was on antibioticsfor a left leg abscess. We will resend the fluid for testing to test again for cell count, Gram stain, anaerobic and aerobic cultures, Lyme disease. Did feel better after his knee was aspirated. He is not currently having any systemic signs of infection. He is on dialysis and should not be taking anti-inflammatories. He will check with his kidney disease doctor if there is anything he could take a nti-inflammatory fried. Recommended compression, icing over the next couple days to help prevent theswelling from coming back. Follow-up with Dr. Aburto in 2 weeks or sooner depending on his testing results and if there is any changes. PROCEDURE:After explaining the risks and benefits of the procedure, verbal consent was obtainedandthe patient was placed in the seated position. The injection site was confirmed by Renetta Mace LPN. After performing a time-out, identifying the right knee as the correct knee for intra-articular aspiration, the suprapatellar portal area was palpated and marked. This area was prepped with Betadine, followed by ethyl chloride spray and alcohol wipe. Then, 10 mL of 1% lidocaine was used to anesthetize the aspiration site. Then using an 18- gauge needle with a 20 cc syringe I aspirated 60 cc of cloudy brownish-yellow fluid.The area was cleaned and dried and a Band-Aid was placed on the top. Patient noted immediate relief.The patient will follow all my above-noted instructions. Electronic Signature on File Electronically Reviewed/Signed by: Aspen Ugalde PA-C Author Signature Dt/Tm:07/19/2023 09:04 AM Physician Multigraph Operator, Dept. of Orthopaedics and Sports Medicine [facility] - [address], [address] [place], [place] [id number] Electronically Reviewed/Signed by: Дмитрий Aburto MD Cosigner Signature Dt/Tm: 07/21/2023 03:21 PM Division of Sports Medicine MK Patient Care team information Care Team Personnel Name: WEI Echevarria Lynn Position: Physician Multigraph Operator Exempt - Vasc Surg Member Role: Lifetime Relationship Address: Address: [address] [place] [id number] [place] Name: MD Cardenas Karissa A Position: Referring Member Role: Primary Care Provider Address: Address: [facility] Internal Medicine-[address] [address] [place] Care Team Related Persons Name: KIMMY WARD Address: [address] [address] [facility] [phone]
--- NOTE | 2023-07-22 08:37 | Billing Data ---
Date of Service July 21, 2023 Coding Level of Care Code 78749 INT INP/OBS CARE
[2023-07-22] MEDS: CINACALCET HCL 30 MG TAB PO SCH (08:51)
[2023-07-22] MEDS: CALCIUM ACETATE 667 MG CAP/TAB PO SCH (08:52)
--- NOTE | 2023-07-22 10:19 | Nephrology Consultation ---
Date of Consultation July 22, 2023 Assessment & Plan (1) End-stage renal disease on hemodialysis: (2) Secondary hyperparathyroidism of renal origin: (3) Diabetic nephropathy: (4) Septic arthritis of knee, right: (5) Anemia: Plan Orders for HD today per MWF schedule entered into the EHR and reviewed with the HD nurse. Garcia is 2 kg above EDW. We will start with UF goal 2.5 L and adjust as tolerated. HD was coordinated for patient this AM prior to OR this afternoon. He was seen and evaluated during dialysis and tolerating the treatment well. Outpatient Rx: 4 hours, 450/500, 180 optiflux, 2K. EDW 114 kg. LUE AVF has been functioning well. This can be difficult to cannulate. Anticoagulated with Eliquis. Renal diet (sodium, potassium, and phosphorus restriction) with 1 L daily fluid restriction. Chronic, stable anemia. Maintained on Micera as outpatient. Epogen 57635 units and 50 mg IV venofer provided with HD this AM prior to OR. Continue Phos-lo QAC. Sensipar may be held while inpatient. Medications are appropriately dosed for kidney dysfunction. History of Present Illness Reason for Consultation: needs dialysis in AM prior to surgery Requesting Physician: Moe Chacon DO Attending Physician: Moe Chacon DO History of Present Illness Mr. Garcia Prabhakar is a 73 year-old male with ESRD. Garcia is on hemodialysis MWF at [facility] under the care of Dr. Antonio. He completed his last HD treatment on July 20. There have not been any recent complications with dialysis. IDWG can he high. Net UF 1 L on Tuesday and 3 L on Tuesday. He has been leaving around EDW of 114 kg. Garcia has a well functioning LUE AVF. The caliber is small and it can be difficult to stick but has otherwise been functioning well. Clearances have been at goal. He has a tendency to maintain a slightly elevated serum potassium. ESRD is attributed to DKD. Medical history also notable for DM, hypertension, obesity, COPD with notable past smoking history (quit in 2013), cor pulmonale, history of R frontal ischemic CVA, s/p partial colectomy for perforated sigmoid diverticulum, and a fall in December 2020 resulting in an impacted R fibula fracture. He recently completed XRT for treatment of a pulmonary nodule concerning for malignancy (biopsy non- diagnostic). He recently completed a course of antibiotics for abscess on his posterior left thigh for which he follows with the wound clinic.He is anticoagulated with Eliquis. He is maintained on Sensipar and Phos-lo for hyperparathyroidism and hyperphosphatemia. Garcia was referred for admission for washout of the knee due to septic arthritis identified by Dr. Aburto following recent corticosteroid injection. Dialysis was coordinated this morning with planned trip to the OR this afternoon. I saw Garcia prior to and during his hemodialysis treatment. He is tolerating HD well. Allergies Allergy/AdvReac Type Severity Reaction Status Date / Time No Known Drug Allergies Allergy Unknown Verified 07/21/23 14:04 Home Medications Medication Instructions Recorded Confirmed Type multivitamin (Multiple Vitamins 1 tab PO QAM 09/25/19 07/21/23 History tablet) blood-glucose meter #1 ea 11/21/20 07/21/23 History calcium acetate(phosphat bind) 667 1,334 mg (2 x 667 mg) PO BIDM #180 08/24/21 07/21/23 Rx mg capsule caps apixaban 5 mg tablet (Eliquis) 5 mg PO BID 09/08/21 07/21/23 History ondansetron 4 mg disintegrating 4 mg PO DAILY PRN nausea and 10/20/22 07/21/23 Rx tablet vomiting #30 tabs aspirin 81 mg tablet,delayed 81 mg PO DAILY #30 tabs 11/09/22 07/21/23 Rx release gemfibrozil 600 mg tablet (Lopid) 600 mg PO BID 11/16/22 07/21/23 History rosuvastatin 40 mg tablet (Crestor) 40 mg PO DAILY 30 days #90 tabs 02/01/23 07/21/23 Rx pen needle, diabetic 32 gauge x #100 ea 02/02/23 07/21/23 Rx 1/6" insulin NPH-regular hum semi-syn See Rx Instructions .Route .COMPLEX 06/13/23 History 100 unit/mL (70-30) subcutaneous soln amlodipine 10 mg tablet 10 mg PO QAM 07/21/23 07/21/23 History cinacalcet 30 mg tablet 30 mg PO DAILY 07/21/23 07/21/23 History Patient History Medical History Pulmonary nodule History of skin cancer left wrist Axillary lymphadenopathy Abnormal PET of right lung Reason for upcoming bronchoscopy Peripheral arterial disease Patient underwent angiogram on 12/03/[address] Adrian; no intervention required at this time. LVH (left ventricular hypertrophy) moderate History of nicotine dependence Fibrotic lung diseases possible chronic aspiration per [place] pulm records Chronic obstructive pulmonary disease stable per pt Diabetic retinopathy History of COVID-19 06/28/2020 - hospitalized at [place]; fever, sob, generalized weakness. symptoms resolved. AV fistula LUE ESRD (end stage renal disease) on dialysis MWF - [facility] - follows with Dr. 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 Hough on Eliquis History of stroke 2013 - short term memory loss HTN (hypertension) variable Anemia Surgical History Hx of local excision of skin lesion History of surgery 11/16/22 [facility] Left Upper Extremity Arteriovenous Fistulogram, Percutaneous Transluminal Angioplasty Peripheral Venous, Moderate Sedation History of surgery fistula revision 08/14/1819 Grade 1 view, MAC 3, ETT 7.5. Fistual revision 06/2022 History of tooth extraction History of cataract surgery BL History of non-cataract eye surgery INJECTION FOR RETINOPATHY History of esophagogastroduodenoscopy (EGD) History of colonoscopy History of colostomy reversal History of colostomy History of bowel resection WITH TEMP. COLOSTOMY D/T DIVERTICULITIS Hx of cholecystectomy Family History Unknown Alzheimer disease Diabetes Obesity Prostate cancer Skin cancer Heart disease Father Heart disease Hearing loss Son Gallbladder disease Grandfather Kidney disease Uncle Myocardial infarction Hypertension Melanoma Other No family history of adverse response to anesthesia No family history of bleeding disorder Social History Smoking Status: Never smoker Tobacco Type: Cigarettes Age Started Using Tobacco: 21; Age Quit Using Tobacco: 67; packs per day: 1; Second Hand Exposure: No; Do You Dip or Chew Tobacco: No; Hx Alcohol Use: No Hx Substance Use: No Preferred Language: Lao Communication Ability: Effective Visual Impairment: No Limitations Hearing Ability: Normal Flight Radio Operator Required: No Beliefs That Will Affect Care: None marital status: Current Living Situation: Spouse current occupational status: employed How many Children do You have: 3 other: Liza (), to call for questions Feels Safe at Home: Yes Safety Concerns: Feels Safe At This Time Childhood Exposure to Second-Hand Smoke: No Diet: diabetic Diet Comment: Renal caffeine: No Dental Care, Regularly: Yes Physical Activity Frequency: 3-4 Times per Week Seatbelt Use: never Sunscreen Use: No Assistive Devices: Walker Review of Systems Review of Systems: All systems reviewed & are unremarkable except as noted in HPI & below Constitutional: no fever and no chills Musculoskeletal: + joint pain and + stiffness Physical Exam Constitutional: well developed and + morbidly obese; no acute distress Eyes: no scleral abnormality and no corneal abnormality ENMT: Mouth: no oral mucosal abnormality and oral mucous membranes not dry Neck: normal visual inspection and trachea midline Respiratory: normal respiratory effort Auscultation: lungs clear to auscultation bilaterally Cardiovascular: Rate/Rhythm: regular rate Heart Sounds: normal S1 and normal S2 Extremities: + pedal edema and + AV fistula Musculoskeletal: Extremities: no cyanosis and no clubbing Skin: normal turgor; no lesions Neurologic: Motor/Sensory: no tremor and no asterixis Psychiatric: Orientation: alert and oriented x 3 Results & Data Vital Signs (Past 12 Hours) Vital Signs Temp Pulse Pulse Pulse Resp BP BP 07/22/23 10:00 84 96/51 L 07/22/23 09:30 82 98/57 L 07/22/23 09:07 36.8 C 80 07/22/23 09:05 37.2 C 84 20 99/62 L 07/22/23 08:43 37.2 C 84 20 99/62 L 07/22/23 07:54 77 07/22/23 06:00 76 21 07/22/23 05:00 78 23 07/22/23 05:00 106/65 07/22/23 04:00 97/56 L 07/22/23 04:00 77 20 07/22/23 03:00 84 22 107/70 07/22/23 01:51 82 18 110/62 Pulse Ox O2 Del Method 07/22/23 10:00 07/22/23 09:30 07/22/23 09:07 07/22/23 09:05 98 Room Air 07/22/23 08:43 99 Room Air 07/22/23 07:54 07/22/23 06:00 94 07/22/23 05:00 97 07/22/23 05:00 07/22/23 04:00 07/22/23 04:00 96 07/22/23 03:00 100 07/22/23 01:51 100 Room Air Laboratory Results Laboratory Results - last 24 hr 07/21/23 07/21/23 07/22/23 17:42 20:28 01:40 WBC 6.34 RBC 3.32 L Hgb 10.5 L Hct 32.2 L MCV 97.0 MCH 31.6 MCHC 32.6 RDW Std Deviation 53.6 H RDW Coeff of Mike 15.5 H Plt Count 281 MPV 9.8 Immature Gran % (Auto) 0.3 Neut % (Auto) 70.5 Lymph % (Auto) 12.3 [place] % (Auto) 14.4 Eos % (Auto) 1.9 Baso % (Auto) 0.6 Neut # (Auto) 4.47 Lymph # (Auto) 0.78 L [place] # (Auto) 0.91 H Eos # (Auto) 0.12 Baso # (Auto) 0.04 Immature Gran # (Auto) 0.02 PT 12.6 H INR 1.2 H APTT 40 H PTT Ratio 1.4 Sodium 132 L Potassium 5.4 H Chloride 91 L Carbon Dioxide 28 Anion Gap 13 H BUN 44 H Creatinine 5.93 H* Est Cr Clr Drug Dosing 14.1 Est GFR ( Amer) 10.2 Est GFR (Non-Af Amer) 8.8 BUN/Creatinine Ratio 7.4 L Glucose 292 H POC Glucose 337 H* 110 H Lactate 1.4 Calcium 9.2 Total Bilirubin 0.4 AST 20 ALT 15 Alkaline Phosphatase 91 Total Protein 7.8 Albumin 3.7 Globulin 4.1 H Albumin/Globulin Ratio 0.9 Random Vancomycin 07/22/23 07/22/23 04:12 08:36 WBC 5.74 RBC 3.10 L Hgb 9.8 L Hct 29.5 L MCV 95.2 MCH 31.6 MCHC 33.2 RDW Std Deviation 52.5 H RDW Coeff of Mike 15.2 H Plt Count 258 MPV 9.5 Immature Gran % (Auto) 0.3 Neut % (Auto) 66.6 Lymph % (Auto) 12.5 [place] % (Auto) 17.1 Eos % (Auto) 2.8 Baso % (Auto) 0.7 Neut # (Auto) 3.82 Lymph # (Auto) 0.72 L [place] # (Auto) 0.98 H Eos # (Auto) 0.16 Baso # (Auto) 0.04 Immature Gran # (Auto) 0.02 PT 12.8 H INR 1.2 H APTT PTT Ratio Sodium 134 L Potassium 5.1 Chloride 95 L Carbon Dioxide 25 Anion Gap 14 H BUN 48 H Creatinine 6.71 H* D Est Cr Clr Drug Dosing 12.5 Est GFR ( Amer) 8.7 Est GFR (Non-Af Amer) 7.5 BUN/Creatinine Ratio 7.2 L Glucose 74 POC Glucose 90 Lactate Calcium 9.5 Total Bilirubin AST ALT Alkaline Phosphatase Total Protein Albumin Globulin Albumin/Globulin Ratio Random Vancomycin 19.3 Diagnostic Findings XR chest 1V portable Comparison: Comparison is made to chest radiograph 04/21/2023 FINDINGS: No lines and tubes are seen. Cardiomegaly is noted. The aortic arch is calcified. The lungs are clear. No evidence of pleural effusion or pneumothorax. IMPRESSION: No acute chest disease. Cardiomegaly is noted. PG Care Time/CCT Total # of Minutes Spent Total Time Spent with Patient: Total time spent is greater than 50% in coordination of care (as documented) at patient's floor/unit and/or counseling patient: Coding Level of Care Code 24162 IN/OBS CONSULT LVL 5,80M Diagnoses End-stage renal disease on hemodialysis N18.6; Z99.2 Secondary hyperparathyroidism of renal origin N25.81 Diabetic nephropathy associated with type 2 diabetes mellitus E11.21 Diabetes mellitus type: type 2 Septic arthritis of knee, right M00.9 Anemia D64.9 (3) Diabetic nephropathy Diabetes mellitus type: type 2 Qualified Code(s): E11.21 - Type 2 diabetes mellitus with diabetic nephropathy
--- NOTE | 2023-07-22 11:17 | Orthopedic Consultation ---
Date of Consultation July 22, 2023 Assessment & Plan (1) Septic arthritis of knee, right: Patient will receive his dialysis this morning. He is currently n.p.o. Plan is to undergo an irrigation debridement of his right knee by Dr. Aburto later this afternoon. History of Present Illness Reason for Consultation: Right knee septic arthritis Requesting Physician: Дмитрий Aburto MD Attending Physician: Moe Chacon, History of Present Illness 73 yo male with PMHx of CVA, ESRD on dialysis, HLD, DM2, HTN, pulmonary nodule, and atrial flutter presents with septic knee. Patient referred by his orthopedic surgeon Dr. Aburto. He has been dealing with right knee pain and swelling for the last couple of weeks. He had it drained 2 weeks ago with corticosteroid placement and was doing well until symptoms returned a few days ago at which time was drained again. Fluid was sent for analysis and although culture was negative cell count was elevated showing concern for septic arthritis. He is scheduled to have a right knee washout tomorrow. He denies headache, fever, chills, fatigue, shortness of breath, chest pain, abdominal pain, nausea, vomiting, constipation, diarrhea, dysuria, extremity numbness/tingling. Of note he has also been dealing with an abscess on his posterior left thigh for which he follows with the wound clinic. He was initially on antibiotics for this which he has now completed. This has been healing well. Allergies Allergy/AdvReac Type Severity Reaction Status Date / Time No Known Drug Allergies Allergy Unknown Verified 07/21/23 14:04 Home Medications Medication Instructions Recorded Confirmed Type multivitamin (Multiple Vitamins 1 tab PO QAM 09/25/19 07/21/23 History tablet) blood-glucose meter #1 ea 11/21/20 07/21/23 History calcium acetate(phosphat bind) 667 1,334 mg (2 x 667 mg) PO BIDM #180 08/24/21 07/21/23 Rx mg capsule caps apixaban 5 mg tablet (Eliquis) 5 mg PO BID 09/08/21 07/21/23 History ondansetron 4 mg disintegrating 4 mg PO DAILY PRN nausea and 10/20/22 07/21/23 Rx tablet vomiting #30 tabs aspirin 81 mg tablet,delayed 81 mg PO DAILY #30 tabs 11/09/22 07/21/23 Rx release gemfibrozil 600 mg tablet (Lopid) 600 mg PO BID 11/16/22 07/21/23 History rosuvastatin 40 mg tablet (Crestor) 40 mg PO DAILY 30 days #90 tabs 02/01/23 07/21/23 Rx pen needle, diabetic 32 gauge x #100 ea 02/02/23 07/21/23 Rx 1/6" insulin NPH-regular hum semi-syn See Rx Instructions .Route .COMPLEX 06/13/23 07/21/23 History 100 unit/mL (70-30) subcutaneous soln amlodipine 10 mg tablet 10 mg PO QAM 07/21/23 07/21/23 History cinacalcet 30 mg tablet 30 mg PO DAILY 07/21/23 07/21/23 History Patient History Medical History Pulmonary nodule History of skin cancer left wrist Axillary lymphadenopathy Abnormal PET of right lung Reason for upcoming bronchoscopy Peripheral arterial disease Patient underwent angiogram on 12/03/[address] Adrian; no intervention required at this time. LVH (left ventricular hypertrophy) moderate History of nicotine dependence Fibrotic lung diseases possible chronic aspiration per [place] pulm records Chronic obstructive pulmonary disease stable per pt Diabetic retinopathy History of COVID-19 06/28/2020 - hospitalized at [place]; fever, sob, generalized weakness. symptoms resolved. AV fistula LUE ESRD (end stage renal disease) on dialysis MWF - [facility] - follows with Dr. 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 Hough on Eliquis History of stroke 2013 - short term memory loss HTN (hypertension) variable Anemia Surgical History Hx of local excision of skin lesion History of surgery 11/16/22 [facility] Left Upper Extremity Arteriovenous Fistulogram, Percutaneous Transluminal Angioplasty Peripheral Venous, Moderate Sedation History of surgery fistula revision 08/14/1819 Grade 1 view, MAC 3, ETT 7.5. Fistual revision 06/2022 History of tooth extraction History of cataract surgery BL History of non-cataract eye surgery INJECTION FOR RETINOPATHY History of esophagogastroduodenoscopy (EGD) History of colonoscopy History of colostomy reversal History of colostomy History of bowel resection WITH TEMP. COLOSTOMY D/T DIVERTICULITIS Hx of cholecystectomy Family History Unknown Alzheimer disease Diabetes Obesity Prostate cancer Skin cancer Heart disease Father Heart disease Hearing loss Son Gallbladder disease Grandfather Kidney disease Uncle Myocardial infarction Hypertension maternal Melanoma paternal Other No family history of adverse response to anesthesia No family history of bleeding disorder Social History Smoking Status: Never smoker Tobacco Type: Cigarettes Age Started Using Tobacco: 21; Age Quit Using Tobacco: 67; packs per day: 1; Second Hand Exposure: No; Do You Dip or Chew Tobacco: No; Hx Alcohol Use: No Hx Substance Use: No Preferred Language: Georgian Communication Ability: Effective Visual Impairment: No Limitations Hearing Ability: Normal Public Health Engineer Required: No Beliefs That Will Affect Care: None marital status: Current Living Situation: Spouse current occupational status: employed How many Children do You have: 3 other: Liza (), to call for questions Feels Safe at Home: Yes Safety Concerns: Feels Safe At This Time Childhood Exposure to Second-Hand Smoke: No Diet: diabetic Diet Comment: Renal caffeine: No Dental Care, Regularly: Yes Physical Activity Frequency: 3-4 Times per Week Seatbelt Use: never Sunscreen Use: No Assistive Devices: Walker Review of Systems Review of Systems: All systems reviewed & are unremarkable except as noted in Subjective Physical Exam Physical Exam: Right knee: Patient has palpable effusion over the anterior aspect of the knee with circumferential tenderness to palpation. There is edema and some slight warmth. There is no erythema or ecchymosis. Patient has a Band-Aid over the lateral aspect of the superolateral pouch from his previous aspiration. Active knee range of motion is from about 4 degrees of extension to 70 degrees of flexion. Patient's quad strength is 3 out of 5. He is able to slightly perform a straight leg raise test and actively dorsi and plantarflex his foot. He is neurovascularly intact. Results & Data Vital Signs (Past 12 Hours) Vital Signs Temp Pulse Pulse Pulse Resp BP BP 07/22/23 11:00 91 H 99/46 L 07/22/23 10:30 82 111/55 L 07/22/23 10:00 84 96/51 L 07/22/23 09:30 82 98/57 L 07/22/23 09:07 36.8 C 80 07/22/23 09:05 37.2 C 84 20 99/62 L 07/22/23 08:43 37.2 C 84 20 99/62 L 07/22/23 07:54 77 07/22/23 06:00 76 21 07/22/23 05:00 78 23 07/22/23 05:00 106/65 07/22/23 04:00 97/56 L 07/22/23 04:00 77 20 07/22/23 03:00 84 22 107/70 07/22/23 01:51 82 18 110/62 Pulse Ox O2 Del Method 07/22/23 11:00 07/22/23 10:30 07/22/23 10:00 07/22/23 09:30 07/22/23 09:07 07/22/23 09:05 98 Room Air 07/22/23 08:43 99 Room Air 07/22/23 07:54 07/22/23 06:00 94 07/22/23 05:00 97 07/22/23 05:00 07/22/23 04:00 07/22/23 04:00 96 07/22/23 03:00 100 07/22/23 01:51 100 Room Air Diagnostic Findings Laboratory Results WBC 5.74 K/ul (4.8-10.8) 07/22/23 04:12 RBC 3.10 M/uL (4.70-6.10) L 07/22/23 04:12 Hgb 9.8 g/dl (14.0-18.0) L 07/22/23 04:12 Hct 29.5 % (42.0-52.0) L 07/22/23 04:12 MCV 95.2 fL (80.0-100.0) 07/22/23 04:12 MCH 31.6 pg (25.0-34.0) 07/22/23 04:12 MCHC 33.2 g/dL (32.0-36.0) 07/22/23 04:12 RDW Std Deviation 52.5 fL (36.4-46.3) H 07/22/23 04:12 RDW Coeff of Mike 15.2 % (11.5-14.5) H 07/22/23 04:12 Plt Count 258 K/uL (130-400) 07/22/23 04:12 MPV 9.5 fL (9.4-12.4) 07/22/23 04:12 Immature Gran % (Auto) 0.3 % 07/22/23 04:12 Neut % (Auto) 66.6 % 07/22/23 04:12 Lymph % (Auto) 12.5 % 07/22/23 04:12 [place] % (Auto) 17.1 % 07/22/23 04:12 Eos % (Auto) 2.8 % 07/22/23 04:12 Baso % (Auto) 0.7 % 07/22/23 04:12 Neut # (Auto) 3.82 K/uL (1.40-6.50) 07/22/23 04:12 Lymph # (Auto) 0.72 K/uL (1.20-3.40) L 07/22/23 04:12 [place] # (Auto) 0.98 K/uL (0.11-0.59) H 07/22/23 04:12 Eos # (Auto) 0.16 K/uL (0.00-0.50) 07/22/23 04:12 Baso # (Auto) 0.04 K/uL (0.00-0.20) 07/22/23 04:12 Immature Gran # (Auto) 0.02 K/uL (0.01-0.20) 07/22/23 04:12 PT 12.8 Seconds (9.0-12.0) H 07/22/23 04:12 INR 1.2 (0.9-1.1) H 07/22/23 04:12 APTT 40 Seconds (21-31) H 07/21/23 17:42 PTT Ratio 1.4 07/21/23 17:42 Sodium 134 mmol/L (136-145) L 07/22/23 04:12 Potassium 5.1 mmol/L (3.5-5.1) 07/22/23 04:12 Chloride 95 mmol/L (98-107) L 07/22/23 04:12 Carbon Dioxide 25 mmol/L (21-32) 07/22/23 04:12 Anion Gap 14 (3-11) H 07/22/23 04:12 BUN 48 mg/dl (6-23) H 07/22/23 04:12 Creatinine 6.71 mg/dl (0.6-1.4) H* D 07/22/23 04:12 Est Cr Clr Drug Dosing 12.5 ml/min 07/22/23 04:12 Est GFR ( Amer) 8.7 ml/min 07/22/23 04:12 Est GFR (Non-Af Amer) 7.5 ml/min 07/22/23 04:12 BUN/Creatinine Ratio 7.2 (10-20) L 07/22/23 04:12 Glucose 74 mg/dl (70-99(Fasting)) 07/22/23 04:12 POC Glucose 90 mg/dl (70-99) 07/22/23 08:36 Lactate 1.4 mmol/L (0.4-2.0) 07/21/23 17:42 Calcium 9.5 mg/dl (8.6-10.3) 07/22/23 04:12 Total Bilirubin 0.4 mg/dl (0.2-1.0) 07/21/23 17:42 AST 20 U/L (13-39) 07/21/23 17:42 ALT 15 U/L (7-52) 07/21/23 17:42 Alkaline Phosphatase 91 U/L (34-104) 07/21/23 17:42 Total Protein 7.8 gm/dl (6.0-8.3) 07/21/23 17:42 Albumin 3.7 gm/dl (3.4-5.0) 07/21/23 17:42 Globulin 4.1 gm/dl (2.5-4.0) H 07/21/23 17:42 Albumin/Globulin Ratio 0.9 (0.9-2) 07/21/23 17:42 Random Vancomycin 19.3 mcg/ml (10-20) 07/22/23 04:12 Impressions Chest X-Ray 07/21/23 17:21 XR chest 1V portable CLINICAL HISTORY: Patient to have surgery tomorrow. TECHNIQUE: Single frontal radiograph of the chest was obtained. Comparison: Comparison is made to chest radiograph 04/21/2023 FINDINGS: No lines and tubes are seen. Cardiomegaly is noted. The aortic arch is calcified. The lungs are clear. No evidence of pleural effusion or pneumothorax. IMPRESSION: No acute chest disease. Cardiomegaly is noted. ACT 112: Negative or not required by law. Electronically signed by: Rodolfo Messer M.D. 07/21/2023 6:16 PM Knee X-Ray 07/21/23 17:54 XR knee RT 3V CLINICAL HISTORY: right knee pain, swelling TECHNIQUE: 3 views of the right knee were obtained. Comparison: Comparison is made to knee radiographs 07/08/2023 FINDINGS: There is no evidence of an acute fracture. Degenerative changes are seen in the knee joint. A small suprapatellar effusion is seen. Soft tissue swelling is seen about the knee. Vascular calcifications are seen. IMPRESSION: Suprapatellar effusion without evidence of underlying bony injury. Soft tissue swelling is seen. ACT 112: Negative or not required by law. Electronically signed by: Rodolfo Messer M.D. 07/21/2023 6:17 PM
--- NOTE | 2023-07-22 11:45 | Hospitalist Progress Note ---
Date of Service July 22, 2023 Assessment & Plan (1) Septic arthritis of knee, right: Plan: 73 yo male with PMHx of CVA, ESRD on dialysis, HLD, DM2, HTN, pulmonary nodule, and atrial flutter presents with septic knee. 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 gun mechanic Left thigh cellulitis with abscess -Ongoing for past month, now resolving s/p antibiotic treatment with Bactrim and amoxicillin -Improving, no active infection presently -Wound care consulted ESRD on dialysis -MWF dialysis schedule -Dialysis management per nephrology DM2 -on NPH sliding scale at home - continue SSI -pharmacy glycemic consult placed DVT ppx: SCDs; no chemical due to procedure today FEN/GI: NPO Code Status: DNR/DNI Dispo: Medical/surgical with telemetry (2) Abscess of left thigh: (3) End-stage renal disease on hemodialysis: (4) Peripheral arterial disease: (5) Secondary hyperparathyroidism of renal origin: (6) Coronary disease: (7) Hyperlipidemia: (8) Diabetic nephropathy: (9) Uncontrolled type 2 diabetes mellitus with hyperglycemia: (10) Atrial flutter with rapid ventricular response: Admission and Anticipated Discharge Date Admission Date: July 21, 2023 Supervising Physician Co-Signing Physician Notes ATTESTATION I also saw the patient and confirmed conrad portions of the history and exam. I agree with the impression and plan in the resident documentation, and as summarized below. The patient is seen midmorning in the hemodialysis unit. He has no complaints. Tentatively scheduled for surgery later today. EXAM 95/56, 102, 16, 36.8, 97% on room air Pleasant alert. No distress. No complaints. DATA Labs HgB 9.8, WBC 5.74 Sodium 143, BUN 48, Cr. 6.71 IMPRESSION & PLAN Septic arthritis of the knee, right Scheduled for irrigation and debridement by orthopedics later this afternoon End-stage renal disease on hemodialysis Dialysis on a Tuesday schedule Nephrology consultation appreciated IDDM SSI with glycemic consult Additional per resident documentation Subjective Acute events overnight- none. Pt examined at bedside. Feels well overall, R knee pain is slightly improved from admission but still present along with swelling. Review of Systems Review of Systems: Per HPI/Subjective Physical Exam Physical Exam: Constitutional: in no acute distress, pleasant and normal affect. Vitals as above HEENT: No scleral injection or discharge.Moist mucous membranes Neck: Supple without lymphadenopathy. Trachea midline Lungs: CTAB with good effort. No wheezes/rales/rhonchi Cardiac: RRR.No murmurs. 2+ distal peripheral pulses Abdomen: Soft, nontender, and nondistended.No guarding. No hepatosplenomegaly MSK: R knee with overlying edema, limited ROM due to pain, moderate tenderness to palpation Skin: L posterior thigh with healing abscess. No evidence of surrounding cellulitis, nonerythematous, nontender Results & Data Results & Data Vital Signs (Past 12 Hours) Vital Signs Temp Pulse Pulse Pulse Resp BP BP 07/22/23 11:00 91 H 99/46 L 07/22/23 10:30 82 111/55 L 07/22/23 10:00 84 96/51 L 07/22/23 09:30 82 98/57 L 07/22/23 09:07 36.8 C 80 07/22/23 09:05 37.2 C 84 20 99/62 L 07/22/23 08:43 37.2 C 84 20 99/62 L 07/22/23 07:54 77 07/22/23 06:00 76 21 07/22/23 05:00 78 23 07/22/23 05:00 106/65 07/22/23 04:00 97/56 L 07/22/23 04:00 77 20 07/22/23 03:00 84 22 107/70 07/22/23 01:51 82 18 110/62 Pulse Ox O2 Del Method 07/22/23 11:00 07/22/23 10:30 07/22/23 10:00 07/22/23 09:30 07/22/23 09:07 07/22/23 09:05 98 Room Air 07/22/23 08:43 99 Room Air 07/22/23 07:54 07/22/23 06:00 94 07/22/23 05:00 97 07/22/23 05:00 07/22/23 04:00 07/22/23 04:00 96 07/22/23 03:00 100 07/22/23 01:51 100 Room Air Resident Activity Tracking Resident Involvement: Resident Care Provided Care Provided: Adult Hospital Medicine (7) Hyperlipidemia Hyperlipidemia type: unspecified Qualified Code(s): E78.5 - Hyperlipidemia, unspecified (8) Diabetic nephropathy Diabetes mellitus type: type 2 Qualified Code(s): E11.21 - Type 2 diabetes mellitus with diabetic nephropathy
[2023-07-22] MEDS: EPOETIN ALFA 10,000 UNITS/ML VIAL IV ONE (12:13)
[2023-07-22] MEDS: IRON SUCROSE 50 MG in SYRINGE 0 ML IV ONE (12:14)
--- NOTE | 2023-07-22 12:59 | Anesthesiology Consultation ---
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 Surgery Operation Date: 07/22/23 07:00 Proposed Procedures p Right Knee Arthroscopic Incision and Drainage - Дмитрий Aburto MD Height/Weight Height: 5 ft 8 in Weight: 116 kg Allergies Allergy/AdvReac Type Severity Reaction Status Date / Time No Known Drug Allergies Allergy Unknown Verified 07/21/23 14:04 Medications Home Medications Medication Instructions Recorded Confirmed Last Taken multivitamin (Multiple Vitamins 1 tab PO QAM 09/25/19 07/21/23 07/21/23 tablet) blood-glucose meter #1 ea 11/21/20 07/21/23 Unknown calcium acetate(phosphat bind) 667 1,334 mg (2 x 667 mg) PO BIDM #180 08/24/21 07/21/23 07/21/23 mg capsule caps apixaban 5 mg tablet (Eliquis) 5 mg PO BID 09/08/21 07/21/23 07/21/23 ondansetron 4 mg disintegrating 4 mg PO DAILY PRN nausea and 10/20/22 07/21/23 Unknown tablet vomiting #30 tabs aspirin 81 mg tablet,delayed 81 mg PO DAILY #30 tabs 11/09/22 07/21/23 07/21/23 release gemfibrozil 600 mg tablet (Lopid) 600 mg PO BID 11/16/22 07/21/23 07/21/23 rosuvastatin 40 mg tablet (Crestor) 40 mg PO DAILY 30 days #90 tabs 02/01/23 07/21/23 07/20/23 pen needle, diabetic 32 gauge x #100 ea 02/02/23 07/21/23 Unknown 07/02" insulin NPH-regular hum semi-syn See Rx Instructions .Route .COMPLEX 06/13/23 07/21/23 07/21/23 100 unit/mL (70-30) subcutaneous soln amlodipine 10 mg tablet 10 mg PO QAM 07/21/23 07/21/23 07/21/23 cinacalcet 30 mg tablet 30 mg PO DAILY 07/21/23 07/21/23 07/21/23 Active Medications Generic Name Dose Route Start Last Admin Trade Name Freq PRN Reason Stop Dose Admin Calcium Acetate 1,334 mg 07/22/23 08:00 07/22/23 08:52 Calcium Acetate 667 Mg Cap/Tab PO 08/21/23 07:59 1,334 mg BIDM TIM Administration Cinacalcet 30 mg 07/22/23 09:00 07/22/23 08:53 Cinacalcet Hcl 30 Mg Tab PO 08/21/23 08:59 30 mg DAILY TIM Administration Acetaminophen 1,000 mg in 100 mls @ 400 mls/hr 07/21/23 19:52 07/22/23 02:00 Ofirmev IV 07/24/23 19:51 Infused Q8H PRN Infusion Pain or Fever Insulin Aspart 0 units 07/21/23 21:00 07/22/23 11:52 Insulin Aspart Per Unit Charge SC 08/20/23 20:59 Not Given ACHS TIM Protocol Past Medical History Medical History Pulmonary nodule History of skin cancer left wrist Axillary lymphadenopathy Abnormal PET of right lung Reason for upcoming bronchoscopy Peripheral arterial disease Patient underwent angiogram on 12/03/[address] Adrian; no intervention required at this time. LVH (left ventricular hypertrophy) moderate History of nicotine dependence Fibrotic lung diseases possible chronic aspiration per [place] pulm records Chronic obstructive pulmonary disease stable per pt Diabetic retinopathy History of COVID-19 06/28/2020 - hospitalized at [place]; fever, sob, generalized weakness. symptoms resolved. AV fistula LUE ESRD (end stage renal disease) on dialysis MWF - [facility] - follows with Dr. 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 Hough on Eliquis History of stroke 2013 - short term memory loss HTN (hypertension) variable Anemia Past Family History Family History Unknown Alzheimer disease Diabetes Obesity Prostate cancer Skin cancer Heart disease Father Heart disease Hearing loss Son Gallbladder disease Grandfather Kidney disease Uncle Myocardial infarction Hypertension maternal Melanoma paternal Other No family history of adverse response to anesthesia No family history of bleeding disorder Past Surgical History Surgical History Hx of local excision of skin lesion History of surgery 11/16/22 [facility] Left Upper Extremity Arteriovenous Fistulogram, Percutaneous Transluminal Angioplasty Peripheral Venous, Moderate Sedation History of surgery fistula revision 08/14/1819 Grade 1 view, MAC 3, ETT 7.5. Fistual revision 06/2022 History of tooth extraction History of cataract surgery BL History of non-cataract eye surgery INJECTION FOR RETINOPATHY History of esophagogastroduodenoscopy (EGD) History of colonoscopy History of colostomy reversal History of colostomy History of bowel resection WITH TEMP. COLOSTOMY D/T DIVERTICULITIS Hx of cholecystectomy Social History Smoking Status: Never smoker tobacco type: cigarettes Do You Dip or Chew Tobacco: No Hx Alcohol Use: No Alcohol type: beer alcohol intake frequency: holidays/special occasions only Hx Substance Use: No substance use type: does not use Physical Exam Vital Signs Last Vital Signs Temp 98.2 F 07/22/23 09:07 Pulse 94 H 07/22/23 12:00 Resp 20 07/22/23 09:05 BP 91/47 L 07/22/23 12:00 Pulse Ox 98 07/22/23 09:05 O2 Del Method Room Air 07/22/23 09:05 Testing Laboratory Results 07/22/23 04:12 07/22/23 04:12 PT 12.8 Seconds (9.0-12.0) H 07/22/23 04:12 INR 1.2 (0.9-1.1) H 07/22/23 04:12 APTT 40 Seconds (21-31) H 07/21/23 17:42 07/22/23 07/22/23 08:36 01:40 POC Glucose 90 110 H Electrocardiogram Date: 07/21/23 Sinus rhythm with 1st degree A-V block with Fusion complexes Low voltage QRS Possible Inferior infarct , age undetermined Cannot rule out Anterior infarct , age undetermined Abnormal ECG When compared with ECG of 24-JUN-2022 13:43, Fusion complexes are now Present Chest X-Ray Date: 07/21/23 IMPRESSION: No acute chest disease. Cardiomegaly is noted. Echocardiogram Date: 11/10/21 LV systolic function is normal Mod concentric LVH Mod mitral annular calcification
[2023-07-22] MEDS ORDERED: PROPOFOL IV EMULSION 10 MG/ML 20 ML VIAL IV ONE (13:01)
[2023-07-22] MEDS ORDERED: fentaNYL citrate PF 100 MCG/2 ML VIAL ONE ×2 (13:01→14:46)
[2023-07-22] MEDS ORDERED: DEXAMETHASONE SOD INJ 4 MG/ML VIAL ONE (13:01)
[2023-07-22] MEDS ORDERED: ONDANSETRON INJ 2 MG/ML 2 ML VIAL ONE (13:01)
[2023-07-22] MEDS: KCENTRA (1000unit vial) 2000 units IVP IV ONE (13:29)
--- NOTE | 2023-07-22 13:50 | Pharmacy Report ---
Pharmacy PK ABX Note - Date of Service July 22, 2023 - Assessment and Plan Assessment 73 year old M started on vancomycin and rocephin for septic arthritis of knee/left thigh cellulitis with abscess. Previously on antibiotics and area aspirated and prompted referral by orthopedist. Planning for OR today for R knee washout. ESRD on dialysis typically MWF schedule. Plan Vancomycin * Loading dose: 2250 mg x 1 last evening * Random vancomycin level this AM was 19 mcg/ml - anticipate dialysis to remove ~30% of vancomycin. Estimated level after dialysis <15 mcg/ml therefore will provide a one time dose of vancomycin 1000 mg iv x 1 this evening to maintain therapeutic level * Notes suggest to continue with dialysis on MWF schedule - will plan to reorder another random level prior to next dialysis session to assist with further dosing.
[2023-07-22] MEDS: SODIUM CHLORIDE 0.9% 1,000 ML IV SCH ×2 (13:53→23:50)
--- NOTE | 2023-07-22 13:55 | Pharmacy Report ---
Pharmacy Glycemic Short Note 2 - Date of Service July 22, 2023 - Glycemic Short BSG Results (Last 24 hours): 07/21/23 07/21/23 07/22/23 17:42 20:28 01:40 Glucose 292 H POC Glucose 337 H* 110 H 07/22/23 07/22/23 07/22/23 04:12 08:36 13:35 Glucose 74 POC Glucose 90 92 OUTPATIENT ANTIDIABETIC REGIMEN: * Novolin 70/30 - BID with meals based on blood sugar, usually 10-20 units BID * No A1c ordered, as they are unreliable in ESRD patients d/t interactions between the A1c analyzing technique and high levels of urea in ESRD, reduced RBC life span, iron deficiency anemia, and EPO administration. HbA1c > 7.5% in ESRD patient may overestimate the extent of hyperglycemia in ESRD patients. ASSESSMENT: 07/22 * Patient received total of 25 units of insulin yesterday, of which 15 units were NPH * Fasting BSG 90 mg/dL - patient NPO for OR today for washout of knee * Reasonable to continue novolog for today 07/21 * 73 yo male, T2DM, admitted with septic arthritis of right knee. * Outpatient regimen is premixed basal/prandial insulin of Novolin 70/30 mix insulin. * Pre-mixed insulin is difficult to titrate since it is already in a fixed distribution of basal:prandial insulin. Continuing pre-mixed insulin for admission typically lead to hypoglycemia d/t changing PO status but rapid acting insulin is unable to be held. * Home regimen will be held for admission per pharmacy consult. Will utilize recommended regimen of SQ basal bolus insulin regimen with NPH to match home basal + NovoLog (CF+CR) PLAN FOR INPATIENT GLYCEMIC CONTROL: * Hold outpatient insulin * Basal insulin * NPH - hold * Bolus insulin * NovoLog per scale ACHS or Q6hrs while NPO * Goal Range: Low 110 mg/dL - High 140 mg/dL * Correction Factor: 35 mg/dL/unit * Nutritional / Prandial insulin per carb ratio of 1 unit per 10 grams CHO consumed
[2023-07-22] MEDS ORDERED: ONDANSETRON INJ 2 MG/ML 2 ML VIAL IV PRN ×2 (14:03→16:34)
[2023-07-22] MEDS ORDERED: ATROPINE SULFATE 0.1 MG/ML 10ML SYR IV PRN ×2 (14:03→16:34)
[2023-07-22] MEDS ORDERED: ePHEDrine sulfate 50 MG/ML AMP IV PRN ×2 (14:03→16:34)
[2023-07-22] MEDS: ceFAZolin 2,000 MG/15 ML IV PUSH IV ONE (14:10)
[2023-07-22] MEDS: EpINEphrine HCL INJ 1 MG/ML 1ML SYRINGE IR ONE (14:45)
[2023-07-22] MEDS ORDERED: SUCCINYLCHOLINE CHLORIDE 20 MG/ML 10 ML VIAL IV ONE (14:46)
[2023-07-22] MEDS ORDERED: PHENYLEPHRINE 100MCG/ML 10ML SYR IV ONE (14:46)
[2023-07-22 15:56] LABS: Appearance Synovial Fluid Bloody; Color Synovial Fluid Amber; Mononuclear WBC Synovial 3.2 %; Polynuclear WBC Synovial 96.8 %; RBC Synovial Fluid Auto 60000 /uL; Source Synovial Fluid Right Knee; WBC Synovial Fluid Auto 69660 /ul (0-200)
--- NOTE | 2023-07-22 16:01 | Operative Report ---
Post Operative Report Pre & Post Diagnosis Operation Date: 07/22/23 07:00 Pre-Op Diagnosis: SEPTIC KNEE Post-Op Diagnosis: SEPTIC KNEE I identified the patient and participated in the time-out.: Yes Procedure Operation Date: 07/22/23 07:00 Actual Procedures p Right Knee Arthroscopic Incision and Drainage, extensive debridement, Right knee aspiration, Right knee synovial biopsy, Right knee partial medial menisectomy. (Right) - Дмитрий Aburto MD Surgeon Дмитрий Aburto M.D. Certified Caregiver [place] PA-C; no fellow or resident available Estimated Blood Loss 20 Findings Consistent with Post-Op Diagnosis Specimens right synovial tissue Right knee joint fluid Anesthesia Type General Description of Procedure Patient was taken to the operating room, placed under general anesthesia. Time out performed, prepped and draped in routine sterile fashion. I was present during the entire case, please see Dr. Aburto's operative report for further detail. Patient was awakened and taken to the recovery room in stable condition. I attest to the content of the Intraoperative Record and any orders documented therein. Any exceptions are noted below.
[2023-07-22] MEDS: fentaNYL citrate PF 100 MCG/2 ML VIAL IV PRN (16:07)
--- NOTE | 2023-07-22 16:10 | Operative Report ---
Post Operative Report Pre & Post Diagnosis Operation Date: 07/22/23 07:00 Pre-Op Diagnosis: Right knee pain with recurrent effusions and suspected joint infection. Post-Op Diagnosis: Same plus diffuse synovitis, diffuse chondromalacia, medial meniscus tear. I identified the patient and participated in the time-out.: Yes Procedure Operation Date: 07/22/23 07:00 Actual Procedures p Right Knee Arthroscopic Irrigation and debridement, extensive debridement, Right knee aspiration, Right knee synovial biopsy, Right knee partial medial menisectomy. (Right) - Дмитрий Aburto MD Surgeon Дмитрий Aburto MD Medical Practice Manager [employer] physicians respiratory assistant no resident or fellow available Estimated Blood Loss 20 Findings Consistent with Post-Op Diagnosis The medial meniscus was degenerative like torn. There was a chondrosis of the trochlea patella and medial compartment. There was extensive fibrinous debris throughout the knee and extensive synovitis Specimens Prior to start of the surgical procedure but after the timeout had been performed aspiration of the knee was performed and there was 30 cc of reddish- brown turbid fluid with particulate debris in it. This was sent for Gram stain aerobic and anaerobic culture fungus AFB crystal analysis and cell count with differential. During the surgical procedure synovial biopsies were obtained x 2 Drains 1 Hemovac exiting out the superior lateral arthroscopic portal not tied in Anesthesia Type General Complications none Disposition Accompanied Patient To Recovery: No Disposition: Recovery Room Indications Mr. Prabhakar is 73. Complicated past medical history including diabetes. Kidney failure on dialysis. About 2 weeks ago he presented with knee swelling and pain. The knee was aspirated and sent for analysis. He was given a cortisone shot which gave him a few days of relief and thereafter the symptoms came back. Everything from aspiration #1 culture fried crystals were negative. The synovial fluid white blood cell count was approximately 50,000. On July 08 he came back in because of worsening knee pain and swelling in his knee was reaspirated. These cultures also were negative but the white blood cell count was up to 80,000. Crystals negative. He had a abscess on his left thigh which is healing. He had been on some antibiotics. Given his hide health history and his recurrent knee effusions there is concern for occult infection and I have elected to recommend arthroscopic irrigation and debridement. Description of Procedure Inferolateral viewing portal superior lateral outflow portal and inferomedial working portals were established. Diagnostic arthroscopy was performed. There was extensive synovitis throughout the entire knee which was thoroughly debrided including the suprapatellar pouch medial lateral gutters anterior compartments notch and the posterior medial and lateral compartments. To gain access to the posterior medial and lateral compartments I inserted the scope through the notch via the Gillquist views and established to the posterior medial and lateral portals with a spinal needle followed by a blunt tipped obturator and cannula. The shaver was then introduced to debride. The cruciates were intact. There was fibrinous debris throughout the knee which was debrided. A synovial biopsy x 2 was obtained using a suction shaver. The retropatellar fat pad was resected. The patella showed some grade 2 and 3 chondrosis as did the trochlea the trochlea was debrided. The lateral compartment looked relatively normal with intact tibial and femoral cartilage. Some softening on the tibia. The lateral meniscus was intact and stable to probing. Meniscal roots were intact the popliteus and its hiatus were intact. Medial compartment showed grade 2 and 3 chondrosis of the medial femoral condyle. The tibial plateau showed intact cartilage with some softening. There was a chronic macerated degenerative tear of the medial meniscus which was debrided with basket forceps and motorized shaver. I perforated the MCL percutaneously to improve access to the medial compartment. A large Hemovac was placed into the superior lateral arthroscopic portal under direct visualization. 9+ liters of sterile saline were passed through the knee. Arthroscopic portals were closed with 4-0 nylon. A saw sterile dressing was applied Xeroform 4 x 4's ABD soft wrap and a full-length Ariel wrap. The patient was awakened from anesthesia without difficulty and taken to the recovery room in stable condition. Specimens were as mentioned above. Blood loss was 20 cc. Counts were correct and and there were no complications. At the conclusion of the operation spoke with patient's informed her of my findings. Postoperative plan is admit to the hospital continue IV antibiotics, dialysis and consult infectious diseases. Follow-up on cultures and biopsies.reoperative surgical [place] is performed. A preop dose of IV antibiotics was given. He was taken to the operating room positioned supine on the operating room table. The anesthetic was administered. A lateral post was used for stressing the knee. A bump was placed under the right hip. The right leg was scrubbed and then prepped and draped in the usual sterile fashion. DVT prophylaxis with foot pumps intraoperatively. Postop he will be placed back on his blood thinner. His blood thinner was held approximately 36 hours preoperatively and he was given Kcentra preoperatively. Prior to the start of the procedure the knee was aspirated as above. The examination showed that he had a large tense right knee effusion without induration or erythema but increased warmth. Range of motion was 0 to 110 degrees with gravity. His cruciates and collaterals were intact I attest to the content of the Intraoperative Record and any orders documented therein. Any exceptions are noted below.
[2023-07-22] MEDS ORDERED: fentaNYL citrate PF 100 MCG/2 ML VIAL IV PRN (16:34)
--- NOTE | 2023-07-22 16:36 | Anesthesiology Progress Note ---
Date of Service July 22, 2023 Anesthesia Post Procedure Vital Signs Vital Signs: Temp Pulse Pulse Pulse Resp BP BP 07/22/23 16:25 70 17 114/63 07/22/23 16:15 66 17 119/60 07/22/23 16:05 60 17 107/70 07/22/23 15:58 96.8 F L 91 H 18 113/60 07/22/23 13:31 98.2 F 102 H 16 95/56 L 07/22/23 12:55 98.1 F 84 99/60 L 07/22/23 12:30 101 H 88/41 L 07/22/23 12:00 94 H 91/47 L 07/22/23 11:30 90 94/62 L 07/22/23 11:00 91 H 99/46 L 07/22/23 10:30 82 111/55 L 07/22/23 10:00 84 96/51 L 07/22/23 09:30 82 98/57 L 07/22/23 09:07 98.2 F 80 07/22/23 09:05 99.0 F 84 20 99/62 L 07/22/23 08:43 99.0 F 84 20 99/62 L 07/22/23 07:54 77 07/22/23 06:00 76 21 07/22/23 05:00 78 23 07/22/23 05:00 106/65 07/22/23 04:00 97/56 L 07/22/23 04:00 77 20 07/22/23 03:00 84 22 107/70 07/22/23 01:51 82 18 110/62 07/21/23 21:00 83 18 102/61 07/21/23 21:00 07/21/23 19:02 84 19 146/82 H 07/21/23 17:16 97.3 F L 79 20 91/61 L Pulse Ox Pulse Ox O2 Del Method O2 Del Method O2 Flow Rate 07/22/23 16:25 100 Oxymask 5 07/22/23 16:15 100 Oxymask 5 07/22/23 16:05 99 Oxymask 5 07/22/23 15:58 96 Oxymask 5 07/22/23 13:31 97 Room Air 07/22/23 12:55 07/22/23 12:30 07/22/23 12:00 07/22/23 11:30 07/22/23 11:00 07/22/23 10:30 07/22/23 10:00 07/22/23 09:30 07/22/23 09:07 07/22/23 09:05 98 Room Air 07/22/23 08:43 99 Room Air 07/22/23 07:54 07/22/23 06:00 94 07/22/23 05:00 97 07/22/23 05:00 07/22/23 04:00 07/22/23 04:00 96 07/22/23 03:00 100 07/22/23 01:51 100 Room Air 07/21/23 21:00 98 Room Air 07/21/23 21:00 98 Room Air 07/21/23 19:02 95 Room Air 07/21/23 17:16 100 Room Air Pain Intensity Right Knee: Pain Intensity: 8 Transfer of Care Handoff Completed per policy Notes Mental Status: alert / awake / arousable and participated in evaluation Patient Amnestic to Procedure: Yes Nausea / Vomiting: adequately controlled Pain: adequately controlled Airway Patency, RR, SpO2: stable & adequate BP & HR: stable & adequate Hydration State: stable & adequate Anesthetic Complications: no major complications apparent and Pt Satisfied with anesthetic care
--- NOTE | 2023-07-22 17:19 | Electrocardiogram Report ---
Test Reason : Blood Pressure : / mmHG Vent. Rate : 079 BPM Atrial Rate : 079 BPM P-R Int : 318 ms QRS Dur : 096 ms QT Int : 382 ms P-R-T Axes : 077 -06 013 degrees QTc Int : 438 ms Poor data quality, interpretation may be adversely affected Sinus rhythm with 1st degree A-V block Low voltage QRS Possible Inferior infarct , age undetermined Abnormal ECG Confirmed by Alber Hough ([id number]) on 07/22/2023 5:19:01 PM Referred By: Дмитрий Aburto Confirmed By:Stuart Hough
[2023-07-22] MEDS ORDERED: NALOXONE HCL 0.4 MG/1 ML VIAL/CARP IV PRN (17:53)
[2023-07-22] MEDS: oxyCODONE HCL IR 5 MG TAB (IMMEDIATE RELEASE) PO PRN (18:33)
[2023-07-22] MEDS: ceFAZolin 2000MG 2,000 MG/15 ML SYR IV ONE (19:56)
[2023-07-22] MEDS: oxyCODONE HCL IR 5 MG TAB (IMMEDIATE RELEASE) ONE ×2 (19:59)
[2023-07-22] MEDS: LIDOCAINE 1%/EPINEPHRINE 1:100,000 20 ML VIAL ONE (19:59)
[2023-07-22] MEDS: HYDROmorphone INJ 1 MG/ML SYRINGE IV PRN (20:09)
[2023-07-22] MEDS: VANCOMYCIN HCL 1,000 MG in SODIUM CHLORIDE 0.9% 250 ML IV ONE (20:13)
[2023-07-22] MEDS: LANTUS PER UNIT CHARGE SC ONE (22:52)
[2023-07-22] MEDS: cefTRIAXone SODIUM 2,000 MG in DEXTROSE 5 % MINI-B 50 ML IV SCH (22:53)
[2023-07-22] MEDS: gemfibroziL 600 MG TAB PO SCH (23:04)
[2023-07-22] MEDS: ROSUVASTATIN CALCIUM 20 MG TAB PO SCH (23:05)
[2023-07-22] MEDS ORDERED: Nursing to Pharmacy Communication SCH (23:30)
[2023-07-23] MEDS: INSULIN ASPART PER UNIT CHARGE SC SCH (04:19)
[2023-07-23 07:12] LABS: Basophils # (auto) 0.06 K/uL (0.00-0.20); Basophils % (auto) 0.7 %; Eosinophils # (auto) 0.02 K/uL (0.00-0.50); Eosinophils % (auto) 0.2 %; Hematocrit (blood only) 32.4 % (42.0-52.0); Hemoglobin 10.2 g/dl (14.0-18.0); Immature Granulocytes # (auto) 0.03 K/uL (0.01-0.20); Immature Granulocytes % (auto) 0.4 %; Lymphocytes # (auto) 0.67 K/uL (1.20-3.40); Lymphocytes % (auto) 7.9 %; Mean Corpuscular Hgb Conc 31.5 g/dL (32.0-36.0); Mean Corpuscular Volume 98.5 fL (80.0-100.0); Mean Platelet Volume 9.6 fL (9.4-12.4); Monocytes # (auto) 0.93 K/uL (0.11-0.59); Neutrophils # (auto) 6.74 K/uL (1.40-6.50); Neutrophils % (auto) 79.8 %; Platelet Count 278 K/uL (130-400); RDW Coefficient of Variation 15.5 % (11.5-14.5); RDW Standard Deviation 56.1 fL (36.4-46.3); Red Blood Count 3.29 M/uL (4.70-6.10); White Blood Count 8.45 K/ul (4.8-10.8)
[2023-07-23 07:57] LABS: BUN Creatinine Ratio 6.4 (10-20); Calcium 10.1 mg/dl (8.6-10.3); Creatinine Clr Calc Pharmacy 15.3 ml/min; Est GFR (African American) 11.2 ml/min; Est GFR (Non-African American) 9.7 ml/min; Potassium 5.1 mmol/L (3.5-5.1)
[2023-07-23] MEDS: APIXABAN 5 MG TABLET PO SCH (08:48)
[2023-07-23] MEDS: ASPIRIN 81 MG ECTAB PO SCH (08:48)
--- NOTE | 2023-07-23 08:52 | Nephrology Progress Note ---
Date of Service July 23, 2023 Assessment & Plan (1) End-stage renal disease on hemodialysis: Plan: * ESKD due to DKD, hypertensive nephrosclerosis * Outpatient Rx: MWF @ [facility] Marc 4 hours, 450/500, 180 optiflux, 2K. EDW 114 kg * L BC AVF + bruit this am * Volume status and electrolyte balance are acceptable. No acute indication for HD this am (2) Anemia: Plan: * Hgb 10.2 this am * Will check iron studies with next lab draw and provide ZAINAB w/ next treatment (3) Septic arthritis of knee, right: Plan: * 07/22/23 R knee arthroscopic irrigation and debridement. Patient found to have diffuse synovitis, chondromalacia and medial meniscus tear * 07/22/23 wound specimen - gram stain + for WBC but no bacteria or fungi. Cultu res are pending Admission and Anticipated Discharge Date Admission Date: July 21, 2023 Subjective Mr. Prabhakar was evaluated in his hospital room this morning. He complains of R knee incisional discomfort and reports that he has a drain in place. He voices no other medical concerns. Mr. Prabhakar was last dialyzed 07/22/23 for 2L UF. There were no complications Review of Systems Constitutional: no fever Eyes: no problem reported Ear, Nose, Mouth, Throat: no problem reported Respiratory: no cough and no dyspnea Cardiovascular: no chest pain Gastrointestinal: no abdominal pain, no nausea, no vomiting and no diarrhea/loose stools Integumentary: no rash Physical Exam Constitutional: not in distress Eyes: PERRL, conjunctivae normal, anicteric sclerae ENMT: external ear and nose normal, oropharynx normal Neck: trachea midline, no thyromegaly Respiratory: normal respiratory effort, lungs clear to auscultation Cardiovascular: RRR, no murmur, no edema Extremities: + AV fistula (L BC AVF + bruit) Gastrointestinal (Abdomen): normal bowel sounds, soft, nontender, no hepatosplenomegaly Musculoskeletal: R knee wrapped w/ surgical drain in place Skin: no rashes, warm and dry Psychiatric: Affect: euthymic affect Results & Data Vital Signs (Past 12 Hours) Vital Signs Temp Pulse Pulse Resp BP Pulse Ox O2 Del Method 07/23/23 08:03 37.2 C 42 L 16 106/64 97 Room Air 07/23/23 06:25 85 07/23/23 04:00 36.8 C 117 H 20 112/66 95 Room Air 07/22/23 22:35 133 H 07/22/23 22:00 37 C 54 L 20 106/65 98 Room Air Laboratory Results Laboratory Results - last 24 hr 07/22/23 07/22/23 07/22/23 08:36 13:35 15:59 WBC RBC Hgb Hct MCV MCH MCHC RDW Std Deviation RDW Coeff of Mike Plt Count MPV Immature Gran % (Auto) Neut % (Auto) Lymph % (Auto) Evans % (Auto) Eos % (Auto) Baso % (Auto) Neut # (Auto) Lymph # (Auto) Evans # (Auto) Eos # (Auto) Baso # (Auto) Immature Gran # (Auto) Sodium Potassium Chloride Carbon Dioxide Anion Gap BUN Creatinine Est Cr Clr Drug Dosing Est GFR ( Amer) Est GFR (Non-Af Amer) BUN/Creatinine Ratio Glucose POC Glucose 90 92 110 H Calcium Fluid Comment Synovial Source Synovial Color Synovial Appearance Synovial WBC (Auto) Synovial RBC (Auto) Synovial Polynuclear % Synovial Mononuclear % Synovial Crystals Nasal Screen MRSA (PCR) 07/22/23 07/22/23 07/22/23 20:54 23:36 Unknown WBC RBC Hgb Hct MCV MCH MCHC RDW Std Deviation RDW Coeff of Mike Plt Count MPV Immature Gran % (Auto) Neut % (Auto) Lymph % (Auto) Evans % (Auto) Eos % (Auto) Baso % (Auto) Neut # (Auto) Lymph # (Auto) Evans # (Auto) Eos # (Auto) Baso # (Auto) Immature Gran # (Auto) Sodium Potassium Chloride Carbon Dioxide Anion Gap BUN Creatinine Est Cr Clr Drug Dosing Est GFR ( Amer) Est GFR (Non-Af Amer) BUN/Creatinine Ratio Glucose POC Glucose 184 H Calcium Fluid Comment Synovial Source Right Knee Synovial Color Jojo Synovial Appearance Bloody Synovial WBC (Auto) 70182 H Synovial RBC (Auto) 64040 Synovial Polynuclear % 96.8 Synovial Mononuclear % 3.2 Synovial Crystals Nasal Screen MRSA (PCR) Negative 07/23/23 07/23/23 07/23/23 04:08 06:26 08:12 WBC 8.45 RBC 3.29 L Hgb 10.2 L Hct 32.4 L MCV 98.5 MCH 31.0 MCHC 31.5 L RDW Std Deviation 56.1 H RDW Coeff of Mike 15.5 H Plt Count 278 MPV 9.6 Immature Gran % (Auto) 0.4 Neut % (Auto) 79.8 Lymph % (Auto) 7.9 Evans % (Auto) 11.0 Eos % (Auto) 0.2 Baso % (Auto) 0.7 Neut # (Auto) 6.74 H Lymph # (Auto) 0.67 L Evans # (Auto) 0.93 H Eos # (Auto) 0.02 Baso # (Auto) 0.06 Immature Gran # (Auto) 0.03 Sodium 136 Potassium 5.1 Chloride 98 Carbon Dioxide 23 Anion Gap 15 H BUN 35 H Creatinine 5.47 H* D Est Cr Clr Drug Dosing 15.3 Est GFR ( Amer) 11.2 Est GFR (Non-Af Amer) 9.7 BUN/Creatinine Ratio 6.4 L Glucose 239 H POC Glucose 236 H 227 H Calcium 10.1 Fluid Comment Synovial Source Synovial Color Synovial Appearance Synovial WBC (Auto) Synovial RBC (Auto) Synovial Polynuclear % Synovial Mononuclear % Synovial Crystals Nasal Screen MRSA (PCR) PG Care Time/CCT Total # of Minutes Spent Total Time Spent with Patient: Total time spent is greater than 50% in coordination of care (as documented) at patient's floor/unit and/or counseling patient: Coding Level of Care Code 61207 SUB INP/OBS CARE 3/50MIN Diagnoses End-stage renal disease on hemodialysis N18.6; Z99.2 Anemia D64.9 Septic arthritis of knee, right M00.9
[2023-07-23] MEDS: INSULIN HUMAN NPH SC SCH ×2 (09:16→18:14)
--- NOTE | 2023-07-23 11:10 | Hospitalist Progress Note ---
Date of Service July 23, 2023 Assessment & Plan (1) Septic arthritis of knee, right: Plan: 73 yo male with PMHx of CVA, ESRD on dialysis, HLD, DM2, HTN, pulmonary nodule, and atrial flutter presents with septic knee. #Septic arthritis of R knee -S/p antibiotics and 2x aspiration with synovial fluid results prompting referral to ED by orthopedist - now s/p R knee irrigation and debridement on 07/22 -R knee wound gram stain with WBCs but no bacteria. Cx pending -R knee wound fungal smear negative. Cx pending. -Continue Rocephin and vancomycin -blood cx NGTD -per ortho, ID and Rheumatology consulted for further evaluation #History of atrial flutter -Currently in NSR -restarted eliquis #Left thigh cellulitis with abscess -Ongoing for past month, now resolving s/p antibiotic treatment with Bactrim and amoxicillin -Improving, no active infection presently -Wound care consulted #ESRD on dialysis -MWF dialysis schedule -Dialysis management per nephrology #DM2 -on NPH sliding scale at home - continue SSI -pharmacy glycemic consult placed DVT ppx: Eliquis FEN/GI: DM2 Code Status: DNR/DNI Dispo: med tele (2) Abscess of left thigh: (3) End-stage renal disease on hemodialysis: (4) Peripheral arterial disease: (5) Secondary hyperparathyroidism of renal origin: (6) Coronary disease: (7) Hyperlipidemia: (8) Diabetic nephropathy: (9) Uncontrolled type 2 diabetes mellitus with hyperglycemia: (10) Atrial flutter with rapid ventricular response: Admission and Anticipated Discharge Date Admission Date: July 21, 2023 Supervising Physician Co-Signing Physician Notes ATTESTATION I also saw the patient and confirmed conrad portions of the history and exam. I agree with the impression and plan in the resident documentation, and as summarized below. At the time my exam, the patient is finishing lunch. Pain is well-controlled. He has no complaints. EXAM 96/60, 49, 16, 36.9, 90% on room air Pleasant alert. No distress. No complaints. DATA Labs Hemoglobin 10.2, WBC 8.45 Sodium 136, potassium 5.1, BUN 35, creatinine 5.47 IMPRESSION & PLAN Septic arthritis of the knee, right Status post irrigation and debridement by orthopedics, postop day #1 Continue current antibiotics pending cultures ID and rheumatology been consulted End-stage renal disease on hemodialysis Dialysis on a Tuesday schedule Nephrology consultation appreciated IDDM SSI with glycemic consult History of atrial flutter/atrial fibrillation Apixaban has been resumed Mild bradycardia appreciated; asymptomatic, will monitor Additional per resident documentation Subjective Patient seen at bedside. Doing well after surgery. Denies cp, sob, abd pain, N/V/D, fever, headache. Still with pain at R knee. Review of Systems Review of Systems: All systems reviewed & are unremarkable except as noted in HPI & below Physical Exam Physical Exam: Constitutional: in no acute distress, pleasant and normal affect, intact memory. AOx3. Vitals as above. HEENT: No scleral injection or discharge.Moist mucous membranes. Neck: Supple without lymphadenopathy or thyromegaly. Trachea midline. Lungs: CTAB with good effort. No wheezes/rales/rhonchi. Cardiac: RRR.No murmurs. 2+ distal peripheral pulses. Abdomen: Bowel sounds present. Soft, nontender, and nondistended.No guarding. No hepatosplenomegaly. MSK: R knee wrapped s/p surgery Skin: L posterior thigh with healing abscess. No evidence of surrounding cellulitis, nonerythematous, nontender. Neurologic: decreased sensation R lower extremity, unable to wiggle R toes at present Results & Data Results & Data Vital Signs (Past 12 Hours) Vital Signs Temp Pulse Pulse Resp BP Pulse Ox O2 Del Method 07/23/23 08:03 37.2 C 42 L 16 106/64 97 Room Air 07/23/23 06:25 85 07/23/23 04:00 36.8 C 117 H 20 112/66 95 Room Air Laboratory Results 07/23/23 07/23/23 07/23/23 Range/Units 08:12 06:26 04:08 WBC 8.45 (4.8-10.8) K/ul RBC 3.29 L (4.70-6.10) M/uL Hgb 10.2 L (14.0-18.0) g/dl Hct 32.4 L (42.0-52.0) % MCV 98.5 (80.0-100.0) fL MCH 31.0 (25.0-34.0) pg MCHC 31.5 L (32.0-36.0) g/dL RDW Std Deviation 56.1 H (36.4-46.3) fL RDW Coeff of Mike 15.5 H (11.5-14.5) % Plt Count 278 (130-400) K/uL MPV 9.6 (9.4-12.4) fL Immature Gran % (Auto) 0.4 % Neut % (Auto) 79.8 % Lymph % (Auto) 7.9 % Villalba % (Auto) 11.0 % Eos % (Auto) 0.2 % Baso % (Auto) 0.7 % Neut # (Auto) 6.74 H (1.40-6.50) K/uL Lymph # (Auto) 0.67 L (1.20-3.40) K/uL Villalba # (Auto) 0.93 H (0.11-0.59) K/uL Eos # (Auto) 0.02 (0.00-0.50) K/uL Baso # (Auto) 0.06 (0.00-0.20) K/uL Immature Gran # (Auto) 0.03 (0.01-0.20) K/uL Sodium 136 (136-145) mmol/L Potassium 5.1 (3.5-5.1) mmol/L Chloride 98 (98-107) mmol/L Carbon Dioxide 23 (21-32) mmol/L Anion Gap 15 H (3-11) BUN 35 H (6-23) mg/dl Creatinine 5.47 H* D (0.6-1.4) mg/dl Est Cr Clr Drug Dosing 15.3 ml/min Est GFR ( Amer) 11.2 ml/min Est GFR (Non-Af Amer) 9.7 ml/min BUN/Creatinine Ratio 6.4 L (10-20) Glucose 239 H (70-99(Fasting)) mg/dl POC Glucose 227 H 236 H (70-99) mg/dl Calcium 10.1 (8.6-10.3) mg/dl Fluid Comment Synovial Source Synovial Color Synovial Appearance Synovial WBC (Auto) (0-200) /ul Synovial RBC (Auto) /uL Synovial Polynuclear % % Synovial Mononuclear % % Synovial Crystals Nasal Screen MRSA (PCR) (Negative) 07/22/23 07/22/23 07/22/23 Range/Units Unknown 23:36 20:54 WBC (4.8-10.8) K/ul RBC (4.70-6.10) M/uL Hgb (14.0-18.0) g/dl Hct (42.0-52.0) % MCV (80.0-100.0) fL MCH (25.0-34.0) pg MCHC (32.0-36.0) g/dL RDW Std Deviation (36.4-46.3) fL RDW Coeff of Mike (11.5-14.5) % Plt Count (130-400) K/uL MPV (9.4-12.4) fL Immature Gran % (Auto) % Neut % (Auto) % Lymph % (Auto) % Villalba % (Auto) % Eos % (Auto) % Baso % (Auto) % Neut # (Auto) (1.40-6.50) K/uL Lymph # (Auto) (1.20-3.40) K/uL Villalba # (Auto) (0.11-0.59) K/uL Eos # (Auto) (0.00-0.50) K/uL Baso # (Auto) (0.00-0.20) K/uL Immature Gran # (Auto) (0.01-0.20) K/uL Sodium (136-145) mmol/L Potassium (3.5-5.1) mmol/L Chloride (98-107) mmol/L Carbon Dioxide (21-32) mmol/L Anion Gap (3-11) BUN (6-23) mg/dl Creatinine (0.6-1.4) mg/dl Est Cr Clr Drug Dosing ml/min Est GFR ( Amer) ml/min Est GFR (Non-Af Amer) ml/min BUN/Creatinine Ratio (10-20) Glucose (70-99(Fasting)) mg/dl POC Glucose 184 H (70-99) mg/dl Calcium (8.6-10.3) mg/dl Fluid Comment Synovial Source Right Knee Synovial Color Jojo Synovial Appearance Bloody Synovial WBC (Auto) 06045 H (0-200) /ul Synovial RBC (Auto) 44660 /uL Synovial Polynuclear % 96.8 % Synovial Mononuclear % 3.2 % Synovial Crystals Nasal Screen MRSA (PCR) Negative (Negative) 07/22/23 07/22/23 Range/Units 15:59 13:35 WBC (4.8-10.8) K/ul RBC (4.70-6.10) M/uL Hgb (14.0-18.0) g/dl Hct (42.0-52.0) % MCV (80.0-100.0) fL MCH (25.0-34.0) pg MCHC (32.0-36.0) g/dL RDW Std Deviation (36.4-46.3) fL RDW Coeff of Mike (11.5-14.5) % Plt Count (130-400) K/uL MPV (9.4-12.4) fL Immature Gran % (Auto) % Neut % (Auto) % Lymph % (Auto) % Villalba % (Auto) % Eos % (Auto) % Baso % (Auto) % Neut # (Auto) (1.40-6.50) K/uL Lymph # (Auto) (1.20-3.40) K/uL Villalba # (Auto) (0.11-0.59) K/uL Eos # (Auto) (0.00-0.50) K/uL Baso # (Auto) (0.00-0.20) K/uL Immature Gran # (Auto) (0.01-0.20) K/uL Sodium (136-145) mmol/L Potassium (3.5-5.1) mmol/L Chloride (98-107) mmol/L Carbon Dioxide (21-32) mmol/L Anion Gap (3-11) BUN (6-23) mg/dl Creatinine (0.6-1.4) mg/dl Est Cr Clr Drug Dosing ml/min Est GFR ( Amer) ml/min Est GFR (Non-Af Amer) ml/min BUN/Creatinine Ratio (10-20) Glucose (70-99(Fasting)) mg/dl POC Glucose 110 H 92 (70-99) mg/dl Calcium (8.6-10.3) mg/dl Fluid Comment Synovial Source Synovial Color Synovial Appearance Synovial WBC (Auto) (0-200) /ul Synovial RBC (Auto) /uL Synovial Polynuclear % % Synovial Mononuclear % % Synovial Crystals Nasal Screen MRSA (PCR) (Negative) Resident Activity Tracking Resident Involvement: Resident Care Provided Care Provided: Adult Hospital Medicine (7) Hyperlipidemia Hyperlipidemia type: unspecified Qualified Code(s): E78.5 - Hyperlipidemia, unspecified (8) Diabetic nephropathy Diabetes mellitus type: type 2 Qualified Code(s): E11.21 - Type 2 diabetes mellitus with diabetic nephropathy
--- NOTE | 2023-07-23 12:27 | Orthopedic Progress Note ---
Date of Service July 23, 2023 Assessment & Plan (1) Right knee pain: Plan: Findings discussed. Continue IV antibiotics. Appreciate input from medicine and nephrology. PT and OT. DVT prophylaxis. He is back on his Eliquis. Knee immobilizer for now. Will leave dressing in place. Have to be careful with his skin and have propped his heels up off of the bed. Will consult infectious diseases as well as rheumatology for their input. There is no personal or family history of rheumatoid type disease. Crystals are negative. The cell count in the fluid is 70,000 white blood cells. Gram stain and fungi are negative. Blood and wound cultures are no growth to date. Has also had previous cultures as an outpatient at [facility] which also have been no growth to date. Will check inflammatory markers as well as some rheumatologic labs. (2) Effusion, right knee: Admission and Anticipated Discharge Date Admission Date: July 21, 2023 Subjective No problems reported.Pain well-controlled.Surgical findings discussed. Lab results discussed. Physical Exam Physical Exam: He has a chronic right dropfoot. He is able to plantarflex ankle invert and slightly katharine but not dorsiflex. PT pulse is dopplerable foot is warm with ca pillary refill less than 2 seconds. Sensation is grossly intact to light touch but globally diminished. Dressing is clean dry and intact. Drain output was listed as 0 and was pulled. Results & Data Vital Signs (Past 12 Hours) Vital Signs Temp Pulse Pulse Resp BP Pulse Ox O2 Del Method 07/23/23 08:03 37.2 C 42 L 16 106/64 97 Room Air 07/23/23 06:25 85 07/23/23 04:00 36.8 C 117 H 20 112/66 95 Room Air Laboratory Results 07/23/23 07/23/23 07/23/23 Range/Units 12:09 08:12 06:26 WBC 8.45 (4.8-10.8) K/ul RBC 3.29 L (4.70-6.10) M/uL Hgb 10.2 L (14.0-18.0) g/dl Hct 32.4 L (42.0-52.0) % MCV 98.5 (80.0-100.0) fL MCH 31.0 (25.0-34.0) pg MCHC 31.5 L (32.0-36.0) g/dL RDW Std Deviation 56.1 H (36.4-46.3) fL RDW Coeff of Mike 15.5 H (11.5-14.5) % Plt Count 278 (130-400) K/uL MPV 9.6 (9.4-12.4) fL Immature Gran % (Auto) 0.4 % Neut % (Auto) 79.8 % Lymph % (Auto) 7.9 % Dickson % (Auto) 11.0 % Eos % (Auto) 0.2 % Baso % (Auto) 0.7 % Neut # (Auto) 6.74 H (1.40-6.50) K/uL Lymph # (Auto) 0.67 L (1.20-3.40) K/uL Dickson # (Auto) 0.93 H (0.11-0.59) K/uL Eos # (Auto) 0.02 (0.00-0.50) K/uL Baso # (Auto) 0.06 (0.00-0.20) K/uL Immature Gran # (Auto) 0.03 (0.01-0.20) K/uL Sodium 136 (136-145) mmol/L Potassium 5.1 (3.5-5.1) mmol/L Chloride 98 (98-107) mmol/L Carbon Dioxide 23 (21-32) mmol/L Anion Gap 15 H (3-11) BUN 35 H (6-23) mg/dl Creatinine 5.47 H* D (0.6-1.4) mg/dl Est Cr Clr Drug Dosing 15.3 ml/min Est GFR ( Amer) 11.2 ml/min Est GFR (Non-Af Amer) 9.7 ml/min BUN/Creatinine Ratio 6.4 L (10-20) Glucose 239 H (70-99(Fasting)) mg/dl POC Glucose 215 H 227 H (70-99) mg/dl Calcium 10.1 (8.6-10.3) mg/dl Fluid Comment Synovial Source Synovial Color Synovial Appearance Synovial WBC (Auto) (0-200) /ul Synovial RBC (Auto) /uL Synovial Polynuclear % % Synovial Mononuclear % % Synovial Crystals Nasal Screen MRSA (PCR) (Negative) 07/23/23 07/22/23 07/22/23 Range/Units 04:08 Unknown 23:36 WBC (4.8-10.8) K/ul RBC (4.70-6.10) M/uL Hgb (14.0-18.0) g/dl Hct (42.0-52.0) % MCV (80.0-100.0) fL MCH (25.0-34.0) pg MCHC (32.0-36.0) g/dL RDW Std Deviation (36.4-46.3) fL RDW Coeff of Mike (11.5-14.5) % Plt Count (130-400) K/uL MPV (9.4-12.4) fL Immature Gran % (Auto) % Neut % (Auto) % Lymph % (Auto) % Dickson % (Auto) % Eos % (Auto) % Baso % (Auto) % Neut # (Auto) (1.40-6.50) K/uL Lymph # (Auto) (1.20-3.40) K/uL Dickson # (Auto) (0.11-0.59) K/uL Eos # (Auto) (0.00-0.50) K/uL Baso # (Auto) (0.00-0.20) K/uL Immature Gran # (Auto) (0.01-0.20) K/uL Sodium (136-145) mmol/L Potassium (3.5-5.1) mmol/L Chloride (98-107) mmol/L Carbon Dioxide (21-32) mmol/L Anion Gap (3-11) BUN (6-23) mg/dl Creatinine (0.6-1.4) mg/dl Est Cr Clr Drug Dosing ml/min Est GFR ( Amer) ml/min Est GFR (Non-Af Amer) ml/min BUN/Creatinine Ratio (10-20) Glucose (70-99(Fasting)) mg/dl POC Glucose 236 H (70-99) mg/dl Calcium (8.6-10.3) mg/dl Fluid Comment Synovial Source Right Knee Synovial Color Jojo Synovial Appearance Bloody Synovial WBC (Auto) 17660 H (0-200) /ul Synovial RBC (Auto) 32539 /uL Synovial Polynuclear % 96.8 % Synovial Mononuclear % 3.2 % Synovial Crystals Nasal Screen MRSA (PCR) Negative (Negative) 0107/22/23 07/22/23 Range/Units 20:54 15:59 13:35 WBC (4.8-10.8) K/ul RBC (4.70-6.10) M/uL Hgb (14.0-18.0) g/dl Hct (42.0-52.0) % MCV (80.0-100.0) fL MCH (25.0-34.0) pg MCHC (32.0-36.0) g/dL RDW Std Deviation (36.4-46.3) fL RDW Coeff of Mike (11.5-14.5) % Plt Count (130-400) K/uL MPV (9.4-12.4) fL Immature Gran % (Auto) % Neut % (Auto) % Lymph % (Auto) % Dickson % (Auto) % Eos % (Auto) % Baso % (Auto) % Neut # (Auto) (1.40-6.50) K/uL Lymph # (Auto) (1.20-3.40) K/uL Dickson # (Auto) (0.11-0.59) K/uL Eos # (Auto) (0.00-0.50) K/uL Baso # (Auto) (0.00-0.20) K/uL Immature Gran # (Auto) (0.01-0.20) K/uL Sodium (136-145) mmol/L Potassium (3.5-5.1) mmol/L Chloride (98-107) mmol/L Carbon Dioxide (21-32) mmol/L Anion Gap (3-11) BUN (6-23) mg/dl Creatinine (0.6-1.4) mg/dl Est Cr Clr Drug Dosing ml/min Est GFR ( Amer) ml/min Est GFR (Non-Af Amer) ml/min BUN/Creatinine Ratio (10-20) Glucose (70-99(Fasting)) mg/dl POC Glucose 184 H 110 H 92 (70-99) mg/dl Calcium (8.6-10.3) mg/dl Fluid Comment Synovial Source Synovial Color Synovial Appearance Synovial WBC (Auto) (0-200) /ul Synovial RBC (Auto) /uL Synovial Polynuclear % % Synovial Mononuclear % % Synovial Crystals Nasal Screen MRSA (PCR) (Negative)
--- NOTE | 2023-07-23 13:50 | Pharmacy Report ---
Pharmacy Glycemic Short Note 2 - Date of Service July 23, 2023 - Glycemic Short BSG Results (Last 24 hours): 07/22/23 07/22/23 07/23/23 15:59 20:54 04:08 Glucose POC Glucose 110 H 184 H 236 H 07/23/23 07/23/23 07/23/23 06:26 08:12 12:09 Glucose 239 H POC Glucose 227 H 215 H OUTPATIENT ANTIDIABETIC REGIMEN: * Novolin 70/30 - BID with meals based on blood sugar, usually 10-20 units BID * No A1c ordered, as they are unreliable in ESRD patients d/t interactions between the A1c analyzing technique and high levels of urea in ESRD, reduced RBC life span, iron deficiency anemia, and EPO administration. HbA1c > 7.5% in ESRD patient may overestimate the extent of hyperglycemia in ESRD patients. ASSESSMENT: 07/23 * POD #1 s/p right knee arthroscopic I&D - IV dexamethasone pulled in OR * Lantus given yesterday, will change back to NPH today in light of home regimen and now that diet is ordered * Still trying to determine accurate insulin needs - will maintain current Novolog despite highs so far today * Hemodialysis yesterday 07/22 * Patient received total of 25 units of insulin yesterday, of which 15 units were NPH * Fasting BSG 90 mg/dL - patient NPO for OR today for washout of knee * Reasonable to continue novolog for today 07/21 * 73 yo male, T2DM, admitted with septic arthritis of right knee. * Outpatient regimen is premixed basal/prandial insulin of Novolin 70/30 mix insulin. * Pre-mixed insulin is difficult to titrate since it is already in a fixed distribution of basal:prandial insulin. Continuing pre-mixed insulin for admission typically lead to hypoglycemia d/t changing PO status but rapid acting insulin is unable to be held. * Home regimen will be held for admission per pharmacy consult. Will utilize recommended regimen of SQ basal bolus insulin regimen with NPH to match home basal + NovoLog (CF+CR) PLAN FOR INPATIENT GLYCEMIC CONTROL: * Basal insulin * NPH 8-13 units SC BIDM * Bolus insulin * NovoLog per scale ACHS or Q6hrs while NPO * Goal Range: Low 110 mg/dL - High 140 mg/dL * Correction Factor: 30 mg/dL/unit * Nutritional / Prandial insulin per carb ratio of 1 unit per 10 grams CHO consumed
[2023-07-23] MEDS: DAPTOmycin 350 MG in SYRINGE 0 ML IV SCH (17:07)
[2023-07-23] MEDS: HYDROmorphone INJ 0.5 MG/0.5 ML SYR IV PRN (21:13)
[2023-07-24 05:58] LABS: Hematocrit (blood only) 31.9 % (42.0-52.0); Hemoglobin 10.5 g/dl (14.0-18.0); Mean Corpuscular Hemoglobin 31.9 pg (25.0-34.0); Mean Corpuscular Hgb Conc 32.9 g/dL (32.0-36.0); Mean Platelet Volume 9.7 fL (9.4-12.4); Platelet Count 285 K/uL (130-400); RDW Coefficient of Variation 15.4 % (11.5-14.5); RDW Standard Deviation 54.5 fL (36.4-46.3); Red Blood Count 3.29 M/uL (4.70-6.10); White Blood Count 6.87 K/ul (4.8-10.8)
[2023-07-24 06:15] LABS: Potassium 5.2 mmol/L (3.5-5.1)
[2023-07-24 06:16] LABS: BUN Creatinine Ratio 7.8 (10-20); Calcium 10.2 mg/dl (8.6-10.3); Creatinine Clr Calc Pharmacy 11.7 ml/min; Est GFR (Non-African American) 6.9 ml/min
[2023-07-24 06:36] LABS: C Reactive Protein 34.81 mg/dl (0-0.5); Ferritin 146.3 ng/ml (8-388)
--- NOTE | 2023-07-24 09:15 | Nephrology Progress Note ---
Date of Service July 24, 2023 Assessment & Plan (1) End-stage renal disease on hemodialysis: Plan: * ESKD due to DKD, hypertensive nephrosclerosis * Outpatient Rx: MWF @ [facility] Marc 4 hours, 450/500, 180 optiflux, 2K. EDW 114 kg * L BC AVF + bruit this am * Volume status remains acceptable. Potassium is high normal. Will provide Lokelma 10g po x2 doses today and add HD restriction to diet order. Plan next HD for am (2) Anemia: Plan: * Hgb 10.5 this am * 07/23/23 iron saturation 16%, ferritin 146 * Will provide IV iron and ZAINAB w/ HD tomorrow (3) Septic arthritis of knee, right: Plan: * 07/22/23 R knee arthroscopic irrigation and debridement. Patient found to have diffuse synovitis, chondromalacia and medial meniscus tear * 07/22/23 wound specimen - gram stain + for WBC but no bacteria or fungi. Bacterial culture is negative. Fungal culture is pending * Orthopedics has requested consultation w/ ID * LESLYE, RF - pending Admission and Anticipated Discharge Date Admission Date: July 21, 2023 Subjective Mr. Prabhakar was evaluated in his hospital room this morning. He complains of R knee incisional discomfort but reports that this has improved following Diluadid administration. He voices no other medical concerns. Mr. Prabhakar was last dialyzed 07/22/23 for 2L UF. There were no complications Review of Systems Constitutional: no fever Eyes: no problem reported Ear, Nose, Mouth, Throat: no problem reported Respiratory: no cough and no dyspnea Cardiovascular: no chest pain Gastrointestinal: no abdominal pain, no nausea, no vomiting and no diarrhea/ loose stools Integumentary: no rash Physical Exam Constitutional: not in distress Eyes: PERRL, conjunctivae normal, anicteric sclerae ENMT: external ear and nose normal, oropharynx normal Neck: trachea midline, no thyromegaly Respiratory: normal respiratory effort, lungs clear to auscultation Cardiovascular: RRR, no murmur, no edema Extremities: + AV fistula (L BC AVF + bruit) Gastrointestinal (Abdomen): normal bowel sounds, soft, nontender, no hepatosplenomegaly Skin: no rashes, warm and dry Psychiatric: Affect: euthymic affect Results & Data Vital Signs (Past 12 Hours) Vital Signs Temp Pulse Pulse Resp BP Pulse Ox O2 Del Method 07/24/23 07:44 36.8 C 91 H 16 94/58 L 96 Room Air 07/24/23 07:35 Room Air 07/24/23 03:00 36.7 C 84 20 105/64 96 Room Air 07/23/23 22:32 84 07/23/23 22:00 37 C 85 20 100/58 L 95 Room Air Laboratory Results Laboratory Results - last 24 hr 07/23/23 07/23/23 07/23/23 12:09 17:16 20:21 WBC RBC Hgb Hct MCV MCH MCHC RDW Std Deviation RDW Coeff of Mike Plt Count MPV ESR Sodium Potassium Chloride Carbon Dioxide Anion Gap BUN Creatinine Est Cr Clr Drug Dosing Est GFR ( Amer) Est GFR (Non-Af Amer) BUN/Creatinine Ratio Glucose POC Glucose 215 H 165 H 181 H Calcium Iron TIBC Unsaturated IBC Transferrin % Sat Ferritin C-Reactive Protein Rheumatoid Factor LESLYE Screen 07/24/23 07/24/23 05:15 08:27 WBC 6.87 RBC 3.29 L Hgb 10.5 L Hct 31.9 L MCV 97.0 MCH 31.9 MCHC 32.9 RDW Std Deviation 54.5 H RDW Coeff of Mike 15.4 H Plt Count 285 MPV 9.7 ESR 103 H Sodium 135 L Potassium 5.2 H Chloride 96 L Carbon Dioxide 24 Anion Gap 15 H BUN 56 H D Creatinine 7.22 H* D Est Cr Clr Drug Dosing 11.7 Est GFR ( Amer) 8.0 Est GFR (Non-Af Amer) 6.9 BUN/Creatinine Ratio 7.8 L Glucose 127 H POC Glucose 144 H Calcium 10.2 Iron 24 L TIBC 149 L Unsaturated IBC 125 L Transferrin % Sat 16 L Ferritin 146.3 C-Reactive Protein 34.81 H Rheumatoid Factor Pending LESLYE Screen Pending PG Care Time/CCT Total # of Minutes Spent Total Time Spent with Patient: Total time spent is greater than 50% in coordination of care (as documented) at patient's floor/unit and/or counseling patient: Coding Level of Care Code 17380 SUB INP/OBS CARE 3/50MIN Diagnoses End-stage renal disease on hemodialysis N18.6; Z99.2 Anemia D64.9 Septic arthritis of knee, right M00.9
--- NOTE | 2023-07-24 09:20 | Hospitalist Progress Note ---
Date of Service July 24, 2023 Assessment & Plan (1) Septic arthritis of knee, right: Plan: 73 yo male with PMHx of CVA, ESRD on dialysis, HLD, DM2, HTN, pulmonary nodule, and atrial flutter presents with septic knee. #R knee pain -S/p antibiotics and 2x aspiration with synovial fluid results prompting referral to ED by orthopedist - now s/p R knee irrigation and debridement on 07/22. Unclear at this time if infectious vs rheumatologic in nature. -R knee wound gram stain with WBCs but no bacteria. Culture pending -R knee wound fungal smear negative. Culture pending. -Continue Rocephin and vancomycin -blood cx NGTD -ESR and CRP markedly elevated -LESLYE, rheumatoid factor pending -per ortho, ID and Rheumatology consulted for further evaluation #History of atrial flutter -Currently in NSR -cont. eliquis #Left thigh cellulitis with abscess -Ongoing for past month, now resolving s/p antibiotic treatment with Bactrim and amoxicillin -Improving, no active infection presently -Wound care following #ESRD on dialysis -MWF dialysis schedule -Dialysis management per nephrology #DM2 -on NPH sliding scale at home - continue SSI -pharmacy glycemic consult placed DVT ppx: Eliquis FEN/GI: DM2 Code Status: DNR/DNI Dispo: med tele (2) Abscess of left thigh: (3) End-stage renal disease on hemodialysis: (4) Peripheral arterial disease: (5) Secondary hyperparathyroidism of renal origin: (6) Coronary disease: (7) Hyperlipidemia: (8) Diabetic nephropathy: (9) Uncontrolled type 2 diabetes mellitus with hyperglycemia: (10) Atrial flutter with rapid ventricular response: Admission and Anticipated Discharge Date Admission Date: July 21, 2023 Supervising Physician Co-Signing Physician Notes ATTESTATION I also saw the patient and confirmed conrad portions of the history and exam. I agree with the impression and plan in the resident documentation, and as summarized below. At the time of our late morning exam, patient is without complaint. Although more knee pain than yesterday, but comfortable at the time of our exam. EXAM 115/64, 74, 16, 36.7, 94% on room air Pleasant alert. No distress. No complaints. DATA Labs Hemoglobin 10.5, WBC 6.87 Sodium 135, potassium 5.2, BUN 56, creatinine 7.22 Iron 24, TIBC 149, transferrin saturation 16% C-reactive protein 34.81, ESR 103 Micro Gram stain from the right knee collected 07/22/2023 showed white blood cells but no organisms, culture showed no growth to date. Blood cultures collected 07/21/2023 showed no growth at 48 hours. IMPRESSION & PLAN Septic arthritis of the knee, right Status post irrigation and debridement by orthopedics, postop day #2 Elevated inflammatory markers, disproportionate perhaps to infection, perhaps suggesting rheumatologic etiology Continue current antibiotics pending cultures ID and rheumatology been consulted End-stage renal disease on hemodialysis Anemia Dialysis on a Tuesday schedule Nephrology consultation appreciated IDDM SSI with glycemic consult History of atrial flutter/atrial fibrillation Apixaban has been resumed Mild bradycardia appreciated; asymptomatic, will monitor Additional per resident documentation Subjective Patient seen at bedside. No acute changes. R knee in less pain than previous. Denies cp, sob, fever, abd pain, N/V. Review of Systems Review of Systems: All systems reviewed & are unremarkable except as noted in HPI & below Physical Exam Physical Exam: Constitutional: in no acute distress, pleasant and normal affect, intact memory. AOx3. Vitals as above. HEENT: No scleral injection or discharge.Moist mucous membranes. Neck: Supple without lymphadenopathy or thyromegaly. Trachea midline. Lungs: CTAB with good effort. No wheezes/rales/rhonchi. Cardiac: RRR.No murmurs. 2+ distal peripheral pulses. Abdomen: Bowel sounds present. Soft, nontender, and nondistended.No guarding. No hepatosplenomegaly. MSK: R knee wrapped s/p surgery Skin: L posterior thigh with healing abscess. No evidence of surrounding cellulitis, nonerythematous, nontender. Neurologic: no focal deficits Results & Data Results & Data Vital Signs (Past 12 Hours) Vital Signs Temp Pulse Pulse Resp BP Pulse Ox O2 Del Method 07/24/23 09:16 91 H 07/24/23 07:44 36.8 C 91 H 16 94/58 L 96 Room Air 07/24/23 07:35 Room Air 07/24/23 03:00 36.7 C 84 20 105/64 96 Room Air 07/23/23 22:32 84 07/23/23 22:00 37 C 85 20 100/58 L 95 Room Air Laboratory Results 07/24/23 07/24/23 07/23/23 Range/Units 08:27 05:15 20:21 WBC 6.87 (4.8-10.8) K/ul RBC 3.29 L (4.70-6.10) M/uL Hgb 10.5 L (14.0-18.0) g/dl Hct 31.9 L (42.0-52.0) % MCV 97.0 (80.0-100.0) fL MCH 31.9 (25.0-34.0) pg MCHC 32.9 (32.0-36.0) g/dL RDW Std Deviation 54.5 H (36.4-46.3) fL RDW Coeff of Mike 15.4 H (11.5-14.5) % Plt Count 285 (130-400) K/uL MPV 9.7 (9.4-12.4) fL ESR 103 H (0-20) mm/hr Sodium 135 L (136-145) mmol/L Potassium 5.2 H (3.5-5.1) mmol/L Chloride 96 L (98-107) mmol/L Carbon Dioxide 24 (21-32) mmol/L Anion Gap 15 H (3-11) BUN 56 H D (6-23) mg/dl Creatinine 7.22 H* D (0.6-1.4) mg/dl Est Cr Clr Drug Dosing 11.7 ml/min Est GFR ( Amer) 8.0 ml/min Est GFR (Non-Af Amer) 6.9 ml/min BUN/Creatinine Ratio 7.8 L (10-20) Glucose 127 H (70-99(Fasting)) mg/dl POC Glucose 144 H 181 H (70-99) mg/dl Calcium 10.2 (8.6-10.3) mg/dl Iron 24 L (35-175) mcg/dl TIBC 149 L (250-450) mcg/dl Unsaturated IBC 125 L (155-355) mcg/dl Transferrin % Sat 16 L (20-50) % Ferritin 146.3 (8-388) ng/ml C-Reactive Protein 34.81 H (0-0.5) mg/dl Rheumatoid Factor Pending LESLYE Screen Pending 01/27/24 01/27/24 Range/Units 17:16 12:09 WBC (4.8-10.8) K/ul RBC (4.70-6.10) M/uL Hgb (14.0-18.0) g/dl Hct (42.0-52.0) % MCV (80.0-100.0) fL MCH (25.0-34.0) pg MCHC (32.0-36.0) g/dL RDW Std Deviation (36.4-46.3) fL RDW Coeff of Mike (11.5-14.5) % Plt Count (130-400) K/uL MPV (9.4-12.4) fL ESR (0-20) mm/hr Sodium (136-145) mmol/L Potassium (3.5-5.1) mmol/L Chloride (98-107) mmol/L Carbon Dioxide (21-32) mmol/L Anion Gap (3-11) BUN (6-23) mg/dl Creatinine (0.6-1.4) mg/dl Est Cr Clr Drug Dosing ml/min Est GFR ( Amer) ml/min Est GFR (Non-Af Amer) ml/min BUN/Creatinine Ratio (10-20) Glucose (70-99(Fasting)) mg/dl POC Glucose 165 H 215 H (70-99) mg/dl Calcium (8.6-10.3) mg/dl Iron (35-175) mcg/dl TIBC (250-450) mcg/dl Unsaturated IBC (155-355) mcg/dl Transferrin % Sat (20-50) % Ferritin (8-388) ng/ml C-Reactive Protein (0-0.5) mg/dl Rheumatoid Factor LESLYE Screen Resident Activity Tracking Resident Involvement: Resident Care Provided Care Provided: Adult [facility] (7) Hyperlipidemia Hyperlipidemia type: unspecified Qualified Code(s): E78.5 - Hyperlipidemia, unspecified (8) Diabetic nephropathy Diabetes mellitus type: type 2 Qualified Code(s): E11.21 - Type 2 diabetes mellitus with diabetic nephropathy
[2023-07-24] MEDS: SODIUM CHLORIDE 0.9% 500 ML IV ONE (10:06)
--- NOTE | 2023-07-24 14:05 | Orthopedic Progress Note ---
Date of Service July 24, 2023 Assessment & Plan (1) Effusion, right knee: Plan: Encouraged him to do some simple exercises. Wiggle toes. Ankle pumps straight leg raises knee flexion. Needs frequent repositioning and attention to bony prominences to prevent wounds from developing. PT OT and wound care are seeing. Sed rate and C-reactive protein are markedly elevated. All cultures are no growth to date. AFB pending. Continue IV antibiotics. Rheumatology and ID consults are pending. A possible scenario is that the abscess from the left leg seeded the right knee and nothing grew because he was being treated with antibiotics. (2) Right knee pain: Admission and Anticipated Discharge Date Admission Date: July 24, 2023 Subjective Feeling well. Still has pain in right knee. Reports that the night nurse was able to change the left buttock dressing. He has difficulty positioning. Everything looks good. Also he has finished radiation treatments for suspected lung cancer end of May. That was done here at the [facility]. Physical Exam Physical Exam: Neurovascular intact and unchanged with the exception of weakness of ankle and toe dorsiflexion and eversion. The leg is minimally swollen. Dressing changed. No erythema or significant induration and minimal drainage. There is an area over the tibial tubercle with some 2 x 2 area of blistering or abrasion which results in loss of epidermis. No effusion. Knee remains tender to palpation medial and lateral. A new dressing was applied. He is able to do an active straight leg raise and his knee range of motion 0//30. Results & Data Vital Signs (Past 12 Hours) Vital Signs Temp Pulse Pulse Resp BP Pulse Ox O2 Del Method 07/24/23 12:41 36.7 C 74 16 115/64 94 Room Air 07/24/23 09:16 91 H 07/24/23 07:44 36.8 C 91 H 16 94/58 L 96 Room Air 07/24/23 07:35 Room Air 07/24/23 03:00 36.7 C 84 20 105/64 96 Room Air Laboratory Results 07/24/23 07/24/23 07/24/23 Range/Units 12:19 08:27 05:15 WBC 6.87 (4.8-10.8) K/ul RBC 3.29 L (4.70-6.10) M/uL Hgb 10.5 L (14.0-18.0) g/dl Hct 31.9 L (42.0-52.0) % MCV 97.0 (80.0-100.0) fL MCH 31.9 (25.0-34.0) pg MCHC 32.9 (32.0-36.0) g/dL RDW Std Deviation 54.5 H (36.4-46.3) fL RDW Coeff of Mike 15.4 H (11.5-14.5) % Plt Count 285 (130-400) K/uL MPV 9.7 (9.4-12.4) fL ESR 103 H (0-20) mm/hr Sodium 135 L (136-145) mmol/L Potassium 5.2 H (3.5-5.1) mmol/L Chloride 96 L (98-107) mmol/L Carbon Dioxide 24 (21-32) mmol/L Anion Gap 15 H (3-11) BUN 56 H D (6-23) mg/dl Creatinine 7.22 H* D (0.6-1.4) mg/dl Est Cr Clr Drug Dosing 11.7 ml/min Est GFR ( Amer) 8.0 ml/min Est GFR (Non-Af Amer) 6.9 ml/min BUN/Creatinine Ratio 7.8 L (10-20) Glucose 127 H (70-99(Fasting)) mg/dl POC Glucose 183 H 144 H (70-99) mg/dl Calcium 10.2 (8.6-10.3) mg/dl Iron 24 L (35-175) mcg/dl TIBC 149 L (250-450) mcg/dl Unsaturated IBC 125 L (155-355) mcg/dl Transferrin % Sat 16 L (20-50) % Ferritin 146.3 (8-388) ng/ml C-Reactive Protein 34.81 H (0-0.5) mg/dl Rheumatoid Factor Pending LESLYE Screen Pending 07/23/23 07/23/23 Range/Units 20:21 17:16 WBC (4.8-10.8) K/ul RBC (4.70-6.10) M/uL Hgb (14.0-18.0) g/dl Hct (42.0-52.0) % MCV (80.0-100.0) fL MCH (25.0-34.0) pg MCHC (32.0-36.0) g/dL RDW Std Deviation (36.4-46.3) fL RDW Coeff of Mike (11.5-14.5) % Plt Count (130-400) K/uL MPV (9.4-12.4) fL ESR (0-20) mm/hr Sodium (136-145) mmol/L Potassium (3.5-5.1) mmol/L Chloride (98-107) mmol/L Carbon Dioxide (21-32) mmol/L Anion Gap (3-11) BUN (6-23) mg/dl Creatinine (0.6-1.4) mg/dl Est Cr Clr Drug Dosing ml/min Est GFR ( Amer) ml/min Est GFR (Non-Af Amer) ml/min BUN/Creatinine Ratio (10-20) Glucose (70-99(Fasting)) mg/dl POC Glucose 181 H 165 H (70-99) mg/dl Calcium (8.6-10.3) mg/dl Iron (35-175) mcg/dl TIBC (250-450) mcg/dl Unsaturated IBC (155-355) mcg/dl Transferrin % Sat (20-50) % Ferritin (8-388) ng/ml C-Reactive Protein (0-0.5) mg/dl Rheumatoid Factor LESLYE Screen
[2023-07-24] MEDS: SODIUM ZIRCONIUM CYCLOSILICATE 10 GM PACKET PO SCH (14:12)
--- NOTE | 2023-07-24 14:50 | Rheumatology Consultation ---
Rheumatology Consultation DOS July 24, [address] Aburto Attending Physician Dr Colon Reason for Consultation ? septic arthritis Assessment & Plan (1) Septic arthritis of knee, right: ? of septic arthritis which is possible given previous abx use with aspiration despite cultures so far negative x 3 vs micro-cystaline disease. 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 is on abx and awaiting further cultures. AFB was added to cultures so will wait o that as well. doubt this is an autoimmune process but will await labs. Pending course may need further outpatient eval by rheumatology (2) Pseudogout of knee: see above (3) Effusion, right knee: see above Plan 1. await further cultures. 2. await ID input - may need several weeks of abx treatment 3. may need outpatient rheumatology follow up pending course 4. thank you for the consult and involving me in this patient's care History of Present Illness Reason for Consultation: ? septic arthritis Requesting Physician: Dr Aburto Attending Physician: Moe Chacon, DO History of Present Illness Mr Prabhakar is here after being admitted for a wash out of his right knee. He has multiple medical issues that includes diabetes, dialysis, recent radiation tx for likely lung cancer and recent treatments for left leg abscess. he was seen at bedside with his . she was helping with the history as well. they report last summer he developed a painful left knee - saw Dr Aburto (who had treated his right ankle fracture) and had his knee drained and injected. this fluid showed rare CPPD crystals. the arthritis had not returned. they mention that after radiation treatment he was noted to have a left leg abscess (he has dealt with wound issues over the last 1 yr). went to wound clinic and cultured and treated for infection. he was placed on bactrim and amoxicillin. he developed acute right knee pain several weeks ago and saw Dr Aburto and had it aspirated and injected. he did well for about 1 week or so but the knee became painful and swollen again. when he had the first aspiration it showed many WBC's (done through [facility] but reported to be > 50K) and cultures were negative but was on abx at that time. they state that the right knee was very painful this second time around. again saw ortho and the PA aspirated more fluid, no injection and sent for cultures. again reported wbc> 50K and negative cultures. the knee continued to be painful so he was set up for a wash out and debridement. the cultures so far have been negative. joint fluid was 69K with no cyrstals seen. he is on abx. Dr Aburto contact us for an eval as well. he reports that no other joints are bothering him like this right knee. when it was swollen, no redness. no fevers. no family history of autoimmune diseases or gout. mother had bilateral knee replacements. the knee is still pretty painful. it is bandaged. ID also has been consulted. autoimmune labs ordered. inflammatory markers are high as expected. Allergies Allergy/AdvReac Type Severity Reaction Status Date / Time No Known Drug Allergies Allergy Unknown Verified 07/21/23 14:04 Home Medications Medication Instructions Recorded Confirmed Type multivitamin (Multiple Vitamins 1 tab PO QAM 09/25/19 07/21/23 History tablet) blood-glucose meter #1 ea 11/21/20 07/21/23 History calcium acetate(phosphat bind) 667 1,334 mg (2 x 667 mg) PO BIDM #180 08/24/21 07/21/23 Rx mg capsule caps apixaban 5 mg tablet (Eliquis) 5 mg PO BID 09/08/21 07/21/23 History ondansetron 4 mg disintegrating 4 mg PO DAILY PRN nausea and 10/20/22 07/21/23 Rx tablet vomiting #30 tabs aspirin 81 mg tablet,delayed 81 mg PO DAILY #30 tabs 11/09/22 07/21/23 Rx release gemfibrozil 600 mg tablet (Lopid) 600 mg PO BID 11/16/22 07/21/23 History rosuvastatin 40 mg tablet (Crestor) 40 mg PO DAILY 30 days #90 tabs 02/01/23 07/21/23 Rx pen needle, diabetic 32 gauge x #100 ea 02/02/23 07/21/23 Rx 1/6" insulin NPH-regular hum semi-syn See Rx Instructions .Route .COMPLEX 06/13/23 07/21/23 History 100 unit/mL (70-30) subcutaneous soln amlodipine 10 mg tablet 10 mg PO QAM 07/21/23 07/21/23 History cinacalcet 30 mg tablet 30 mg PO DAILY 07/21/23 07/21/23 History Patient History Medical History Pulmonary nodule History of skin cancer left wrist Axillary lymphadenopathy Abnormal PET of right lung Reason for upcoming bronchoscopy Peripheral arterial disease Patient underwent angiogram on 12/03/[address] Adrian; no intervention required at this time. LVH (left ventricular hypertrophy) moderate History of nicotine dependence Fibrotic lung diseases possible chronic aspiration per [place] pulm records Chronic obstructive pulmonary disease stable per pt Diabetic retinopathy History of COVID-19 06/28/2020 - hospitalized at [facility]; fever, sob, generalized weakness. symptoms resolved. AV fistula LUE ESRD (end stage renal disease) on dialysis MWF - [facility] - follows with Dr. 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 Hough on Eliquis History of stroke 2013 - short term memory loss HTN (hypertension) variable Anemia Surgical History Hx of local excision of skin lesion History of surgery 11/16/22 [facility] Left Upper Extremity Arteriovenous Fistulogram, Percutaneous Transluminal Angioplasty Peripheral Venous, Moderate Sedation History of surgery fistula revision 08/14/1819 Grade 1 view, MAC 3, ETT 7.5. Fistual revision 06/2022 History of tooth extraction History of cataract surgery BL History of non-cataract eye surgery INJECTION FOR RETINOPATHY History of esophagogastroduodenoscopy (EGD) History of colonoscopy History of colostomy reversal History of colostomy History of bowel resection WITH TEMP. COLOSTOMY D/T DIVERTICULITIS Hx of cholecystectomy Family History Unknown Alzheimer disease Diabetes Obesity Prostate cancer Skin cancer Heart disease Father Heart disease Hearing loss Son Gallbladder disease Grandfather Kidney disease Uncle Myocardial infarction Hypertension maternal Melanoma paternal Other No family history of adverse response to anesthesia No family history of bleeding disorder Social History Smoking Status: Never smoker Tobacco Type: Cigarettes Age Started Using Tobacco: 21; Age Quit Using Tobacco: 67; packs per day: 1; Second Hand Exposure: No; Do You Dip or Chew Tobacco: No; Hx Alcohol Use: No Hx Substance Use: No Preferred Language: Greenlandic Communication Ability: Effective Visual Impairment: No Limitations Hearing Ability: Normal Cause Analyst Required: No Beliefs That Will Affect Care: None marital status: Current Living Situation: Spouse current occupational status: employed How many Children do You have: 3 other: Liza (), to call for questions Feels Safe at Home: Yes Safety Concerns: Feels Safe At This Time Childhood Exposure to Second-Hand Smoke: No Diet: diabetic Diet Comment: Renal caffeine: No Dental Care, Regularly: Yes Physical Activity Frequency: 3-4 Times per Week Seatbelt Use: never Sunscreen Use: No Assistive Devices: Walker Review of Systems Review of Systems: all other negative not noted in HPI or below Musculoskeletal: right knee pain, recent surgery Integumentary: wound breakdowns, left leg abscess Physical Exam Constitutional: examined lying comfortably in bed, no distress Eyes: no conjunctival erythema, EOMI ENMT: dry mouth noted, no oral ulcers Respiratory: CTA b/l no wheezes Cardiovascular: reg, no murmurs, + s1 and s2 Gastrointestinal (Abdomen): soft, NT ND + BS Musculoskeletal: right knee wrapped. very painful with little ROM. no synovitis or gouty tophi noted to hands or feet no left knee effusions Skin: several bandages noted on the skin, Results & Data Vital Signs (Past 12 Hours) Vital Signs Temp Pulse Pulse Resp BP Pulse Ox O2 Del Method 07/24/23 12:41 36.7 C 74 16 115/64 94 Room Air 07/24/23 09:16 91 H 07/24/23 07:44 36.8 C 91 H 16 94/58 L 96 Room Air 07/24/23 07:35 Room Air 07/24/23 03:00 36.7 C 84 20 105/64 96 Room Air Laboratory Results reviewed
--- NOTE | 2023-07-25 06:51 | Hospitalist Progress Note ---
Date of Service July 25, 2023 Assessment & Plan (1) Septic arthritis of knee, right: Plan: 73 yo male with PMHx of CVA, ESRD on dialysis, HLD, DM2, HTN, pulmonary nodule, and atrial flutter presents with septic knee. #R knee pain -S/p antibiotics and 2x aspiration with synovial fluid results prompting referral to ED by orthopedist - now s/p R knee irrigation and debridement on 07/22. - Etiology infectious vs rheumatology; likely infectious -R knee wound gram stain with WBCs but no bacteria. Culture negative, but was taken after 1st administration of antibiotics -blood cx NGTD -ortho, ID and Rheumatology consulted for further evaluation - Plan to continue -Continue Rocephin and vancomycin #History of atrial flutter -Currently in NSR -cont. eliquis #Left thigh cellulitis with abscess -Ongoing for past month, now resolving s/p antibiotic treatment with Bactrim and amoxicillin -Improving, no active infection presently -Wound care following #ESRD on dialysis -MWF dialysis schedule -Dialysis management per nephrology #DM2 -on NPH sliding scale at home - continue SSI -pharmacy glycemic consult placed DVT ppx: Eliquis FEN/GI: DM2 Code Status: DNR/DNI (2) Abscess of left thigh: (3) End-stage renal disease on hemodialysis: (4) Peripheral arterial disease: (5) Secondary hyperparathyroidism of renal origin: (6) Coronary disease: (7) Hyperlipidemia: (8) Diabetic nephropathy: (9) Uncontrolled type 2 diabetes mellitus with hyperglycemia: (10) Atrial flutter with rapid ventricular response: Admission and Anticipated Discharge Date Admission Date: July 24, 2023 Supervising Physician Co-Signing Physician Notes I personally examined the patient and verified all conrad points of history and exam, discussed case, and agree with decision making with Dr Leung Sleeping comfortably whenever I enter the room. Awakens easily. Notes that his knee is starting to feel betterpain is starting to be better controlled. He is amenable to the idea of rehab after discharge. Vitals noted, in general he is awake and alert pleasant no distress. HEENT normocephalic atraumatic mucous membranes moist. Right knee is dressed and wrappedtender over the joint even through the wrapping, but no real proximal or distal tenderness on his quad or his mauro. No tracking erythema at outside of the wrapped area. IMPRESSION & PLAN Septic arthritis of the knee, right Status post irrigation and debridement by orthopedics, And starting to show some degree of symptomatic improvement. Appreciate specialist input/multimodal approachagree with infectious disease, and it seems the most plausible explanation probably is a septic joint with a negative culture due to treatment prior to the culture being sent. End-stage renal disease on hemodialysis Anemia Dialysis on a Tuesday schedule Nephrology consultation appreciated IDDM SSI with glycemic consultSugar control has been reasonable. History of atrial flutter/atrial fibrillation Rate controlled, anticoagulated (apixaban) dispositionalmost certainly will need SNF or rehab at discharge. Additional per resident documentation Subjective Pt seen in dialysis this morning. Still complaining of right knee pain/swelling, slightly worse from yesterday. Has not been able to get up and walk secondary to pain. States that prior to hospitalization he was using walker. Lives in a 1 story house and ramp to get inside. Review of Systems Review of Systems: As per above Physical Exam Physical Exam: Constitutional: well-appearing, no acute distress HEENT: NCAT, no conjunctival injection CV: regular rhythm, no murmur appreciated, extremities well-perfused Resp: CTABL, no wheezes/rales/rhonchi appreciated, no increased work of br eathing GI: soft, nondistended, nontender, BS normoactive MSK: right knee wrapped Skin: warm, dry, no rash appreciated Neuro: alert, oriented, no focal neurologic deficit appreciated Results & Data Results & Data Vital Signs (Past 12 Hours) Vital Signs Temp Pulse Pulse Resp BP Pulse Ox O2 Del Method 07/25/23 03:10 36.7 C 88 20 108/66 97 Room Air 07/24/23 22:28 80 07/24/23 22:00 36.7 C 90 20 111/64 97 Room Air 07/24/23 19:00 36.8 C 71 20 112/64 97 Room Air Resident Activity Tracking Resident Involvement: Resident Care Provided Care Provided: Adult Hospital Medicine (7) Hyperlipidemia Hyperlipidemia type: unspecified Qualified Code(s): E78.5 - Hyperlipidemia, unspecified (8) Diabetic nephropathy Diabetes mellitus type: type 2 Qualified Code(s): E11.21 - Type 2 diabetes mellitus with diabetic nephropathy
[2023-07-25] MEDS ORDERED: SODIUM CHLORIDE 0.9% 1,000 ML IV PRN (07:00)
[2023-07-25 08:02] LABS: Basophils # (auto) 0.07 K/uL (0.00-0.20); Basophils % (auto) 1.2 %; Eosinophils # (auto) 0.47 K/uL (0.00-0.50); Eosinophils % (auto) 7.7 %; Hematocrit (blood only) 30.4 % (42.0-52.0); Immature Granulocytes # (auto) 0.03 K/uL (0.01-0.20); Immature Granulocytes % (auto) 0.5 %; Lymphocytes # (auto) 0.81 K/uL (1.20-3.40); Lymphocytes % (auto) 13.3 %; Mean Corpuscular Hemoglobin 31.7 pg (25.0-34.0); Mean Corpuscular Hgb Conc 32.9 g/dL (32.0-36.0); Mean Corpuscular Volume 96.5 fL (80.0-100.0); Mean Platelet Volume 9.8 fL (9.4-12.4); Monocytes # (auto) 0.78 K/uL (0.11-0.59); Monocytes % (auto) 12.8 %; Neutrophils # (auto) 3.92 K/uL (1.40-6.50); Neutrophils % (auto) 64.5 %; Platelet Count 298 K/uL (130-400); RDW Coefficient of Variation 15.5 % (11.5-14.5); RDW Standard Deviation 55.1 fL (36.4-46.3); Red Blood Count 3.15 M/uL (4.70-6.10); White Blood Count 6.08 K/ul (4.8-10.8)
[2023-07-25 08:34] LABS: BUN Creatinine Ratio 8.1 (10-20); Creatinine Clr Calc Pharmacy 9.6 ml/min; Est GFR (African American) 6.2 ml/min; Est GFR (Non-African American) 5.4 ml/min; Magnesium 2.1 mg/dl (1.7-2.4)
--- NOTE | 2023-07-25 08:48 | Nephrology Progress Note ---
Date of Service July 25, 2023 Assessment & Plan (1) End-stage renal disease on hemodialysis: Plan: * ESKD due to DKD, hypertensive nephrosclerosis * Outpatient Rx: MWF @ [facility] [place] 4 hours, 450/500, 180 optiflux, 2K. EDW 114 kg * L BC AVF + bruit this am * Hyperkalemic this morning. Will provide HD 1st shift this am. Orders placed in EMR and HD RN notified * Low K diet ordered (2) Anemia: Plan: * Hgb 10.5 this am * 07/23/23 iron saturation 16%, ferritin 146 * Will provide IV iron and ZAINAB w/ HD today (3) Septic arthritis of knee, right: Plan: * 07/22/23 R knee arthroscopic irrigation and debridement. Patient found to have diffuse synovitis, chondromalacia and medial meniscus tear * 07/22/23 wound specimen - gram stain + for WBC but no bacteria or fungi. Bacterial culture is negative. Fungal culture is pending * Orthopedics has requested consultation w/ ID * LESLYE, RF - pending * Rheumatology has ordered AFB and evaluation for CPPD Admission and Anticipated Discharge Date Admission Date: July 24, 2023 Subjective Mr. Prabhakar was evaluated in his hospital room this morning. He reports that R knee discomfort has improved. The drain has been removed. He voices no new medical concerns. Review of Systems Constitutional: no fever Eyes: no problem reported Ear, Nose, Mouth, Throat: no problem reported Respiratory: no cough and no dyspnea Cardiovascular: no chest pain Gastrointestinal: no abdominal pain, no nausea, no vomiting and no diarrhea/loose stools Musculoskeletal: + joint pain and + stiffness Integumentary: no rash Physical Exam Constitutional: not in distress Eyes: PERRL, conjunctivae normal, anicteric sclerae ENMT: external ear and nose normal, oropharynx normal Neck: trachea midline, no thyromegaly Respiratory: normal respiratory effort, lungs clear to auscultation Cardiovascular: RRR, no murmur, no edema Extremities: + AV fistula (L BC AVF + bruit) Gastrointestinal (Abdomen): normal bowel sounds, soft, nontender, no hepatosplenomegaly Skin: no rashes, warm and dry Psychiatric: Affect: euthymic affect Results & Data Vital Signs (Past 12 Hours) Vital Signs Temp Pulse Pulse Resp BP Pulse Ox O2 Del Method 07/25/23 07:38 89 07/25/23 07:35 Room Air 07/25/23 07:35 36.7 C 92 H 16 101/66 97 Room Air 07/25/23 03:10 36.7 C 88 20 108/66 97 Room Air 07/24/23 22:28 80 07/24/23 22:00 36.7 C 90 20 111/64 97 Room Air Laboratory Results Laboratory Results - last 24 hr 07/24/23 07/24/23 07/24/23 12:19 17:23 20:17 WBC RBC Hgb Hct MCV MCH MCHC RDW Std Deviation RDW Coeff of Mike Plt Count MPV Immature Gran % (Auto) Neut % (Auto) Lymph % (Auto) [place] % (Auto) Eos % (Auto) Baso % (Auto) Neut # (Auto) Lymph # (Auto) [place] # (Auto) Eos # (Auto) Baso # (Auto) Immature Gran # (Auto) Sodium Potassium Chloride Carbon Dioxide Anion Gap BUN Creatinine Est Cr Clr Drug Dosing Est GFR ( Amer) Est GFR (Non-Af Amer) BUN/Creatinine Ratio Glucose POC Glucose 183 H 216 H 200 H Calcium Magnesium 07/25/23 07/25/23 07:01 08:08 WBC 6.08 RBC 3.15 L Hgb 10.0 L Hct 30.4 L MCV 96.5 MCH 31.7 MCHC 32.9 RDW Std Deviation 55.1 H RDW Coeff of Mike 15.5 H Plt Count 298 MPV 9.8 Immature Gran % (Auto) 0.5 Neut % (Auto) 64.5 Lymph % (Auto) 13.3 [place] % (Auto) 12.8 Eos % (Auto) 7.7 Baso % (Auto) 1.2 Neut # (Auto) 3.92 Lymph # (Auto) 0.81 L [place] # (Auto) 0.78 H Eos # (Auto) 0.47 Baso # (Auto) 0.07 Immature Gran # (Auto) 0.03 Sodium 135 L Potassium 6.0 H Chloride 96 L Carbon Dioxide 23 Anion Gap 16 H BUN 72 H Creatinine 8.87 H* D Est Cr Clr Drug Dosing 9.6 Est GFR ( Amer) 6.2 Est GFR (Non-Af Amer) 5.4 BUN/Creatinine Ratio 8.1 L Glucose 152 H POC Glucose 159 H Calcium 10.0 Magnesium 2.1 PG Care Time/CCT Total # of Minutes Spent Total Time Spent with Patient: Total time spent is greater than 50% in coordination of care (as documented) at patient's floor/unit and/or counseling patient: Coding Level of Care Code 84385 SUB INP/OBS CARE 3/50MIN Diagnoses End-stage renal disease on hemodialysis N18.6; Z99.2 Anemia D64.9 Septic arthritis of knee, right M00.9
--- NOTE | 2023-07-25 10:50 | Infectious Disease Consult ---
Date of Consultation July 25, 2023 Assessment & Plan (1) Septic arthritis of knee, right: (2) Right knee pain: (3) Effusion, right knee: (4) Pulmonary nodule: Plan 1.Presumed Septic Arthritis R knee s/p irrigation and debridement 2. Presumed Lung ca s/p radiation 3. ESRD on HD ABX Daptomycin Ceftriaxone 73 yo male with PMHx of CVA, ESRD on dialysis (left avF), HLD, DM2, HTN, Presumed Lung ca ( robotic bronchoscopy to biopsy a right middle lobe lesion that was PET positive on 04/21/2023, biopsy sample is nondiagnostic ) s/p radiation, last colonoscopy 5 years ago (denis) and atrial flutter presented with concerns for septic knee. Patient referred by his orthopedic surgeon Dr. Aburto. He has been dealing with right knee pain and swelling for the last couple of weeks. He had it drained 2 weeks ago with corticosteroid placement and was doing well until symptoms returned a few days ago at which time was drained again. Fluid was sent for analysis and although culture was negative cell count was elevated showing concern for septic arthritis. Per EMR, patient had Left gluteal abscess since 06/18. He was treated with Bactrim and went to ED on 06/28 for left posterior thigh abscess. This was cultured and grew Clostridium perfringens and Finegoldia magna. Patient was given course of augmentin. 07/21/23 labs showed WBC 6, Hgb 10.5, platelets 281, 07/21 Blood culture NG Knee xray Suprapatellar effusion without evidence of underlying bony injury or osteomyelitis. 06/28 thigh culture Clostridium perfringens and Finegoldia magna 07/22/23 Underwent irrigation and debridement performed aspiration of the knee was performed and there was 30 cc of reddish-brown turbid fluid with particulate debris in it. OR cultures, fluid analysis WBC 14041, 96%pmns, gram stain no growth, many wbcs no organism RECOMMEND: -C/W Daptomycin with hd -C/W Ceftriaxone -While culture is negative patient has been oral antibiotics prior to this and may be the reason OR cultures are negative Sole Em MD Infectious Diseases [facility], [facility] Consultation Information Consultation was provided via telemedicine using two-way real-time interactive telecommunication between the patient and the telemedicine provider. For the duration of the visit, the provider was performing the assessment from a different facility than the patient. This includesuse of bluetooth stethoscope forauscultationperformed by the telepresenter that the telemedicine provider can hear if described in the physical exam. [employer] contact information: Please call [facility] Call Center . (Phone Number For Physician Use Only) After establishing a telemedicine visit, patient was: Patient was verified with two unique identifiers, Patient/authorized rep acknowledged consent and understanding and Gave permission to continue telehealth session Time Spent with Patient: Subsequent => 35 min History of Present Illness Reason for Consultation: Septic knee Requesting Physician: Dr. Lazo Attending Physician: Gonzalez Lazo, History of Present Illness 73 yo male with PMHx of CVA, ESRD on dialysis (left avF), HLD, DM2, HTN, Presumed Lung ca ( robotic bronchoscopy to biopsy a right middle lobe lesion that was PET positive on 04/21/2023, biopsy sample is nondiagnostic ) s/p radiation, last colonoscopy 5 years ago (denis) and atrial flutter presented with concerns for septic knee. Patient referred by his orthopedic surgeon Dr. Aburto. He has been dealing with right knee pain and swelling for the last couple of weeks. He had it drained 2 weeks ago with corticosteroid placement and was doing well until symptoms returned a few days ago at which time was drained again. Fluid was sent for analysis and although culture was negative cell count was elevated showing concern for septic arthritis. Per EMR, patient had Left gluteal abscess since 06/18. He was treated with Bactrim and went to ED on 06/28 for left posterior thigh abscess. This was cultured and grew Clostridium perfringens and Finegoldia magna. Patient was given course of augmentin. 07/21/23 labs showed WBC 6, Hgb 10.5, platelets 281, 07/21 Blood culture NG Knee xray Suprapatellar effusion without evidence of underlying bony injury or osteomyelitis. 06/28 thigh culture Clostridium perfringens and Finegoldia magna 07/22/23 Underwent irrigation and debridement performed aspiration of the knee was performed and there was 30 cc of reddish- brown turbid fluid with particulate debris in it. OR cultures, fluid analysis WBC 16252, 96%pmns, gram stain no growth, many wbcs no organism Patient on Ceftriaxone and Daptomycin Allergies Allergy/AdvReac Type Severity Reaction Status Date / Time No Known Drug Allergies Allergy Unknown Verified 07/21/23 14:04 Home Medications Medication Instructions Recorded Confirmed Type multivitamin (Multiple Vitamins 1 tab PO QAM 09/25/19 07/21/23 History tablet) blood-glucose meter #1 ea 11/21/20 07/21/23 History calcium acetate(phosphat bind) 667 1,334 mg (2 x 667 mg) PO BIDM #180 08/24/21 07/21/23 Rx mg capsule caps apixaban 5 mg tablet (Eliquis) 5 mg PO BID 09/08/21 07/21/23 History ondansetron 4 mg disintegrating 4 mg PO DAILY PRN nausea and 10/20/22 07/21/23 Rx tablet vomiting #30 tabs aspirin 81 mg tablet,delayed 81 mg PO DAILY #30 tabs 11/09/22 07/21/23 Rx release gemfibrozil 600 mg tablet (Lopid) 600 mg PO BID 11/16/22 07/21/23 History rosuvastatin 40 mg tablet (Crestor) 40 mg PO DAILY 30 days #90 tabs 02/01/23 07/21/23 Rx pen needle, diabetic 32 gauge x #100 ea 02/02/23 07/21/23 Rx 1/" insulin NPH-regular hum semi-syn See Rx Instructions .Route .COMPLEX 06/13/23 07/21/23 History 100 unit/mL (70-30) subcutaneous soln amlodipine 10 mg tablet 10 mg PO QAM 07/21/23 07/21/23 History cinacalcet 30 mg tablet 30 mg PO DAILY 07/21/23 07/21/23 History Patient History Medical History Pulmonary nodule History of skin cancer left wrist Axillary lymphadenopathy Abnormal PET of right lung Reason for upcoming bronchoscopy Peripheral arterial disease Patient underwent angiogram on 12/03/[address] Adrian; no intervention required at this time. LVH (left ventricular hypertrophy) moderate History of nicotine dependence Fibrotic lung diseases possible chronic aspiration per [place] pulm records Chronic obstructive pulmonary disease stable per pt Diabetic retinopathy History of COVID-19 06/28/2020 - hospitalized at [place]; fever, sob, generalized weakness. symptoms resolved. AV fistula LUE ESRD (end stage renal disease) on dialysis MWF - [facility] - follows with Dr. 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 Hough on Eliquis History of stroke 2013 - short term memory loss HTN (hypertension) variable Anemia Surgical History Hx of local excision of skin lesion History of surgery 11/16/22 [facility] Left Upper Extremity Arteriovenous Fistulogram, Percutaneous Transluminal Angioplasty Peripheral Venous, Moderate Sedation History of surgery fistula revision 08/14/1819 Grade 1 view, MAC 3, ETT 7.5. Fistual revision 06/2022 History of tooth extraction History of cataract surgery BL History of non-cataract eye surgery INJECTION FOR RETINOPATHY History of esophagogastroduodenoscopy (EGD) History of colonoscopy History of colostomy reversal History of colostomy History of bowel resection WITH TEMP. COLOSTOMY D/T DIVERTICULITIS Hx of cholecystectomy Family History Unknown Alzheimer disease Diabetes Obesity Prostate cancer Skin cancer Heart disease Father Heart disease Hearing loss Son Gallbladder disease Grandfather Kidney disease Uncle Myocardial infarction Hypertension maternal Melanoma paternal Other No family history of adverse response to anesthesia No family history of bleeding disorder Social History Smoking Status: Never smoker Tobacco Type: Cigarettes Age Started Using Tobacco: 21; Age Quit Using Tobacco: 67; packs per day: 1; Second Hand Exposure: No; Do You Dip or Chew Tobacco: No; Hx Alcohol Use: No Hx Substance Use: No Preferred Language: [place]an Communication Ability: Effective Visual Impairment: No Limitations Hearing Ability: Normal [place] Required: No Beliefs That Will Affect Care: None marital status: Current Living Situation: Spouse current occupational status: employed How many Children do You have: 3 other: Liza (), to call for questions Feels Safe at Home: Yes Safety Concerns: Feels Safe At This Time Childhood Exposure to Second-Hand Smoke: No Diet: diabetic Diet Comment: Renal caffeine: No Dental Care, Regularly: Yes Physical Activity Frequency: 3-4 Times per Week Seatbelt Use: never Sunscreen Use: No Assistive Devices: Walker Review of System No fevers and chills No CP/SOB/Cough No diarrhea Physical Exam Physical Exam: LAVF NAD R leg wrapped Results & Data Vital Signs (Past 12 Hours) Vital Signs Temp Pulse Pulse Pulse Resp BP BP 07/25/23 10:00 58 L 89/50 L 07/25/23 09:30 89 89/54 L 07/25/23 09:10 36.7 C 90 07/25/23 07:38 89 07/25/23 07:35 07/25/23 07:35 36.7 C 92 H 16 101/66 07/25/23 03:10 36.7 C 88 20 108/66 Pulse Ox O2 Del Method 07/25/23 10:00 07/25/23 09:30 07/25/23 09:10 07/25/23 07:38 07/25/23 07:35 Room Air 07/25/23 07:35 97 Room Air 07/25/23 03:10 97 Room Air Laboratory Results Laboratory Results - last 48 hr 07/23/23 07/23/23 07/23/23 12:09 17:16 20:21 WBC RBC Hgb Hct MCV MCH MCHC RDW Std Deviation RDW Coeff of Mike Plt Count MPV Immature Gran % (Auto) Neut % (Auto) Lymph % (Auto) [place] % (Auto) Eos % (Auto) Baso % (Auto) Neut # (Auto) Lymph # (Auto) [place] # (Auto) Eos # (Auto) Baso # (Auto) Immature Gran # (Auto) ESR Sodium Potassium Chloride Carbon Dioxide Anion Gap BUN Creatinine Est Cr Clr Drug Dosing Est GFR ( Amer) Est GFR (Non-Af Amer) BUN/Creatinine Ratio Glucose POC Glucose 215 H 165 H 181 H Calcium Magnesium Iron TIBC Unsaturated IBC Transferrin % Sat Ferritin C-Reactive Protein 07/24/23 07/24/23 07/24/23 05:15 08:27 12:19 WBC 6.87 RBC 3.29 L Hgb 10.5 L Hct 31.9 L MCV 97.0 MCH 31.9 MCHC 32.9 RDW Std Deviation 54.5 H RDW Coeff of Mike 15.4 H Plt Count 285 MPV 9.7 Immature Gran % (Auto) Neut % (Auto) Lymph % (Auto) [place] % (Auto) Eos % (Auto) Baso % (Auto) Neut # (Auto) Lymph # (Auto) [place] # (Auto) Eos # (Auto) Baso # (Auto) Immature Gran # (Auto) ESR 103 H Sodium 135 L Potassium 5.2 H Chloride 96 L Carbon Dioxide 24 Anion Gap 15 H BUN 56 H D Creatinine 7.22 H* D Est Cr Clr Drug Dosing 11.7 Est GFR ( Amer) 8.0 Est GFR (Non-Af Amer) 6.9 BUN/Creatinine Ratio 7.8 L Glucose 127 H POC Glucose 144 H 183 H Calcium 10.2 Magnesium Iron 24 L TIBC 149 L Unsaturated IBC 125 L Transferrin % Sat 16 L Ferritin 146.3 C-Reactive Protein 34.81 H 07/24/23 07/24/23 07/25/23 17:23 20:17 07:01 WBC 6.08 RBC 3.15 L Hgb 10.0 L Hct 30.4 L MCV 96.5 MCH 31.7 MCHC 32.9 RDW Std Deviation 55.1 H RDW Coeff of Mike 15.5 H Plt Count 298 MPV 9.8 Immature Gran % (Auto) 0.5 Neut % (Auto) 64.5 Lymph % (Auto) 13.3 [place] % (Auto) 12.8 Eos % (Auto) 7.7 Baso % (Auto) 1.2 Neut # (Auto) 3.92 Lymph # (Auto) 0.81 L [place] # (Auto) 0.78 H Eos # (Auto) 0.47 Baso # (Auto) 0.07 Immature Gran # (Auto) 0.03 ESR Sodium 135 L Potassium 6.0 H Chloride 96 L Carbon Dioxide 23 Anion Gap 16 H BUN 72 H Creatinine 8.87 H* D Est Cr Clr Drug Dosing 9.6 Est GFR ( Amer) 6.2 Est GFR (Non-Af Amer) 5.4 BUN/Creatinine Ratio 8.1 L Glucose 152 H POC Glucose 216 H 200 H Calcium 10.0 Magnesium 2.1 Iron TIBC Unsaturated IBC Transferrin % Sat Ferritin C-Reactive Protein 07/25/23 08:08 WBC RBC Hgb Hct MCV MCH MCHC RDW Std Deviation RDW Coeff of Mike Plt Count MPV Immature Gran % (Auto) Neut % (Auto) Lymph % (Auto) [place] % (Auto) Eos % (Auto) Baso % (Auto) Neut # (Auto) Lymph # (Auto) [place] # (Auto) Eos # (Auto) Baso # (Auto) Immature Gran # (Auto) ESR Sodium Potassium Chloride Carbon Dioxide Anion Gap BUN Creatinine Est Cr Clr Drug Dosing Est GFR ( Amer) Est GFR (Non-Af Amer) BUN/Creatinine Ratio Glucose POC Glucose 159 H Calcium Magnesium Iron TIBC Unsaturated IBC Transferrin % Sat Ferritin C-Reactive Protein Microbiology 07/21/23 17:42 Blood Aerobic Blood Culture - Preliminary No growth in Aerobic bottle after 48 hours. 07/21/23 17:42 Blood Anaerobic Blood Culture - Preliminary No growth in Anaerobic bottle after 48 hours. 07/21/23 18:27 Blood Aerobic Blood Culture - Preliminary No growth in Aerobic bottle after 48 hours. 07/21/23 18:27 Blood Anaerobic Blood Culture - Preliminary No growth in Anaerobic bottle after 48 hours. 07/22/23 Unknown Knee,Right Gram Stain - Final 07/22/23 Unknown Knee,Right Aerobic and Anaerobic Culture - Preliminary No growth to date. 07/22/23 Unknown Knee,Right Fungal Smear - Final
[2023-07-25] MEDS: IRON SUCROSE 100 MG in SYRINGE 0 ML IV ONE (12:07)
[2023-07-25] MEDS: EPOETIN ALFA 4,000 UNIT/ML VIAL IV ONE (12:07)
--- NOTE | 2023-07-25 13:57 | Pharmacy Report ---
Pharmacy Glycemic Short Note 2 - Date of Service July 25, 2023 - Glycemic Short BSG Results (Last 24 hours): 07/24/23 07/24/23 07/25/23 17:23 20:17 07:01 Glucose 152 H POC Glucose 216 H 200 H 07/25/23 07/25/23 08:08 13:22 Glucose POC Glucose 159 H 123 H OUTPATIENT ANTIDIABETIC REGIMEN: * Novolin 70/30 SC BID with meals based on blood sugar, usually 10-20 units BID * No A1c ordered, as they are unreliable in ESRD patients d/t interactions between the A1c analyzing technique and high levels of urea in ESRD, reduced RBC life span, iron deficiency anemia, and EPO administration. HbA1c > 7.5% in ESRD patient may overestimate the extent of hyperglycemia in ESRD patients. ASSESSMENT: 07/25: * Garcia received 45 units of insulin yesterday, 21 units basal + 24 units bolus. BSGs were: [phone] mg/dL. * Fasting BSG was 159 mg/dL this AM. Continue with current basal NPH scale. HD scheduled for this AM. * Continue with previously ordered bolus regimen. 07/23: * POD #1 s/p right knee arthroscopic I&D - IV dexamethasone pulled in OR * Lantus given yesterday, will change back to NPH today in light of home regimen and now that diet is ordered * Still trying to determine accurate insulin needs - will maintain current Novolog despite highs so far today * Hemodialysis yesterday 07/22: * Patient received total of 25 units of insulin yesterday, of which 15 units were NPH * Fasting BSG 90 mg/dL - patient NPO for OR today for washout of knee * Reasonable to continue novolog for today 07/21: * 73 yo male, T2DM, admitted with septic arthritis of right knee. * Outpatient regimen is premixed basal/prandial insulin of Novolin 70/30 mix insulin. * Pre-mixed insulin is difficult to titrate since it is already in a fixed distribution of basal:prandial insulin. Continuing pre-mixed insulin for admission typically lead to hypoglycemia d/t changing PO status but rapid acting insulin is unable to be held. * Home regimen will be held for admission per pharmacy consult. Will utilize recommended regimen of SQ basal bolus insulin regimen with NPH to match home basal + NovoLog (CF+CR) PLAN FOR INPATIENT GLYCEMIC CONTROL: * Basal insulin * NPH 8-13 units SC BIDM * Bolus insulin * NovoLog per scale ACHS or Q6hrs while NPO * Goal Range: Low 110 mg/dL - High 140 mg/dL * Correction Factor: 30 mg/dL/unit * Nutritional / Prandial insulin per carb ratio of 1 unit per 10 grams CHO consumed
--- NOTE | 2023-07-25 14:58 | Orthopedic Progress Note ---
Date of Service July 25, 2023 Assessment & Plan (1) Effusion, right knee: Plan: Postop day 3 - Status post arthroscopic irrigation debridement right knee with Dr. Aburto. Encouraged exercises when in bed. Also encouraged participation with physical therapy. We taught ankle pumps, straight leg raises and quad sets. Also discussed gentle knee range of motion. We did leave the dressing in place today. Appreciate rheumatology and infectious disease assistance. Continue antibiotics as per primary medicine service. Ice to right knee as needed for pain and swelling. Encouraged elevation of his right lower extremity to relieve pain and swelling in the knee. Continue PT/OT. He may weight-bear as tolerated with the assistance of a walker. No longer needs a knee immobilizer. His Eliquis has been resumed which is sufficient for DVT prophylaxis. Follow-up with orthopedics 10 to 14 days postop for suture removal. Will discuss findings with Dr. Aburto. Will continue to follow while in hospital. (2) Right knee pain: Admission and Anticipated Discharge Date Admission Date: July 24, 2023 Subjective Patient is resting in bed today. He did have dialysis this morning. He states that his knee does feel slightly better than it did prior to surgery although it still is painful. He states he has been unable to participate in therapy or ambulate due to pain in his knee. He states that every time therapy comes he is "tired". Physical Exam Musculoskeletal: Ariel bandage in place of his right knee. He is able to do Pelley straight leg raise. He tolerates range of motion to about 50 degrees comfortably. No distal edema. Full ankle range of motion and normal strength of his right ankle. Tolerates logrolling of the leg. Trace effusion to the right knee. Pain with palpation diffusely around the knee itself. Results & Data Vital Signs (Past 12 Hours) Vital Signs Temp Pulse Pulse Pulse Resp BP BP 07/25/23 12:55 36.7 C 93 H 115/86 07/25/23 12:30 87 95/58 L 07/25/23 12:00 86 93/55 L 07/25/23 11:30 89 95/43 L 07/25/23 11:00 90 99/48 L 07/25/23 10:30 89 99/52 L 07/25/23 10:00 58 L 89/50 L 07/25/23 09:30 89 89/54 L 07/25/23 09:10 36.7 C 90 07/25/23 07:38 89 07/25/23 07:35 07/25/23 07:35 36.7 C 92 H 16 101/66 07/25/23 03:10 36.7 C 88 20 108/66 Pulse Ox O2 Del Method 07/25/23 12:55 07/25/23 12:30 07/25/23 12:00 07/25/23 11:30 07/25/23 11:00 07/25/23 10:30 07/25/23 10:00 07/25/23 09:30 07/25/23 09:10 07/25/23 07:38 07/25/23 07:35 Room Air 07/25/23 07:35 97 Room Air 07/25/23 03:10 97 Room Air Laboratory Results Cultures - No growth to date.
--- NOTE | 2023-07-25 16:04 | Billing Data ---
Date of Service July 25, 2023 Coding Level of Care Code 27424 SUB INP/OBS CARE
--- NOTE | 2023-07-26 06:52 | Hospitalist Progress Note ---
Date of Service July 26, 2023 Assessment & Plan (1) Septic arthritis of knee, right: Plan: 73 yo male with PMHx of CVA, ESRD on dialysis, HLD, DM2, HTN, pulmonary nodule, and atrial flutter presents with septic knee. #R knee pain -S/p antibiotics and 2x aspiration with synovial fluid results prompting referral to ED by orthopedist - now s/p R knee irrigation and debridement on 07/22. - Etiology infectious vs rheumatology; likely infectious -R knee wound gram stain with WBCs but no bacteria. Culture negative, but was taken after 1st administration of antibiotics -blood cx NGTD -ortho, ID and Rheumatology consulted for further evaluation - Plan to continue -Continue Rocephin and vancomycin - PT/OT recommending acute rehab #History of atrial flutter -Currently in NSR -cont. eliquis #Left thigh cellulitis with abscess -Ongoing for past month, now resolving s/p antibiotic treatment with Bactrim and amoxicillin -Improving, no active infection presently -Wound care following #ESRD on dialysis -MWF dialysis schedule -Dialysis management per nephrology #DM2 -on NPH sliding scale at home - continue SSI -pharmacy glycemic consult placed DVT ppx: Eliquis FEN/GI: DM2 Code Status: DNR/DNI Dispo: Acute Rehab (2) Abscess of left thigh: (3) End-stage renal disease on hemodialysis: (4) Peripheral arterial disease: (5) Secondary hyperparathyroidism of renal origin: (6) Coronary disease: (7) Hyperlipidemia: (8) Diabetic nephropathy: (9) Uncontrolled type 2 diabetes mellitus with hyperglycemia: (10) Atrial flutter with rapid ventricular response: Admission and Anticipated Discharge Date Admission Date: July 24, 2023 Supervising Physician Co-Signing Physician Notes I personally examined the patient and verified all conrad points of history and exam, discussed case, and agree with decision making with Dr Leung Feels good no new complaintsknee pain is getting better. Mobility is getting better. Looking forward to rehab. Infectious disease input appreciated. Vitals noted, in general he is awake and alert pleasant no distress. HEENT normocephalic atraumatic mucous membranes moist. Breathing unlabored no accessory muscle use good effort. Skin without rashes pallor or icterus. Neuro without focal deficits. IMPRESSION & PLAN Septic arthritis of the knee, right Status post irrigation and debridement by orthopedics, And starting to show some degree of symptomatic improvement. Appreciate specialist input/multimodal approachagree with infectious disease, and it seems the most plausible explanation probably is a septic joint with a negative culture due to treatment prior to the culture being sent. Continue current antibioticsworking on long- term plan at rehab. End-stage renal disease on hemodialysis Anemia Dialysis on a Tuesday schedule Nephrology consultation appreciated IDDM SSI with glycemic consultSugar control Overall acceptable History of atrial flutter/atrial fibrillation Rate remains controlled, anticoagulated (apixaban) disposition for rehab tomorrow Additional per resident documentation Subjective Pt seen at bedside this morning. Still having significant pain in right knee, unchanged from yesterday. Does feel like ROM is a little better. Review of Systems Review of Systems: As per above Physical Exam Physical Exam: Constitutional: well-appearing, no acute distress HEENT: NCAT, no conjunctival injection CV: regular rhythm, no murmur appreciated, extremities well-perfused Resp: CTABL, no wheezes/rales/rhonchi appreciated, no increased work of breathing GI: soft, nondistended, nontender, BS normoactive MSK: right knee wrapped Skin: warm, dry, no rash appreciated Neuro: alert, oriented, no focal neurologic deficit appreciated Results & Data Results & Data Vital Signs (Past 12 Hours) Vital Signs Temp Pulse Pulse Resp BP Pulse Ox O2 Del Method 07/26/23 04:00 36.9 C 97 H 18 107/64 94 Room Air 07/25/23 23:46 90 07/25/23 23:19 36.9 C 94 H 18 104/60 93 Room Air 07/25/23 21:54 Room Air 07/25/23 19:00 37.2 C 92 H 18 105/65 93 Room Air Resident Activity Tracking Resident Involvement: Resident Care Provided Care Provided: Adult Hospital Medicine (7) Hyperlipidemia Hyperlipidemia type: unspecified Qualified Code(s): E78.5 - Hyperlipidemia, unspecified (8) Diabetic nephropathy Diabetes mellitus type: type 2 Qualified Code(s): E11.21 - Type 2 diabetes mellitus with diabetic nephropathy
[2023-07-26 07:16] LABS: Hematocrit (blood only) 29.6 % (42.0-52.0); Hemoglobin 9.7 g/dl (14.0-18.0); Mean Corpuscular Hgb Conc 32.8 g/dL (32.0-36.0); Mean Corpuscular Volume 97.7 fL (80.0-100.0); Mean Platelet Volume 9.8 fL (9.4-12.4); Platelet Count 297 K/uL (130-400); RDW Coefficient of Variation 15.6 % (11.5-14.5); RDW Standard Deviation 54.8 fL (36.4-46.3); Red Blood Count 3.03 M/uL (4.70-6.10); White Blood Count 5.28 K/ul (4.8-10.8)
[2023-07-26 07:35] LABS: BUN Creatinine Ratio 6.9 (10-20); Calcium 10.2 mg/dl (8.6-10.3); Creatinine Clr Calc Pharmacy 13.4 ml/min; Est GFR (African American) 9.4 ml/min; Est GFR (Non-African American) 8.1 ml/min; Potassium 5.2 mmol/L (3.5-5.1)
[2023-07-26] MEDS: DOCUSATE SODIUM/SENNA 50/8.6MG TAB PO SCH (08:20)
[2023-07-26] MEDS: POLYETHYLENE (MIRALAX) 17 GM PACK PO SCH (08:20)
--- NOTE | 2023-07-26 08:52 | Nephrology Progress Note ---
Date of Service July 26, 2023 Assessment & Plan (1) End-stage renal disease on hemodialysis: Plan: * ESKD due to DKD, hypertensive nephrosclerosis * Outpatient Rx: MWF @ [facility] 4 hours, 450/500, 180 optiflux, 2K. EDW 114 kg * L BC AVF + bruit this am * Mild hyperkalemic this morning. Will order Lokelma 10g po TID x 3 doses today * Low K diet ordered (2) Anemia: Plan: * Hgb 9.7 this am * 07/23/23 iron saturation 16%, ferritin 146 * Will schedule IV Venofer 200 mg daily x5 days * Will provide ZAINAB w/ HD (3) Septic arthritis of knee, right: Plan: * 07/22/23 R knee arthroscopic irrigation and debridement. Patient found to have diffuse synovitis, chondromalacia and medial meniscus tear * 07/22/23 wound specimen - gram stain + for WBC but no bacteria or fungi. Bacterial culture is negative. Fungal culture is pending * LESLYE, RF - pending * Rheumatology has ordered AFB and evaluation for CPPD Admission and Anticipated Discharge Date Admission Date: July 24, 2023 Subjective Mr. Prabhakar was evaluated in his hospital room this morning. He reports that his R knee discomfort is improved and he is now able to bend it again. Mr. Prabhakar was last dialyzed 07/25/23 without complication Review of Systems Constitutional: no fever Eyes: no problem reported Ear, Nose, Mouth, Throat: no problem reported Respiratory: no cough and no dyspnea Cardiovascular: no chest pain Gastrointestinal: no abdominal pain, no nausea, no vomiting and no diarrhea/loose stools Musculoskeletal: + joint pain and + stiffness Integumentary: no rash Physical Exam Constitutional: not in distress Eyes: PERRL, conjunctivae normal, anicteric sclerae ENMT: external ear and nose normal, oropharynx normal Neck: trachea midline, no thyromegaly Respiratory: normal respiratory effort, lungs clear to auscultation Cardiovascular: RRR, no murmur, no edema Extremities: + AV fistula (L BC AVF + bruit) Gastrointestinal (Abdomen): normal bowel sounds, soft, nontender, no hepatosplenomegaly Skin: no rashes, warm and dry Psychiatric: Affect: euthymic affect Results & Data Vital Signs (Past 12 Hours) Vital Signs Temp Pulse Pulse Resp BP Pulse Ox O2 Del Method 07/26/23 08:04 36.7 C 96 H 18 104/59 L 97 Room Air 07/26/23 07:27 92 H 07/26/23 04:00 36.9 C 97 H 18 107/64 94 Room Air 07/25/23 23:46 90 07/25/23 23:19 36.9 C 94 H 18 104/60 93 Room Air 07/25/23 21:54 Room Air Laboratory Results Laboratory Results - last 24 hr 07/25/23 07/25/23 07/25/23 13:22 17:06 20:29 WBC RBC Hgb Hct MCV MCH MCHC RDW Std Deviation RDW Coeff of Mike Plt Count MPV Sodium Potassium Chloride Carbon Dioxide Anion Gap BUN Creatinine Est Cr Clr Drug Dosing Est GFR ( Amer) Est GFR (Non-Af Amer) BUN/Creatinine Ratio Glucose POC Glucose 123 H 105 H 125 H Calcium 07/26/23 07/26/23 06:26 08:17 WBC 5.28 RBC 3.03 L Hgb 9.7 L Hct 29.6 L MCV 97.7 MCH 32.0 MCHC 32.8 RDW Std Deviation 54.8 H RDW Coeff of Mike 15.6 H Plt Count 297 MPV 9.8 Sodium 136 Potassium 5.2 H Chloride 99 Carbon Dioxide 26 Anion Gap 11 BUN 44 H D Creatinine 6.35 H* D Est Cr Clr Drug Dosing 13.4 Est GFR ( Amer) 9.4 Est GFR (Non-Af Amer) 8.1 BUN/Creatinine Ratio 6.9 L Glucose 226 H POC Glucose 214 H Calcium 10.2 PG Care Time/CCT Total # of Minutes Spent Total Time Spent with Patient: Total time spent is greater than 50% in coordination of care (as documented) at patient's floor/unit and/or counseling patient: Coding Level of Care Code 03127 SUB INP/OBS CARE 3/50MIN Diagnoses End-stage renal disease on hemodialysis N18.6; Z99.2 Anemia D64.9 Septic arthritis of knee, right M00.9
[2023-07-26] MEDS: IRON SUCROSE 200 MG in 0.9 % SODIUM CHLORIDE 100 ML IV SCH (09:52)
[2023-07-26] MEDS: SODIUM ZIRCONIUM CYCLOSILICATE 10 GM PACKET PO SCH (09:52)
--- NOTE | 2023-07-26 10:38 | Orthopedic Progress Note ---
Date of Service July 26, 2023 Assessment & Plan (1) Effusion, right knee: Plan: Postop day 4 - Status post arthroscopic irrigation debridement right knee with Dr. Aburto. Encouraged exercises when in bed. Also encouraged participation with physical therapy. We taught ankle pumps, straight leg raises and quad sets. Also discussed gentle knee range of motion. We did leave the dressing in place today. Appreciate rheumatology and infectious disease assistance. Continue antibiotics as per primary medicine service. Patient states that he has not been able to participate with PT/OT He understands that he will most likely need to be discharged to a rehab or snf facility Ice to right knee as needed for pain and swelling. Encouraged elevation of his right lower extremity to relieve pain and swelling in the knee. Continue PT/OT. He may weight-bear as tolerated with the assistance of a walker. No longer needs a knee immobilizer. His Eliquis has been resumed which is sufficient for DVT prophylaxis. Follow-up with orthopedics 10 to 14 days postop for suture removal. Will discuss findings with Dr. Aburto. Will continue to follow while in hospital. (2) Right knee pain: Admission and Anticipated Discharge Date Admission Date: July 24, 2023 Subjective This 73-year-old male is day 4 status post right knee incision and drainage of his right knee for septic arthritis. Patient states he is doing fairly well today. He states that his knee is still very tender with palpation and attempted movement. 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 He is lying in bed with a pillow under his knee in a slightly flexed position. He states that he is able to move the knee more today than he had been. Currently he denies fever, chills, sweats, lethargy or numbness or tingling in his right lower extremity. He also denies chest pain, shortness of breath, nausea, vomiting, diarrhea or difficulty voiding. He is currently receiving IV daptomycin. He is been evaluated by infectious disease, rheumatology and nephrology. He is on chronic dialysis. Patient also is on Eliquis 5 mg twice daily for atrial flutter. Review of Systems Review of Systems: All systems reviewed & are unremarkable except as noted in Subjective Physical Exam Physical Exam: Right knee: Patient experiences tenderness to palpation circumferentially over the knee. Dressing was kept in place but there is palpable edema. Patient is able to perform an active straight leg raise test. He has chronic dropfoot in the right lower extremity. Active knee range of motion is from about 4 degrees of extension to 70 degrees of flexion. Patient's quad strength is 3 out of 5. He is neurovascularly intact. Results & Data Vital Signs (Past 12 Hours) Vital Signs Temp Pulse Pulse Resp BP Pulse Ox O2 Del Method 07/26/23 08:04 36.7 C 96 H 18 104/59 L 97 Room Air 07/26/23 07:27 92 H 07/26/23 04:00 36.9 C 97 H 18 107/64 94 Room Air 07/25/23 23:46 90 07/25/23 23:19 36.9 C 94 H 18 104/60 93 Room Air Diagnostic Findings Laboratory Results WBC 5.28 K/ul (4.8-10.8) 07/26/23 06:26 RBC 3.03 M/uL (4.70-6.10) L 07/26/23 06:26 Hgb 9.7 g/dl (14.0-18.0) L 07/26/23 06:26 Hct 29.6 % (42.0-52.0) L 07/26/23 06:26 MCV 97.7 fL (80.0-100.0) 07/26/23 06:26 MCH 32.0 pg (25.0-34.0) 07/26/23 06:26 MCHC 32.8 g/dL (32.0-36.0) 07/26/23 06:26 RDW Std Deviation 54.8 fL (36.4-46.3) H 07/26/23 06:26 RDW Coeff of Mike 15.6 % (11.5-14.5) H 07/26/23 06:26 Plt Count 297 K/uL (130-400) 07/26/23 06:26 MPV 9.8 fL (9.4-12.4) 07/26/23 06:26 Immature Gran % (Auto) 0.5 % 07/25/23 07:01 Neut % (Auto) 64.5 % 07/25/23 07:01 Lymph % (Auto) 13.3 % 07/25/23 07:01 [place] % (Auto) 12.8 % 07/25/23 07:01 Eos % (Auto) 7.7 % 07/25/23 07:01 Baso % (Auto) 1.2 % 07/25/23 07:01 Neut # (Auto) 3.92 K/uL (1.40-6.50) 07/25/23 07:01 Lymph # (Auto) 0.81 K/uL (1.20-3.40) L 07/25/23 07:01 [place] # (Auto) 0.78 K/uL (0.11-0.59) H 07/25/23 07:01 Eos # (Auto) 0.47 K/uL (0.00-0.50) 07/25/23 07:01 Baso # (Auto) 0.07 K/uL (0.00-0.20) 07/25/23 07:01 Immature Gran # (Auto) 0.03 K/uL (0.01-0.20) 07/25/23 07:01 ESR 103 mm/hr (0-20) H 07/24/23 05:15 PT 12.8 Seconds (9.0-12.0) H 07/22/23 04:12 INR 1.2 (0.9-1.1) H 07/22/23 04:12 APTT 40 Seconds (21-31) H 07/21/23 17:42 PTT Ratio 1.4 07/21/23 17:42 Sodium 136 mmol/L (136-145) 07/26/23 06:26 Potassium 5.2 mmol/L (3.5-5.1) H 07/26/23 06:26 Chloride 99 mmol/L (98-107) 07/26/23 06:26 Carbon Dioxide 26 mmol/L (21-32) 07/26/23 06:26 Anion Gap 11 (3-11) 07/26/23 06:26 BUN 44 mg/dl (6-23) H D 07/26/23 06:26 Creatinine 6.35 mg/dl (0.6-1.4) H* D 07/26/23 06:26 Est Cr Clr Drug Dosing 13.4 ml/min 07/26/23 06:26 Est GFR ( Amer) 9.4 ml/min 07/26/23 06:26 Est GFR (Non-Af Amer) 8.1 ml/min 07/26/23 06:26 BUN/Creatinine Ratio 6.9 (10-20) L 07/26/23 06:26 Glucose 226 mg/dl (70-99(Fasting)) H 07/26/23 06:26 POC Glucose 214 mg/dl (70-99) H 07/26/23 08:17 Lactate 1.4 mmol/L (0.4-2.0) 07/21/23 17:42 Calcium 10.2 mg/dl (8.6-10.3) 07/26/23 06:26 Magnesium 2.1 mg/dl (1.7-2.4) 07/25/23 07:01 Iron 24 mcg/dl (35-175) L 07/24/23 05:15 TIBC 149 mcg/dl (250-450) L 07/24/23 05:15 Unsaturated IBC 125 mcg/dl (155-355) L 07/24/23 05:15 Transferrin % Sat 16 % (20-50) L 07/24/23 05:15 Ferritin 146.3 ng/ml (8-388) 07/24/23 05:15 Total Bilirubin 0.4 mg/dl (0.2-1.0) 07/21/23 17:42 AST 20 U/L (13-39) 07/21/23 17:42 ALT 15 U/L (7-52) 07/21/23 17:42 Alkaline Phosphatase 91 U/L (34-104) 07/21/23 17:42 C-Reactive Protein 34.81 mg/dl (0-0.5) H 07/24/23 05:15 Total Protein 7.8 gm/dl (6.0-8.3) 07/21/23 17:42 Albumin 3.7 gm/dl (3.4-5.0) 07/21/23 17:42 Globulin 4.1 gm/dl (2.5-4.0) H 07/21/23 17:42 Albumin/Globulin Ratio 0.9 (0.9-2) 07/21/23 17:42 Fluid Comment 07/22/23 Unknown Synovial Source Right Knee 07/22/23 Unknown Synovial Color Jojo 07/22/23 Unknown Synovial Appearance Bloody 07/22/23 Unknown Synovial WBC (Auto) 44198 /ul (0-200) H 07/22/23 Unknown Synovial RBC (Auto) 67912 /uL 07/22/23 Unknown Synovial Polynuclear % 96.8 % 07/22/23 Unknown Synovial Mononuclear % 3.2 % 07/22/23 Unknown Synovial Crystals 07/22/23 Unknown Nasal Screen MRSA (PCR) Negative (Negative) 07/22/23 23:36 Random Vancomycin 19.3 mcg/ml (10-20) 07/22/23 04:12 Impressions Chest X-Ray 07/21/23 17:21 XR chest 1V portable CLINICAL HISTORY: Patient to have surgery tomorrow. TECHNIQUE: Single frontal radiograph of the chest was obtained. Comparison: Comparison is made to chest radiograph 04/21/2023 FINDINGS: No lines and tubes are seen. Cardiomegaly is noted. The aortic arch is calcified. The lungs are clear. No evidence of pleural effusion or pneumothorax. IMPRESSION: No acute chest disease. Cardiomegaly is noted. ACT 112: Negative or not required by law. Electronically signed by: Rodolfo Messer M.D. 07/21/2023 6:16 PM Knee X-Ray 07/21/23 17:54 XR knee RT 3V CLINICAL HISTORY: right knee pain, swelling TECHNIQUE: 3 views of the right knee were obtained. Comparison: Comparison is made to knee radiographs 07/08/2023 FINDINGS: There is no evidence of an acute fracture. Degenerative changes are seen in the knee joint. A small suprapatellar effusion is seen. Soft tissue swelling is seen about the knee. Vascular calcifications are seen. IMPRESSION: Suprapatellar effusion without evidence of underlying bony injury. Soft tissue swelling is seen. ACT 112: Negative or not required by law. Electronically signed by: Rodolfo Messer M.D. 07/21/2023 6:17 PM
--- NOTE | 2023-07-26 11:56 | Infectious Disease Progress Nt ---
Date of Service July 26, 2023 Assessment & Plan (1) Septic arthritis of knee, right: (2) Right knee pain: (3) Effusion, right knee: (4) Pulmonary nodule: Plan 1.Presumed Septic Arthritis R knee s/p irrigation and debridement 2. Presumed Lung ca s/p radiation 3. ESRD on HD ABX Daptomycin Ceftriaxone 73 yo male with PMHx of CVA, ESRD on dialysis (left avF), HLD, DM2, HTN, Presumed Lung ca ( robotic bronchoscopy to biopsy a right middle lobe lesion that was PET positive on 04/21/2023, biopsy sample is nondiagnostic ) s/p radiation, last colonoscopy 5 years ago (denis) and atrial flutter presented with concerns for septic knee. Patient referred by his orthopedic surgeon Dr. Aburto. He has been dealing with right knee pain and swelling for the last couple of weeks. He had it drained 2 weeks ago with corticosteroid placement and was doing well until symptoms returned a few days ago at which time was drained again. Fluid was sent for analysis and although culture was negative cell count was elevated showing concern for septic arthritis. Per EMR, patient had Left gluteal abscess since 06/18. He was treated with Bactrim and went to ED on 06/28 for left posterior thigh abscess. This was cultured and grew Clostridium perfringens and Finegoldia magna. Patient was given course of augmentin. 07/21/23 labs showed WBC 6, Hgb 10.5, platelets 281, 07/21 Blood culture NG Knee xray Suprapatellar effusion without evidence of underlying bony injury or osteomyelitis. 06/28 thigh culture Clostridium perfringens and Finegoldia magna 07/22/23 Underwent irrigation and debridement performed aspiration of the knee was performed and there was 30 cc of reddish-brown turbid fluid with particulate debris in it. OR cultures, fluid analysis WBC 97867, 96%pmns, gram stain no growth, many wbcs no organism, Discussion: Patient with likely septic arthritis of R knee, He was on augmentin and bactrim prior to admission for Gluteal abscess. He is also grown anaerobic bacteria from leg wounds and finally he a history of MRSA in the past. At this time would recommend full treatment for septic knee to cover all these organisms and can do this through HD and not placing a line. RECOMMEND: -Treat culture negative septic arthritis: -DC Ceftriaxone and start Ertapenem 1 Gram three times weekly post HD -Daptomycin 8mg/kg IV three times weekly post HD -If daptomyin is too costly, then can change to Vancomycin with HD -Weekly CBC with diff, CMP, CPK levels --> to primary care physician -Hold statin while on daptomycin -EOT for antibiotics will be 4 weeks from debridement: 08/18/23 Please call ID with any questions or concerns Sole Em MD Infectious Diseases [facility], ID Connect Admission and Anticipated Discharge Date Admission Date: July 24, 2023 Subjective This patient recommendation is based on a telemedicine consult request which was completed asynchronously through chart review and information provided by the primary physician. The patient was not seen or examined today. The evaluation is consultative in nature and all patient care and treatment decisions can either be accepted or rejected by the patient's primary hospital-based treating physician using their own independent medical judgment for their patient. Time Spent Reviewing Chart: 31+ minutes Results & Data Vital Signs (Past 12 Hours) Vital Signs Temp Pulse Pulse Resp BP Pulse Ox O2 Del Method 07/26/23 11:18 36.7 C 87 18 109/66 96 Room Air 07/26/23 08:04 36.7 C 96 H 18 104/59 L 97 Room Air 07/26/23 07:27 92 H 07/26/23 04:00 36.9 C 97 H 18 107/64 94 Room Air Laboratory Results Short CBC 07/26/23 Range/Units 06:26 WBC 5.28 (4.8-10.8) K/ul Hgb 9.7 L (14.0-18.0) g/dl Hct 29.6 L (42.0-52.0) % Plt Count 297 (130-400) K/uL BMP 07/26/23 06:26 Sodium 136 Potassium 5.2 H Chloride 99 Carbon Dioxide 26 BUN 44 H D Creatinine 6.35 H* D Glucose 226 H Calcium 10.2 Microbiology 07/22/23 Unknown Knee,Right Gram Stain - Final 07/22/23 Unknown Knee,Right Aerobic and Anaerobic Culture - Preliminary No growth to date. 07/21/23 17:42 Blood Aerobic Blood Culture - Preliminary No growth in Aerobic bottle after 48 hours. 07/21/23 17:42 Blood Anaerobic Blood Culture - Preliminary No growth in Anaerobic bottle after 48 hours. 07/21/23 18:27 Blood Aerobic Blood Culture - Preliminary No growth in Aerobic bottle after 48 hours. 07/21/23 18:27 Blood Anaerobic Blood Culture - Preliminary No growth in Anaerobic bottle after 48 hours. 07/22/23 Unknown Knee,Right Fungal Smear - Final Medications Administered Current Inpatient Medications Apixaban (Apixaban 5 Mg Tablet) 5 mg PO BID TIM Stop: 08/22/23 08:59 Last Admin: 07/26/23 08:21 Dose: 5 mg Aspirin (Aspirin 81 Mg Ectab) 81 mg PO DAILY ITM Stop: 08/22/23 08:59 Last Admin: 07/26/23 08:21 Dose: 81 mg Calcium Acetate (Calcium Acetate 667 Mg Cap/Tab) 1,334 mg PO BIDM TIM Stop: 08/21/23 07:59 Last Admin: 07/26/23 08:21 Dose: 1,334 mg Cinacalcet (Cinacalcet Hcl 30 Mg Tab) 30 mg PO DAILY TIM Stop: 08/21/23 08:59 Last Admin: 07/26/23 08:21 Dose: 30 mg Dextrose (Dextrose 50% 50 Ml Syringe) 25 - 50 ml IV UD PRN; Protocol PRN Reason: Hypoglycemia Protocol Stop: 08/20/23 19:41 Epoetin Joseph (Epoetin Joseph 10,000 Units/Ml Vial) 10,000 units IV ONE ONE Stop: 07/27/23 07:01 Gemfibrozil (Gemfibrozil 600 Mg Tab) 600 mg PO BID TIM Stop: 08/21/23 08:59 Last Admin: 07/22/23 23:04 Dose: Not Given Glucagon (Glucagon For Inj 1 Mg Vial) 1 mg SQ UD PRN; Protocol PRN Reason: Hypoglycemia Protocol Stop: 08/20/23 19:41 Glucose (Glucose 10 Tab/Tube) 4 - 8 tab PO UD PRN; Protocol PRN Reason: Hypoglycemia Treatment Stop: 08/20/23 19:41 Glucose (Glucose 40% Gel 15 Gm Tube) 15 - 30 gm PO UD PRN; Protocol PRN Reason: Hypoglycemia Protocol Stop: 08/20/23 19:41 Hydromorphone HCl (Hydromorphone Inj 0.5 Mg/0.5 Ml Syr) 0.5 mg IV Q4H PRN PRN Reason: Pain or Pre PT Stop: 08/05/23 17:52 Last Admin: 07/26/23 08:17 Dose: 0.5 mg Hydromorphone HCl (Hydromorphone Inj 1 Mg/Ml Syringe) 1 mg IV Q4H PRN PRN Reason: Pain RATING 6 OR GREATER Stop: 08/05/23 17:52 Last Admin: 07/26/23 04:19 Dose: 1 mg Ceftriaxone Sodium 2,000 mg/ (Dextrose) 50 mls @ 100 mls/hr IV Q24H [facility]; Protocol Stop: 09/02/23 18:59 Last Infusion: 07/25/23 19:58 Dose: Infused Daptomycin 350 mg/ Syringe 7 mls @ 3.5 mls/min IV Q48H [facility]; Protocol Stop: 07/30/23 15:59 Last Admin: 07/25/23 16:19 Dose: 3.5 mls/min Iron Sucrose 200 mg/ Sodium (Chloride) 110 mls @ 220 mls/hr IV DAILY TIM Stop: 07/30/23 09:29 Last Infusion: 07/26/23 10:26 Dose: Infused Sodium Chloride (Nss) 1,000 mls @ 0 mls/hr IV .Q0M PRN PRN Reason: For Hemodialysis Use ONLY Stop: 07/27/23 12:59 Insulin Aspart (Insulin Aspart Per Unit Charge) 0 units SC ACHS [facility]; Protocol Stop: 08/20/23 20:59 Last Admin: 07/26/23 08:51 Dose: 9 units Insulin Human NPH (Insulin Human Nph) 12 units SC BIDM [facility] Stop: 08/25/23 16:59 Miscellaneous (Carbohydrates For Hypoglycemia ) 15 - 30 gm PO UD PRN PRN Reason: Hypoglycemia Protocol Stop: 08/20/23 19:41 Miscellaneous (No Heparin In Dialysis) 1 each N/A ONE ONE Stop: 07/27/23 07:01 Miscellaneous Information (Pharmacy Glycemic Mgmt Consult) 1 each N/A UD PRN; P rotocol PRN Reason: Consult Stop: 08/20/23 19:38 Naloxone HCl (Naloxone Hcl 0.4 Mg/1 Ml Vial/Carp) 0.1 mg IV Q5M PRN PRN Reason: Oversedation/Resp Depression Stop: 08/21/23 17:52 Ondansetron HCl (Ondansetron Inj 2 Mg/Ml 2 Ml Vial) 4 mg IV Q6H PRN PRN Reason: Nausea Stop: 08/20/23 19:51 Oxycodone HCl (Oxycodone Hcl Ir 5 Mg Tab (Immediate Release)) 5 - 10 mg PO Q4H PRN PRN Reason: Pain or Pre PT Stop: 08/05/23 17:52 Last Admin: 07/26/23 01:55 Dose: 10 mg Polyethylene Glycol (Polyethylene (Miralax) 17 Gm Pack) 17 gm PO BID [facility] Stop: 08/25/23 08:59 Last Admin: 07/26/23 08:20 Dose: 17 gm Rosuvastatin Calcium (Rosuvastatin Calcium 20 Mg Tab) 40 mg PO QPM [facility] Stop: 08/21/23 20:59 Last Admin: 07/25/23 20:57 Dose: 40 mg Senna/Docusate Sodium (Docusate Sodium/Senna 50/8.6mg Tab) 1 tab PO QAM [facility] Stop: 08/25/23 08:59 Last Admin: 07/26/23 08:20 Dose: 1 tab Sodium Zirconium Cyclosilicate (Sodium Zirconium Cyclosilicate 10 Gm Packet) 10 gm PO TID@0700,1400,1900 [facility] Stop: 07/26/23 19:01 Last Admin: 07/26/23 09:52 Dose: 10 gm
[2023-07-26] MEDS: ERTAPENEM SODIUM 500 MG in SYRINGE 0 ML IV ONE (13:43)
--- NOTE | 2023-07-26 13:47 | Pharmacy Report ---
Pharmacy Glycemic Short Note 2 - Date of Service July 26, 2023 - Glycemic Short BSG Results (Last 24 hours): 07/25/23 07/25/23 07/26/23 17:06 20:29 06:26 Glucose 226 H POC Glucose 105 H 125 H 07/26/23 07/26/23 08:17 12:05 Glucose POC Glucose 214 H 214 H OUTPATIENT ANTIDIABETIC REGIMEN: * Novolin 70/30 SC BID with meals based on blood sugar, usually 10-20 units BID * No A1c ordered, as they are unreliable in ESRD patients d/t interactions between the A1c analyzing technique and high levels of urea in ESRD, reduced RBC life span, iron deficiency anemia, and EPO administration. HbA1c > 7.5% in ESRD patient may overestimate the extent of hyperglycemia in ESRD patients. ASSESSMENT: 07/26: * Garcia received 36 units of insulin yesterday (21 were basal) * Fasting BSG this AM elevated, has received 21 units of basal for the past 3 days, will increase approximately 10% due to elevations. * He continues on ceftriaxone and daptomycin for septic arthritis * Novolog parameters tightened slightly due to mealtime BSG fluctuations 07/25: * Garcia received 45 units of insulin yesterday, 21 units basal + 24 units bolus. BSGs were: [id number] mg/dL. * Fasting BSG was 159 mg/dL this AM. Continue with current basal NPH scale. HD scheduled for this AM. * Continue with previously ordered bolus regimen. 07/23: * POD #1 s/p right knee arthroscopic I&D - IV dexamethasone pulled in OR * Lantus given yesterday, will change back to NPH today in light of home regimen and now that diet is ordered * Still trying to determine accurate insulin needs - will maintain current Novolog despite highs so far today * Hemodialysis yesterday 07/22: * Patient received total of 25 units of insulin yesterday, of which 15 units were NPH * Fasting BSG 90 mg/dL - patient NPO for OR today for washout of knee * Reasonable to continue novolog for today 07/21: * 73 yo male, T2DM, admitted with septic arthritis of right knee. * Outpatient regimen is premixed basal/prandial insulin of Novolin 70/30 mix insulin. * Pre-mixed insulin is difficult to titrate since it is already in a fixed distribution of basal:prandial insulin. Continuing pre-mixed insulin for admission typically lead to hypoglycemia d/t changing PO status but rapid acting insulin is unable to be held. * Home regimen will be held for admission per pharmacy consult. Will utilize recommended regimen of SQ basal bolus insulin regimen with NPH to match home basal + NovoLog (CF+CR) PLAN FOR INPATIENT GLYCEMIC CONTROL: * Basal insulin * NPH 12 units SC BIDM * Bolus insulin * NovoLog per scale ACHS or Q6hrs while NPO * Goal Range: Low 110 mg/dL - High 140 mg/dL * Correction Factor: 25 mg/dL/unit * Nutritional / Prandial insulin per carb ratio of 1 unit per 9 grams CHO consumed
[2023-07-26 14:57] LABS: Anti Nuclear Antibody Screen NEGATIVE (NEGATIVE); Rheumatoid Factor 23 IU/mL (<14)
--- NOTE | 2023-07-26 18:10 | Billing Data ---
Date of Service July 26, 2023 Coding Level of Care Code 20670 SUB INP/OBS CARE
[2023-07-26] MEDS: INSULIN HUMAN NPH SC SCH (18:13)
--- NOTE | 2023-07-27 06:51 | Discharge Summary ---
Date of Service July 27, 2023 Admission HPI Per Admitting Provider 73 yo male with PMHx of CVA, ESRD on dialysis, HLD, DM2, HTN, pulmonary nodule, and atrial flutter presents with septic knee. Patient referred by his orthopedic surgeon Dr. Aburto. He has been dealing with right knee pain and swelling for the last couple of weeks. He had it drained 2 weeks ago with corticosteroid placement and was doing well until symptoms returned a few days ago at which time was drained again. Fluid was sent for analysis and although culture was negative cell count was elevated showing concern for septic arthritis. He is scheduled to have a right knee washout tomorrow. He denies headache, fever, chills, fatigue, shortness of breath, chest pain, abdominal pain, nausea, vomiting, constipation, diarrhea, dysuria, extremity numbness/tingling. Of note he has also been dealing with an abscess on his posterior left thigh for which he follows with the wound clinic. He was initially on antibiotics for this which he has now completed. This has been healing well. Principal Diagnosis Septic Arthritis Discharge Exam Constitutional: well-appearing, no acute distress HEENT: NCAT, no conjunctival injection CV: regular rhythm, no murmur appreciated, extremities well-perfused Resp: CTABL, no wheezes/rales/rhonchi appreciated, no increased work of breathing GI: soft, nondistended, nontender, BS normoactive MSK: right knee wrapped Skin: warm, dry, no rash appreciated Neuro: alert, oriented, no focal neurologic deficit appreciated Discharge Data Allergies Allergy/AdvReac Type Severity Reaction Status Date / Time No Known Drug Allergies Allergy Unknown Verified 07/21/23 14:04 Consultations 07/21/23 20:08 Consult Nephrology Routine 07/23/23 12:17 Consult Infectious Diseases Routine Consult Rheumatology Routine Procedures Performed Operation Date: 07/22/23 07:00 Actual Procedures p Right Knee Arthroscopic Incision and Drainage, extensive debridement, Right knee aspiration, Right knee synovial biopsy, Right knee partial medial menisectomy. (Right) - Дмитрий Aburto MD Hospital Course (1) Septic arthritis of knee, right: 73 yo male with PMHx of CVA, ESRD on dialysis, HLD, DM2, HTN, pulmonary nodule, and atrial flutter presents with septic knee. #R knee pain -S/p antibiotics and 2x aspiration with synovial fluid results prompting referral to ED by orthopedist - now s/p R knee irrigation and debridement on 07/22. - Etiology infectious vs rheumatology; likely infectious -R knee wound gram stain with WBCs but no bacteria. Culture negative, but was taken after 1st administration of antibiotics -blood cx NGTD -ortho, ID and Rheumatology consulted for further evaluation - Doppler right LE prior to d/c without DVT - ID consulted and recommending: - Ertapenem 1 Gram three times weekly post HD -Daptomycin 8mg/kg IV three times weekly post HD -Weekly CBC with diff, CMP, CPK levels --> to primary care physician -Hold statin while on daptomycin -EOT for antibiotics will be 4 weeks from debridement: 08/18/23 - PT/OT recommending acute rehab #History of atrial flutter -Currently in NSR -cont. eliquis #Left thigh cellulitis with abscess -Ongoing for past month, now resolving s/p antibiotic treatment with Bactrim and amoxicillin -Improving, no active infection presently -Wound care following #ESRD on dialysis -[facility] dialysis schedule: * Outpatient Rx: MWF @ [facility] 4 hours, 450/500, 180 optiflux, 2K. EDW 114 kg - Have noted some hyperkalemia between treatments; has needed a few dose of Lokelma. Continue low K diet, re-check BMP tomorrow. #DM2 -resume hold regimen -Novolin 70/30 SC BID with meals based on blood sugar, usually 10-20 units BID HTN - amlodipine held due to hypotension, resume when blood pressures can tolerate HLD - hold statin while on daptomycin - continue gemfibrozil (2) Abscess of left thigh: (3) End-stage renal disease on hemodialysis: (4) Peripheral arterial disease: (5) Secondary hyperparathyroidism of renal origin: (6) Coronary disease: (7) Hyperlipidemia: (8) Diabetic nephropathy: (9) Uncontrolled type 2 diabetes mellitus with hyperglycemia: (10) Atrial flutter with rapid ventricular response: Total Time Total Time Spent Total Time Spent (In Minutes): <30 Discharge Plan Discharge Items Patient Disposition: Transfer Inpatient Rehab Fac Reason For Visit: SEPTIC KNEE Discharge Diagnosis: septice right knee Activity: Per Instructions section Weightbearing: Right weightbearing Weightbearing Comment: with walker Non-emergency contact: Surgeon Call non-emergency contact if: your symptoms worsen, your pain is not controlled, your temperature is above 101, your wound has increased redness and your wound has increased drainage Follow-up/Referrals: Дмитрий Aburto MD [Surgeon] - 08/02/23 8:00 am Chantel Cardenas MD [Primary Care Provider] - Diet: Low Potassium (2gm) Addtl Attending Provider Instructions: 73 yo male with PMHx of CVA, ESRD on dialysis, HLD, DM2, HTN, pulmonary nodule, and atrial flutter presents with septic knee. #R knee pain -S/p antibiotics and 2x aspiration with synovial fluid results prompting referral to ED by orthopedist - now s/p R knee irrigation and debridement on 07/22. - Etiology infectious vs rheumatology; likely infectious -R knee wound gram stain with WBCs but no bacteria. Culture negative, but was taken after 1st administration of antibiotics -blood cx NGTD -ortho, ID and Rheumatology consulted for further evaluation - ID consulted and recommending: - Ertapenem 1 Gram three times weekly post HD -Daptomycin 8mg/kg IV three times weekly post HD -Weekly CBC with diff, CMP, CPK levels --> to primary care physician -Hold statin while on daptomycin -EOT for antibiotics will be 4 weeks from debridement: 08/18/23 - PT/OT recommending acute rehab #History of atrial flutter -Currently in NSR -cont. eliquis #Left thigh cellulitis with abscess -Ongoing for past month, now resolving s/p antibiotic treatment with Bactrim and amoxicillin -Improving, no active infection presently -Wound care following #ESRD on dialysis -MWF dialysis schedule: * Outpatient Rx: MWF @ [facility] 4 hours, 450/500, 180 optiflux, 2K. EDW 114 kg - Have noted some hyperkalemia between treatments; has needed a few dose of Lokelma. Continue low K diet, re-check BMP tomorrow. #DM2 -resume hold regimen -Novolin 70/30 SC BID with meals based on blood sugar, usually 10-20 units BID HTN - amlodipine held due to hypotension, resume when blood pressures can tolerate HLD - hold statin while on daptomycin - continue gemfibrozil Addtl Regulatory Affairs Assistant Provider Instructions: Orthopedic Instructions: - You may weight-bear as tolerated on your right lower extremity with the assistance of a walker. - Elevate right lower extremity above your heart to relieve pain and swelling. - You may do range of motion as tolerated to your right knee. - Ariel bandage as needed for compression to your right knee. - Antibiotics as instructed by infectious disease and the medicine service. - Call Dr. Aburto's office with any increased pain, swelling, drainage to the right knee, fevers or chills. [phone] - Ice to your right knee as needed for pain and swelling. - Follow-up as scheduled with Dr. Aburto for your postoperative appointment. Pending Studies at Discharge: No Stand-Alone Forms: [facility] Skilled Items Patient informed of condition?: Yes DNR: Yes Discharge Level of Care: Acute rehab Communicable Disease: No Discharge Prognosis: Stable Lines: Peripheral IV Urinary Catheter: No Medications and DC Order Prescriptions: Continued calcium acetate(phosphat bind) 667 mg capsule 1,334 mg PO BIDM Qty: 180 5RF Rx Instructions: with meals rosuvastatin [Crestor] 40 mg tablet 40 mg PO DAILY 30 Days Qty: 90 4RF (DME) pen needle, diabetic 32 gauge x 1/6" needle See Rx Instructions .Route Qty: 100 3RF Rx Instructions: Inject up to 3 times daily. ondansetron 4 mg tablet,disintegrating 4 mg PO DAILY PRN (Reason: nausea and vomiting) Qty: 30 0RF (DME) blood-glucose meter Mis See Rx Instructions .ROUTE .MEDSUPPLY Qty: 1 Rx Instructions: Reli-On brand. Test blood sugar 3 times daily aspirin 81 mg tablet,delayed release (DR/EC) 81 mg PO DAILY Qty: 30 2RF Patient Comments: " has not started this yet" multivitamin [Multiple Vitamins] Tablet 1 tab PO QAM Eliquis 5 mg tablet 5 mg PO BID gemfibrozil [Lopid] 600 mg tablet 600 mg PO BID Rx Instructions: Take 1 tablet by mouth twice daily insulin NPH-regular hum s-syn 100 unit/mL (70-30) solution See Rx Instructions .ROUTE .COMPLEX Protocol: Glucose Chew Tablet Condition: BSG 54-69 mg/dL Dose/Route: 4 Glucose Tablets PO Instruction: Recheck BSG in 15 minutes Condition: BSG below 54mg/dL Dose/Route: 8 Glucose Tablets PO Instruction: Recheck BSG in 15 minutes Protocol Text: Each tablet contains 4 grams of carbs Rx Instructions: Inject as directed per sliding scale twice daily cinacalcet 30 mg tablet 30 mg PO DAILY Held amlodipine 10 mg tablet 10 mg PO QAM Hold Instructions: Held for hypotension, resume when blood pressures can tolerate Discharge Orders: Discharge Order (Routine); Ordered 07/27/23 Ordered By: Mouna Leung Admission Data Admit Date/Time: 07/24/23 09:00 Attending Provider: Gonzalez Lazo Admit Provider: Js Colon Primary Care Provider: Chantel Cardenas Other Providers: Toribio Cee; Josette Arreaga; Juliette Cutler; Livier Duff; Sole Em; Zara Christianson; Yang Mesa; Karen Patrick; Ana Maria Aguirre; Joaquin Curtis; [facility] Supervising Physician Co-Signing Physician Notes I personally examined the patient and verified all conrad points of history and exam, discussed case, and agree with decision making with Dr Leung knee pain better when i see him, then nephrology informed me that it was worse revisited - nonspecific but worse sort of but notes that its been pretty bad the whole time he was on HD (including when i had seen him earlier and he noted that he was feeling OK). Vitals noted, in general he is awake and alert pleasant no distress. HEENT normocephalic atraumatic mucous membranes moist. Breathing unlabored no accessory muscle use good effort. Skin without rashes pallor or icterus. Neuro without focal deficits. Knee with a mild degree of edema and bruising, calf with a little bit of swelling and pain, same with his quadcheck venous Dopplernegative. IMPRESSION & PLAN Septic arthritis of the knee, right Status post irrigation and debridement by orthopedics, treating as septic joint despite negative cultures given that he was on antibiotics prior to cultures being sentagree with infectious disease in this regard. As far as his worseni ng pain todayexam is nonspecific, I doubted that he would have a DVT given his chronic anticoagulation, however since he had inflammation in his knee from infection, surgery causing endothelial damage, and a lot of immobilitycheck to be safeafter discussion with orthopedics, they did not feel there was anything new/different/concerning going on with his knee. For rehab today. Outpatient orthopedics and PCP follow-up. End-stage renal disease on hemodialysis Anemia Dialysis on a Tuesday schedule Nephrology consultation appreciated IDDM SSI with glycemic consultSugar control sugar control has been acceptable History of atrial flutter/atrial fibrillation Rate remains controlled, anticoagulated (apixaban) disposition for rehab today Additional per resident documentation
[2023-07-27] MEDS ORDERED: SODIUM CHLORIDE 0.9% 1,000 ML IV PRN (07:00)
[2023-07-27 07:48] LABS: Hematocrit (blood only) 29.5 % (42.0-52.0); Hemoglobin 9.7 g/dl (14.0-18.0); Mean Corpuscular Hemoglobin 31.5 pg (25.0-34.0); Mean Corpuscular Hgb Conc 32.9 g/dL (32.0-36.0); Mean Corpuscular Volume 95.8 fL (80.0-100.0); Mean Platelet Volume 9.7 fL (9.4-12.4); Platelet Count 291 K/uL (130-400); RDW Coefficient of Variation 15.6 % (11.5-14.5); RDW Standard Deviation 53.1 fL (36.4-46.3); Red Blood Count 3.08 M/uL (4.70-6.10); White Blood Count 4.95 K/ul (4.8-10.8)
[2023-07-27 07:51] VITALS: RESP 16
[2023-07-27 08:11] LABS: BUN Creatinine Ratio 7.5 (10-20); Calcium 10.4 mg/dl (8.6-10.3); Creatinine Clr Calc Pharmacy 10.3 ml/min; Est GFR (African American) 6.8 ml/min; Est GFR (Non-African American) 5.8 ml/min; Potassium 5.5 mmol/L (3.5-5.1)
--- NOTE | 2023-07-27 08:50 | Nephrology Progress Note ---
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 EDW 114 kg * L BC AVF + bruit this am * Mild hyperkalemic this morning. Will order Lokelma 10g po TID x 3 doses today * Low K diet ordered (2) Anemia: Plan: * Hgb 9.7 this am * 07/23/23 iron saturation 16%, ferritin 146 * Will schedule IV Venofer 200 mg daily x5 days * Will provide ZAINAB w/ HD (3) Septic arthritis of knee, right: Plan: * 07/22/23 R knee arthroscopic irrigation and debridement. Patient found to have diffuse synovitis, chondromalacia and medial meniscus tear * 07/22/23 wound specimen - gram stain + for WBC but no bacteria or fungi. Bacterial culture is negative. Fungal culture is pending * LESLYE - negative, RF - 23 (<14) * Rheumatology has ordered AFB and evaluation for CPPD * ID financial operations consultant recommends 4 weeks antibiotic therapy from the date of debridement (antibiotic end date 08/18/23). IV Ertapenem and Daptomycin are to be given after each HD. This will need to be provided by home health. Statin to be held while patient is on Daptomycin therapy. Recommend that case management set up home health prior to transfer to [facility] Admission and Anticipated Discharge Date Admission Date: July 24, 2023 Subjective Mr. Prabhakar was evaluated in his hospital room this morning. He reports continued R knee discomfort. He hopes to be transferred to [facility] today Review of Systems Constitutional: no fever Eyes: no problem reported Ear, Nose, Mouth, Throat: no problem reported Respiratory: no cough and no dyspnea Cardiovascular: no chest pain Gastrointestinal: no abdominal pain, no nausea, no vomiting and no diarrhea/loose stools Musculoskeletal: + joint pain and + stiffness Integumentary: no rash Physical Exam Constitutional: not in distress Eyes: PERRL, conjunctivae normal, anicteric sclerae ENMT: external ear and nose normal, oropharynx normal Neck: trachea midline, no thyromegaly Respiratory: normal respiratory effort, lungs clear to auscultation Cardiovascular: RRR, no murmur, no edema Extremities: + AV fistula (L BC AVF + bruit) Gastrointestinal (Abdomen): normal bowel sounds, soft, nontender, no hepatosplenomegaly Skin: no rashes, warm and dry Psychiatric: Affect: euthymic affect Results & Data Vital Signs (Past 12 Hours) Vital Signs Temp Pulse Pulse Resp BP Pulse Ox O2 Del Method 07/27/23 07:51 36.7 C 93 H 16 132/69 95 Room Air 07/27/23 07:30 Room Air 07/27/23 05:50 97 H 07/27/23 03:56 36.7 C 98 H 18 118/69 97 Room Air 07/27/23 00:11 86 07/26/23 23:00 36.8 C 92 H 18 108/73 97 Room Air Laboratory Results Laboratory Results - last 24 hr 07/24/23 07/26/23 07/26/23 05:15 12:05 17:19 WBC RBC Hgb Hct MCV MCH MCHC RDW Std Deviation RDW Coeff of Mike Plt Count MPV Sodium Potassium Chloride Carbon Dioxide Anion Gap BUN Creatinine Est Cr Clr Drug Dosing Est GFR ( Amer) Est GFR (Non-Af Amer) BUN/Creatinine Ratio Glucose POC Glucose 214 H 138 H Calcium Rheumatoid Factor 23 H LESLYE Screen NEGATIVE 07/26/23 07/27/23 07/27/23 20:23 07:21 07:57 WBC 4.95 RBC 3.08 L Hgb 9.7 L Hct 29.5 L MCV 95.8 MCH 31.5 MCHC 32.9 RDW Std Deviation 53.1 H RDW Coeff of Mike 15.6 H Plt Count 291 MPV 9.7 Sodium 137 Potassium 5.5 H Chloride 97 L Carbon Dioxide 26 Anion Gap 14 H BUN 62 H Creatinine 8.29 H* D Est Cr Clr Drug Dosing 10.3 Est GFR ( Amer) 6.8 Est GFR (Non-Af Amer) 5.8 BUN/Creatinine Ratio 7.5 L Glucose 212 H POC Glucose 171 H 215 H Calcium 10.4 H Rheumatoid Factor LESLYE Screen PG Care Time/CCT Total # of Minutes Spent Total Time Spent with Patient: Total time spent is greater than 50% in coordination of care (as documented) at patient's floor/unit and/or counseling patient: Coding Level of Care Code 37461 SUB INP/OBS CARE 3/50MIN Diagnoses End-stage renal disease on hemodialysis N18.6; Z99.2 Anemia D64.9 Septic arthritis of knee, right M00.9
--- NOTE | 2023-07-27 09:25 | Orthopedic Progress Note ---
Date of Service July 27, 2023 Assessment & Plan (1) Effusion, right knee: Plan: Postop day 5 - Status post arthroscopic irrigation debridement right knee with Dr. Aburto. Encouraged exercises when in bed. Also encouraged participation with physical therapy. We taught ankle pumps, straight leg raises and quad sets. Also discussed gentle knee range of motion. Dressing changed today. Applied 2 x 2's with Tegaderm over all portal sites. Keep dressing in place until follow-up appointment. Appreciate rheumatology and infectious disease assistance. Continue antibiotics as per primary medicine service. Continue participation with PT/OT Continue Dapto/Ertapenem as ordered. Ice to right knee as needed for pain and swelling. Encouraged elevation of his right lower extremity to relieve pain and swelling in the knee. Continue PT/OT. He may weight-bear as tolerated with the assistance of a walker. No longer needs a knee immobilizer. His Eliquis has been resumed which is sufficient for DVT prophylaxis. Okay to shower. Follow-up up with Dr. Aburto as scheduled for evaluation next week. Dr. Aburto present for today's visit. All questions were answered. Patient understands and agrees with the plan. Discharge to [facility] today. (2) Right knee pain: Admission and Anticipated Discharge Date Admission Date: July 24, 2023 Subjective Patient resting in bed. States that his knee is feeling "better each day". He states that getting out of bed was a little easier yesterday than it was in the past. He still continues to have pain in his knee. He has been tolerating a regular diet. He is happy to go to [facility] today. Physical Exam Musculoskeletal: Exam of his right knee: He does have a small effusion to the right knee. Tenderness with palpation diffusely around the knee today. He incisions are clean, dry and intact with no erythema or active drainage. New dressings were applied over the incisions with a 2 x 2 and Tegaderm dressing. His able to do ankle range of motion. Strength is 5/5. Tolerates gentle range of motion of the knee passively and minimally actively. He has a skin abrasion over the tibial tuberosity region with active bleeding. No erythema or warmth to the right knee. Distal pulses are 1+. Results & Data Vital Signs (Past 12 Hours) Vital Signs Temp Pulse Pulse Resp BP Pulse Ox O2 Del Method 07/27/23 07:51 36.7 C 93 H 16 132/69 95 Room Air 07/27/23 07:30 Room Air 07/27/23 05:50 97 H 07/27/23 03:56 36.7 C 98 H 18 118/69 97 Room Air 07/27/23 00:11 86 07/26/23 23:00 36.8 C 92 H 18 108/73 97 Room Air Laboratory Results 07/27/23 07/27/23 07/26/23 Range/Units 07:57 07:21 20:23 WBC 4.95 (4.8-10.8) K/ul RBC 3.08 L (4.70-6.10) M/uL Hgb 9.7 L (14.0-18.0) g/dl Hct 29.5 L (42.0-52.0) % MCV 95.8 (80.0-100.0) fL MCH 31.5 (25.0-34.0) pg MCHC 32.9 (32.0-36.0) g/dL RDW Std Deviation 53.1 H (36.4-46.3) fL RDW Coeff of Mike 15.6 H (11.5-14.5) % Plt Count 291 (130-400) K/uL MPV 9.7 (9.4-12.4) fL Sodium 137 (136-145) mmol/L Potassium 5.5 H (3.5-5.1) mmol/L Chloride 97 L (98-107) mmol/L Carbon Dioxide 26 (21-32) mmol/L Anion Gap 14 H (3-11) BUN 62 H (6-23) mg/dl Creatinine 8.29 H* D (0.6-1.4) mg/dl Est Cr Clr Drug Dosing 10.3 ml/min Est GFR ( Amer) 6.8 ml/min Est GFR (Non-Af Amer) 5.8 ml/min BUN/Creatinine Ratio 7.5 L (10-20) Glucose 212 H (70-99(Fasting)) mg/dl POC Glucose 215 H 171 H (70-99) mg/dl Calcium 10.4 H (8.6-10.3) mg/dl Rheumatoid Factor (<14) IU/mL LESLYE Screen (NEGATIVE) 01/30/24 01/30/24 01/28/24 Range/Units 17:19 12:05 05:15 WBC (4.8-10.8) K/ul RBC (4.70-6.10) M/uL Hgb (14.0-18.0) g/dl Hct (42.0-52.0) % MCV (80.0-100.0) fL MCH (25.0-34.0) pg MCHC (32.0-36.0) g/dL RDW Std Deviation (36.4-46.3) fL RDW Coeff of Mike (11.5-14.5) % Plt Count (130-400) K/uL MPV (9.4-12.4) fL Sodium (136-145) mmol/L Potassium (3.5-5.1) mmol/L Chloride (98-107) mmol/L Carbon Dioxide (21-32) mmol/L Anion Gap (3-11) BUN (6-23) mg/dl Creatinine (0.6-1.4) mg/dl Est Cr Clr Drug Dosing ml/min Est GFR ( Amer) ml/min Est GFR (Non-Af Amer) ml/min BUN/Creatinine Ratio (10-20) Glucose (70-99(Fasting)) mg/dl POC Glucose 138 H 214 H (70-99) mg/dl Calcium (8.6-10.3) mg/dl Rheumatoid Factor 23 H (<14) IU/mL LESLYE Screen NEGATIVE (NEGATIVE)
[2023-07-27] MEDS: ACETAMINOPHEN 325 MG TAB PO PRN (12:45)
[2023-07-27] MEDS: EPOETIN ALFA 10,000 UNITS/ML VIAL IV ONE (14:23)
[2023-07-27 14:40] VITALS: TEMP 98.2; O2SAT 96
--- NOTE | 2023-07-27 15:40 | Ultrasound Report ---
ULTRASOUND RIGHT LOWER EXTREMITY VENOUS CLINICAL HISTORY: Right calf and thigh pain. COMPARISON STUDY: No priors. TECHNIQUE: Real-time, grayscale, and color Doppler sonography of the deep veins of the right lower ex tremity was performed from the inguinal crease to the calf. Compression and augmentation were utilize d. FINDINGS: There is no sonographic evidence of deep venous thrombosis identified in the right lower ex tremity. The common femoral, superficial femoral, and popliteal veins are patent and normally tae sible. The greater saphenous vein and the profunda femoris vein at the junction with the common femor al vein are clear. The visualized calf veins are patent. IMPRESSION: There is no sonographic evidence of deep venous thrombosis identified in the right lower extremity. ACT 112: Negative or not required by law. Electronically signed by: Wil Morton M.D. 07/27/2023 3:39 PM
[2023-07-27 15:46] VITALS: BP 147/88; PULSE 101
[2023-07-27] MEDS ORDERED: ERTAPENEM SODIUM 1,000 MG in SYRINGE 0 ML IV SCH (18:00)
[2023-07-27] MEDS ORDERED: DAPTOmycin 700 MG in SYRINGE 0 ML IV SCH (18:00)
--- NOTE | 2023-07-27 19:51 | Billing Data ---
Date of Service July 27, 2023 Coding Level of Care Code 07873 IN/OBS DISCH 30 MIN/LESS
== END 2023-07-27 15:46 | DRG 485 ==
LOC: ED 16:27 → EDINP 16:27 → SUATTDRO 19:38 → EDINP 07-22 14:39 → 2N 07-22 19:43 → SUATTDRO 07-24 09:00